=== PATIENT | female | born 1980 | race Caucasian/White ===

== ENCOUNTER → 2016-06-24 | Outpatient (CLI) | payer BC, OTHER ==
[~2016-06-24] MED LIST: LORA-741 PO; PRENTAB26 PO; TAMO20TA47 PO; TRIA37.5 PO
== END | disposition home or self-care (01) ==
LOC: C.PATHSPEC 17:36
PROVIDERS: ATTEND Obstetrics & Gynecology
DX: R87.612 Low grade squamous intraepithelial lesion on cytologic smear of cervix (LGSIL) (principal)

== ENCOUNTER → 2016-07-30 | Outpatient (CLI) | payer OTHER ==
[2015-08-06 14:50] VITALS: BP 123/82; PULSE 60
[~2016-07-30] MED LIST changes: -TAMO20TA47 PO; +TAMO20TA9 PO
[2016-07-30 14:14] VITALS: BP 127/89; PULSE 81; TEMP 36.9; O2SAT 99
--- NOTE | 2016-07-30 16:20 | Radiation Oncology Follow-Up ---
Radiation Oncology Follow-Up Date of Visit Jul 30, 2016. Reason For Visit Annual follow-up Radiation Completion Date 01/07/15 Diagnosis (1) Breast cancer, stage 2 Status: Resolved Onset Date: 03/22/2014 Histology Subtype: ductal Stage: ll Permanent Comment: SP biopsy of breast and axilla Estrogen receptor positive, progesterone receptor positive, HER-2/robert positive Clinical stage stage III Neoadjuvant chemotherapy with 6 cycles of TCH and Perjeta Status post bilateral mastectomies 09/19/2014 Tissue rotary planer set up operator placed on the left and permanent implant on the right. Pathologic stage [id number] Ongoing treatment with Herceptin Status post completion of radiation therapy 01/07/2015 received 6240 cGy Status post completion of final reconstructive surgery 07/22/2015 Ongoing treatment with tamoxifen Last Edited By: Guerita Belcher on Aug 06, 2015 16:53 History of Present Illness Ms. Pedroza is a 35-year-old female without a family history of breast cancer. She noted the onset of some left breast pain which was intermittent and mild to moderate. When she felt her breast she noted a palpable mass in the left breast in February 2014. The patient was seen by her forepart rasper who is in [place]. A bilateral mammogram was performed on 03/21/2014. This showed in the region of the identified palpable lump a mass with architectural distortion and fine calcifications within it. These changes cover an area of 5 cm in greatest dimension. She therefore underwent bilateral breast ultrasound. On 03/21/2014. No abnormal findings were noted in the right breast. The left breast a 1.3 x 1.7 x 1.2 cm spiculated hypoechoic vascular mass was appreciated with posterior shadowing. This was best seen at the 4 o'clock position of the left breast 7 cm from the nipple. Possible extensions of the mass up until 4 cm from the nipple were noted. It were several highly abnormal low-lying axillary lymph nodes seen in the axillary tail. This was given a category 5, highly suspicious for malignancy. Ultrasound-guided biopsy of the left breast and axillary lymph nodes was recommended. On 03/22/2014 core needle biopsy of the left axilla and left breast lesion was performed. Biopsy of the left axilla was positive for metastatic carcinoma. Biopsy of the left breast mass was positive for invasive ductal carcinoma histologic grade 2 of 3. The lesion was present on multiple core biopsies and measured at least 8 mm in greatest dimension. There was evidence of focal DCIS but no LCIS. There was no lymphovascular invasion appreciated. Estrogen receptors were positive (99% strong intensity). Progesterone receptors were positive (99% strong intensity). HER-2/robert was positive by FISH analysis. . The patient was seen in referral by Raquel OLEA on 03/21/2014. Additional studies were ordered. A bilateral breast MRI was performed on 04/04/2014. The right breast was unremarkable with a BI-RADS Category 2. The left breast revealed an abnormal enhancement measuring greater than 2 cm in maximal AP diameter along with prominent cluster of enhancing lymph nodes in the left axilla. These correlate with the recent biopsy findings. A PET/CT scan was performed on 04/05/2014. This showed 2 ill-defined hypermetabolic soft tissue densities in the left breast at the lower outer quadrant with SUV max of 9.5. The deeper soft tissue density is marked by a biopsy clip. They're countless hypermetabolic left axillary lymph nodes measuring up to 1.6 cm in the base of the left axillary lymph nodes extending into the subpectoral region with an SUV max of 6.2. A 3 mm pleural nodule was noted in the right middle lobe of the lung to small to characterize. No FDG avid lung parenchymal lesions, mediastinal or hilar adenopathy is appreciated. No abnormal abdominal or pelvic lesions appreciated. No abnormal musculoskeletal lesions noted. Patient was seen by Dr. Christian medical oncologist.. She states the patient has a stage III, locally advanced, invasive ductal carcinoma the left breast. Following the NCCN Guidelines she discussed neoadjuvant chemotherapy in the form of Docetaxel, Carboplatin, Herceptin and Perjeta every 3 weeks for 6 cycles. Following the completion of this regimen she would then continue with Herceptin every 3 weeks for 1 year. A Port-A-Cath was ultimately placed and systemic chemotherapy was initiated. The patient had also been seen by Dr. Bhupendra Shepard the breast surgeon and had brief discussions with Dr. Newberry the reconstructive plastic surgery and. The patient underwent genetic testing and was BRCA negative. She had decided after the completion of the chemotherapy to proceed with bilateral mastectomies and immediate breast reconstruction. The patient has been tolerating her systemic chemotherapy well. She is scheduled to start her final preoperative cycle on 08/07/2013. She underwent an MRI of the brain on 04/17/2014 which was normal with no evidence of metastatic disease. She underwent her bilateral mastectomies 09/19/2014. Right breast benign. Left breast showed small focus of residual invasive carcinoma consistent with ductal type, grade 2, measured 1.5 mm there was one of 9 lymph nodes positive for invasive carcinoma. There was a focus of invasive carcinoma within the perinodal tissue. She had placement of a tissue rotary planer set up operator on the left. A permanent implant was placed on the right. She received radiation therapy from 11/12/2014 to 01/07/2015. Treatment given to the left chest wall, supraclavicular area, and axilla. She tolerated this well. Interim History She has had no difficulty with her left chest wall over this past year. She has some mild tightness which she will periodically do stretching exercises for. She has noted no masses or tenderness no change of the axilla. She's had no swelling of her arm. In October she had a PET scan. This revealed an abnormality in the area of her appendix. She was referred and underwent an appendectomy. The path report revealed no significant acute inflammation present. Partial fibrous obliteration. Specimen [id number]. She had not had any problems with pain but there was worry of possible metastatic disease. She is on tamoxifen. She denies side effects. Allergies Coded Allergies: Apple (Verified Allergy, Unknown, ITCHY MOUTH, INDIGESTION, 12/03/15) Cat Dander (Verified Allergy, Unknown, SOB, SWELLING, CONGESTION, RUNNY EYES, 12/03/15) Erythromycin (Verified Allergy, Unknown, UNKNOWN, POSS GI UPSET A CHILD , 12/03/15) Home Medications Scheduled Multivit/Min/Iron/Fol Ac/Pren ( Vitamin), 1 TAB PO QAM Tamoxifen (Nolvadex), 20 MG PO QAM Triamterene/Hctz (Dyazide 37.5MG/25MG), 1 TAB PO QAM Scheduled PRN Lorazepam (Ativan), 0.5 MG PO Q6H PRN for Anxiety Review of Systems Gastrointestinal: Symptoms: WNL Oral: Symptoms: No Problems Respiratory: Symptoms: WNL Urinary: Symptoms: WNL Skin: Symptoms: No Problems Other Skin Symptoms: Residual willett appearance to left breast; Breast: Right Upper Arm Measurement: 29.2 Right Mid Arm Measurement: 23.7 Right Wrist Measurement: 14.7 Left Upper Arm Measurement: 28.7 Left Mid Arm Measurement: 23.0 Left Wrist Measurement: 14.6 Arm Dominence: Right Physical Exam Vital Signs Date Time Temp Pulse Resp B/P Pulse Ox O2 Delivery O2 Flow Rate FiO2 16 14:14 36.9 81 16 127/89 99 Pain: Side: Bilateral Pain Location: None Patient Pain Scale: 0 - 10 Initial Pain Intensity: 1.0 Additional Comments: From breast surgery Fatigue: None General Appearance: no apparent distress Eyes: normal inspection, EOMI ENT: normal ENT inspection, hearing grossly normal Neck: no adenopathy, thyroid normal Respiratory/Chest: lungs clear, no respiratory distress, no accessory muscle use Breast: Breast examination reveals bilateral implants. There are no masses or tenderness and no axillary adenopathy. She has mild telangiectasia along the incision of the inframammary fold on the left. The implant easily compressed. Using the [place] score cosmesis she has a good outcome. Cardiovascular: regular rate, rhythm, no gallop, no murmur Abdomen: non tender, soft Extremities: no pedal edema Neurologic/Psychiatric: no motor/sensory deficits, alert, normal mood/affect Skin: warm/dry Lymphatic: no adenopathy Assessment & Plan Plan: Continue regular follow-up with her medical oncologist and breast surgeon. She will do stretching exercises to help occasional tightness in the shoulder. We discussed exercise and to avoid repetitive long periods of weight lifting. She states that she does only a few repetitions and we'll then take a break. We discussed follow-up. We have asked her to return on a yearly basis for 5 years. She was in agreement to continue with follow-up. She'll therefore return in 1 year. Total Time In Follow-Up I spent 20 minutes speaking to the patient performing examination. I spent 15 minutes reviewing information and completing this note. Copy To Socrates Christian D.O.; Jordan Morris DO; Ora Shepard M.D. Problem Qualifiers (1) Breast cancer, stage 2: Laterality: left Qualified Codes: C50.912 - Malignant neoplasm of unspecified site of left female breast
== END | disposition home or self-care (01) ==
LOC: C.ONC 13:58
PROVIDERS: ATTEND Physician Assistant Medical
DX: Z08 Encounter for follow-up examination after completed treatment for malignant neoplasm (principal); Z92.3 Personal history of irradiation; Z85.3 Personal history of malignant neoplasm of breast

== ENCOUNTER → 2016-08-10 | Outpatient (CLI) | payer OTHER ==
[~2016-08-10] MED LIST changes: +TAMO20TA47 PO; -TAMO20TA9 PO
[2016-08-10 15:50] LABS: BASO % 0.6 %; BASO ABS # 0.03 K/uL (0-0.2); COMPLETE YES; EOS % 2.3 %; HEMATOCRIT 34.4 % (37-47); IG% 0.4 %; LYMPH % 32.4 %; LYMPH ABS # 1.58 K/uL (1.2-3.4); MEAN CELL VOLUME 92.5 fL (80-100); MEAN CORPUSCULAR HEMOGLOBIN 32.3 pg (25-34); MEAN CORPUSCULAR HGB CONC 34.9 g/dl (32-36); MEAN PLATELET VOLUME 11.2 fL (7.4-10.4); MONO % 10.5 %; NEUT % 53.8 %; PLATELET COUNT 332 K/uL (130-400); RED BLOOD COUNT 3.72 M/uL (4.2-5.4); WHITE BLOOD COUNT 4.87 K/uL (4.8-10.8)
[2016-08-10 16:12] LABS: ALT/SGPT 34 U/L (12-78); AST/SGOT 27 U/L (15-37); BLOOD UREA NITROGEN 11 mg/dl (7-18); BUN/CREATININE RATIO 13.4 (10-20); CALCIUM 9.7 mg/dl (8.5-10.1); CARBON DIOXIDE 30 mmol/L (21-32); CHLORIDE 98 mmol/L (98-107); CREATININE 0.83 mg/dl (0.60-1.20); GLUCOSE 79 mg/dl (70-99); POTASSIUM 3.1 mmol/L (3.5-5.1); SODIUM 134 mmol/L (136-145)
[2016-08-10 16:15] LABS: ALKALINE PHOSPHATASE 25 U/L (45-117)
== END | disposition home or self-care (01) ==
LOC: C.LAB 14:34
PROVIDERS: ATTEND Internal Medicine Hematology & Oncology
DX: C50.512 Malignant neoplasm of lower-outer quadrant of left female breast (principal)

== ENCOUNTER → 2016-09-30 | Outpatient (CLI) | payer OTHER ==
[~2016-09-30] MED LIST changes: -TAMO20TA47 PO; +TAMO20TA9 PO
--- NOTE | 2016-09-30 11:55 | DIAGNOSTIC IMAGING REPORT ---
PET/CT HISTORY: BREAST CANCER TECHNIQUE: PET/CT was performed from the base of the skull through the pelvis following the intravenous administration of 13.6 mCi of F18-FDG. Non-contrast CT imaging was performed over the same range without breath-hold for attenuation correction of PET images and anatomic correlation, but not for primary interpretation as it is not of standard diagnostic quality. COMPARISON: PET CT 11/04/2015. FINDINGS: HEAD AND NECK: Symmetric FDG uptake within the bilateral palatine tonsils. Therefore, this is likely physiologic. There is mild FDG uptake seen within a few of the bilateral jugulodigastric cervical lymph nodes. These are not significantly changed in size. These demonstrate an SUV max of 3. Dominant lymph node measures 10 x 6 mm in size on the right. CHEST: There is no pleural or pericardial effusion. There are total of 3 subcentimeter nodules within the right lung which are stable in size. The largest measures 3 within the right middle lobe . No new pulmonary nodules identified. Bilateral mastectomies with implant reconstruction. The FDG uptake surrounding the implants has resolved. There is a 1.2 cm cystic nodule within the left axilla seen on the prior study has a most completely resolved and now measures 5 mm.. There are few subcentimeter left axillary lymph nodes which have decreased in size. The FDG uptake has resolved. ABDOMEN/PELVIS: Below the diaphragm, tracer is distributed physiologically in the gastrointestinal and genitourinary tracts. Trace pelvic free fluid, unchanged. The right ovarian FDG uptake has resolved. Patchy FDG uptake within the left ovary has progressed within SUV max of 8. There is also a focal area of patchy FDG uptake within the lower uterine segment/cervix with an SUV max of 6. This measures 2.4 cm in size. No corresponding abnormality by CT. No FDG avid hepatic, splenic, or adrenal gland lesions. MUSCULOSKELETAL: There is no FDG-avid or destructive bone lesion. IMPRESSION: 1. No definite evidence for FDG avid metastatic disease. 2. The left axillary lymph node/nodules have decreased in size and no longer demonstrate FDG uptake.. 3. Stable subcentimeter right lung nodules. These do not demonstrate abnormal FDG uptake but are likely below the threshold for PET imaging. These favor benign nodules. Continued follow-up recommended. 4. Symmetric bilateral palatine tonsil FDG uptake and a few upper cervical lymph nodes demonstrating mild FDG uptake. This is unlikely to represent metastatic disease. However, follow-up is recommended to ensure stability/resolution. 5. The right ovarian uptake has resolved. Moderate to intense left ovarian uptake has progressed. This may be physiologic. There is also a 2.4 cm patchy area of moderate FDG uptake within the lower uterine segment/cervix. This may also be physiologic. Follow-up nonemergent pelvic ultrasound can be performed for confirmation. 6. Trace pelvic free fluid which is also likely physiologic. Electronically signed by: Demian Mejia M.D. 09/30/2016 11:54 AM Dictated Date/Time: 09/30/2016 11:30 AM
== END | disposition home or self-care (01) ==
LOC: C.PET 09:31
PROVIDERS: ATTEND Surgery
DX: C50.512 Malignant neoplasm of lower-outer quadrant of left female breast (principal)

== ENCOUNTER → 2017-01-06 | Outpatient (CLI) | payer OTHER ==
[~2017-01-06] MED LIST changes: +TAMO20TA47 PO; -TAMO20TA9 PO
== END | disposition home or self-care (01) ==
LOC: C.PAPS 09:00
PROVIDERS: ATTEND Obstetrics & Gynecology
DX: R87.612 Low grade squamous intraepithelial lesion on cytologic smear of cervix (LGSIL) (principal)

== ENCOUNTER → 2017-02-08 | Outpatient (CLI) | payer OTHER ==
[2017-02-08 16:24] LABS: BASO % 0.3 %; BASO ABS # 0.02 K/uL (0-0.2); COMPLETE YES; EOS % 4.5 %; HEMATOCRIT 34.6 % (37-47); IG% 0.8 %; LYMPH % 30.5 %; LYMPH ABS # 2.35 K/uL (1.2-3.4); MEAN CELL VOLUME 93.3 fL (80-100); MEAN CORPUSCULAR HEMOGLOBIN 31.8 pg (25-34); MEAN CORPUSCULAR HGB CONC 34.1 g/dl (32-36); MEAN PLATELET VOLUME 10.7 fL (7.4-10.4); MONO % 4.4 %; NEUT % 59.5 %; PLATELET COUNT 307 K/uL (130-400); RED BLOOD COUNT 3.71 M/uL (4.2-5.4); WHITE BLOOD COUNT 7.71 K/uL (4.8-10.8)
[2017-02-08 16:47] LABS: ALT/SGPT 22 U/L (12-78); BLOOD UREA NITROGEN 14 mg/dl (7-18); BUN/CREATININE RATIO 18.3 (10-20); CALCIUM 9.3 mg/dl (8.5-10.1); CARBON DIOXIDE 26 mmol/L (21-32); CHLORIDE 101 mmol/L (98-107); CREATININE 0.78 mg/dl (0.60-1.20); GLUCOSE 85 mg/dl (70-99); POTASSIUM 3.4 mmol/L (3.5-5.1); SODIUM 136 mmol/L (136-145)
[2017-02-08 16:50] LABS: ALKALINE PHOSPHATASE 29 U/L (45-117); AST/SGOT 17 U/L (15-37)
== END | disposition home or self-care (01) ==
LOC: C.LAB 15:33
PROVIDERS: ATTEND Internal Medicine Hematology & Oncology
DX: C50.512 Malignant neoplasm of lower-outer quadrant of left female breast (principal)

== ENCOUNTER → 2017-03-29 | Outpatient (CLI) | payer OTHER ==
[~2017-03-29] MED LIST changes: -TAMO20TA47 PO; +TAMO20TA9 PO
--- NOTE | 2017-03-29 11:27 | DIAGNOSTIC IMAGING REPORT ---
PET/CT SKULL-THIGH CLINICAL HISTORY: 37 years-old Female presenting with BREAST CANCER, malignant neoplasm of the upper outer quadrant of the left breast diagnosed 2014 ([facility]), bilateral total mastectomy is 2014 with reconstruction, on tamoxifen, last treatment December 2014. TECHNIQUE: PET/CT was performed from the base of the skull through the proximal thighs following the intravenous administration of 12.979 mCi of F18-FDG. Blood glucose level 83 mg/dL. The injection was performed at 9:12 AM and imaging began at 10:[address] was performed for attenuation correction purposes and anatomic localization. COMPARISON: 09/30/2016. CT DOSE (mGy.cm): The estimated cumulative dose is 419.40 mGycm. FINDINGS: Head and neck: Interval development of a FDG avid left jugulodigastric lymph node, measuring 12 mm in long axis (max SUV 3.7, previously max SUV 3.3). A similar sized right jugulodigastric lymph node with mild FDG avidity is no longer present (max SUV 2.0, previously max SUV 3.9). Persistent bilateral tonsillar FDG avidity (max SUV 5.4 on the right, previously max SUV 9.1; max SUV 5.0 on the left, previously max SUV 9.8). Chest: Postsurgical changes of bilateral total mastectomy is with bilateral breast implants. No surrounding nodular FDG avidity to suggest residual or recurrent disease. Subcentimeter left axillary lymph nodes are not FDG avid. No enlarged or FDG avid internal mammary or mediastinal lymphadenopathy. Normal heart size. Stable solid right middle lobe nodule (series 3 image 97) stable additional punctate nodules in the right lower lobe, one poorly visualized on the current exam. No new nodule or FDG avidity in the lungs. Minimal dependent changes at the right lung base likely atelectasis. Airways patent. Abdomen and pelvis: Below the diaphragm, physiologic tracer distribution in the gastrointestinal and genitourinary tracts. Decreased FDG avidity along the globular posterior fundal aspect of the uterus (max SUV 3.2, previously max SUV 6.0). Resolution of FDG avidity within the left ovary (max SUV 1.5, previously max SUV 8.1), though the ovary remains enlarged. Right ovary poorly visualized without abnormal FDG avidity. Post surgical changes of appendectomy. Mild stool burden. No bowel obstruction. Subcentimeter lymph node in the left external iliac region with mild FDG avidity has resolved (previously max SUV 3.9). No enlarged or other FDG avid lymph nodes in abdomen or pelvis. Musculoskeletal: No FDG avid or destructive osseous lesion. IMPRESSION: 1. Follow-up PET/CT demonstrates no evidence of FDG avid metastatic disease in the visualized portion of the body. 2. Stable diminutive right pulmonary nodules, which are below the level of PET resolution and favored to be benign. No FDG avidity in the lungs. 3. Interval resolution of FDG avidity of the left ovary, although the left ovary appears enlarged. This is incompletely characterized. Follow-up pelvic ultrasound could be considered. 4. Decreased FDG avidity at the posterior fundus of the uterus, which is somewhat globular in configuration. This could suggest the presence of adenomyosis or leiomyoma. Electronically signed by: Gustavo Zurita M.D. 03/29/2017 11:25 AM Dictated Date/Time: 03/29/2017 10:59 AM
== END | disposition home or self-care (01) ==
LOC: C.PET 08:33
PROVIDERS: ATTEND Internal Medicine Hematology & Oncology
DX: C50.512 Malignant neoplasm of lower-outer quadrant of left female breast (principal)

== ENCOUNTER → 2017-07-29 | Outpatient (CLI) | payer OTHER | END | disposition home or self-care (01) | LOC: C.PAPS 09:46 | PROVIDERS: ATTEND Obstetrics & Gynecology | DX: Z12.4 Encounter for screening for malignant neoplasm of cervix (principal); N87.0 Mild cervical dysplasia ==

== ENCOUNTER → 2017-08-02 | Outpatient (CLI) | payer OTHER ==
[2017-08-02 09:33] LABS: BASO % 0.6 %; BASO ABS # 0.04 K/uL (0-0.2); EOS % 3.4 %; EOS ABS # 0.23 K/uL (0-0.5); HEMATOCRIT 37.6 % (37-47); HEMOGLOBIN 12.5 g/dL (12.0-16.0); IG# 0.06 K/uL (0.00-0.02); LYMPH ABS # 2.16 K/uL (1.2-3.4); MEAN CELL VOLUME 94.5 fL (80-100); MEAN CORPUSCULAR HEMOGLOBIN 31.4 pg (25-34); MEAN CORPUSCULAR HGB CONC 33.2 g/dl (32-36); MONO ABS # 0.47 K/uL (0.11-0.59); NEUT % 56.1 %; NEUT ABS # 3.79 K/uL (1.4-6.5); PLATELET COUNT 298 K/uL (130-400); RED CELL DISTRIBUTION WIDTH CV 12.6 % (11.5-14.5); RED CELL DISTRIBUTION WIDTH SD 43.6 fL (36.4-46.3); WHITE BLOOD COUNT 6.75 K/uL (4.8-10.8)
[2017-08-02 09:47] LABS: ALBUMIN 3.4 gm/dl (3.4-5.0); ALT/SGPT 21 U/L (12-78); BLOOD UREA NITROGEN 16 mg/dl (7-18); CALCIUM 9.4 mg/dl (8.5-10.1); CARBON DIOXIDE 26 mmol/L (21-32); CREATININE 0.97 mg/dl (0.60-1.20); GLUCOSE 93 mg/dl (70-99); SODIUM 138 mmol/L (136-145)
[2017-08-02 09:58] LABS: ALKALINE PHOSPHATASE 31 U/L (45-117); AST/SGOT 12 U/L (15-37); TOTAL PROTEIN 7.5 gm/dl (6.4-8.2)
== END | disposition home or self-care (01) ==
LOC: C.LAB 08:28
PROVIDERS: ATTEND Internal Medicine Hematology & Oncology
DX: C50.512 Malignant neoplasm of lower-outer quadrant of left female breast (principal)

== ENCOUNTER 2021-10-04 17:01 | Inpatient (IN) ==
--- NOTE | 2021-10-04 17:14 | Emergency Department Note ---
Impression & Plan Acute hyponatremia, Nausea & vomiting, Hypokalemia ED Provider Note NAME: ZAYNAB MOREL AGE: 41 SEX: F : 1980 ARRIVES VIA: Walk-In INFORMANT: Patient, ED PROVIDER(S): Raul Shen MD Chief Complaint: Cough, nausea vomiting HPI: Patient presents due to concern for cough and associated nausea and vomitin g. The patient states that she has had some posttussive emesis but is also had some associated nausea resulting in vomiting. The patient states she will occasionally drink alcohol but does not admit to daily drinking. The patient denies any tobacco or drug use. Patient thinks that she had a fever last Wednesday but this is since resolved. Patient believes that her symptoms of gotten progressively worse since they began. The patient states she does have productive sputum. Patient denies any chest pains or shortness of breath. No recent travel or known sick contacts. The patient seen in the outpatient setting and was started on amoxicillin and was not sure whether or not this may be contributory as this was the same date that she did develop nausea with vomiting. Patient denies any stream or well water use. Patient has had the recent antibiotic of amoxicillin. The patient denies any diarrhea. While the patient has nausea the patient does not complain of any abdominal pain. Patient did have a recent negative COVID test. ROS: See HPI for pertinent positives and negatives. A total of 10 systems were reviewed and otherwise negative. Past medical history: See below Surgical history: See below Social history: See below Physical Exam: GENERAL: NAD, wearing a mask, non-toxic. EYE EXAM: Normal conjunctiva. PERRL, no anisocoria and EOM's grossly intact w/o pain. NECK: Supple, no nuchal rigidity, no adenopathy, non-tender. No signs of meningismus. LUNGS: Clear to auscultation. Normal chest wall mechanics. HEART: NSR, no MRG. ABDOMEN: Abdomen soft, non-tender, normo-active bowel sounds, no masses, no rebound or guarding. BACK: No CVA TTP. SKIN: No rashes and no bruising. UPPER EXTREMITIES: Upper extremities are grossly normal. LOWER EXTREMITIES: Grossly normal, no edema. NEURO EXAM: A&O x3, cranial nerves II-XII grossly intact, normal speech, moves all 4 extremities on command w/o issue. Differential diagnoses: Infection, dehydration, metabolic abnormality, h ypo/hyperglycemia, electrolyte disturbance, anemia, hypoxia, cardiac sources, intracerebral event, toxicologic, neurologic, as well as other pathologies. Course: Patient was seen and evaluated the bedside. Full history physical exam was performed. EKG interpreted by Sinus with first-degree AV block, rate of 70, prolonged FL, normal QRS, normal axis. Imaging Studies: See Below Cardiac monitoring: An order was placed for continuous cardiac monitoring. The monitor shows a rate of 72 with sinus rhythm. MDM: Patient was seen due to concern for nausea vomiting and cough. Blood work is o btained along with a chest x-ray. The patient wanted a repeat COVID swab completed which was ordered. Patient's blood work did show a white count of 17 with a normal hemoglobin. Mild thrombocytosis at 46. The patient did have significant hyponatremia at 115 with associated hypokalemia. Urine and serum awesome's were ordered along with urine electrolytes. The patient did have a mag ordered. Patient did receive IV fluids. The patient's COVID was negative. Chest x-ray showed possible nodule. CT of the chest was ordered. I did speak with the on-call hospitalist Dr. Javier and the patient was admitted to the medicine service. CT of the chest was pending at the time of admission. Past Med/Surg History Medical History (Updated 10/04/21 @ 21:17 by Raul Shen MD) Breast cancer, stage 2 (03/22/14) "SP biopsy of breast and axilla Estrogen receptor positive, progesterone receptor positive, HER-2/robert positive Clinical stage stage III Neoadjuvant chemotherapy with 6 cycles of TCH and Perjeta Status post bilateral mastectomies 09/19/2014 Tissue last trimmer placed on the left and permanent implant on the right. Pathologic stage ypTIaypNImi M0 Ongoing treatment with Herceptin Status post completion of radiation therapy 01/07/2015 received 6240 cGy Status post completion of final reconstructive surgery 07/22/2015 Ongoing treatment with tamoxifen" On 02/06/15 16:01 Guerita Belcher wrote "SP biopsy of breast and axilla Estrogen receptor positive, progesterone receptor positive, HER-2/robert positive Clinical stage stage III Neoadjuvant chemotherapy with 6 cycles of TCH and Perjeta Status post bilateral mastectomies 09/19/2014 Tissue last trimmer placed on the left and permanent implant on the right. Pathologic stage ypTIaypNImi M0 Ongoing treatment with Herceptin Status post completion of radiation therapy 01/07/2015 received 6240 cGy" On 01/14/15 13:36 Guerita Belcher wrote "SP biopsy of breast and axilla Kristine receptor positive, progesterone receptor positive, HER-2/robert positive Clinical stage stage III Neoadjuvant chemotherapy with 6 cycles of TCH and Perjeta Status post bilateral mastectomies 09/19/2014 Tissue last trimmer placed on the left and permanent implant on the right. Pathologic stage ypTIaypNImi M0 Ongoing treatment with Herceptin Status post completion of radiation therapy 01/07/2015 received 6240 cGy" On 11/01/14 09:04 Guerita Belcher wrote "SP biopsy of breast and axilla Kristine receptor positive, progesterone receptor positive, HER-2/robert positive Clinical stage stage III Neoadjuvant chemotherapy with 6 cycles of TCH and Perjeta Status post bilateral mastectomies 09/19/2014 Tissue last trimmer placed on the left and permanent implant on the right. Pathologic stage ypTIaypNImi M0 Ongoing treatment with Herceptin " Cervical intraepithelial neoplasia (FRANCHESCA) Herpes simplex of female genitalia History of high blood pressure Infiltrating ductal carcinoma of left breast Thyroid nodule Surgical History (Updated 07/14/19 @ 10:03 by Abril Ross) History of appendectomy History of bilateral mastectomy bilat mast, left ALND History of breast reconstruction Family History (Updated 07/14/19 @ 10:04 by Abril Ross) Mother Hypertension Grandmother Cancer maternal great grandmother Social History (Updated 07/14/19 @ 10:04 by Abril Ross) Smoking Status: Never smoker Feels Safe at Home: Yes Allergies Allergies Allergy/AdvReac Type Severity Reaction Status Date / Time apple Allergy Unknown ITCHY Verified 10/04/21 18:40 MOUTH, INDIGESTION cat dander Allergy Unknown SOB, Verified 10/04/21 18:40 SWELLING, CONGESTION, RUNNY EYES erythromycin base Allergy Unknown UNKNOWN, Verified 10/04/21 18:40 POSS GI UPSET A CHILD Home Meds Home Medications Medication Instructions Recorded Confirmed triamterene 37.5 1 cap PO DAILY 12/21/18 10/04/21 mg-hydrochlorothiazide 25 mg capsule albuterol sulfate 90 mcg/actuation 1 puff INHALATION Q4 PRN 10/04/21 10/04/21 aerosol inhaler amoxicillin 875 mg-potassium 1 tab PO BID 10/04/21 10/04/21 clavulanate 125 mg tablet benzonatate 100 mg capsule 100 mg PO TID PRN 10/04/21 10/04/21 hydrocodone 10 mg-chlorpheniramine 5 ml PO BID 10/04/21 10/04/21 8 mg/5 mL oral susp extend.rel 12hr tamoxifen 20 mg tablet 20 mg PO DAILY 10/04/21 10/04/21 Results & Data (ED) Vital Signs Vital Signs - 24 hr 10/04/21 17:03 10/04/21 17:45 10/04/21 18:12 Temperature 36.5 C Temperature Source Temporal Artery Scan Pulse Rate 77 67 Pulse Rate [Finger] 66 Respiratory Rate 16 18 Respiratory Effort / Characteristics Non-Labored Spontaneous Respiratory Depth Normal Respiratory Pattern Regular Blood Pressure 139/101 H Blood Pressure [Right Arm] 129/88 Blood Pressure Mean 113 Blood Pressure Mean [Right Arm] 101 Blood Pressure Position Sitting Blood Pressure Position [Right Arm] Sitting Pulse Oximetry 96 96 96 Oxygen Delivery Method Room Air Room Air Room Air Sepsis Recent Fever Within 48 Hours No Sepsis New/Unexplained Change in Mental Status No Sepsis Action Taken by Nursing No Action Required Laboratory Data Result diagrams: 10/04/21 17:41 10/04/21 19:11 Lab Results 10/04/21 10/04/21 10/04/21 Range/Units 17:41 17:41 17:47 WBC 17.83 H (4.8-10.8) K/uL RBC 3.96 L (4.2-5.4) M/uL Hgb 12.3 (12.0-16.0) g/dL Hct 32.9 L (37-47) % MCV 83.1 (80-100) fL MCH 31.1 (25-34) pg MCHC 37.4 H (32-36) g/dL RDW Std Deviation 34.4 L (36.4-46.3) fL RDW Coeff of Maite 11.3 L (11.5-14.5) % Plt Count 486 H (130-400) K/uL MPV 10.1 (7.4-10.4) fL Neutrophils % (Manual) 86.5 % Lymphocytes % (Manual) 11.9 % Monocytes % (Manual) 0.8 % Eosinophils % (Manual) 0.8 % Neutrophils # (Manual) 15.42 H (1.4-6.5) K/uL Total Absolute Neuts 15.42 H (1.4-6.5) K/uL Lymphocytes # (Manual) 2.12 (1.2-3.4) K/uL Total Abs Lymphocytes 2.12 (1.2-3.4) K/uL Monocytes # (Manual) 0.14 (0.11-0.59) K/uL Eosinophils # (Manual) 0.14 (0-0.5) K/uL RBC Morphology Unremarkable Sodium 115 L* (136-145) mmol/L Potassium 3.1 L (3.5-5.1) mmol/L Chloride 77 L (98-107) mmol/L Carbon Dioxide 24 (21-32) mmol/L Anion Gap 14 H (3-11) BUN 8 (6-23) mg/dl Creatinine 0.50 L (0.6-1.2) mg/dl Est Cr Clr Drug Dosing 148.1 ml/min Est GFR ( Amer) 137.4 ml/min Est GFR (Non-Af Amer) 118.5 ml/min BUN/Creatinine Ratio 16.0 (10-20) Glucose 106 H (70-99(Fasting)) mg/dl Osmolality (280-300) mOsm/kg Calcium 8.9 (8.5-10.1) mg/dl Magnesium (1.7-2.4) mg/dl Total Bilirubin 0.4 (0.2-1.0) mg/dl AST 40 H (13-39) U/L ALT 28 (7-52) U/L Alkaline Phosphatase 38 (34-104) U/L Total Protein 7.6 (6.0-8.3) gm/dl Albumin 3.8 (3.4-5.0) gm/dl Globulin 3.8 (2.5-4.0) gm/dl Albumin/Globulin Ratio 1.0 (0.9-2) Urine Osmolality (500-800) mOsm/kg Ur Random Sodium Urine Sodium mmol/L Urine Potassium mmol/L Urine Chloride mmol/L Adenovirus (PCR) (NotDetected) B. pertussis DNA (PCR) (NotDetected) B.parapertussis DNA PCR (NotDetected) C. pneumoniae DNA (PCR) (NotDetected) Coronavirus OC43 (PCR) (NotDetected) Coronavirus HKU1 (PCR) (NotDetected) Coronavirus 229E (PCR) (NotDetected) SARS-CoV-2 (PCR) (NotDetected) Coronavirus NL63 (PCR) (NotDetected) Human Metapneumovir PCR (NotDetected) Influenza Type A (PCR) (NotDetected) Influenza Type B (PCR) (NotDetected) M. pneumoniae (PCR) (NotDetected) Parainfluenza 1 (PCR) (NotDetected) Parainfluenza 2 (PCR) (NotDetected) Parainfluenza 3 (PCR) (NotDetected) Parainfluenza 4 (PCR) (NotDetected) RSV (PCR) (NotDetected) Entero/Rhino (PCR) (NotDetected) SARS-CoV-2, RNA, NAAT NEGATIVE (NEGATIVE) 10/04/21 10/04/21 10/04/21 Range/Units 18:55 19:11 19:11 WBC (4.8-10.8) K/uL RBC (4.2-5.4) M/uL Hgb (12.0-16.0) g/dL Hct (37-47) % MCV (80-100) fL MCH (25-34) pg MCHC (32-36) g/dL RDW Std Deviation (36.4-46.3) fL RDW Coeff of Maite (11.5-14.5) % Plt Count (130-400) K/uL MPV (7.4-10.4) fL Neutrophils % (Manual) % Lymphocytes % (Manual) % Monocytes % (Manual) % Eosinophils % (Manual) % Neutrophils # (Manual) (1.4-6.5) K/uL Total Absolute Neuts (1.4-6.5) K/uL Lymphocytes # (Manual) (1.2-3.4) K/uL Total Abs Lymphocytes (1.2-3.4) K/uL Monocytes # (Manual) (0.11-0.59) K/uL Eosinophils # (Manual) (0-0.5) K/uL RBC Morphology Sodium 116 L* (136-145) mmol/L Potassium 3.2 L (3.5-5.1) mmol/L Chloride 80 L (98-107) mmol/L Carbon Dioxide 25 (21-32) mmol/L Anion Gap 11 (3-11) BUN 7 (6-23) mg/dl Creatinine 0.47 L (0.6-1.2) mg/dl Est Cr Clr Drug Dosing 157.5 ml/min Est GFR ( Amer) 140.2 ml/min Est GFR (Non-Af Amer) 121.0 ml/min BUN/Creatinine Ratio 14.9 (10-20) Glucose 97 (70-99(Fasting)) mg/dl Osmolality 239 L* (280-300) mOsm/kg Calcium 8.3 L (8.5-10.1) mg/dl Magnesium 1.7 (1.7-2.4) mg/dl Total Bilirubin (0.2-1.0) mg/dl AST (13-39) U/L ALT (7-52) U/L Alkaline Phosphatase (34-104) U/L Total Protein (6.0-8.3) gm/dl Albumin (3.4-5.0) gm/dl Globulin (2.5-4.0) gm/dl Albumin/Globulin Ratio (0.9-2) Urine Osmolality (500-800) mOsm/kg Ur Random Sodium Urine Sodium mmol/L Urine Potassium mmol/L Urine Chloride mmol/L Adenovirus (PCR) Not Detected (NotDetected) B. pertussis DNA (PCR) Not Detected (NotDetected) B.parapertussis DNA PCR Not Detected (NotDetected) C. pneumoniae DNA (PCR) Not Detected (NotDetected) Coronavirus OC43 (PCR) Not Detected (NotDetected) Coronavirus HKU1 (PCR) Not Detected (NotDetected) Coronavirus 229E (PCR) Not Detected (NotDetected) SARS-CoV-2 (PCR) Not Detected (NotDetected) Coronavirus NL63 (PCR) Not Detected (NotDetected) Human Metapneumovir PCR Not Detected (NotDetected) Influenza Type A (PCR) Not Detected (NotDetected) Influenza Type B (PCR) Not Detected (NotDetected) M. pneumoniae (PCR) Not Detected (NotDetected) Parainfluenza 1 (PCR) Not Detected (NotDetected) Parainfluenza 2 (PCR) Not Detected (NotDetected) Parainfluenza 3 (PCR) Not Detected (NotDetected) Parainfluenza 4 (PCR) Not Detected (NotDetected) RSV (PCR) Not Detected (NotDetected) Entero/Rhino (PCR) Not Detected (NotDetected) SARS-CoV-2, RNA, NAAT (NEGATIVE) 10/04/21 10/04/21 10/04/21 Range/Units Unknown Unknown Unknown WBC (4.8-10.8) K/uL RBC (4.2-5.4) M/uL Hgb (12.0-16.0) g/dL Hct (37-47) % MCV (80-100) fL MCH (25-34) pg MCHC (32-36) g/dL RDW Std Deviation (36.4-46.3) fL RDW Coeff of Maite (11.5-14.5) % Plt Count (130-400) K/uL MPV (7.4-10.4) fL Neutrophils % (Manual) % Lymphocytes % (Manual) % Monocytes % (Manual) % Eosinophils % (Manual) % Neutrophils # (Manual) (1.4-6.5) K/uL Total Absolute Neuts (1.4-6.5) K/uL Lymphocytes # (Manual) (1.2-3.4) K/uL Total Abs Lymphocytes (1.2-3.4) K/uL Monocytes # (Manual) (0.11-0.59) K/uL Eosinophils # (Manual) (0-0.5) K/uL RBC Morphology Sodium (136-145) mmol/L Potassium (3.5-5.1) mmol/L Chloride (98-107) mmol/L Carbon Dioxide (21-32) mmol/L Anion Gap (3-11) BUN (6-23) mg/dl Creatinine (0.6-1.2) mg/dl Est Cr Clr Drug Dosing ml/min Est GFR ( Amer) ml/min Est GFR (Non-Af Amer) ml/min BUN/Creatinine Ratio (10-20) Glucose (70-99(Fasting)) mg/dl Osmolality (280-300) mOsm/kg Calcium (8.5-10.1) mg/dl Magnesium (1.7-2.4) mg/dl Total Bilirubin (0.2-1.0) mg/dl AST (13-39) U/L ALT (7-52) U/L Alkaline Phosphatase (34-104) U/L Total Protein (6.0-8.3) gm/dl Albumin (3.4-5.0) gm/dl Globulin (2.5-4.0) gm/dl Albumin/Globulin Ratio (0.9-2) Urine Osmolality 412 L (500-800) mOsm/kg Ur Random Sodium Cancelled Urine Sodium 85 mmol/L Urine Potassium 52.9 mmol/L Urine Chloride 79 mmol/L Adenovirus (PCR) (NotDetected) B. pertussis DNA (PCR) (NotDetected) B.parapertussis DNA PCR (NotDetected) C. pneumoniae DNA (PCR) (NotDetected) Coronavirus OC43 (PCR) (NotDetected) Coronavirus HKU1 (PCR) (NotDetected) Coronavirus 229E (PCR) (NotDetected) SARS-CoV-2 (PCR) (NotDetected) Coronavirus NL63 (PCR) (NotDetected) Human Metapneumovir PCR (NotDetected) Influenza Type A (PCR) (NotDetected) Influenza Type B (PCR) (NotDetected) M. pneumoniae (PCR) (NotDetected) Parainfluenza 1 (PCR) (NotDetected) Parainfluenza 2 (PCR) (NotDetected) Parainfluenza 3 (PCR) (NotDetected) Parainfluenza 4 (PCR) (NotDetected) RSV (PCR) (NotDetected) Entero/Rhino (PCR) (NotDetected) SARS-CoV-2, RNA, NAAT (NEGATIVE) Administered Medications Discontinued Medications Benzonatate (Benzonatate 100 Mg Capsule) 100 mg PO NOW ONE Stop: 10/04/21 17:32 Last Admin: 10/04/21 18:09 Dose: 100 mg Documented by: [id number] Sodium Chloride (Nss 1000ml) 1,000 mls @ 999 mls/hr IV .Q1H1M ALLISON Stop: 10/04/21 18:30 Last Infusion: 10/04/21 18:52 Dose: 0 mls/hr Documented by: [id number] Admin: 10/04/21 18:07 Dose: 999 mls/hr Documented by: [id number] Ceftriaxone Sodium (Rocephin) 2,000 mg in 70 mls @ 140 mls/hr IV DAILY STA Stop: 10/04/21 19:59 Last Admin: 10/04/21 20:52 Dose: 140 mls/hr Documented by: [id number] Ioversol (Optiray 320 100ml) 94 ml IV ONCE ONE Stop: 10/04/21 20:36 Last Admin: 10/04/21 20:35 Dose: 94 ml Documented by: [id number] Methylprednisolone (Methylprednisolone 40 Mg/Ml Vial) 40 mg IV NOW STA Stop: 10/04/21 17:29 Last Admin: 10/04/21 18:10 Dose: 40 mg Documented by: [id number] Ondansetron HCl (Ondansetron Inj 2 Mg/Ml 2 Ml Vial) 4 mg IV NOW STA Stop: 10/04/21 17:29 Last Admin: 10/04/21 18:10 Dose: 4 mg Documented by: [id number] Potassium Chloride (Potassium Chloride Crtab 20 Meq Tabcr) 40 meq PO NOW STA Stop: 10/04/21 18:41 Last Admin: 10/04/21 18:51 Dose: 40 meq Documented by: [id number] Potassium Chloride (Potassium Chloride Crtab 20 Meq Tabcr) 40 meq PO NOW STA Stop: 10/04/21 19:31 Last Admin: 10/04/21 20:53 Dose: 40 meq Documented by: [id number] Imaging Data Radiologist's Impression: Chest X-Ray 10/04/21 17:28 XR chest 1V portable CLINICAL HISTORY: Weakness. COMPARISON STUDY: Chest radiograph November 27, 2015. FINDINGS: Lung volumes are normal. No consolidation to suggest pneumonia. There is an equivocal 8 mm right upper lobe nodule. There is no pneumothorax or pleural effusion. Cardiac size is normal. Mediastinal contours are normal. There is no evidence for pulmonary edema. Bilateral breast implants are incidentally noted. IMPRESSION: 1. No acute cardiopulmonary findings. 2. Equivocal 8 mm right upper lobe nodule. This is probably artifactual however a nonemergent chest CT is recommended. ACT 112: Negative or not required by law. Electronically signed by: Sam Browne M.D. 10/04/2021 5:54 PM Discharge Plan Visit Data Chief Complaint: Cough Stated Complaint: COUGH, FEVER ON AND OFF, DIZZY, NAUSEA ED Provider: Raul Shen Discharge Problem: Acute hyponatremia, Nausea & vomiting, Hypokalemia Forms Stand Alone Forms: [place] Prescriptions Prescriptions: No Action triamterene-hydrochlorothiazid 37.5-25 mg capsule 1 cap PO DAILY RF: 0 tamoxifen 20 mg tablet 20 mg PO DAILY RF: 0 benzonatate 100 mg capsule 100 mg PO TID PRN (Reason: Cough) RF: 0 hydrocodone-chlorpheniramine 10-8 mg/5 mL suspension,extended rel 12 hr 5 ml PO BID RF: 0 amoxicillin-pot clavulanate 875-125 mg tablet 1 tab PO BID RF: 0 albuterol sulfate 90 mcg/actuation HFA aerosol inhaler 1 puff INHALATION Q4 PRN (Reason: Dyspnea) RF: 0 Referrals Referrals: Jordan Morris [Primary Care Provider] -
[2021-10-04] MEDS ORDERED: ONDANSETRON INJ 2 MG/ML 2 ML VIAL IV STA (17:28)
[2021-10-04] MEDS ORDERED: SODIUM CHLORIDE 0.9% 1000ML 1,000 ML IV SCH (17:30)
[2021-10-04] MEDS ORDERED: BENZONATATE 100 MG CAPSULE PO ONE (17:31)
--- NOTE | 2021-10-04 17:56 | XRay Report ---
XR chest 1V portable CLINICAL HISTORY: Weakness. COMPARISON STUDY: Chest radiograph November 27, 2015. FINDINGS: Lung volumes are normal. No consolidation to suggest pneumonia. There is an equivocal 8 mm right upper lobe nodule. There is no pneumothorax or pleural effusion. Cardiac size is normal. Medias tinal contours are normal. There is no evidence for pulmonary edema. Bilateral breast implants are in cidentally noted. IMPRESSION: 1. No acute cardiopulmonary findings. 2. Equivocal 8 mm right upper lobe nodule. This is probably artifactual however a nonemergent chest C T is recommended. ACT 112: Negative or not required by law. Electronically signed by: Sam Browne M.D. 10/04/2021 5:54 PM
[2021-10-04 18:04] LABS: Hematocrit (blood only) 32.9 % (37-47); Hemoglobin 12.3 g/dL (12.0-16.0); Mean Corpuscular Hemoglobin 31.1 pg (25-34); Mean Corpuscular Hgb Conc 37.4 g/dL (32-36); Mean Corpuscular Volume 83.1 fL (80-100); Mean Platelet Volume 10.1 fL (7.4-10.4); Platelet Count 486 K/uL (130-400); RDW Coefficient of Variation 11.3 % (11.5-14.5); RDW Standard Deviation 34.4 fL (36.4-46.3); Red Blood Count 3.96 M/uL (4.2-5.4); White Blood Count 17.83 K/uL (4.8-10.8)
[2021-10-04 18:24] LABS: Albumin Level 3.8 gm/dl (3.4-5.0); Bilirubin,Total 0.4 mg/dl (0.2-1.0); Calcium 8.9 mg/dl (8.5-10.1); Creatinine Clr Calc Pharmacy 148.1 ml/min; Est GFR (African American) 137.4 ml/min; Est GFR (Non-African American) 118.5 ml/min; Globulin 3.8 gm/dl (2.5-4.0); Potassium 3.1 mmol/L (3.5-5.1); Total Protein 7.6 gm/dl (6.0-8.3)
[2021-10-04 18:30] LABS: ALC (manual) 2.12 K/uL (1.2-3.4); ANC (manual) 15.42 K/uL (1.4-6.5); Eosinophils # (manual) 0.14 K/uL (0-0.5); Eosinophils % (manual) 0.8 %; Lymphocytes # (manual) 2.12 K/uL (1.2-3.4); Lymphocytes % (manual) 11.9 %; Monocytes # (manual) 0.14 K/uL (0.11-0.59); Monocytes % (manual) 0.8 %; Neutrophils # (manual) 15.42 K/uL (1.4-6.5); Neutrophils % (manual) 86.5 %; RBC Morphology Unremarkable
[2021-10-04] MEDS ORDERED: POTASSIUM CHLORIDE CRTAB 20 MEQ TABCR PO STA ×2 (18:40→19:30)
--- NOTE | 2021-10-04 18:46 | History & Physical Report ---
Date of Service October 04, 2021 Assessment & Plan (1) Pneumonia: Plan: pt with pulmonay symptoms, pending chest CT, if anything likely atypical, but will cover for CAP with ceftriaxine and azithro, cough suppressant and steroids po (2) Hyponatremia: Plan: Significant asymptomatic hyponatremia and hypokalemia, recheck along with osm and urine sodium, given 1 L of Crystaloid as nss, will fluid restrict at this time and hold diuretic, if not imporving and labs support to consider hypertonic saline (3) History of high blood pressure: Plan: pt typically takes triamterene hctz, this is held with significant hyponatremia, will have fluid restriction, and hydralazine for back up bp control (4) Infiltrating ductal carcinoma of left breast: Plan: continue tamoxifen Plan: lovenox for dvt prevention History of Present Illness Primary Care Provider: Jordan Morris 38-year-old 1-year-old female presents with upper respiratory some usual progressively worsened over the last 1 week. She is a do negative COVID test along the way occluding 1 this evening. But a week ago she had fevers associa karen with otherwise she just had a raspy violent cough. She has had no diarrhea. She has had some decreased appetite. Has had no skin rashes. She is a breast cancer survivor typically takes tamoxifen and transferring hydrochlorothiazide. Does states she drinks lots of water and the other abnormal labs on admission include hyponatremia hypokalemia low chloride and low creatinine. Patient states 1 day prior to admission she is some vomiting which is associated with amoxicillin and hydrocodone cough elixir. Her chest x-ray is negative for infiltrates there is a nodule noted and she is a pending CT scan of her chest. This will also help evaluate for pneumonia although if it is pneumonia likely will be an atypical 1. Bio fire is pending as well as laboratories to evaluate her hyponatremia presentation Allergies Allergy/AdvReac Type Severity Reaction Status Date / Time apple Allergy Unknown ITCHY Verified 10/04/21 18:40 MOUTH, INDIGESTION cat dander Allergy Unknown SOB, Verified 10/04/21 18:40 SWELLING, CONGESTION, RUNNY EYES erythromycin base Allergy Unknown UNKNOWN, Verified 10/04/21 18:40 POSS GI UPSET A CHILD Home Medications Medication Instructions Recorded Confirmed Type triamterene 37.5 1 cap PO DAILY 12/21/18 10/04/21 History mg-hydrochlorothiazide 25 mg capsule albuterol sulfate 90 mcg/actuation 1 puff INHALATION Q4 PRN 10/04/21 10/04/21 History aerosol inhaler amoxicillin 875 mg-potassium 1 tab PO BID 10/04/21 10/04/21 History clavulanate 125 mg tablet benzonatate 100 mg capsule 100 mg PO TID PRN 10/04/21 10/04/21 History hydrocodone 10 mg-chlorpheniramine 5 ml PO BID 10/04/21 10/04/21 History 8 mg/5 mL oral susp extend.rel 12hr tamoxifen 20 mg tablet 20 mg PO DAILY 10/04/21 10/04/21 History Past Med/Surg History Medical History (Updated 10/04/21 @ 21:17 by Raul Shen MD) Breast cancer, stage 2 (03/22/14) "SP biopsy of breast and axilla Estrogen receptor positive, progesterone receptor positive, HER-2/robert positive Clinical stage stage III Neoadjuvant chemotherapy with 6 cycles of TCH and Perjeta Status post bilateral mastectomies 09/19/2014 Tissue wallpaper printer helper placed on the left and permanent implant on the right. Pathologic stage ypTIaypNImi M0 Ongoing treatment with Herceptin Status post completion of radiation therapy 01/07/2015 received 6240 cGy Status post completion of final reconstructive surgery 07/22/2015 Ongoing treatment with tamoxifen" On 02/06/15 16:01 Guerita Belcher wrote "SP biopsy of breast and axilla Estrogen receptor positive, progesterone receptor positive, HER-2/robert positive Clinical stage stage III Neoadjuvant chemotherapy with 6 cycles of TCH and Perjeta Status post bilateral mastectomies 09/19/2014 Tissue wallpaper printer helper placed on the left and permanent implant on the right. Pathologic stage ypTIaypNImi M0 Ongoing treatment with Herceptin Status post completion of radiation therapy 01/07/2015 received 6240 cGy" On 01/14/15 13:36 Guerita Belcher wrote "SP biopsy of breast and axilla Kristine receptor positive, progesterone receptor positive, HER-2/robert positive Clinical stage stage III Neoadjuvant chemotherapy with 6 cycles of TCH and Perjeta Status post bilateral mastectomies 09/19/2014 Tissue wallpaper printer helper placed on the left and permanent implant on the right. Pathologic stage ypTIaypNImi M0 Ongoing treatment with Herceptin Status post completion of radiation therapy 01/07/2015 received 6240 cGy" On 11/01/14 09:04 Guerita Belcher wrote "SP biopsy of breast and axilla Kristine receptor positive, progesterone receptor positive, HER-2/robert positive Clinical stage stage III Neoadjuvant chemotherapy with 6 cycles of TCH and Perjeta Status post bilateral mastectomies 09/19/2014 Tissue wallpaper printer helper placed on the left and permanent implant on the right. Pathologic stage ypTIaypNImi M0 Ongoing treatment with Herceptin " Cervical intraepithelial neoplasia (FRANCHESCA) Herpes simplex of female genitalia History of high blood pressure Infiltrating ductal carcinoma of left breast Thyroid nodule Surgical History (Updated 07/14/19 @ 10:03 by Abril Ross) History of appendectomy History of bilateral mastectomy bilat mast, left ALND History of breast reconstruction Family History (Updated 07/14/19 @ 10:04 by Abril Ross) Mother Hypertension Grandmother Cancer maternal great grandmother Social History (Updated 07/14/19 @ 10:04 by Abril Ross) Smoking Status: Never smoker Hx Alcohol Use: Yes Alcohol type: wine Hx Substance Use: No Preferred Language: [place] Communication Ability: Effective Busher Helper Required: No Beliefs That Will Affect Care: None Current Living Situation: Alone Feels Safe at Home: Yes Safety Concerns: Feels Safe At This Time Assistive Devices: Contacts and Glasses Review of Systems Review of Systems: Mild distress and fatigue no headache, no visual changes no speech or swallowing issues no chest pain, pressure or palpitations no shortness of breath, continue nonproductive cough no abdominal pain, has had nausea & vomiting, no diarrhea or constipation no dysuria, hematuria or frequency, decreased urine output no focal joint pain or swelling no back pain, CVA tenderness or radicular pain no bruising, bleeding or rashes no focal signs of weakness or numbness or altered sensation no complaints of anxiety or depression.. Physical Exam Physical Exam: The patient appeared well nourished and normally developed. Vital signs as documented. Head exam is normocephalic atraumatic Neck is without JVD, thyromegaly, or carotid bruits. Lungs are coarse throughout, no focal loss on egophony Cardiac exam, Rhythm is regular.. No murmurs, rubs or gallops. Abdominal exam reveals normal bowel sounds, soft non tender, no masses Extremities are nonedematous and both pedal pulses are present Neurologic exam is alert and oriented, no focal loss of strength or sensation Skin is without bruises or rashes Psychologically is without concerns for anxiety or depression.. Results & Data Results & Data ([facility]) Vital Signs (Past 12 Hours) Vital Signs Temp Pulse Pulse Resp BP BP Pulse Ox 10/04/21 18:12 66 18 129/88 96 10/04/21 17:45 67 96 10/04/21 17:03 97.7 F 77 16 139/101 H 96 Diagnostic Findings Chest X-Ray 10/04/21 17:28 XR chest 1V portable CLINICAL HISTORY: Weakness. COMPARISON STUDY: Chest radiograph November 27, 2015. FINDINGS: Lung volumes are normal. No consolidation to suggest pneumonia. There is an equivocal 8 mm right upper lobe nodule. There is no pneumothorax or pleural effusion. Cardiac size is normal. Mediastinal contours are normal. There is no evidence for pulmonary edema. Bilateral breast implants are incidentally noted. IMPRESSION: 1. No acute cardiopulmonary findings. 2. Equivocal 8 mm right upper lobe nodule. This is probably artifactual however a nonemergent chest CT is recommended. ACT 112: Negative or not required by law. Electronically signed by: Sam Browne M.D. 10/04/2021 5:54 PM ECG Additional Comments: nsr PG Care Time/CCT Total # of Minutes Spent Total Time Spent with Patient: Total time spent is greater than 50% in coordination of care (as documented) at patient's floor/unit and/or counseling patient: Coding Level of Care Code 28180 Initial Inpt Care Lvl 3 Diagnoses History of high blood pressure Z86.79 Infiltrating ductal carcinoma of left breast C50.912 Pneumonia J18.9 Hyponatremia E87.1
[2021-10-04] MEDS ORDERED: cefTRIAXone SODIUM 2,000 MG/70 ML BAG IV STA (19:30)
[2021-10-04 19:46] LABS: BUN Creatinine Ratio 14.9 (10-20); Calcium 8.3 mg/dl (8.5-10.1); Creatinine Clr Calc Pharmacy 157.5 ml/min; Est GFR (African American) 140.2 ml/min; Magnesium 1.7 mg/dl (1.7-2.4); Potassium 3.2 mmol/L (3.5-5.1)
[2021-10-04 20:02] LABS: Adenovirus PCR Not Detected (NotDetected); Bordetella parapertussis PCR Not Detected (NotDetected); Bordetella pertussis PCR Not Detected (NotDetected); Chlamydia pneumoniae PCR Not Detected (NotDetected); Coronavirus 229E PCR Not Detected (NotDetected); Coronavirus CoV-2 (COVID19)PCR Not Detected (NotDetected); Coronavirus HKU1 PCR Not Detected (NotDetected); Coronavirus NL63 PCR Not Detected (NotDetected); Coronavirus OC43PCR Not Detected (NotDetected); Human Metapneumovirus PCR Not Detected (NotDetected); Influenza A PCR Not Detected (NotDetected); Influenza B PCR Not Detected (NotDetected); Mycoplasma pneumoniae PCR Not Detected (NotDetected); Parainfluenza Virus 1 PCR Not Detected (NotDetected); Parainfluenza Virus 2 PCR Not Detected (NotDetected); Parainfluenza Virus 3 PCR Not Detected (NotDetected); Parainfluenza Virus 4 PCR Not Detected (NotDetected); Respiratory Syncytial VirusPCR Not Detected (NotDetected); Rhinovirus/Enterovirus PCR Not Detected (NotDetected)
[2021-10-04] MEDS ORDERED: OPTIRAY 320 100ml IV ONE (20:35)
[2021-10-04 20:44] LABS: Urine Potassium 52.9 mmol/L
[2021-10-05] MEDS ORDERED: hydrALAZINE HCL 20 MG/ML VIAL IV PRN (00:19)
[2021-10-05] MEDS ORDERED: PROMETHAZINE HCL 12.5 MG/10 ML UDP PO PRN (00:19)
[2021-10-05] MEDS ORDERED: MAGNESIUM SULFATE / D5W 1 GM/100 ML BAG IV ONE (01:00)
[2021-10-05] MEDS ORDERED: POTASSIUM CHLORIDE CRTAB 20 MEQ TABCR PO ONE (01:00)
[2021-10-05] MEDS: guaiFENesin/DEXTROM SYRUP 200MG/20MG 10ML UDC PO PRN ×2 (01:27→12:44)
[2021-10-05] MEDS: ENOXAPARIN INJ 40 MG/0.4 ML SYR SQ SCH ×2 (01:27→22:02)
[2021-10-05] MEDS: AZITHROMYCIN 500 MG in DEXTROSE 5% 250 ML IV SCH ×2 (01:27→22:03)
[2021-10-05 06:06] LABS: Hematocrit (blood only) 33.1 % (37-47); Hemoglobin 12.1 g/dL (12.0-16.0); Mean Corpuscular Hemoglobin 31.3 pg (25-34); Mean Corpuscular Hgb Conc 36.6 g/dL (32-36); Mean Corpuscular Volume 85.5 fL (80-100); Mean Platelet Volume 9.9 fL (7.4-10.4); Platelet Count 478 K/uL (130-400); RDW Coefficient of Variation 11.5 % (11.5-14.5); RDW Standard Deviation 35.8 fL (36.4-46.3); Red Blood Count 3.87 M/uL (4.2-5.4); White Blood Count 14.63 K/uL (4.8-10.8)
[2021-10-05 06:45] LABS: Potassium 4.5 mmol/L (3.5-5.1)
[2021-10-05 06:46] LABS: BUN Creatinine Ratio 12.3 (10-20); Creatinine Clr Calc Pharmacy 129.9 ml/min; Est GFR (African American) 131.6 ml/min; Est GFR (Non-African American) 113.5 ml/min; Magnesium 2.5 mg/dl (1.7-2.4)
--- NOTE | 2021-10-05 07:24 | Hospitalist Progress Note ---
Date of Service October 05, 2021 Assessment & Plan (1) Pneumonia: Plan: pt with pulmonay symptoms, Chest CT 10/03/21 CT demonstrates the presence of bilateral pulmonary nodules most characteristic of a neoplastic process. Metastatic disease cannot be excluded. Follow-up PET/CT is recommended for further evaluation. last PET did have right sided nodule, recommened to patient to have follow up PET after she is recovered from pulmonary infection as that may create some changes on CT, Dr Del Castillo will also need to be included in discussion question if anything likely atypical, biofire respiratory negative, but will cover for CAP with ceftriaxine and azithro, cough suppressant and steroids po, urine legionella is pending (2) Hyponatremia: Plan: Significant asymptomatic hyponatremia and hypokalemia, Pt with low serum and urine osm, likely beginning to autocorrect, urine sodium very elevated, will fluid restrict at this time and hold diuretic, since improving will not have hypertonic saline Plan: lovenox for dvt prevention Admission and Anticipated Discharge Date Admission Date: October 04, 2021 Subjective this pt is somewhat improved, she is still hoarse and has less cough but still coughing but non productive, did discuss CT of chest to the extent that it was abnormal and will need PET scan, she said that last pet years ago did have a nodule but thought is was deemed stable, [facility] Review of Systems Review of Systems: Mild distress and fatigue no headache, no visual changes hoarse voice but no swallowing issues no chest pain, pressure or palpitations no shortness of breath, continue nonproductive cough no abdominal pain, has had nausea & vomiting, no diarrhea or constipation no dysuria, hematuria or frequency, decreased urine output no focal joint pain or swelling no back pain, CVA tenderness or radicular pain no bruising, bleeding or rashes no focal signs of weakness or numbness or altered sensation no complaints of anxiety or depression. Physical Exam Physical Exam: The patient appeared well nourished and normally developed. Vital signs as documented. Head exam is normocephalic atraumatic oral pharnyx is without significant changes seen Neck is without JVD, thyromegaly, stridor or carotid bruits. Lungs are coarse throughout, no focal loss on egophony Cardiac exam, Rhythm is regular.. No murmurs, rubs or gallops. Abdominal exam reveals normal bowel sounds, soft non tender, no masses Extremities are nonedematous and both pedal pulses are present Neurologic exam is alert and oriented, no focal loss of strength or sensation Skin is without bruises or rashes Psychologically is without concerns for anxiety or depression.. Results & Data Results & Data ([facility]) Vital Signs (Past 12 Hours) Vital Signs Temp Pulse Resp BP Pulse Ox 10/05/21 00:00 98.4 F 82 16 134/84 95 10/04/21 23:19 89 16 130/96 94 10/04/21 21:00 71 23 149/101 H 95 PG Care Time/CCT Total # of Minutes Spent Total Time Spent with Patient: Total time spent is greater than 50% in coordination of care (as documented) at patient's floor/unit and/or counseling patient: Coding Level of Care Code 34918 Subseq Hosp Care Lvl 2 Diagnoses Pneumonia J18.9 Hyponatremia E87.1
--- NOTE | 2021-10-05 08:53 | CT Scan Report ---
CT chest diagnostic w con CLINICAL HISTORY: Cough. Right upper lobe pulmonary nodule on chest radiograph. COMPARISON STUDY: Portable chest from 10/04/2021 CT DOSE: 285.24 mGy.cm TECHNIQUE: Standard CT of the Chest was performed with IV contrast. A dose lowering technique was u tilized adhering to the principles of ALARA. Contrast Volume: Optiray 320, 94 ml FINDINGS: Airway: The airway is clear. No endobronchial lesion is identified. Lungs: Compared to the portable chest radiograph, there is a 6 mm right upper lobe pulmonary nodule p resent corresponding to the finding seen on chest radiograph. Additionally, there is a 2 cm left uppe r lobe pulmonary nodule also present. There are also patchy alveolar opacities at the lung bases bila terally which have the appearance of atelectasis. However, underlying nodule cannot be excluded. No other confluent alveolar opacities or air bronchograms are seen. Pleura: There is no evidence for pleural effusion. There is no evidence for pneumothorax. Mediastinum: There is no evidence for pathologic adenopathy. The heart size is within normal limits. The thoracic aorta is within normal limits. There is no evidence for pericardial effusion. Upper abdomen: The adrenal glands are normal bilaterally. Osseous structures: There is no acute osseous pathology. IMPRESSION: 1. CT demonstrates the presence of bilateral pulmonary nodules most characteristic of a neoplastic pr ocess. Metastatic disease cannot be excluded. Follow-up PET/CT is recommended for further evaluation. ACT 112: Negative or not required by law. Electronically signed by: Jin Faust M.D. 10/05/2021 8:50 AM
[2021-10-05] MEDS: predniSONE 20 MG TAB PO SCH (08:54)
[2021-10-05] MEDS: TAMOXIFEN CITRATE 10 MG TABLET PO SCH (08:55)
[2021-10-05] MEDS: POTASSIUM CHLORIDE CRTAB 20 MEQ TABCR PO SCH ×2 (10:17→22:02)
--- NOTE | 2021-10-05 15:00 | Electrocardiogram Report ---
Test Reason : Blood Pressure : / mmHG Vent. Rate : 070 BPM Atrial Rate : 070 BPM P-R Int : 202 ms QRS Dur : 098 ms QT Int : 440 ms P-R-T Axes : 025 033 054 degrees QTc Int : 475 ms Normal sinus rhythm Normal ECG When compared with ECG of 27-NOV-2015 16:01, No significant change was found Confirmed by Jose Agudelo ([id number]) on 10/05/2021 2:59:54 PM Referred By: REFERRED SELF Confirmed By:Jose Agudelo
[2021-10-06 06:00] LABS: Hematocrit (blood only) 34.3 % (37-47); Hemoglobin 11.9 g/dL (12.0-16.0); Mean Corpuscular Hemoglobin 31.1 pg (25-34); Mean Corpuscular Hgb Conc 34.7 g/dL (32-36); Mean Corpuscular Volume 89.6 fL (80-100); Platelet Count 489 K/uL (130-400); RDW Standard Deviation 39.1 fL (36.4-46.3); Red Blood Count 3.83 M/uL (4.2-5.4); White Blood Count 19.05 K/uL (4.8-10.8)
[2021-10-06 06:22] LABS: BUN Creatinine Ratio 16.9 (10-20); Calcium 9.1 mg/dl (8.5-10.1); Creatinine Clr Calc Pharmacy 125.5 ml/min; Est GFR (African American) 130.1 ml/min; Est GFR (Non-African American) 112.3 ml/min; Magnesium 2.3 mg/dl (1.7-2.4); Potassium 4.7 mmol/L (3.5-5.1)
[2021-10-06] MEDS: TAMOXIFEN CITRATE 10 MG TABLET PO SCH (08:29)
[2021-10-06] MEDS: POTASSIUM CHLORIDE CRTAB 20 MEQ TABCR PO SCH (08:30)
[2021-10-06] MEDS: predniSONE 20 MG TAB PO SCH (08:30)
[2021-10-06] MEDS: guaiFENesin/DEXTROM SYRUP 200MG/20MG 10ML UDC PO PRN (08:32)
[2021-10-06 13:09] LABS: BUN Creatinine Ratio 14.8 (10-20); Calcium 8.6 mg/dl (8.5-10.1); Creatinine Clr Calc Pharmacy 91.4 ml/min; Est GFR (African American) 103.1 ml/min; Potassium 4.3 mmol/L (3.5-5.1)
--- NOTE | 2021-10-06 15:03 | Pulmonary Consultation ---
Date of Consultation October 06, 2021 Assessment & Plan (1) Pulmonary nodule 1 cm or greater in diameter: (2) Chronic bronchitis: (3) Use of tamoxifen (Nolvadex): (4) Seasonal allergies: Attending: Dr. Mckinney Impression: 41-year-old female with incidental finding of pulmonary nodules on CT scan. There is a 2 cm left upper lobe nodule which is concerning for either metastatic disease or primary cancer. Patient is a lifelong non- smoker. No previous history of lung cancer. Patient does have history of breast cancer with bilateral mastectomy and current tamoxifen use. She did undergo radiation for breast cancer. Previous PET/CT in 2017 revealed no left- sided lesions. Recommendations: 1. Pulmonary nodules: * Patient with incidental finding of pulmonary nodules on CT scan. Patient presented with weakness and profound hyponatremia. Currently being treated for pneumonia * Previous PET CT scan done in 2017 showed a stable right middle lobe pulmonary nodule. There was no evidence of any nodularity on the left * CT scan without contrast as listed above shows 2 cm left upper lobe nodule. There is no mediastinal lymphadenopathy. This will be difficult to approach via bronchoscopy or EBUS as there are only small airways in the vicinity of the lesion * Possible interventional radiology biopsy but the lesion appears to be behind rib and also behind the scapula. * Recommend PET/CT to look for FDG uptake * Will get pulmonary function testing * Patient currently following with Dr. Rand for breast cancer. She spoke with Dr. Mckinney regarding this patient. 2. Chronic bronchitis: * Patient reports bronchitis since . Mother reports that she had 3 episodes within the first year of life. Patient then states that she has bronchitis periodically throughout the year her entire life * No previous history of pneumonia * No evidence of cavitary lesion on CT scan * Patient does have history of being abroad in middle school as her father traveled internationally. She lived in [facility], [facility], [facility], mainly in [place], and [place] * No history of tobacco abuse * Frequent laryngitis * Will check pulmonary function testing * No bronchospasm on examination. We will hold off on pulmonary inhalers at this time. 3. Seasonal allergies: * Patient reports seasonal allergies. This could be a trigger for her chronic bronchitis * No eosinophils on differential. * Do not see an IgE. * Patient currently takes Zyrtec (cetirizine) as an antihistamine which seems to help Thank you for including us in the care of this patient. Pulmonary will sign off at this time. Please feel free to call or reconsult as needed. History of Present Illness Reason for Consultation: Left upper lobe lesion Requesting Physician: Jolene Gallardo PA-C Attending Physician: Héctor Jacob History of Present Illness Attending: Dr. Mckinney This is a very pleasant 41-year-old female that came in with hyponatremia and weakness. I had a lengthy discussion with the patient at bedside. She developed a cough approximately 2 weeks ago and reports that she has a history of chronic bronchitis. A CT scan of the chest was performed and revealed a 2 cm left upper lobe pulmonary nodule. There are also patchy alveolar opacities at lung bases bilaterally. There is also a 6 mm right upper lobe nodule. The patient has a past medical history of breast cancer with bilateral mastectomy. She had sentinel node biopsy on the left axillary. She has been on tamoxifen. No other history of primary cancer other than the breast cancer. There is no family history of lung or breast cancer. Family does have history of pancreatic cancer. Patient is a lifelong non-smoker. She has no vocational exposure. Patient does report that her father worked for [employer] and traveled around the world when she was a child. She was abroad for most of her [employer] high school period in [place] including [facility], [facility], [facility], [place]. She has no history of tuberculosis. She never had a positive PPD. She never had any concern for chest x-ray. She denies hemoptysis. No night sweats. No significant cough or sputum. Patient did have PET CT scans consequent to her breast cancer in 2014 and 2017. PET/CT of 2017 was reviewed and shows a stable right-sided nodule. There is no evidence of FDG avid nodularity on the left. Patient does report that she may have had childhood asthma. She has bronchitis frequently. Her mom reports that she had bronchitis 3 times in her first year of life. She then frequently had bronchitis through her school years. Patient denies any previous pulmonary history. She is not on any pulmonary inhalers. Allergies Allergy/AdvReac Type Severity Reaction Status Date / Time apple Allergy Unknown ITCHY Verified 10/04/21 18:40 MOUTH, INDIGESTION cat dander Allergy Unknown SOB, Verified 10/04/21 18:40 SWELLING, CONGESTION, RUNNY EYES erythromycin base Allergy Unknown UNKNOWN, Verified 10/04/21 18:40 POSS GI UPSET A CHILD Home Medications Medication Instructions Recorded Confirmed Type benzonatate 100 mg capsule 100 mg PO TID PRN 10/04/21 10/04/21 History hydrocodone 10 mg-chlorpheniramine 5 ml PO BID 10/04/21 10/04/21 History 8 mg/5 mL oral susp extend.rel 12hr tamoxifen 20 mg tablet 20 mg PO DAILY 10/04/21 10/04/21 History azithromycin 500 mg tablet 500 mg PO DAILY 3 Days #3 tab 10/06/21 Rx prednisone 20 mg tablet 40 mg PO DAILY #6 tab 10/06/21 Rx Patient History Medical History (Updated 10/06/21 @ 15:40 by Jesus May PA-C) Breast cancer, stage 2 (03/22/14) "SP biopsy of breast and axilla Estrogen receptor positive, progesterone receptor positive, HER-2/robert positive Clinical stage stage III Neoadjuvant chemotherapy with 6 cycles of TCH and Perjeta Status post bilateral mastectomies 09/19/2014 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 Pathologic stage ypTIaypNImi M0 Ongoing treatment with Herceptin " Cervical intraepithelial neoplasia (FRANCHESCA) Chronic bronchitis Herpes simplex of female genitalia History of high blood pressure Infiltrating ductal carcinoma of left breast Pulmonary nodule 1 cm or greater in diameter Seasonal allergies Thyroid nodule Surgical History History of appendectomy History of bilateral mastectomy bilat mast, left ALND History of breast reconstruction Family History Mother Hypertension Grandmother Cancer maternal great grandmother Social History Smoking Status: Never smoker Hx Alcohol Use: Yes Alcohol type: wine Hx Substance Use: No Preferred Language: Swiss Communication Ability: Effective Horse Trader Required: No Beliefs That Will Affect Care: None Current Living Situation: Alone Feels Safe at Home: Yes Safety Concerns: Feels Safe At This Time Assistive Devices: None Review of Systems Review of Systems: A total of 10 systems was reviewed and is negative other than as listed in the HPI Physical Exam Physical Exam: GENERAL : No acute distress. Occasional cough with no production of sputum. EYES: No icterus, gaze conjugate NOSE: No evidence of epistaxis MOUTH: No lesions or candidiasis NECK: Supple LUNGS: CTA B/L, no wheezes, rales or rhonchi HEART: Regular, rate controlled ABDOMEN: Soft, NT, ND, BS Present EXTREMITIES: No LE edema, pedal pulses intact NEURO: A&OX3 Results & Data Results & Data ([facility]) Vital Signs (Past 12 Hours) Vital Signs Temp Pulse Resp BP Pulse Ox 10/06/21 07:58 37 C 70 16 128/83 97 6-Min Walk Results 6 Minute Walk: No Data to Display Critical Care Results & Data Vital Signs (Past 12 Hours) Vital Signs Temp Pulse Resp BP Pulse Ox 10/06/21 15:11 37 C 70 16 128/83 97 10/06/21 07:58 37 C 70 16 128/83 97 Lab & Micro Results (Past 24 Hours) RBC 3.83 M/uL (4.2-5.4) L 10/06/21 WBC 19.05 K/uL (4.8-10.8) H 10/06/21 Hgb 11.9 g/dL (12.0-16.0) L 10/06/21 Hct 34.3 % (37-47) L 10/06/21 MCV 89.6 fL (80-100) 10/06/21 MCH 31.1 pg (25-34) 10/06/21 MCHC 34.7 g/dL (32-36) 10/06/21 RDW Standard Deviation 39.1 fL (36.4-46.3) 10/06/21 RDW Coefficient of Variation 12.0 % (11.5-14.5) 10/06/21 Plt Count 489 K/uL (130-400) H 10/06/21 MPV 10.0 fL (7.4-10.4) 10/06/21 Na 129 mmol/L (136-145) L 10/06/21 K 4.3 mmol/L (3.5-5.1) 10/06/21 Cl 99 mmol/L (98-107) 10/06/21 CO2 23 mmol/L (21-32) 10/06/21 Anion Gap 7 (3-11) 10/06/21 BUN 12 mg/dl (6-23) 10/06/21 Creatinine 0.81 mg/dl (0.6-1.2) 10/06/21 Estimated GFR ( Amer) 103.1 ml/min 10/06/21 Estimated GFR (Non-Af Amer) 89.0 ml/min 10/06/21 BUN/Creatinine Ratio 14.8 (10-20) 10/06/21 Glu 141 mg/dl (70-99(Fasting)) H 10/06/21 Ca 8.6 mg/dl (8.5-10.1) 10/06/21 Mg 2.3 mg/dl (1.7-2.4) 10/06/21 05:34 10/06/21 Calcium Level 8.6 mg/dl (8.5-10.1) 10/06/21 12:01 10/06/21 Diagnostic Findings (Past 24 Hours) CT chest diagnostic w con CLINICAL HISTORY: Cough. Right upper lobe pulmonary nodule on chest radiograph. COMPARISON STUDY: Portable chest from 10/04/2021 CT DOSE: 285.24 mGy.cm TECHNIQUE: Standard CT of the Chest was performed with IV contrast. A dose lowering technique was utilized adhering to the principles of ALARA. Contrast Volume: Optiray 320, 94 ml FINDINGS: Airway: The airway is clear. No endobronchial lesion is identified. Lungs: Compared to the portable chest radiograph, there is a 6 mm right upper lobe pulmonary nodule present corresponding to the finding seen on chest radiograph. Additionally, there is a 2 cm left upper lobe pulmonary nodule also present. There are also patchy alveolar opacities at the lung bases bilaterally which have the appearance of atelectasis. However, underlying nodule cannot be excluded. No other confluent alveolar opacities or air bronchograms are seen. Pleura: There is no evidence for pleural effusion. There is no evidence for pneumothorax. Mediastinum: There is no evidence for pathologic adenopathy. The heart size is within normal limits. The thoracic aorta is within normal limits. There is no evidence for pericardial effusion. Upper abdomen: The adrenal glands are normal bilaterally. Osseous structures: There is no acute osseous pathology. IMPRESSION: 1. CT demonstrates the presence of bilateral pulmonary nodules most characteristic of a neoplastic process. Metastatic disease cannot be excluded. Follow-up PET/CT is recommended for further evaluation. ACT 112: Negative or not required by law. Electronically signed by: Jin Faust M.D. 10/05/2021 8:50 AM I & O Totals 24 Hours 10/05/21 10/06/21 10/07/21 06:59 06:59 06:59 Intake Total 1525 / 1525 255 / 255 Output Total 1150 / 1150 Balance 375 / 375 255 / 255 Cumulative 10/04/21 17:01 thru 10/06/21 15:11 Intake Total 1780 Output Total 1150 Balance 630 RT Ventilator Mngmt (Last Documented) Ventilator Ordered Settings Respiratory Rate 16 10/06/21 15:11 Ventilator - PT Measurements Respiratory Rate 16 PG Care Time/CCT Total # of Minutes Spent Total Time Spent with Patient: Total time spent is greater than 50% in coordination of care (as documented) at patient's floor/unit and/or counseling patient:60 minutes Coding Level of Care Code 72825 Inpt Consult Level 4 Diagnoses Pulmonary nodule 1 cm or greater in diameter R91.1 Chronic bronchitis J42 Use of tamoxifen (Nolvadex) Z79.810 Seasonal allergies J30.2 Time Spent (min) 60
--- NOTE | 2021-10-06 18:13 | Discharge Summary ---
Date of Service October 06, 2021 Admission HPI Per Admitting Provider 38-year-old 1-year-old female presents with upper respiratory some usual progressively worsened over the last 1 week. She is a do negative COVID test along the way occluding 1 this evening. But a week ago she had fevers associated with otherwise she just had a raspy violent cough. She has had no diarrhea. She has had some decreased appetite. Has had no skin rashes. She is a breast cancer survivor typically takes tamoxifen and transferring hydrochlorothiazide. Does states she drinks lots of water and the other abnormal labs on admission include hyponatremia hypokalemia low chloride and low creatinine. Patient states 1 day prior to admission she is some vomiting which is associated with amoxicillin and hydrocodone cough elixir. Her chest x-ray is negative for infiltrates there is a nodule noted and she is a pending CT scan of her chest. This will also help evaluate for pneumonia although if it is pneumonia likely will be an atypical 1. Bio fire is pending as well as laboratories to evaluate her hyponatremia presentation Principal Diagnosis 1. Pneumonia/Pneumonitis 2. Pulmonary Nodules- ? infection vs metastatic disease 3. Hyponatremia (low sodium) 4. Leukocytosis ("elevated white blood cell count")-- initially likely from pneumonia but now steroid induced Discharge Exam General: Resting comfortably in her hospital bed. Voice is hoarse. NAD. HEENT: Head is AT/NC. Buccal mucosa is moist and pink Neck: No JVD. Negative hepatojugular reflex Cardiac: RRR without M/G/R Lungs: CTA without W/R/R Abdomen: Normoactive X4. Soft and nontender in all quadrants. Extremities: No peripheral clubbing cyanosis or edema Neuro: A&O X4. Cranial nerves II through XII are grossly intact. No focal neuro deficits Skin: No obvious skin lesions or rashes Psych: Appropriate affect. Pleasant and cooperative Discharge Data Allergies Allergy/AdvReac Type Severity Reaction Status Date / Time apple Allergy Unknown ITCHY Verified 10/04/21 18:40 MOUTH, INDIGESTION cat dander Allergy Unknown SOB, Verified 10/04/21 18:40 SWELLING, CONGESTION, RUNNY EYES erythromycin base Allergy Unknown UNKNOWN, Verified 10/04/21 18:40 POSS GI UPSET A CHILD Consultations 10/04/21 18:40 ED Decision to Admit Stat 10/06/21 18:04 Consult Pulmonology Routine [id number] Pulmonary Consultation Signed Patient:ZAYNAB MOREL Admit Date:10/04/21 MR#:[id number] Att Phy:Héctor Jacob M.D. Acct ID:[id number] Petra Phy:ArturoJordan daveDO Date:1980 Fam Phy: Age:41 Location:3N Sex:F Room/Bed:[facility] cc: ~ *NOTICE TO RECEIVING DEMOCRAT/AGENCY This information is strictly Confidential and protected under [place] law. [place] law prohibits you from making any further disclosure of this information unless further disclosure is expressly permitted by the written consent of the person to whom it pertains or is authorized by law. A general authorization for the release of medical or other information is not sufficient for this purpose. Hospital accepts no responsibility if the information is made available to any other person, INCLUDING THE PATIENT. Date of Consultation October 06, 2021 Assessment & Plan (1) Pulmonary nodule 1 cm or greater in diameter: (2) Chronic bronchitis: (3) Use of tamoxifen (Nolvadex): (4) Seasonal allergies: Attending: Dr. Mckinney Impression: 41-year-old female with incidental finding of pulmonary nodules on CT scan. There is a 2 cm left upper lobe nodule which is concerning for either metastatic disease or primary cancer. Patient is a lifelong non- smoker. No previous history of lung cancer. Patient does have history of breast cancer with bilateral mastectomy and current tamoxifen use. She did undergo radiation for breast cancer. Previous PET/CT in 2017 revealed no left- sided lesions. Recommendations: 1. Pulmonary nodules: * Patient with incidental finding of pulmonary nodules on CT scan. Patient presented with weakness and profound hyponatremia. Currently being treated f or pneumonia * Previous PET CT scan done in 2017 showed a stable right middle lobe pulmonary nodule. There was no evidence of any nodularity on the left * CT scan without contrast as listed above shows 2 cm left upper lobe nodule. There is no mediastinal lymphadenopathy. This will be difficult to approach via bronchoscopy or EBUS as there are only small airways in the vicinity of the lesion * Possible interventional radiology biopsy but the lesion appears to be behind rib and also behind the scapula. * Recommend PET/CT to look for FDG uptake * Will get pulmonary function testing * Patient currently following with Dr. Rand for breast cancer. She spoke with Dr. Mckinney regarding this patient. 2. Chronic bronchitis: * Patient reports bronchitis since . Mother reports that she had 3 episodes within the first year of life. Patient then states that she has bronchitis periodically throughout the year her entire life * No previous history of pneumonia * No evidence of cavitary lesion on CT scan * Patient does have history of being abroad in middle school as her father traveled internationally. She lived in [facility], [facility], [facility], mainly in [place], and [place] * No history of tobacco abuse * Frequent laryngitis * Will check pulmonary function testing * No bronchospasm on examination. We will hold off on pulmonary inhalers at this time. 3. Seasonal allergies: * Patient reports seasonal allergies. This could be a trigger for her chronic bronchitis * No eosinophils on differential. * Do not see an IgE. * Patient currently takes Zyrtec (cetirizine) as an antihistamine which seems to help Thank you for including us in the care of this patient. Pulmonary will sign off at this time. Please feel free to call or reconsult as needed. Ordered Studies 10/04/21 18:33 CT chest diagnostic w con Urgent IMPRESSION: 1. CT demonstrates the presence of bilateral pulmonary nodules most characte ristic of a neoplastic process. Metastatic disease cannot be excluded. Follow-up PET/CT is recommended for further evaluation. Hospital Course (1) Pneumonia: Patient presented with flulike symptoms including fevers, chills, fatigue, poor appetite, and a productive cough with green/brown sputum On oral Augmentin and albuterol prior to this hospitalization with a negative COVID screen. Symptoms progressive prompting her to seek medical attention White count was elevated at 17.83. Her chest x-ray showed an 8 mm right upper lobe nodule CT of the chest showed bilateral pulmonary nodules likely representing metastatic/neoplastic disease Patient was hospitalized and placed on empiric antibiotic coverage including Rocephin/azithromycin. In addition, she was treated with mucolytic agents, antitussives, nebulized treatments, and prednisone. I do have concern that she has underlying malignancy. Uncertain if these nodules are infectious related, metastatic from her history of breast CA, or an additional primary malignancy. I have reached out to pulmonary who evaluated the patient. Appreciate assistance. In addition, I have reached out to patient's established oncologist. Plan is for completion of antibiotics. Patient will follow-up with her oncologist for PET scan this week. Additionally, she will have pulmonary function studies performed. Uncertain if these nodules can be reached via a bronchoscopy. Per pulmonology, may warrant wedge resection which is why they are requesting pulmonary function studies. At any rate, she needs close follow-up care. Appointments made with oncology and pulmonology. (2) Hyponatremia: Presenting sodium 115 Corrected with gentle IV hydration. 130 on day of discharge Serum osmolality 412>serum osmolality 232. 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 In addition, patient was on triamterene/HCTZ and her appetite was poor. Uncertain if she had poor solute/dehydration from illness contributing Patient should maintain a fluid restricted diet and stay off of her triamterene/HCTZ. Follow-up BMP to be obtained in 1 week. Further recommendations based on follow-up labs (3) Pulmonary nodule 1 cm or greater in diameter: Seen by pulmonology. There is concern for malignancy. We will follow- up with oncology/pulmonology as outlined above Tumor markers ordered and pending (4) Leukocytosis: Patient with presenting leukocytosis of 17.83 and S/S infection (pneumonitis/mild pneumonia). White count improved to 14.63 with antibiotics Now up to 19.05 but in the setting of steroids thus likely steroid-induced at this time Total Time Total Time Spent Total Time Spent (In Minutes): 60 minutes including time spent with patient, discussion with oncology, discussion with pulmonology, discussion with attending provider, discussion with case management, preparation of documentation and coordination of care Discharge Plan Discharge Items Patient Disposition: Home - Self-Care Reason For Visit: PNEUMONIA,HYPONATERMIA,HYPOKALEMIA Discharge Diagnosis: 1. Pneumonia/Pneumonitis 2. Pulmonary Nodules- ? infection vs metastatic disease 3. Hyponatremia (low sodium) 4. Leukocytosis ("elevated white blood cell count")-- initially likely from pneumonia but now steroid induced Activity: Resume your previous activity Non-emergency contact: Primary Care Provider, Specialist, Oncologist and Production Control Scheduler Call non-emergency contact if: you have any medication questions and your symptoms worsen Follow-up/Referrals: Caden Mckinney MD [Physician] - ([facility], lung specialists. A referral has been placed to this office on your behalf, in the case that a diagnostic bronchoscopy is needed. This office should reach out to you directly with appointment information. If you do not hear from them within one week of discharge, please call to follow up.) Jordan Morris [Primary Care Provider] - 10/14/21 10:15 am Bouchra Rand MD [Physician] - ([facility]. A referral has been sent to Dr. Rand's office - they should reach out to you directly with appointment information.) Diet: Regular Fluids: 1000ml (4 cups) Ambulatory Orders: Basic Metabolic Panel (Routine) Timeframe: 1 Week Location: Determined by Patient Ordered By: Jolene Moralez Attending Provider Instructions: you came to the hospital with flu-like symptoms and were found to have presumed pneumonitis/infection and are being treated with antibiotics and prednisone --complete full course of azithromycin (next dose due tomorrow) --complete additional 3 days of prednisone (next dose due tomorrow) The CT of your chest shows concern for pulmonary nodules. With your history of breast cancer, I am concerned that this has metastasized to your lungs (or perhaps an additional isolated cancern in the lungs). I recommend completing the full course of antibiotics and as discussed and follow up with Dr. Rand next week as scheduled. You will need a PET scan CAIO and a biopsy of the nodule to help confirm/rule- out cancer I have reached out to pulmonary (to look at your imaging) and they have similar concerns (concerned about these nodules) and are wanting additional testing expedited (pulmonary function testing). Follow up with Dr. Rand for PET scan and determine plan of treatment You sodium was low upon presentation into the ED. This could have been related to the blood pressure medication that you are on; however, your urine studies are pointing more in favor of SIADH (as discussed, this is when your body holds onto free water and dilutes your sodium). --your Triamterene/HCTZ has been stopped --you have been started on (and should continue) a FREE WATER FLUID RESTRICTED DIET (1000-1200ml/day) --your sodium level has improved (from 115 to 130) --you should have repeat labs next week (to trend your sodium)--see order your blood pressure medication has been stopped and your blood pressure has been acceptable WITHOUT medication (128/83). Would hold off on additional medication as this time. Follow up with your PCP to determine if additional medication is needed return to the ED for new or worsening symptoms Pending Studies at Discharge: No Stand-Alone Forms: My [facility] Medications and DC Order Prescriptions: New prednisone 20 mg Tablet 40 mg PO DAILY Qty: 6 RF: 0 azithromycin 500 mg tablet 500 mg PO DAILY 3 Days Qty: 3 RF: 0 Continued tamoxifen 20 mg tablet 20 mg PO DAILY RF: 0 benzonatate 100 mg capsule 100 mg PO TID PRN (Reason: Cough) RF: 0 hydrocodone-chlorpheniramine 10-8 mg/5 mL suspension,extended rel 12 hr 5 ml PO BID RF: 0 Discontinued triamterene-hydrochlorothiazid 37.5-25 mg capsule 1 cap PO DAILY RF: 0 amoxicillin-pot clavulanate 875-125 mg tablet 1 tab PO BID RF: 0 albuterol sulfate 90 mcg/actuation HFA aerosol inhaler 1 puff INHALATION Q4 PRN (Reason: Dyspnea) RF: 0 Discharge Orders: Discharge Order (Routine); Ordered 10/06/21 Ordered By: Jolene Gallardo Admission Data Admit Date/Time: 10/04/21 19:30 Attending Provider: Héctor Jacob Admit Provider: Alexander Javier Primary Care Provider: Jordan Morris Other Providers: Alexander Javier Other Interventions: Discharge Summary Assessment (RN) Last Done: 10/06/21 15:11 Coding Level of Care Code D/C DAY MANAGEMENT >30 MINS Diagnoses Pneumonia J18.9 Hyponatremia E87.1 Pulmonary nodule 1 cm or greater in diameter R91.1 Leukocytosis D72.829
== END 2021-10-06 16:04 | disposition home or self-care (01) | DRG 194 ==
LOC: ED 17:01 → SUATTDRO 19:30 → 3N 19:30
DX: J42 Unspecified chronic bronchitis; T50.2X5A Adverse effect of carbonic-anhydrase inhibitors, benzothiadiazides and other diuretics, initial encounter; Z91.018 Allergy to other foods; Z85.3 Personal history of malignant neoplasm of breast; Z79.899 Other long term (current) drug therapy; Z92.3 Personal history of irradiation; Z91.048 Other nonmedicinal substance allergy status; Z88.1 Allergy status to other antibiotic agents; Z20.822 Contact with and (suspected) exposure to COVID-19; R91.8 Other nonspecific abnormal finding of lung field; R03.0 Elevated blood-pressure reading, without diagnosis of hypertension; E22.2 Syndrome of inappropriate secretion of antidiuretic hormone; J30.2 Other seasonal allergic rhinitis; E87.6 Hypokalemia; D72.829 Elevated white blood cell count, unspecified; T38.0X5A Adverse effect of glucocorticoids and synthetic analogues, initial encounter; Z90.13 Acquired absence of bilateral breasts and nipples; J18.9 Pneumonia, unspecified organism; Z79.810 Long term (current) use of selective estrogen receptor modulators (SERMs)

== ENCOUNTER 2024-02-11 14:13 | Inpatient (IN) ==
--- NOTE | 2024-02-11 14:25 | Emergency Department Note ---
Impression & Plan Breast cancer metastasized to brain, Headache, Acute hypokalemia, Hypocalcemia, Vomiting ED Provider Note NAME: ZAYNAB MOREL AGE: 43 SEX: F : 1980 ARRIVES VIA: Ambulance INFORMANT: Patient, friend, prior records, family ED PROVIDER(S): Raul Shen MD CHIEF COMPLAINT: Headache, nausea vomiting MEDICAL DECISION MAKING: Patient presented due to concern for headache nausea vomiting. IV was established and blood work was obtained along with CT of the head. Patient was ordered IV Compazine Benadryl fluids mag and Ofirmev. The patient was still having vomiting was ordered additional medications for both vomiting as well as headache. Depakote ordered. As the patient had missed her morning seizure medication the patient was ordered 1 g of IV Keppra. MRI of the brain with and without contrast ordered. I did try to speak with [facility] hematology oncology. There was significant delay in receiving a return phone call so to speak with Dr. Rand who stated that the patient likely would benefit from steroids and would be appropriate given that she is getting a brain MRI today. Subsequently did speak with Dr. Cervantes at [facility] hematology oncology who agreed with the same and stated that the only reason for transfer would be for acute neurosurgical evaluation/intervention. Patient was reassessed several times and did receive additional medications including IV Phenergan and IV fluids. Patient was noted to have mild hypokalemia and hypocalcemia and it was ordered IV replacement. Patient is only had mild relief in her symptoms. The patient's brain MRI does show lesions from prior which may be 10 to 20% larger than prior. No evidence of acute stroke. The patient does have associated vasogenic edema. Dexamethasone likely would help with this. As this patient's MRI of the brain does not show evidence of likely acute neurosurgical intervention patient has a nonfocal neurologic exam likely would not change treatment in regards to transfer at this time. I did speak with the on-call hospital service Dr. Phelan and Dr. Wheatley and the patient was admitted to the medicine service. I did inform the patient as well as the patient's parents at bedside of the plan of care and results. They are comfortable plan of care. After review of the information above and other included data, I feel the patient may be discharged home. Patient was given strict follow-up, discharge, and return precautions. All questions were answered. Patient was deemed suitable for outpatient follow-up at this time. Patient agreed with the plan of care and was discharged home. Discussion w/ other healthcare providers: Dr. Rand hematology oncology Dr. Cervantes [facility] hematology oncology Dr. Tapan Wiley inpatient medicine service Prior /Outside records reviewed: I reviewed part of an ED visit from Dr. Ríos from January 19 patient some right hand numbness transient speech issues and ocular migraine. 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 Patient was discussed with neurology oncology Dr. Carey at [facility] patient was started on Keppra and dexamethasone. Differential diagnosis: Migraine headache, tension headache, dehydration, meningitis, sinusitis, CO exposure, ICH, infection, tumor, sinus thrombosis as well as others were considered. Diagnostics, as interpreted by me: ECG: None Cardiac monitoring: An order was placed for continuous cardiac monitoring. The monitor shows a rate of 72 with sinus rhythm. Patient was placed on pulse oximetry Medical decision rules: None Imaging studies: I informally interpreted the patient's CT head does not show obvious ICH with formal report to follow. HPI: Patient presents due to concern for headache and dizziness. The patient states that she has had a headache ever since she began having seizures earlier in the month. The patient states that she has been compliant with her medications including her Keppra medication is currently on a treatment for her brain metastases. The patient does follow-up with [facility] in [place] neuro- oncology. Patient denies any chest pains or shortness of breath. The patient does complain of did dizziness that is positional but denies any vertigo or spinning. Patient denies any falls or trauma. Patient states that her headache is primarily global but sometimes has it at the base of the back of her head. Patient does take a blood thinner for known prior history of PE. Patient states that she has had issues with aphasia and has been seen prior but these were thought secondary to possible seizure or her brain metastasis. Patient denies any numbness tingling or focal weakness at this time. Patient denies any visual field deficits. Patient states that she presented today as her headaches seem to worsen and did have some associated vomiting x 3. The patient did trial Zofran at home but without improvement. Patient states that she did take a dose of steroid yesterday but was told not to take this consistently as the patient does have a pending brain MRI on Wednesday. PAST MEDICAL HISTORY: See Below PAST SURGICAL HISTORY: See Below SOCIAL HISTORY: See Below HOME MEDICATIONS: See Below ALLERGIES: See Below VITALS: See Below PHYSICAL EXAMINATION: GENERAL: NAD, non-toxic. EYE EXAM: Normal conjunctiva. PERRL, no anisocoria and EOM's grossly intact w/o pain. No obvious nystagmus. OROPHARYNX: Moist mucus membranes, grossly normal dentition. NECK: Trachea midline, no stridor. LUNGS: Clear to auscultation. Normal chest wall mechanics. HEART: NSR, no MRG. ABDOMEN: Abdomen soft, non-tender, no masses, no rebound or guarding. BACK: No CVA TTP. SKIN: No rashes and no bruising. UPPER EXTREMITIES: Upper extremities are grossly normal. LOWER EXTREMITIES: Grossly normal, no edema. NEURO EXAM: A&O x3, cranial nerves II-XII grossly intact, normal speech, moves all 4 extremities. Good ulutki-je-cufs and good [id number] bilaterally. Denies sensory deficits. Past Med/Surg History Problem List (Updated 02/12/24 @ 12:10 by Raul Shen MD) Vomiting (Acute) Hypocalcemia (Acute) Acute hypokalemia (Acute) Headache (Acute) Situational mixed anxiety and depressive disorder Pulmonary embolism Hypertension Hyponatremia Breast cancer metastasized to brain (Chronic 10/25/21) Seasonal allergies Medical History History of COVID-19 05/06, pcr, side effects "minimal">resolved Chronic bronchitis Herpes simplex of female genitalia Genital warts Cervical intraepithelial neoplasia (FRANCHESCA) Infiltrating ductal carcinoma of left breast hx Thyroid nodule hx, monitoring Surgical History Port-A-Cath in place (11/10/21) Access Port Insertion with Fluoroscopy - Tomas Poon DO, FACS History of biopsy (10/27/21) CT Guided Biopsy Lung History of breast reconstruction History of appendectomy (~11/2016) History of bilateral mastectomy bilat mast, left ALND Family History Mother Hypertension Grandmother Cancer maternal great grandmother Grandfather Cancer Father Hypertension Grandfather (Paternal) Myocardial infarction Grandfather (Maternal) Myocardial infarction Pancreatic cancer Grandmother (Paternal) Stroke Denies family history of Ovarian cancer Prostate cancer Breast cancer Colorectal cancer Social History Smoking Status: Never smoker Second Hand Exposure: No; Do You Dip or Chew Tobacco: No; Hx Alcohol Use: No Hx Substance Use: No Preferred Language: Stateless Communication Ability: Effective Visual Impairment: Limited Hearing Ability: Normal Pediatric Neuropsychologist Required: No Beliefs That Will Affect Care: None marital status: Single Current Living Situation: Alone Current Living Situation Comment: lives alone current occupational status: disabled How many Children do You have: 0 Other Information That Helps Us Care for You: No Feels Safe at Home: Yes Safety Concerns: Feels Safe At This Time Childhood Exposure to Second-Hand Smoke: No Diet: regular caffeine: Yes during the past year weight has: increased > 10 lbs Dental Care, Regularly: Yes Physical Activity Frequency: 1-2 Times per Week Seatbelt Use: always Sunscreen Use: No Assistive Devices: Contacts Allergies Allergies Allergy/AdvReac Type Severity Reaction Status Date / Time cat dander Allergy Severe SOB, Verified 01/14/24 20:17 SWELLING, CONGESTION, RUNNY EYES apple Allergy Intermediate ITCHY Verified 01/14/24 20:17 MOUTH, INDIGESTION erythromycin base Allergy Intermediate UNKNOWN, Verified 01/14/24 20:17 POSS GI UPSET A CHILD Home Meds Home Medications Medication Instructions Recorded Confirmed lorazepam 0.5 mg tablet 0.5 mg PO HS PRN Anxiety 11/07/21 01/14/24 ondansetron HCl 8 mg tablet 8 mg PO Q8 PRN Nausea And Vomiting 12/31/21 01/14/24 prochlorperazine maleate 10 mg 10 mg PO Q6 PRN Nausea 12/31/21 01/14/24 tablet cetirizine 10 mg capsule (Zyrtec) 10 mg PO DAILY PRN Congestion 05/21/22 01/14/24 sertraline 50 mg tablet 50 mg PO DAILY 05/21/22 01/14/24 denosumab 120 mg/1.7 mL (70 mg/mL) 120 mg subcut MONTHLY 11/04/22 01/14/24 subcutaneous solution (Xgeva) goserelin 3.6 mg subcutaneous 0 mg subcut Q28D 11/04/22 01/14/24 implant (Zoladex) loperamide 2 mg capsule (Imodium 2 mg PO Q6H PRN Diarrhea 11/04/22 01/14/24 A-D) fulvestrant 125 mg/2.5 mL 500 mg IM Q14D 11/26/23 01/14/24 intramuscular syringe abemaciclib 150 mg tablet 150 mg PO .BID UD 01/14/24 01/14/24 (Verzenio) ciprofloxacin HCl 500 mg tablet 500 mg PO Q12 01/14/24 01/14/24 cyanocobalamin (vitamin B-12) 1,000 mcg subcut .[id number] 01/14/24 01/14/24 1,000 mcg/mL injection solution diphenoxylate-atropine 2.5 1 tab PO DIRECTED 01/14/24 01/14/24 mg-0.025 mg tablet potassium chloride 20 mEq 20 meq PO WK 01/14/24 01/14/24 tablet,extended release rivaroxaban 20 mg tablet (Xarelto) 20 mg PO DAILY 01/14/24 01/14/24 sodium bicarbonate 325 mg tablet 0 mg PO TID 01/14/24 01/14/24 trastuzumab 150 mg intravenous 0 mg IV DIRECTED 01/14/24 01/14/24 solution (Herceptin) Previous Rx's Medication Instructions Recorded olmesartan 20 mg tablet 20 mg PO DAILY #90 tabs 11/26/23 levetiracetam 500 mg tablet 500 mg PO BID #60 tabs 01/20/24 (Keppra) Results & Data (ED) Vital Signs Vital Signs - 24 hr 02/11/24 14:24 02/11/24 15:06 02/11/24 15:06 Temperature 36.5 C Temperature Source Oral Pulse Rate 57 L Pulse Rate [Apical] 63 Pulse Rate from SpO2 Sensor Respiratory Rate 16 20 Respiratory Effort / Characteristics Non-Labored Respiratory Depth Normal Blood Pressure 151/99 H Blood Pressure [Left Arm] 171/108 H Blood Pressure Mean 116 Blood Pressure Mean [Left Arm] 129 Pulse Oximetry 97 97 97 Oxygen Delivery Method Room Air Room Air Room Air Sepsis Recent Fever Within 48 Hours No Sepsis New/Unexplained Change in Mental Status No Sepsis Action Taken by Nursing No Action Required 02/11/24 17:29 02/11/24 20:03 02/11/24 20:06 Temperature Temperature Source Pulse Rate 66 60 Pulse Rate [Apical] 75 Pulse Rate from SpO2 Sensor 61 Respiratory Rate 20 12 Respiratory Effort / Characteristics Respiratory Depth Blood Pressure 176/113 H Blood Pressure [Left Arm] 171/108 H Blood Pressure Mean 134 Blood Pressure Mean [Left Arm] 129 Pulse Oximetry 99 99 Oxygen Delivery Method Room Air Room Air Sepsis Recent Fever Within 48 Hours Sepsis New/Unexplained Change in Mental Status Sepsis Action Taken by Nursing 02/11/24 20:33 02/11/24 21:00 02/11/24 21:30 Temperature Temperature Source Pulse Rate 70 63 68 Pulse Rate [Apical] Pulse Rate from SpO2 Sensor 69 63 Respiratory Rate 15 14 17 Respiratory Effort / Characteristics Respiratory Depth Blood Pressure 170/104 H 125/86 143/96 H Blood Pressure [Left Arm] Blood Pressure Mean 126 99 112 Blood Pressure Mean [Left Arm] Pulse Oximetry 97 97 98 Oxygen Delivery Method Room Air Room Air Room Air Sepsis Recent Fever Within 48 Hours Sepsis New/Unexplained Change in Mental Status Sepsis Action Taken by Nursing 02/11/24 22:12 02/11/24 23:00 Temperature Temperature Source Pulse Rate 58 L 60 Pulse Rate [Apical] Pulse Rate from SpO2 Sensor 58 L Respiratory Rate 14 14 Respiratory Effort / Characteristics Respiratory Depth Blood Pressure 136/90 136/91 Blood Pressure [Left Arm] Blood Pressure Mean 105 106 Blood Pressure Mean [Left Arm] Pulse Oximetry 97 96 Oxygen Delivery Method Room Air Room Air Sepsis Recent Fever Within 48 Hours Sepsis New/Unexplained Change in Mental Status Sepsis Action Taken by [facility] Medications Current Medication List: was personally reviewed by me Laboratory Data Attestation: I reviewed the patient's lab results. 02/12/24 02:11 02/12/24 02:11 Lab Results 02/11/24 02/11/24 Range/Units 15:15 16:57 WBC 6.02 (4.8-10.8) K/ul RBC 3.39 L (4.20-5.40) M/uL Hgb 10.9 L (12.0-16.0) g/dl Hct 32.1 L (37.0-47.0) % MCV 94.7 (80.0-100.0) fL MCH 32.2 (25.0-34.0) pg MCHC 34.0 (32.0-36.0) g/dL RDW Std Deviation 47.1 H (36.4-46.3) fL RDW Coeff of Maite 13.7 (11.5-14.5) % Plt Count 239 (130-400) K/uL MPV 10.1 (9.4-12.4) fL Immature Gran % (Auto) 0.7 % Neut % (Auto) 62.9 % Lymph % (Auto) 28.4 % [place] % (Auto) 5.0 % Eos % (Auto) 1.7 % Baso % (Auto) 1.3 % Neut # (Auto) 3.79 (1.40-6.50) K/uL Lymph # (Auto) 1.71 (1.20-3.40) K/uL [place] # (Auto) 0.30 (0.11-0.59) K/uL Eos # (Auto) 0.10 (0.00-0.50) K/uL Baso # (Auto) 0.08 (0.00-0.20) K/uL Immature Gran # (Auto) 0.04 (0.01-0.20) K/uL Sodium 136 (136-145) mmol/L Potassium TNP 3.4 L Chloride 105 (98-107) mmol/L Carbon Dioxide 24 (21-32) mmol/L Anion Gap 7 (3-11) BUN 12 (6-23) mg/dl Creatinine 0.76 (0.6-1.2) mg/dl Est Cr Clr Drug Dosing 97.2 ml/min Est GFR ( Amer) 109.8 ml/min Est GFR (Non-Af Amer) 94.7 ml/min BUN/Creatinine Ratio 15.8 (10-20) Glucose 102 H (70-99(Fasting)) mg/dl Calcium 8.2 L (8.6-10.3) mg/dl Total Bilirubin 0.3 (0.2-1.0) mg/dl AST TNP 13 ALT 9 (7-52) U/L Alkaline Phosphatase 25 L (34-104) U/L Total Protein 6.6 (6.0-8.3) gm/dl Albumin 3.8 (3.4-5.0) gm/dl Globulin 2.8 (2.5-4.0) gm/dl Albumin/Globulin Ratio 1.4 (0.9-2) Administered Medications Ciprofloxacin (Ciprofloxacin 500 Mg Tab) 500 mg PO Q12 [facility]; Protocol Stop: 03/13/24 08:59 Last Admin: 02/12/24 10:36 Dose: 500 mg Documented By: FREDDIE Sodium Chloride (Nss) 1,000 mls @ 125 mls/hr IV .Q8H [facility] Stop: 02/12/24 15:26 Last Admin: 02/12/24 09:42 Dose: 125 mls/hr Documented By: Infusion: 02/12/24 09:42 Dose: Infused Documented By: Admin: 02/12/24 01:52 Dose: 125 mls/hr Documented By: BOBBY Dexamethasone 6 mg/ Syringe 1.5 mls @ 1 mls/min IV Q12H [facility] Stop: 03/13/24 08:59 Last Admin: 02/12/24 10:36 Dose: 1 mls/min Documented By: FREDDIE Ceftriaxone Sodium (Rocephin) 2,000 mg in 50 mls @ 100 mls/hr IV Q24H [facility] Stop: 02/19/24 07:14 Last Infusion: 02/12/24 08:31 Dose: Infused Documented By: Admin: 02/12/24 07:57 Dose: 100 mls/hr Documented By: FREDDIE Levetiracetam (Levetiracetam 500 Mg Tab) 500 mg PO BID [facility] Stop: 03/13/24 08:59 Last Admin: 02/12/24 10:37 Dose: 500 mg Documented By: FREDDIE Losartan Potassium (Losartan Potassium 50 Mg Tab) 50 mg PO DAILY [facility] Stop: 03/13/24 08:59 Last Admin: 02/12/24 10:37 Dose: 50 mg Documented By: FREDDIE Miscellaneous (Abemaciclib [Verzenio]: Order Awaiting Action) 1 each N/A QS [facility] Stop: 03/13/24 07:59 Last Admin: 02/12/24 08:31 Dose: Not Given Documented By: FREDDIE Sertraline HCl (Sertraline Hcl 50 Mg Tablet) 50 mg PO DAILY [facility] Stop: 03/13/24 08:59 Last Admin: 02/12/24 10:37 Dose: 50 mg Documented By: FREDDIE Discontinued Medications Acetaminophen (Acetaminophen 1000 Mg/100 Ml Iv) 1,000 mg IV NOW STA Stop: 02/11/24 14:37 Last Admin: 02/11/24 15:04 Dose: 1,000 mg Documented By: BOBBY(2) Dexamethasone (Dexamethasone Sod Inj 4 Mg/Ml Vial) 10 mg IV NOW STA Stop: 02/11/24 18:20 Last Admin: 02/11/24 20:06 Dose: 10 mg Documented By: MARIA ALEJANDRA Diphenhydramine HCl (Diphenhydramine 50 Mg/Ml Vial) 12.5 mg IV NOW STA Stop: 02/11/24 14:37 Last Admin: 02/11/24 15:01 Dose: 12.5 mg Documented By: MLAlan(2) Sodium Chloride (Nss) 1,000 mls @ 999 mls/hr IV .Q1H1M [facility] Stop: 02/11/24 15:45 Last Infusion: 02/11/24 17:27 Dose: Infused Documented By: Admin: 02/11/24 15:01 Dose: 999 mls/hr Documented By: BOBBY(2) Magnesium Sulfate/Dextrose (Magnesium Sulfate / D5w) 1 gm in 100 mls @ 300 mls/hr IV NOW ONE Stop: 02/11/24 14:55 Last Infusion: 02/11/24 17:27 Dose: Infused Documented By: Admin: 02/11/24 15:06 Dose: 300 mls/hr Documented By: BOBBY(2) Sodium Chloride (Nss) 500 mls @ 999 mls/hr IV .Q31M [facility] Stop: 02/11/24 17:00 Last Infusion: 02/11/24 20:54 Dose: Infused Documented By: [facility] Admin: 02/11/24 17:22 Dose: 999 mls/hr Documented By: Valproic Acid 1,000 mg/ (Dextrose) 60 mls @ 55 mls/hr IV NOW STA Stop: 02/11/24 17:23 Last Infusion: 02/11/24 20:54 Dose: Infused Documented By: [facility] Admin: 02/11/24 17:22 Dose: 55 mls/hr Documented By: Calcium Gluconate () 1,000 mg in 60 mls @ 240 mls/hr IV NOW STA Stop: 02/11/24 17:53 Last Infusion: 02/11/24 20:54 Dose: Infused Documented By: [facility] Admin: 02/11/24 20:08 Dose: 240 mls/hr Documented By: MARIA ALEJANDRA Potassium Chloride (K Herber / Wtr) 10 meq in 100 mls @ 100 mls/hr IV ONE ONE Stop: 02/11/24 18:38 Last Infusion: 02/11/24 21:13 Dose: Infused Documented By: Admin: 02/11/24 20:07 Dose: 100 mls/hr Documented By: MARIA ALEJANDRA Sodium Chloride (Nss) 500 mls @ 999 mls/hr IV .Q31M ONE Stop: 02/11/24 20:51 Last Infusion: 02/11/24 20:54 Dose: Infused Documented By: Infusion: 02/11/24 20:54 Dose: 0 mls/hr Documented By: Admin: 02/11/24 20:31 Dose: 999 mls/hr Documented By: MARIA ALEJANDRA Promethazine HCl (Phenergan) 25 mg in 51 mls @ 204 mls/hr IV NOW STA Stop: 02/11/24 20:35 Last Infusion: 02/11/24 20:54 Dose: Infused Documented By: Admin: 02/11/24 20:31 Dose: 204 mls/hr Documented By: MARIA ALEJANDRA Levetiracetam (Levetiracetam 500 Mg/5 Ml Vial) 1,000 mg IV NOW STA Stop: 02/11/24 17:48 Last Admin: 02/11/24 20:05 Dose: 1,000 mg Documented By: MARIA ALEJANDRA Metoclopramide HCl (Metoclopramide Hcl Inj 5 Mg/Ml 2 Ml Vial) 10 mg IV NOW STA Stop: 02/11/24 16:19 Last Admin: 02/11/24 17:21 Dose: 10 mg Documented By: Prochlorperazine (Prochlorperazine 5 Mg/Ml 2 Ml Vial) 10 mg IV NOW STA Stop: 02/11/24 14:37 Last Admin: 02/11/24 15:02 Dose: 10 mg Documented By: MICHAEL(2) Imaging Data Radiologist's Impression: Head CT 02/11/24 14:37 CT head/brain wo con CLINICAL HISTORY: Headache; h/o brain mets Technique: Contiguous axial CT images of the head were acquired from the base of the skull to the vertex without intravenous contrast administration. Images were viewed in brain, subdural and bone windows. Automated dose lowering techniques and/or adjustment according to patient size were utilized for this exam. Comparison: Comparison is made to CT head 01/14/2024 Findings: The ventricles, basal cisterns, and cerebral sulci are normal. There is no acute intracranial hemorrhage or evidence of acute territorial infarction. Neither mass effect, shift of the midline structures, nor abnormal extra-axial fluid collections are shown. Diffuse white matter abnormalities are unchanged from prior exam. Imaged portions of the paranasal sinuses and mastoid air cells are clear. The orbits appear normal. There are no acute fractures of the calvaria or scalp swelling. Impression: No acute intracranial hemorrhage, no evidence of acute territorial infarction or other acute intracranial disease process. Diffuse white matter abnormalities are compatible with prior brain metastatic disease and posttreatment change. ACT 112: Negative or not required by law. Electronically signed by: Mickey Ryan M.D. 02/11/2024 3:47 PM Brain MRI 02/11/24 16:21 Exam(s): MRI HEAD W/WO Contrast IV Amt: 8ml gadavist EXAM: MR Head Without and With Intravenous Contrast CLINICAL HISTORY: Reason for exam: headache, brain mets. TECHNIQUE: Magnetic resonance images of the head/brain without and with intravenous contrast in multiple planes. CONTRAST: Patient received 8ml Gadavist of IV contrast COMPARISON: MRI brain January 20, [address] head from February 11, 2024 FINDINGS: Brain: Extensive enhancing mass lesions throughout the cerebrum, cerebellum, ayanna. The distribution is unchanged since previous. Individual lesions are approximately 10-20% larger in size than previous. Scattered areas of vasogenic edema associated with the larger metastatic lesions. No significant mass-effect or midline shift. No hemorrhage. No areas of diffusion restriction are seen to indicate acute stroke. Ventricles: Unremarkable. No ventriculomegaly. Bones/joints: Unremarkable. No acute fracture. Sinuses: Unremarkable as visualized. No acute sinusitis. Mastoid air cells: There is fluid signal within the right mastoid air cells suggesting mastoiditis, unchanged. Orbits: Unremarkable as visualized. Other findings: No hemorrhage is identified. IMPRESSION: 1. No areas of diffusion restriction are seen to indicate acute stroke. 2. Extensive enhancing mass lesions throughout the cerebrum, cerebellum, ayanna. The distribution is unchanged since previous. Individual lesions are approximately 10-20% larger in size than previous. 3. There is fluid signal within the right mastoid air cells suggesting mastoiditis, unchanged. Electronically signed by: William Morris MD 02/11/24 21:00 PM Discharge Plan Visit Data Chief Complaint: Head Pain ED Provider: Raul Shen Discharge Problem: Breast cancer metastasized to brain, Headache, Acute hypokalemia, Hypocalcemia, Vomiting Patient Disposition: Admitted As Inpatient Discharge Instructions Interventions: ED Discharge Assessment Last Done: 02/11/24 23:27 Discharge Problem: Breast cancer metastasized to brain Qualifiers: Laterality: unspecified laterality Qualified Code(s): C50.919 - Malignant neoplasm of unspecified site of unspecified female breast; C79.31 - Secondary malignant neoplasm of brain Headache Qualifiers: Headache type: unspecified Headache chronicity pattern: chronic headache I ntractability: intractable Qualified Code(s): R51.9 - Headache, unspecified; G89.29 - Other chronic pain Vomiting Qualifiers: Vomiting type: unspecified Nausea presence: with nausea Qualified Code(s): R 11.2 - Nausea with vomiting, unspecified
[2024-02-11] MEDS: SODIUM CHLORIDE 0.9% 1,000 ML IV SCH (15:01)
[2024-02-11] MEDS: diphenhydrAMINE 50 MG/ML VIAL IV STA (15:01)
[2024-02-11] MEDS: PROCHLORPERAZINE 5 MG/ML 2 ML VIAL IV STA (15:02)
[2024-02-11] MEDS: ACETAMINOPHEN 1000 MG/100 ML IV IV STA (15:04)
[2024-02-11] MEDS: MAGNESIUM SULFATE / D5W 1 GM/100 ML BAG IV ONE (15:06)
[2024-02-11 15:37] LABS: Basophils # (auto) 0.08 K/uL (0.00-0.20); Basophils % (auto) 1.3 %; Eosinophils % (auto) 1.7 %; Hematocrit (blood only) 32.1 % (37.0-47.0); Hemoglobin 10.9 g/dl (12.0-16.0); Immature Granulocytes # (auto) 0.04 K/uL (0.01-0.20); Immature Granulocytes % (auto) 0.7 %; Lymphocytes # (auto) 1.71 K/uL (1.20-3.40); Lymphocytes % (auto) 28.4 %; Mean Corpuscular Hemoglobin 32.2 pg (25.0-34.0); Mean Corpuscular Volume 94.7 fL (80.0-100.0); Mean Platelet Volume 10.1 fL (9.4-12.4); Neutrophils # (auto) 3.79 K/uL (1.40-6.50); Neutrophils % (auto) 62.9 %; Platelet Count 239 K/uL (130-400); RDW Coefficient of Variation 13.7 % (11.5-14.5); RDW Standard Deviation 47.1 fL (36.4-46.3); Red Blood Count 3.39 M/uL (4.20-5.40); White Blood Count 6.02 K/ul (4.8-10.8)
--- NOTE | 2024-02-11 15:49 | CT Scan Report ---
CT head/brain wo con CLINICAL HISTORY: Headache; h/o brain mets Technique: Contiguous axial CT images of the head were acquired from the base of the skull to the magdalena gregg without intravenous contrast administration. Images were viewed in brain, subdural and bone [facility] ws. Automated dose lowering techniques and/or adjustment according to patient size were utilized for this exam. Comparison: Comparison is made to CT head 01/14/2024 Findings: The ventricles, basal cisterns, and cerebral sulci are normal. There is no acute intracranial hemorrh age or evidence of acute territorial infarction. Neither mass effect, shift of the midline structures , nor abnormal extra-axial fluid collections are shown. Diffuse white matter abnormalities are uncha nged from prior exam. Imaged portions of the paranasal sinuses and mastoid air cells are clear. The orbits appear normal. There are no acute fractures of the calvaria or scalp swelling. Impression: No acute intracranial hemorrhage, no evidence of acute territorial infarction or other acute intracra nial disease process. Diffuse white matter abnormalities are compatible with prior brain metastatic d isease and posttreatment change. ACT 112: Negative or not required by law. Electronically signed by: Mickey Ryan M.D. 02/11/2024 3:47 PM
[2024-02-11 15:55] LABS: Alanine Aminotransferase 9 U/L (7-52); Albumin Globulin Ratio 1.4 (0.9-2); Albumin Level 3.8 gm/dl (3.4-5.0); Alkaline Phosphatase 25 U/L (34-104); Anion Gap 7 (3-11); BUN Creatinine Ratio 15.8 (10-20); Bilirubin,Total 0.3 mg/dl (0.2-1.0); Blood Urea Nitrogen 12 mg/dl (6-23); Calcium 8.2 mg/dl (8.6-10.3); Carbon Dioxide 24 mmol/L (21-32); Chloride 105 mmol/L (98-107); Creatinine Clr Calc Pharmacy 97.2 ml/min; Est GFR (African American) 109.8 ml/min; Est GFR (Non-African American) 94.7 ml/min; Globulin 2.8 gm/dl (2.5-4.0); Glucose 102 mg/dl (70-99(Fasting)); Sodium 136 mmol/L (136-145); Total Protein 6.6 gm/dl (6.0-8.3)
[2024-02-11] MEDS: METOCLOPRAMIDE HCL INJ 5 MG/ML 2 ML VIAL IV STA (17:21)
[2024-02-11] MEDS: SODIUM CHLORIDE 0.9% 500 ML IV SCH (17:22)
[2024-02-11] MEDS: VALPROATE SOD 1,000 MG in DEXTROSE 5% 50 ML IV STA (17:22)
[2024-02-11 17:25] LABS: Potassium 3.4 mmol/L (3.5-5.1)
[2024-02-11] MEDS: levETIRAcetam 500 MG/5 ML VIAL IV STA (20:05)
[2024-02-11] MEDS: DEXAMETHASONE SOD INJ 4 MG/ML VIAL IV STA (20:06)
[2024-02-11] MEDS: POTASSIUM CHLORIDE / WTR 10 MEQ/100 ML PLCT IV ONE (20:07)
[2024-02-11] MEDS: CALCIUM GLUCONATE 1,000 MG/60 ML BAG IV STA (20:08)
[2024-02-11] MEDS: PROMETHAZINE 25 MG/51 ML BAG IV STA (20:31)
[2024-02-11] MEDS: SODIUM CHLORIDE 0.9% 500 ML IV ONE (20:31)
--- NOTE | 2024-02-11 21:00 | Magnetic Resonance Report ---
Exam(s): MRI HEAD W/WO Contrast IV Amt: 8ml gadavist EXAM: MR Head Without and With Intravenous Contrast CLINICAL HISTORY: Reason for exam: headache, brain mets. TECHNIQUE: Magnetic resonance images of the head/brain without and with intravenous contrast in multiple planes. CONTRAST: Patient received 8ml Gadavist of IV contrast COMPARISON: MRI brain January 20, [address] head from February 11, 2024 FINDINGS: Brain: Extensive enhancing mass lesions throughout the cerebrum, cerebellum, ayanna. The distribution is unchanged since previous. Individual lesions are approximately 10-20% larger in size than previous. Scattered areas of vasogenic edema associated with the larger metastatic lesions. No significant mass-effect or midline shift. No hemorrhage. No areas of diffusion restriction are seen to indicate acute stroke. Ventricles: Unremarkable. No ventriculomegaly. Bones/joints: Unremarkable. No acute fracture. Sinuses: Unremarkable as visualized. No acute sinusitis. Mastoid air cells: There is fluid signal within the right mastoid air cells suggesting mastoiditis, unchanged. Orbits: Unremarkable as visualized. Other findings: No hemorrhage is identified. IMPRESSION: 1. No areas of diffusion restriction are seen to indicate acute stroke. 2. Extensive enhancing mass lesions throughout the cerebrum, cerebellum, ayanna. The distribution is unchanged since previous. Individual lesions are approximately 10-20% larger in size than previous. 3. There is fluid signal within the right mastoid air cells suggesting mastoiditis, unchanged. Electronically signed by: William Morris MD 02/11/24 21:00 PM
--- NOTE | 2024-02-11 22:52 | History & Physical Report ---
Date of Service February 11, 2024 Assessment & Plan (1) Breast cancer metastasized to brain: Plan: 10-20% size increase in brain mets. Dr. Rand is local oncology contact - has been consulted. Would recommend continued discussion with Dr. Carey or surgical nurse practitioner neuro-onc physician regarding plan of care. Was started on Keppra for ?seizures earlier this month. Did hold off on in house neuro consult for now. Loaded with 10 mg IV dex. Continue 6 mg IV Q12H. Continue outpatient regimen. Would recommend starting a goals of care discussion at this point. IV dex 6 mg Q12H breakthrough pain control and antiemetics as needed continue outpatient regimen monitor on tele replete electrolytes as indicated (2) Headache: Plan: See above Plan Prior PE: continue Xarelto Anxiety/Depression: continue home meds Code status: full DVT ppx: Xarelto FENGI: regular, s/p 2L fluid resuscitation, ordered mIVF @ 125 x 2L Dispo: tele unit History of Present Illness Chief Complaint: Headache Primary Care Provider: Luh Paris MD 43 y/o with a PMHx of metastatic breast cancer with mets to the brain here for evaluation of headache. Patient with intractable headache, nausea, and vomiting. She was given multiple medications in the ED without much success. Patient wanted to avoid glucocorticoid administration due to concern that it would interfere with her upcoming MRI. Dr. Shen did discuss the case with surgical nurse practitioner physician Dr. Cruz [facility] with neuro-oncology. Recommended repeat MRI. If no intervention feasible would recommend steroids and admission to [facility]. Hospitalist service consulted for admission. Patient received 10 mg dexamethasone with moderate improvement in symptoms. Upon my interview patient is tired, but conversational. Reports improved headache and nausea. Overall doing alright. No fevers or chills. No abdominal pain, SOB, or CP. No change in urinary or bowel habits. Allergies Allergy/AdvReac Type Severity Reaction Status Date / Time cat dander Allergy Severe SOB, Verified 01/14/24 20:17 SWELLING, CONGESTION, RUNNY EYES apple Allergy Intermediate ITCHY Verified 01/14/24 20:17 MOUTH, INDIGESTION erythromycin base Allergy Intermediate UNKNOWN, Verified 01/14/24 20:17 POSS GI UPSET A CHILD Home Medications Medication Instructions Recorded Confirmed Type lorazepam 0.5 mg tablet 0.5 mg PO HS PRN Anxiety 11/07/21 01/14/24 History ondansetron HCl 8 mg tablet 8 mg PO Q8 PRN Nausea And Vomiting 12/31/21 01/14/24 History prochlorperazine maleate 10 mg 10 mg PO Q6 PRN Nausea 12/31/21 01/14/24 History tablet cetirizine 10 mg capsule (Zyrtec) 10 mg PO DAILY PRN Congestion 05/21/22 01/14/24 History sertraline 50 mg tablet 50 mg PO DAILY 05/21/22 01/14/24 History denosumab 120 mg/1.7 mL (70 mg/mL) 120 mg subcut MONTHLY 11/04/22 01/14/24 His tory subcutaneous solution (Xgeva) goserelin 3.6 mg subcutaneous 0 mg subcut Q28D 11/04/22 01/14/24 History implant (Zoladex) loperamide 2 mg capsule (Imodium 2 mg PO Q6H PRN Diarrhea 11/04/22 01/14/24 History A-D) fulvestrant 125 mg/2.5 mL 500 mg IM Q14D 11/26/23 01/14/24 History intramuscular syringe olmesartan 20 mg tablet 20 mg PO DAILY #90 tabs 11/26/23 01/14/24 Rx abemaciclib 150 mg tablet 150 mg PO .BID UD 01/14/24 01/14/24 History (Verzenio) ciprofloxacin HCl 500 mg tablet 500 mg PO Q12 01/14/24 01/14/24 History cyanocobalamin (vitamin B-12) 1,000 mcg subcut .[id number] 01/14/24 01/14/24 History 1,000 mcg/mL injection solution diphenoxylate-atropine 2.5 1 tab PO DIRECTED 01/14/24 01/14/24 History mg-0.025 mg tablet potassium chloride 20 mEq 20 meq PO WK 01/14/24 01/14/24 History tablet,extended release rivaroxaban 20 mg tablet (Xarelto) 20 mg PO DAILY 01/14/24 01/14/24 History sodium bicarbonate 325 mg tablet 0 mg PO TID 01/14/24 01/14/24 History trastuzumab 150 mg intravenous 0 mg IV DIRECTED 01/14/24 01/14/24 History solution (Herceptin) levetiracetam 500 mg tablet 500 mg PO BID #60 tabs 01/20/24 Rx (Keppra) Past Med/Surg History Problem List (Updated 02/04/24 @ 00:08 by Background Daemon) Situational mixed anxiety and depressive disorder Pulmonary embolism Hypertension Hyponatremia Breast cancer metastasized to brain (Chronic 10/25/21) Seasonal allergies Medical History (Updated 02/04/24 @ 00:08 by Background Daemon) History of COVID-19 05/06, pcr, side effects "minimal">resolved Chronic bronchitis Herpes simplex of female genitalia Genital warts Cervical intraepithelial neoplasia (FRANCHESCA) Infiltrating ductal carcinoma of left breast hx Thyroid nodule hx, monitoring Surgical History (Updated 11/26/23 @ 12:31 by Luh Paris MD) Port-A-Cath in place (11/10/21) Access Port Insertion with Fluoroscopy - Tomas Poon DO, FACS History of biopsy (10/27/21) CT Guided Biopsy Lung History of breast reconstruction History of appendectomy (~11/2016) History of bilateral mastectomy bilat mast, left ALND Family History Mother Hypertension Grandmother Cancer Grandfather Cancer Father Hypertension Grandfather (Paternal) Myocardial infarction Grandfather (Maternal) Myocardial infarction Pancreatic cancer Grandmother (Paternal) Stroke Denies family history of Ovarian cancer Prostate cancer Breast cancer Colorectal cancer Social History (Updated 11/26/23 @ 11:00 by Missy Cano LPN) Smoking Status: Never smoker Second Hand Exposure: No; Do You Dip or Chew Tobacco: No; Hx Alcohol Use: No Hx Substance Use: No Preferred Language: Spanish Communication Ability: Effective Visual Impairment: Limited Hearing Ability: Normal Guillotine Operator Required: No Beliefs That Will Affect Care: None marital status: Single Current Living Situation: Alone Current Living Situation Comment: lives alone current occupational status: disabled How many Children do You have: 0 Other Information That Helps Us Care for You: No Feels Safe at Home: Yes Safety Concerns: Feels Safe At This Time Childhood Exposure to Second-Hand Smoke: No Diet: regular caffeine: Yes during the past year weight has: increased > 10 lbs Dental Care, Regularly: Yes Physical Activity Frequency: 1-2 Times per Week Seatbelt Use: always Sunscreen Use: No Assistive Devices: Contacts Review of Systems Review of Systems: See HPI Physical Exam Physical Exam: Gen: non-toxic appearing patient in NAD HEENT: AT NC MMM Resp: CTAB no wheezing no increased work of breathing CV: bradycardic, regular rhythm, no m/r/g clinically well perfused Abd: non-distended MSK: no obvious deformities Skin: no rashes or bruising Neuro: alert and oriented Psych: appropriate mood and affect Results & Data Results & Data Diagnostic Findings Head CT 02/11/24 14:37 Findings: The ventricles, basal cisterns, and cerebral sulci are normal. There is no acute intracranial hemorrhage or evidence of acute territorial infarction. Neither mass effect, shift of the midline structures, nor abnormal extra-axial fluid collections are shown. Diffuse white matter abnormalities are unchanged from prior exam. Imaged portions of the paranasal sinuses and mastoid air cells are clear. The orbits appear normal. There are no acute fractures of the calvaria or scalp swelling. Impression: No acute intracranial hemorrhage, no evidence of acute territorial infarction or other acute intracranial disease process. Diffuse white matter abnormalities are compatible with prior brain metastatic disease and posttreatment change. Brain MRI 02/11/24 16:21 FINDINGS: Brain: Extensive enhancing mass lesions throughout the cerebrum, cerebellum, ayanna. The distribution is unchanged since previous. Individual lesions are approximately 10-20% larger in size than previous. Scattered areas of vasogenic edema associated with the larger metastatic lesions. No significant mass-effect or midline shift. No hemorrhage. No areas of diffusion restriction are seen to indicate acute stroke. Ventricles: Unremarkable. No ventriculomegaly. Bones/joints: Unremarkable. No acute fracture. Sinuses: Unremarkable as visualized. No acute sinusitis. Mastoid air cells: There is fluid signal within the right mastoid air cells suggesting mastoiditis, unchanged. Orbits: Unremarkable as visualized. Other findings: No hemorrhage is identified. IMPRESSION: 1. No areas of diffusion restriction are seen to indicate acute stroke. 2. Extensive enhancing mass lesions throughout the cerebrum, cerebellum, ayanna. The distribution is unchanged since previous. Individual lesions are approximately 10-20% larger in size than previous. 3. There is fluid signal within the right mastoid air cells suggesting mastoiditis, unchanged. Supervising Physician Co-Signing Physician Notes Attending addendum: I have physically seen this patient, have supervised the medical residents activities, and agree with the H&P unless as otherwise noted. Assessment and Plan: Breast cancer metastasized to brain/vasogenic edema/headache- CT scan of head without contrast showed diffuse white matter abnormalities that are compatible with prior brain metastatic disease and posttreatment change MRI of brain with and without IV contrast showed no signs of acute stroke. Extensive enhancing mass lesions throughout the cerebrum, cerebellum and ayanna, with no change in number of individual lesions, but are increased in size comp ared to the previous. Right mastoiditis unchanged. Case was discussed by emergency department physician with [facility] neuro-oncology Dr. Carey. Given Keppra 1000 mg IV loading dose, and continue Keppra 600 mg p.o. twice daily Given dexamethasone 10 mg IV in the ED, and will continue 6 mg IV every 12 hours Given valproic acid 1000 mg IV in the ED Status post 2 L normal saline in the ED Consult hematology oncology Dr. Rand Hypokalemia/hypertension- Potassium 3.4 on admission Status post K rider in the ED Continue losartan 50 mg daily Recheck laboratories in the a.m. Pulmonary embolism history- Continue Xarelto Anxiety and depression- Continue sertraline 50 mg daily, and lorazepam as needed Mastoiditis- Would improve with the dexamethasone Ceftriaxone 2g IV daily Resident Activity Tracking Resident Involvement: Resident Care Provided Care Provided: Adult Hospital Medicine (2) Headache Headache chronicity pattern: acute headache Headache type: unspecified Intractability: intractable Qualified Code(s): R51.9 - Headache, unspecified
[2024-02-11] MEDS ORDERED: DIPHENOXYLATE/ATROPINE 2.5/0.025MG TAB PO SCH (23:27)
[2024-02-11] MEDS ORDERED: POLYETHYLENE (MIRALAX) 17 GM PACK PO PRN (23:27)
[2024-02-11] MEDS ORDERED: PROCHLORPERAZINE 5 MG in SYRINGE 4 ML IV PRN (23:27)
[2024-02-11] MEDS ORDERED: ALUMINUM/MAGNESIUM SUSP 30 ML UDC PO PRN (23:27)
[2024-02-11] MEDS ORDERED: LORazepam 2 MG/1 ML VIAL IV PRN (23:27)
[2024-02-11] MEDS ORDERED: ONDANSETRON INJ 2 MG/ML 2 ML VIAL IV PRN (23:27)
[2024-02-11] MEDS ORDERED: DEXAMETHASONE SOD INJ 4 MG/ML VIAL IV SCH (23:27)
[2024-02-11] MEDS ORDERED: LOPERAMIDE HCL 2 MG CAP PO PRN (23:27)
[2024-02-11] MEDS ORDERED: CETIRIZINE HCL 10 MG TABLET PO PRN (23:27)
[2024-02-12] MEDS: SODIUM CHLORIDE 0.9% 1,000 ML IV SCH (01:52)
[2024-02-12 02:35] LABS: Hematocrit (blood only) 31.1 % (37.0-47.0); Hemoglobin 10.7 g/dl (12.0-16.0); Mean Corpuscular Hemoglobin 32.3 pg (25.0-34.0); Mean Corpuscular Hgb Conc 34.4 g/dL (32.0-36.0); Mean Platelet Volume 9.9 fL (9.4-12.4); Platelet Count 289 K/uL (130-400); RDW Coefficient of Variation 13.4 % (11.5-14.5); RDW Standard Deviation 45.8 fL (36.4-46.3); Red Blood Count 3.31 M/uL (4.20-5.40); White Blood Count 6.51 K/ul (4.8-10.8)
[2024-02-12 03:08] LABS: BUN Creatinine Ratio 13.8 (10-20); Calcium 8.1 mg/dl (8.6-10.3); Creatinine Clr Calc Pharmacy 113.2 ml/min; Est GFR (African American) 124.3 ml/min; Est GFR (Non-African American) 107.2 ml/min; Potassium 4.3 mmol/L (3.5-5.1)
--- NOTE | 2024-02-12 04:02 | Billing Data ---
Date of Service February 12, 2024 Coding Level of Care Code 02037 INT INP/OBS CARE
--- NOTE | 2024-02-12 05:51 | Oncology Consultation ---
Date of Consultation February 12, 2024 Assessment & Plan (1) Breast cancer metastasized to brain: (2) Pulmonary embolism: Plan -Headaches and nausea seems to have improved with steroids. Would recommend continuing with IV steroids for now. Consider transitioning to p.o. steroids on discharge. -Although her systemic disease appears largely well-controlled, she has pretty significant brain metastasis for which she has received multiple lines of treatment. Had an extensive discussion with patient today regarding current clinical condition, recent multiple hospitalizations and overall prognosis. Unfortunately, outside clinical trials the options available have less efficacy than what she has received in the past. Will discuss with neuro-oncology at [facility] to see if there are any clinical trial options. Based on imaging, there is a concern that she may have leptomeningeal disease although recent lumbar puncture by neuro-oncology at [facility] was negative. At this time, would recommend evaluation by palliative care to discuss goals of care. If patient is discharged prior to Wednesday, will schedule her for outpatient palliative care evaluation. Thank you for this consult. Oncology will continue to follow peripherally while patient is in the hospital. Please feel free to call if you have any further questions. History of Present Illness Reason for Consultation: Metastatic breast cancer Attending Physician: Zachary eVrma MD History of Present Illness Khushi is a very pleasant 43-year-old patient followed by me at [facility] for metastatic breast cancer. She is also followed by neuro-oncology at [facility] for extensive brain metastasis. She is s/p whole brain radiation treatment completed on 11/14/2021, SRS to brain lesions in October,. For systemic therapy, she is s/p 6 cycles of TCHP followed by maintenance HP with disease progression in the brain for which she was switched to Herceptin/tucatinib/capecitabine in May,. Subsequently switched to Enhertu in November, for disease progression and more recently started abemaciclib/trastuzumab/fulvestrant in November, for disease progression. She was recently seen in the ER at [facility] after presenting with ocular migraine, right hand numbness and aphasia felt to be due to seizures for which she was started on Keppra. Presented to the ER at [facility] yesterday with complaints of headaches and vomiting. CT head on 02/11/2024 showed no acute intracranial process. Brain MRI also on 02/11/2024 revealed extensive enhancing mass lesions throughout the cerebrum, cerebellum, ayanna unchanged since previous with individual lesions approximately 10 to 20% larger in size than previous Allergies Allergy/AdvReac Type Severity Reaction Status Date / Time cat dander Allergy Severe SOB, Verified 01/14/24 20:17 SWELLING, CONGESTION, RUNNY EYES apple Allergy Intermediate ITCHY Verified 01/14/24 20:17 MOUTH, INDIGESTION erythromycin base Allergy Intermediate UNKNOWN, Verified 01/14/24 20:17 POSS GI UPSET A CHILD Home Medications Medication Instructions Recorded Confirmed Type lorazepam 0.5 mg tablet 0.5 mg PO HS PRN Anxiety 11/07/21 01/14/24 History ondansetron HCl 8 mg tablet 8 mg PO Q8 PRN Nausea And Vomiting 12/31/21 01/14/24 History prochlorperazine maleate 10 mg 10 mg PO Q6 PRN Nausea 12/31/21 01/14/24 History tablet cetirizine 10 mg capsule (Zyrtec) 10 mg PO DAILY PRN Congestion 05/21/22 01/14/24 History sertraline 50 mg tablet 50 mg PO DAILY 05/21/22 01/14/24 History denosumab 120 mg/1.7 mL (70 mg/mL) 120 mg subcut MONTHLY 11/04/22 01/14/24 History subcutaneous solution (Xgeva) goserelin 3.6 mg subcutaneous 0 mg subcut Q28D 11/04/22 01/14/24 History implant (Zoladex) loperamide 2 mg capsule (Imodium 2 mg PO Q6H PRN Diarrhea 11/04/22 01/14/24 History A-D) fulvestrant 125 mg/2.5 mL 500 mg IM Q14D 11/26/23 01/14/24 History intramuscular syringe olmesartan 20 mg tablet 20 mg PO DAILY #90 tabs 11/26/23 01/14/24 Rx abemaciclib 150 mg tablet 150 mg PO .BID UD 01/14/24 01/14/24 History (Verzenio) ciprofloxacin HCl 500 mg tablet 500 mg PO Q12 01/14/24 01/14/24 History cyanocobalamin (vitamin B-12) 1,000 mcg subcut .[id number] 01/14/24 01/14/24 History 1,000 mcg/mL injection solution diphenoxylate-atropine 2.5 1 tab PO DIRECTED 01/14/24 01/14/24 History mg-0.025 mg tablet potassium chloride 20 mEq 20 meq PO WK 01/14/24 01/14/24 History tablet,extended release rivaroxaban 20 mg tablet (Xarelto) 20 mg PO DAILY 01/14/24 01/14/24 History sodium bicarbonate 325 mg tablet 0 mg PO TID 01/14/24 01/14/24 History trastuzumab 150 mg intravenous 0 mg IV DIRECTED 01/14/24 01/14/24 History solution (Herceptin) levetiracetam 500 mg tablet 500 mg PO BID #60 tabs 01/20/24 Rx (Keppra) Patient History Medical History (Updated 02/04/24 @ 00:08 by Dana Kaplan) History of COVID-19 05/06, pcr, side effects "minimal">resolved Chronic bronchitis Herpes simplex of female genitalia Genital warts Cervical intraepithelial neoplasia (FRANCHESCA) Infiltrating ductal carcinoma of left breast hx Thyroid nodule hx, monitoring Surgical History (Updated 11/26/23 @ 12:31 by Luh Paris MD) Port-A-Cath in place (11/10/21) Access Port Insertion with Fluoroscopy - Tomas Poon DO, FACS History of biopsy (10/27/21) CT Guided Biopsy Lung History of breast reconstruction History of appendectomy (~11/2016) History of bilateral mastectomy bilat mast, left ALND Family History Mother Hypertension Grandmother Cancer Grandfather Cancer Father Hypertension Grandfather (Paternal) Myocardial infarction Grandfather (Maternal) Myocardial infarction Pancreatic cancer Grandmother (Paternal) Stroke Denies family history of Ovarian cancer Prostate cancer Breast cancer Colorectal cancer Social History (Updated 11/26/23 @ 11:00 by Missy Cano LPN) Smoking Status: Never smoker Second Hand Exposure: No; Do You Dip or Chew Tobacco: No; Hx Alcohol Use: No Hx Substance Use: No Preferred Language: Arabic Communication Ability: Effective Visual Impairment: Limited Hearing Ability: Normal Auto Air Conditioning Installer Required: No Beliefs That Will Affect Care: None marital status: Single Current Living Situation: Alone Current Living Situation Comment: lives alone current occupational status: disabled How many Children do You have: 0 Other Information That Helps Us Care for You: No Feels Safe at Home: Yes Safety Concerns: Feels Safe At This Time Childhood Exposure to Second-Hand Smoke: No Diet: regular caffeine: Yes during the past year weight has: increased > 10 lbs Dental Care, Regularly: Yes Physical Activity Frequency: 1-2 Times per Week Seatbelt Use: always Sunscreen Use: No Assistive Devices: Contacts Results & Data Vital Signs (Past 12 Hours) Vital Signs Pulse Resp BP Pulse Ox Pulse Ox O2 Del Method O2 Del Method 02/12/24 05:06 84 12 146/89 H 99 Room Air 02/12/24 04:30 76 12 100 Room Air 02/12/24 03:30 61 14 100 Room Air 02/12/24 02:51 63 15 98 Room Air 02/12/24 01:30 96 Room Air 02/12/24 01:00 69 14 136/86 98 Room Air 02/11/24 23:00 60 14 136/91 96 Room Air 02/11/24 22:12 58 L 14 136/90 97 Room Air 02/11/24 21:30 68 17 143/96 H 98 Room Air 02/11/24 21:00 63 14 125/86 97 Room Air 02/11/24 20:33 70 15 170/104 H 97 Room Air 02/11/24 20:06 60 12 176/113 H 99 Room Air 02/11/24 20:03 66
[2024-02-12] MEDS: cefTRIAXone SODIUM 2,000 MG/50 ML BAG IV SCH (07:57)
--- NOTE | 2024-02-12 07:57 | Hospitalist Progress Note ---
Date of Service February 12, 2024 Assessment & Plan (1) Breast cancer metastasized to brain: Plan: 10-20% size increase in brain mets. - Received 10mg IV Dexamethasone, will continue 6mg IV Dexamethasone Q12h - Dr. Rand is local oncology consulted and recommended pt consult with her neuro-onc at [facility] for possible treatment trials as well as consult with palliative medicine either during this hospital stay or on outpatient basis. - Was started on Keppra for seizures earlier this month, will continue 500mg levetiracetam PO BID - Hold neuro consult for now. - breakthrough pain control and antiemetics as needed - continue outpatient regimen - monitor on tele - replete electrolytes as indicated -Discontinue IV ceftriaxone (2) Headache: Plan: See above (3) Nausea: Plan: Nausea is intermittent. Appetite is low at this time. Has not vomited since arriving to ED. -Continue diet as tolerated -Zofran 4mg IV PRN q6h - Cont IV NS 125mls/hr q8h Plan Prior PE: continue Xarelto Anxiety/Depression: continue home meds Code status: full DVT ppx: Xarelto FENGI: regular, s/p 2L fluid resuscitation, ordered mIVF @ 125 x 2L Dispo: tele unit Admission and Anticipated Discharge Date Admission Date: February 11, 2024 Supervising Physician Co-Signing Physician Notes I personally examined the patient and verified all alvarado points of history and exam, discussed case, and agree with decision making with Dr Whelan feeling better. Headache much improved from before. Still frontal still little bit of the back of her neck. Has not eaten much. Still feels unsteady on her feet. Vitals noted, in general she is awake and alert pleasant no distress. HEENT normocephalic atraumatic mucous membranes moist. Breathing unlabored no accessory muscle use good effort. Skin without rashes pallor or icterus. Osteopathic/musculoskeletal shows bilateral suboccipitals high tone tender decreased range of motioninhibitory pressurepatient tolerated well. Headachemultifactorial between cerebral edema and subsequent tensionsteroids, gentle OMT, supportive care, time. Otherwise as above. No clear need for ceftriaxonehave stopped this. Subjective Pt is a 43 yo female with hx of metastatic breast cancer with known mets in her brain. She presented with severe intractable headache with nausea and vomiting. Since administration of steroid in ED, pt is reporting reduction of headache pain to 1-2/10 and resolution of nausea and vomiting. Pt reports eating some to ast and juice, and tolerating well. She continues feeling "shaky", especially when getting out of bed. She denies CP, SOB, urinary symptoms, numbness/tingling, changes in vision or hearing, confusion, altered sensation our joint pains Review of Systems Review of Systems: See HPI Physical Exam Constitutional: WD/WN, vitals as above Respiratory: normal respiratory effort, lungs clear to auscultation Cardiovascular: RRR, no murmur, no edema Gastrointestinal (Abdomen): normal bowel sounds, soft, nontender, no hepatosplenomegaly Musculoskeletal: no cyanosis or clubbing, extremities motor strength 5/5 Neurologic: PERRL, EOMI, accommodation nl, no face palsy, no dysarthria Speech / Cognition: normal speech Cranial Nerves: EOM intact bilaterally, tongue midline, normal hearing, able to rotate head bilaterally and able to elevate shoulders bilaterally Psychiatric: Orientation: alert, oriented x 3 and cooperative Results & Data Results & Data Vital Signs (Past 12 Hours) Vital Signs Pulse Resp BP Pulse Ox Pulse Ox O2 Del Method O2 Del Method 02/12/24 07:03 58 L 02/12/24 05:06 84 12 146/89 H 99 Room Air 02/12/24 04:30 76 12 100 Room Air 02/12/24 03:30 61 14 100 Room Air 02/12/24 02:51 63 15 98 Room Air 02/12/24 01:30 96 Room Air 02/12/24 01:00 69 14 136/86 98 Room Air 02/11/24 23:00 60 14 136/91 96 Room Air 02/11/24 22:12 58 L 14 136/90 97 Room Air 02/11/24 21:30 68 17 143/96 H 98 Room Air 02/11/24 21:00 63 14 125/86 97 Room Air 02/11/24 20:33 70 15 170/104 H 97 Room Air 02/11/24 20:06 60 12 176/113 H 99 Room Air 02/11/24 20:03 66 Resident Activity Tracking Resident Involvement: Resident Care Provided Care Provided: Adult Hospital Medicine (2) Headache Headache chronicity pattern: acute headache Headache type: unspecified Intractability: intractable Qualified Code(s): R51.9 - Headache, unspecified
[2024-02-12] MEDS ORDERED: SODIUM BICARBONATE 650 MG TAB PO SCH (09:00)
[2024-02-12] MEDS: CIPROFLOXACIN 500 MG TAB PO SCH (10:36)
[2024-02-12] MEDS: dexAMETHasone 6 MG in SYRINGE 0 ML IV SCH (10:36)
[2024-02-12] MEDS: LOSARTAN POTASSIUM 50 MG TAB PO SCH (10:37)
[2024-02-12] MEDS: levETIRAcetam 500 MG TAB PO SCH (10:37)
[2024-02-12] MEDS: SERTRALINE HCL 50 MG TABLET PO SCH (10:37)
--- NOTE | 2024-02-12 16:10 | Billing Data ---
Date of Service February 12, 2024 Coding Level of Care Code 02801 SUB INP/OBS CARE
[2024-02-12 19:56] VITALS: TEMP 97.9
[2024-02-12] MEDS: RIVAROXABAN 20 MG TAB PO SCH (20:17)
[2024-02-12] MEDS: ABEMACICLIB PO SCH (20:17)
[2024-02-13] MEDS: LORazepam 0.5 MG TAB PO PRN (05:05)
--- NOTE | 2024-02-13 07:04 | Discharge Summary ---
Date of Service February 13, 2024 Admission HPI Per Admitting Provider 43 y/o with a PMHx of metastatic breast cancer with mets to the brain here for evaluation of headache. Patient with intractable headache, nausea, and vomiting. She was given multiple medications in the ED without much success. Patient wanted to avoid glucocorticoid administration due to concern that it would interfere with her upcoming MRI. Dr. Shen did discuss the case with category consultant physician Dr. Cruz [facility] with neuro-oncology. Recommended repeat MRI. If no intervention feasible would recommend steroids and admission to [facility]. Hospitalist service consulted for admission. Patient received 10 mg dexamethaso ne with moderate improvement in symptoms. Upon my interview patient is tired, but conversational. Reports improved headache and nausea. Overall doing alright. No fevers or chills. No abdominal pain, SOB, or CP. No change in urinary or bowel habits. Principal Diagnosis Headache, vomiting Discharge Exam Constitutional WD/WN, vitals as above Respiratory normal respiratory effort, lungs clear to auscultation Cardiovascular RRR, no murmur, no edema Gastrointestinal (Abdomen) normal bowel sounds, soft, nontender, no hepatosplenomegaly Musculoskeletal no cyanosis or clubbing, extremities motor strength 5/5 Neurologic PERRL, EOMI, accommodation nl, no face palsy, no dysarthria Speech / Cognition: normal speech Cranial Nerves: EOM intact bilaterally, tongue midline, normal hearing, able to rotate head bilaterally and able to elevate shoulders bilaterally Psychiatric Orientation: alert, oriented x 3 and cooperative Discharge Data Allergies Allergy/AdvReac Type Severity Reaction Status Date / Time cat dander Allergy Severe SOB, Verified 01/14/24 20:17 SWELLING, CONGESTION, RUNNY EYES apple Allergy Intermediate ITCHY Verified 01/14/24 20:17 MOUTH, INDIGESTION erythromycin base Allergy Intermediate UNKNOWN, Verified 01/14/24 20:17 POSS GI UPSET A CHILD Consultations 02/11/24 21:51 Consult Hematology Routine ED Decision to Admit Stat Ordered Studies 02/11/24 14:37 CT head/brain wo con Stat 02/11/24 16:21 MR brain wo/w con Stat Hospital Course (1) Breast cancer metastasized to brain: 10-20% size increase in brain mets. - Received 10mg IV Dexamethasone, will continue 6mg IV Dexamethasone Q12h - Dr. Rand is local oncology consulted and recommended pt consult with her neuro-onc at [facility] for possible treatment trials as well as consult with palliative medicine either during this hospital stay or on outpatient basis. - Was started on Keppra for seizures earlier this month, will continue 500mg levetiracetam PO BID - Hold neuro consult for now. - breakthrough pain control and antiemetics as needed - continue outpatient regimen - monitor on tele - replete electrolytes as indicated -Discontinue IV ceftriaxone (2) Headache: See above (3) Nausea: Nausea is intermittent. Appetite is low at this time. Has not vomited since arriving to ED. -Continue diet as tolerated -Zofran 4mg IV PRN q6h - Cont IV NS 125mls/hr q8h Plan Prior PE: continue Xarelto Anxiety/Depression: continue home meds Code status: full DVT ppx: Xarelto FENGI: regular, s/p 2L fluid resuscitation, ordered mIVF @ 125 x 2L Dispo: tele unit Total Time Total Time Spent Total Time Spent (In Minutes): <30 Discharge Plan Discharge Items Patient Disposition: Home - Self-Care Reason For Visit: HEADACHE Discharge Diagnosis: Headache due to cerebral edema Activity: Resume your previous activity Non-emergency contact: Oncologist Call non-emergency contact if: your symptoms worsen Follow-up/Referrals: Luh Paris MD [Primary Care Provider] - Diet: Regular Addtl Attending Provider Instructions: talk with your oncology team about the ongoing dosing of the steroids (dexamethasone) - it's always a delicate risk/benefit since the steroids will help reduce brain swelling, but at the same time, intermediate manager steroids can start to create their own problems (like muscle weakness, bone weakness etc) - for now, it's the right thing to do since you had such significant symptoms from the swelling, but intermediate manager the risk/benefit balance is usually a "moving target" please note that the only medication change we made was adding dexamethasone 6mg twice a day (for now, ongoing dosing will change depending on how you're doing). we did not deliberately change any of your routine /regular medications. when someone is seen across several health systems, i've learned to not trust the computer med list - if our list doesn't match up with what you've been taking, please continue on your regular medications as you have been taking them! Pending Studies at Discharge: No Stand-Alone Forms: [facility], Smoking Cessation Medications and DC Order Prescriptions: New dexamethasone 6 mg tablet 6 mg PO BID Qty: 30 0RF Continued loperamide [Imodium A-D] 2 mg capsule 2 mg PO Q6H PRN (Reason: Diarrhea) Xgeva 120 mg/1.7 mL (70 mg/mL) solution 120 mg subcut MONTHLY Rx Instructions: Wednesday Zoladex 3.6 mg implant 0 mg subcut Q28D Rx Instructions: Wednesday sertraline 50 mg tablet 50 mg PO QAM fulvestrant 125 mg/2.5 syringe 500 mg IM MONTHLY Rx Instructions: may divide dose into 2 equally divided injections; one into each buttock lorazepam 0.5 mg Tablet 0.5 mg PO HS PRN (Reason: Sleep) ondansetron HCl 8 mg tablet 8 mg PO Q8 PRN (Reason: Nausea And Vomiting) prochlorperazine maleate 10 mg tablet 10 mg PO Q6 PRN (Reason: Nausea) olmesartan 20 mg tablet 20 mg PO QAM cyanocobalamin (vitamin B-12) 1,000 mcg/mL Solution 1,000 mcg SUBCUT .[id number] Rx Instructions: Wednesday Verzenio 150 mg Tablet 100 mg PO BID sodium bicarbonate 325 mg Tablet 325 mg PO TID PRN (Reason: LOW SODIUM) diphenoxylate-atropine 2.5-0.025 mg tablet 1 tab PO DIRECTED PRN (Reason: Diarrhea) Xarelto 20 mg tablet 20 mg PO QAM Herceptin 150 mg Recon Soln 0 mg IV .Q 4 WEEKS Rx Instructions: Wednesday potassium chloride 20 mEq tablet extended release 20 meq PO QAM levetiracetam [Keppra] 500 mg tablet 500 mg PO BID Qty: 60 0RF Discharge Orders: Discharge Order (Routine); Ordered 02/13/24 Ordered By: Jose Clifford Admission Data Admit Date/Time: 02/11/24 23:17 Attending Provider: Jose Clifford Admit Provider: Ayse Al Primary Care Provider: Luh Paris Other Providers: Zachary Verma; Bouchra Rand Other Interventions: Discharge Summary Assessment (RN) Last Done: 02/13/24 12:34 Supervising Physician Co-Signing Physician Notes I personally examined the patient and verified all alvarado points of history and exam, discussed case, and agree with decision making with Dr Whelan feeling better much more steady on feet feels up to going home. Vitals noted, in general she is awake and alert pleasant no distress. HEENT normocephalic atraumatic mucous membranes moist. Breathing unlabored no accessory muscle use good effort. Skin without rashes pallor or icterus. Headachemultifactorial between cerebral edema and subsequent tensionsteroids, gentle OMT done 02/11, supportive care, time. outpatient follow up and management of steroids Otherwise as above. Resident Activity Tracking Resident Involvement: Resident Care Provided Care Provided: Adult Hospital Medicine
[2024-02-13] MEDS: ACETAMINOPHEN 500 MG TAB PO PRN (07:33)
[2024-02-13 08:08] VITALS: RESP 14; O2SAT 97
--- NOTE | 2024-02-13 09:27 | Hematology/Oncology Prog Note ---
Date of Service February 13, 2024 Assessment & Plan (1) Breast cancer metastasized to brain: Plan Appears to be doing better clinically. Would recommend she continue on dexamethasone 6 mg twice daily upon discharge. Will gradually taper outpatient. -Follow-up with Dr. Self of neuro-oncology tomorrow via telehealth as scheduled. I have also discussed with Dr. Garcia of breast oncology at [facility] who plans to discuss further options of treatment including the possibility of trials with her later this week. -She will also need to be evaluated by palliative care. Referral for outpatient evaluation has been placed. Admission and Anticipated Discharge Date Admission Date: February 11, 2024 Subjective Appears to be doing better on dexamethasone 6 mg twice daily. Nausea and vomiting has resolved. Headaches have also improved Results & Data Vital Signs (Past 12 Hours) Vital Signs Temp Pulse Resp BP Pulse Ox O2 Del Method 02/13/24 08:05 36.6 C 66 14 146/84 H 97 Room Air (1) Breast cancer metastasized to brain Laterality: unspecified laterality Qualified Code(s): C50.919 - Malignant neoplasm of unspecified site of unspecified female breast; C79.31 - Secondary malignant neoplasm of brain
[2024-02-13] MEDS ORDERED: HEPARIN 100 UNIT/ML 5ML FLUSH FLUSH PRN (10:44)
[2024-02-13 13:36] VITALS: BP 138/94; PULSE 67
--- NOTE | 2024-02-13 16:34 | Billing Data ---
Date of Service February 13, 2024 Coding Level of Care Code 60954 IN/OBS DISCH 30 MIN/LESS
== END 2024-02-13 13:55 | disposition home or self-care (01) | DRG 102 ==
LOC: ED 14:13 → EDINP 23:17 → SUATTDRO 23:17 → 3E 23:27

== ENCOUNTER 2024-06-14 20:57 | Observation (INO) ==
[2024-06-14 21:54] LABS: Basophils # (auto) 0.05 K/uL (0.00-0.20); Basophils % (auto) 0.6 %; Eosinophils # (auto) 0.23 K/uL (0.00-0.50); Eosinophils % (auto) 2.7 %; Hemoglobin 10.8 g/dl (12.0-16.0); Immature Granulocytes # (auto) 0.36 K/uL (0.01-0.20); Immature Granulocytes % (auto) 4.2 %; Lymphocytes # (auto) 1.64 K/uL (1.20-3.40); Lymphocytes % (auto) 19.1 %; Mean Corpuscular Hemoglobin 30.4 pg (25.0-34.0); Mean Corpuscular Hgb Conc 33.8 g/dL (32.0-36.0); Mean Corpuscular Volume 90.1 fL (80.0-100.0); Mean Platelet Volume 11.1 fL (9.4-12.4); Monocytes % (auto) 5.8 %; Neutrophils % (auto) 67.6 %; Nucleated RBC # (auto) 0.03 K/uL (0.00-0.12); Nucleated RBC % (auto) 0.3 %; Platelet Count 106 K/uL (130-400); RDW Coefficient of Variation 14.2 % (11.5-14.5); RDW Standard Deviation 46.4 fL (36.4-46.3); Red Blood Count 3.55 M/uL (4.20-5.40); White Blood Count 8.58 K/ul (4.8-10.8)
[2024-06-14 22:09] LABS: Albumin Globulin Ratio 1.1 (0.9-2); BUN Creatinine Ratio 8.8 (10-20); Bilirubin,Total 0.7 mg/dl (0.2-1.0); Calcium 9.1 mg/dl (8.6-10.3); Creatinine Clr Calc Pharmacy 93.1 ml/min; Globulin 3.8 gm/dl (2.5-4.0); Total Protein 7.8 gm/dl (6.0-8.3)
[2024-06-14 22:15] LABS: Troponin I High Sensitivity 7.8 pg/ml (0-14)
[2024-06-14 22:25] LABS: Thyroid Stimulating Hormone 3.554 uIu/ml (0.300-4.500)
--- NOTE | 2024-06-14 22:45 | XRay Report ---
Exam(s): XR RIGHT ANKLE, 3+ views EXAM: XR Right Ankle Complete, 3 or More Views CLINICAL HISTORY: Reason for exam: fall, DOAC, met CA. TECHNIQUE: Frontal, lateral and oblique views of the right ankle. COMPARISON: No relevant prior studies available. FINDINGS: Bones/joints: Unremarkable. No fracture or malalignment. Soft tissues: Unremarkable. IMPRESSION: Normal right ankle x-rays. Electronically signed by: Bill Mirza MD 06/14/24 22:44 PM
--- NOTE | 2024-06-14 22:45 | CT Scan Report ---
Exam(s): CT T SPINE EXAM: CT Thoracic Spine Without Intravenous Contrast CLINICAL HISTORY: Reason for exam: fall, DOAC, met CA. TECHNIQUE: Axial computed tomography images of the thoracic spine without intravenous contrast. CTDI is 65.86 mGy and DLP is 2825.17 mGy-cm. Automated exposure control was utilized for the study. A dose lowering technique was utilized adhering to the principles of ALARA. COMPARISON: MRI T spine 03/07/2024 FINDINGS: Vertebrae: No fracture or malalignment. Bone islands within T10 and T11. No lytic lesion. Soft tissues: Unremarkable. Other findings: No spinal canal stenosis. IMPRESSION: No fracture or malalignment. Electronically signed by: Bill Mirza MD 06/14/24 22:44 PM
--- NOTE | 2024-06-14 23:04 | CT Scan Report ---
Exam(s): CT C SPINE EXAM: CT Cervical Spine Without Intravenous Contrast CLINICAL HISTORY: Reason for exam: fall, DOAC, met CA. TECHNIQUE: Axial computed tomography images of the cervical spine without intravenous contrast. CTDI is 65.86 mGy and DLP is 2825.17 mGy-cm. Automated exposure control was utilized for the study. A dose lowering technique was utilized adhering to the principles of ALARA. COMPARISON: No relevant prior studies available. FINDINGS: Vertebrae: No acute fracture or malalignment. Soft tissues: Unremarkable. Mastoid air cells: Right mastoid effusion. Other findings: No suspicious osseous lesion. IMPRESSION: 1. No acute fracture or malalignment. 2. Right mastoid effusion. Electronically signed by: Bill Mirza MD 06/14/24 23:03 PM
--- NOTE | 2024-06-14 23:13 | Emergency Department Note ---
History of Present Illness General Chief complaint: Fall Stated complaint: Fall Time Seen by Provider: 06/14/24 21:27 History of Present Illness Maximum Pain Intensity: 3 Khushi is a very pleasant 43-year-old patient followed by me at [facility] for metastatic breast cancer. She is also followed by neuro-oncology at [facility], [place], operated by [facility] for extensive brain metastasis. She is s/p whole brain radiation treatment completed on 11/14/2021, SRS to brain lesions in October,. She presents today for fall and increasing weakness. Patient complains of head neck and upper back pain. She also complains of right ankle pain. Patient denies chest pain, dyspnea, fever, chills, cough, congestion, abdominal pain, numbness, tingling. Home Medications Medication Instructions Recorded Confirmed Type lorazepam 0.5 mg tablet 0.5 mg PO HS PRN Sleep 11/07/21 02/12/24 History ondansetron HCl 8 mg tablet 8 mg PO Q8 PRN Nausea And Vomiting 12/31/21 02/12/24 History prochlorperazine maleate 10 mg 10 mg PO Q6 PRN Nausea 12/31/21 02/12/24 History tablet sertraline 50 mg tablet 50 mg PO QAM 05/21/22 02/12/24 History denosumab 120 mg/1.7 mL (70 mg/mL) 120 mg subcut MONTHLY 11/04/22 02/12/24 History subcutaneous solution (Xgeva) goserelin 3.6 mg subcutaneous 0 mg subcut Q28D 11/04/22 02/12/24 History implant (Zoladex) loperamide 2 mg capsule (Imodium 2 mg PO Q6H PRN Diarrhea 11/04/22 02/12/24 History A-D) fulvestrant 125 mg/2.5 mL 500 mg IM MONTHLY 11/26/23 02/12/24 History intramuscular syringe abemaciclib 150 mg tablet 100 mg PO BID 01/14/24 02/12/24 History (Verzenio) cyanocobalamin (vitamin B-12) 1,000 mcg subcut .[id number] 01/14/24 02/12/24 History 1,000 mcg/mL injection solution diphenoxylate-atropine 2.5 1 tab PO DIRECTED PRN Diarrhea 01/14/24 02/12/24 History mg-0.025 mg tablet potassium chloride 20 mEq 20 meq PO QAM 01/14/24 02/12/24 History tablet,extended release rivaroxaban 20 mg tablet (Xarelto) 20 mg PO QAM 01/14/24 02/12/24 History sodium bicarbonate 325 mg tablet 325 mg PO TID PRN LOW SODIUM 01/14/24 02/12/24 History trastuzumab 150 mg intravenous 0 mg IV .Q 4 WEEKS 01/14/24 02/12/24 History solution (Herceptin) levetiracetam 500 mg tablet 500 mg PO BID #60 tabs 01/20/24 02/12/24 Rx (Keppra) olmesartan 20 mg tablet 20 mg PO QAM 02/12/24 02/12/24 History dexamethasone 6 mg tablet 6 mg PO BID #30 tabs 02/13/24 Rx Allergies Allergy/AdvReac Type Severity Reaction Status Date / Time cat dander Allergy Severe SOB, Verified 01/14/24 20:17 SWELLING, CONGESTION, RUNNY EYES apple Allergy Intermediate ITCHY Verified 01/14/24 20:17 MOUTH, INDIGESTION erythromycin base Allergy Intermediate UNKNOWN, Verified 01/14/24 20:17 POSS GI UPSET A CHILD Past Med/Surg History Problem List (Updated 06/15/24 @ 00:37 by Mayra Culp PA-C) Asymptomatic bacteriuria Ambulatory dysfunction Acute UTI (Acute) Hypokalemia (Acute) Head injury (Acute) Weakness (Acute) Nausea Vomiting (Acute) Hypocalcemia (Acute) Acute hypokalemia (Acute) Headache (Acute) Situational mixed anxiety and depressive disorder Pulmonary embolism Hypertension Hyponatremia Breast cancer metastasized to brain (Chronic 10/25/21) Seasonal allergies Medical History History of COVID-19 05/06, pcr, side effects "minimal">resolved Chronic bronchitis Herpes simplex of female genitalia Genital warts Cervical intraepithelial neoplasia (FRANCHESCA) Infiltrating ductal carcinoma of left breast hx Thyroid nodule hx, monitoring Surgical History Port-A-Cath in place (11/10/21) Access Port Insertion with Fluoroscopy - Tomas Poon DO, FACS History of biopsy (10/27/21) CT Guided Biopsy Lung History of breast reconstruction History of appendectomy (~11/2016) History of bilateral mastectomy bilat mast, left ALND Family History Mother Hypertension Grandmother Cancer maternal great grandmother Grandfather Cancer Father Hypertension Grandfather (Paternal) Myocardial infarction Grandfather (Maternal) Myocardial infarction Pancreatic cancer Grandmother (Paternal) Stroke Denies family history of Ovarian cancer Prostate cancer Breast cancer Colorectal cancer Social History Smoking Status: Never smoker Second Hand Exposure: No; Do You Dip or Chew Tobacco: No; Hx Alcohol Use: No Hx Substance Use: No Preferred Language: Lao Communication Ability: Effective Visual Impairment: Limited Hearing Ability: Normal It Applications Analyst Required: No Beliefs That Will Affect Care: None marital status: Single Current Living Situation: Alone Current Living Situation Comment: lives alone current occupational status: disabled How many Children do You have: 0 Feels Safe at Home: Yes Childhood Exposure to Second-Hand Smoke: No Diet: regular caffeine: Yes during the past year weight has: increased > 10 lbs Dental Care, Regularly: Yes Physical Activity Frequency: 1-2 Times per Week Seatbelt Use: always Sunscreen Use: No Assistive Devices: Contacts Review of Systems A total of 10 systems reviewed and were otherwise negative Physical Exam Vital Signs Vital Signs - 24 hr 06/14/24 21:05 06/14/24 21:17 06/14/24 21:17 Temperature 36.8 C 36.8 C Temperature Source Oral Oral Pulse Rate 75 73 Pulse Rate [Right Finger] 77 Pulse Rhythm Regular Pulse Rhythm [Right Finger] Regular Pulse Strength Normal Pulse Strength [Right Finger] Normal Respiratory Rate 17 17 Respiratory Effort / Characteristics Non-Labored Spontaneous Non-Labored Spontaneous Respiratory Depth Normal Normal Respiratory Pattern Regular Regular Blood Pressure 148/96 H Blood Pressure [Right Arm] 148/96 H Blood Pressure Mean 113 Blood Pressure Mean [Right Arm] 113 Blood Pressure Position Lying Blood Pressure Position [Right Arm] Lying Pulse Oximetry 96 97 Oxygen Delivery Method Room Air Room Air Sepsis Recent Fever Within 48 Hours No Sepsis New/Unexplained Change in Mental Status No Sepsis Action Taken by Nursing No Action Required 06/14/24 21:41 06/14/24 23:00 Temperature Temperature Source Pulse Rate 72 Pulse Rate [Right Finger] 83 Pulse Rhythm Pulse Rhythm [Right Finger] Regular Pulse Strength Pulse Strength [Right Finger] Normal Respiratory Rate 18 17 Respiratory Effort / Characteristics Non-Labored Spontaneous Respiratory Depth Normal Respiratory Pattern Regular Blood Pressure Blood Pressure [Right Arm] Blood Pressure Mean Blood Pressure Mean [Right Arm] Blood Pressure Position Blood Pressure Position [Right Arm] Pulse Oximetry 98 98 Oxygen Delivery Method Room Air Room Air Sepsis Recent Fever Within 48 Hours Sepsis New/Unexplained Change in Mental Status Sepsis Action Taken by Nursing PHYSICAL EXAM: VITALS: Vitals are noted on the nurse's note and reviewed by myself. Vital signs stable. GENERAL: Pleasant female, in no acute distress, nondiaphoretic, well-developed well-nourished. SKIN: Few bruises in different ages just healing, the rest of the skin was without obvious lacerations or abrasions. Capillary reflex less than 2 seconds. HEAD: Normocephalic atraumatic. EARS: External auditory canals clear, EYES: Pupils equal round and reactive to light and accommodation. Conjunctivae without injection, sclerae without icterus. Extraocular movements intact. NOSE: Patent, turbinates without inflammation or discharge. MOUTH: Mucous membranes moist. Pharynx without erythema or exudate. Uvula midline. Airway patent. Tongue does not deviate. NECK: Supple without nuchal rigidity. Cervical spine is minimally tender C5-6. Full range of motion of the neck without tenderness. No JVD. HEART: Regular rate and rhythm LUNGS: Clear to auscultation bilaterally without wheezes, rales or rhonchi. No dullness to percussion. No retractions or accessory muscle use. No chest wall tenderness. ABDOMEN: Positive bowel sounds x 4. Normal tympanic percussion. Soft, nontender, without masses or organomegaly. No guarding or rebound tenderness. MUSCULOSKELETAL: Minimally tender T3 and 4. No step-offs. No bruising. No tenderness of the lumbar spine. No tenderness with pelvic rocking. Right ankle minimally tender to palpation with full range of motion, full range of motion without tenderness to palpation in all other extremities. Strength 5/5 throughout. NEURO: Patient was alert and oriented to person place and time. Normal sensation to light and sharp touch. No focal neurological deficits. Medical Decision Making Medical Records Attestation: I reviewed the patient's medical records. Home Medications Current Medication List: was personally reviewed by me Laboratory Data Attestation: I reviewed the patient's lab results. 06/14/24 21:13 06/14/24 21:13 Lab Results 06/14/24 06/14/24 Range/Units 21:13 22:10 WBC 8.58 (4.8-10.8) K/ul RBC 3.55 L (4.20-5.40) M/uL Hgb 10.8 L (12.0-16.0) g/dl Hct 32.0 L (37.0-47.0) % MCV 90.1 (80.0-100.0) fL MCH 30.4 (25.0-34.0) pg MCHC 33.8 (32.0-36.0) g/dL RDW Std Deviation 46.4 H (36.4-46.3) fL RDW Coeff of Maite 14.2 (11.5-14.5) % Plt Count 106 L (130-400) K/uL MPV 11.1 (9.4-12.4) fL Immature Gran % (Auto) 4.2 % Neut % (Auto) 67.6 % Lymph % (Auto) 19.1 % Isabella % (Auto) 5.8 % Eos % (Auto) 2.7 % Baso % (Auto) 0.6 % Neut # (Auto) 5.80 (1.40-6.50) K/uL Lymph # (Auto) 1.64 (1.20-3.40) K/uL Isabella # (Auto) 0.50 (0.11-0.59) K/uL Eos # (Auto) 0.23 (0.00-0.50) K/uL Baso # (Auto) 0.05 (0.00-0.20) K/uL Immature Gran # (Auto) 0.36 H (0.01-0.20) K/uL Absolute Nucleated RBC 0.03 (0.00-0.12) K/uL Nucleated RBC % (auto) 0.3 % Sodium 137 (136-145) mmol/L Potassium 3.0 L (3.5-5.1) mmol/L Chloride 100 (98-107) mmol/L Carbon Dioxide 28 (21-32) mmol/L Anion Gap 9 (3-11) BUN 7 (6-23) mg/dl Creatinine 0.80 (0.6-1.2) mg/dl Est Cr Clr Drug Dosing 93.1 ml/min eGFR 91.97 BUN/Creatinine Ratio 8.8 L (10-20) Glucose 98 (70-99(Fasting)) mg/dl Calcium 9.1 (8.6-10.3) mg/dl Magnesium 2.0 (1.7-2.4) mg/dl Total Bilirubin 0.7 (0.2-1.0) mg/dl AST 51 H (13-39) U/L ALT 36 (7-52) U/L Alkaline Phosphatase 63 (34-104) U/L Total Creatine Kinase 85 (26-192) U/L Troponin I High Sens 7.8 (0-14) pg/ml Total Protein 7.8 (6.0-8.3) gm/dl Albumin 4.0 (3.4-5.0) gm/dl Globulin 3.8 (2.5-4.0) gm/dl Albumin/Globulin Ratio 1.1 (0.9-2) TSH 3.554 (0.300-4.500) uIu/ml Urine Color Dark Yellow Urine Appearance Turbid A (Clear) Urine pH 5.0 (4.5-7.5) Ur Specific [place] 1.026 (1.000-1.030) Urine Protein Trace H (Negative) Urine Glucose (UA) Negative (Negative) Urine Ketones Trace H (Negative) Urine Blood Negative (Negative) Urine Nitrite Negative (Negative) Urine Bilirubin 1+ H (Negative) Urine Urobilinogen Negative (Negative) Ur Leukocyte Esterase 2+ H (Negative) Urine WBC (Auto) 11-20 H (0-5) /hpf Urine RBC (Auto) 0-2 (0-2) /hpf U Hyaline Cast (Auto) 3-5 H (0-2) /lpf U Epithel Cells (Auto) 6-10 H (0-2) /hpf Urine Bacteria (Auto) None Seen (None Seen) Imaging Data Attestation: I personally reviewed and interpreted this imaging study as follows: Radiologist's Impression: Cervical Spine CT 06/14/24 21:40 Exam(s): CT C SPINE EXAM: CT Cervical Spine Without Intravenous Contrast CLINICAL HISTORY: Reason for exam: fall, DOAC, met CA. TECHNIQUE: Axial computed tomography images of the cervical spine without intravenous contrast. CTDI is 65.86 mGy and DLP is 2825.17 mGy-cm. Automated exposure control was utilized for the study. A dose lowering technique was utilized adhering to the principles of ALARA. COMPARISON: No relevant prior studies available. FINDINGS: Vertebrae: No acute fracture or malalignment. Soft tissues: Unremarkable. Mastoid air cells: Right mastoid effusion. Other findings: No suspicious osseous lesion. IMPRESSION: 1. No acute fracture or malalignment. 2. Right mastoid effusion. Electronically signed by: Bill Mirza MD 06/14/24 23:[address] 06/14/24 21:40 Exam(s): CT T SPINE EXAM: CT Thoracic Spine Without Intravenous Contrast CLINICAL HISTORY: Reason for exam: fall, DOAC, met CA. TECHNIQUE: Axial computed tomography images of the thoracic spine without intravenous contrast. CTDI is 65.86 mGy and DLP is 2825.17 mGy-cm. Automated exposure control was utilized for the study. A dose lowering technique was utilized adhering to the principles of ALARA. COMPARISON: MRI T spine 03/07/2024 FINDINGS: Vertebrae: No fracture or malalignment. Bone islands within T10 and T11. No lytic lesion. Soft tissues: Unremarkable. Other findings: No spinal canal stenosis. IMPRESSION: No fracture or malalignment. Electronically signed by: Bill Mirza MD 06/14/24 22:44 PM Ankle X-Ray 06/14/24 21:41 Exam(s): XR RIGHT ANKLE, 3+ views EXAM: XR Right Ankle Complete, 3 or More Views CLINICAL HISTORY: Reason for exam: fall, DOAC, met CA. TECHNIQUE: Frontal, lateral and oblique views of the right ankle. COMPARISON: No relevant prior studies available. FINDINGS: Bones/joints: Unremarkable. No fracture or malalignment. Soft tissues: Unremarkable. IMPRESSION: Normal right ankle x-rays. Electronically signed by: Bill Mirza MD 06/14/24 22:44 PM Chest X-Ray 06/14/24 21:41 Exam(s): XR CXR 1 VIEW EXAM: XR Chest, 1 View CLINICAL HISTORY: Reason for exam: weakness. TECHNIQUE: Frontal view of the chest. COMPARISON: 01/20/2024 FINDINGS: Lungs: No consolidation. No overt edema. Pleural space: No pleural effusion. No pneumothorax. Heart: Unremarkable. No cardiomegaly. Tubes, lines and devices: Port-A-Cath in place. IMPRESSION: No acute findings in the chest. Electronically signed by: Bill Mirza MD 06/14/24 23:[address] 06/14/24 21:41 Exam(s): CT HEAD Without Contrast EXAM: CT Head Without Intravenous Contrast CLINICAL HISTORY: Reason for exam: fall, DOAC, met CA. TECHNIQUE: Axial computed tomography images of the head/brain without intravenous contrast. CTDI is 65.86 mGy and DLP is 2825.17 mGy-cm. Automated exposure control was utilized for the study. A dose lowering technique was utilized adhering to the principles of ALARA. COMPARISON: 02/11/2024 FINDINGS: Brain: No acute intracranial hemorrhage. No grossly evident acute transcortical infarct. Supratentorial and infratentorial chronic white matter changes appear similar to the prior. Ventricles: Unremarkable. Bones/joints: Unremarkable. No fracture. Soft tissues: Unremarkable. Sinuses: No acute sinusitis. Mastoid air cells: Unremarkable as visualized. IMPRESSION: 1. No acute abnormality. 2. Chronic white matter changes appear similar to the prior. Electronically signed by: Bill Mirza MD 06/14/24 23:13 PM MDM Narrative Prior records/ancillary studies reviewed and summarized above. Nursing notes reviewed. Additional history obtained from nursing. The patient's history was concerning for increasing weakness and frequent falls and a metastatic breast cancer patient. Differential diagnosis: Etiologies such as progression of cancer, metabolic, infection, hypo/hyperglycemia, electrolyte abnormalities, cardiac sources, intracerebral event, toxicologic, neurologic, as well as others were entertained. Physical examination: As above. ER treatment provided: IV Lock An order was placed for continuous cardiac monitoring. The monitor shows a rate of 60-100 with a sinus rhythm per my interpretation. Potassium was ordered Rocephin for UTI was ordered On reassessment the patient felt better. Diagnostics interpretation by me: ECG: Ordered for weakness EKG: Normal sinus, Q waves in inferior leads, no acute ST-T wave changes, rate of 70. Impression normal sinus rhythm Q waves in inferior leads independently interpreted by myself The labs Independently Interpreted by myself revealed hypokalemia and this was replaced. Normal magnesium Normal CPK Imaging: Imaging was reviewed and read by radiology Consultation: A consultation was placed with the hospitalist. The case was discussed and diagnostics were reviewed. The patient was evaluated in the ER for further treatment. Exam and history seem consistent with increasing weakness with frequent falls, uti, hypokalemia and a metastatic breast cancer patient. Patient felt too weak to go home. She lives alone. Medicine was consulted and the case was discussed. She will be evaluated for possible admission. By the evaluation outlined above emergent etiologies such as cardiac sources, intracerebral event, toxologic, neurologic, abnormalities blood glucose, metabolic, as well as others were deemed relatively unlikely. The pt informed about the findings as listed above. All questions were answered and pleased with the treatment. The chart was completed utilizing [employer] Speech voice recognition software. Grammatical errors, random word insertions, pronoun errors, and incomplete sentences are an occassional consequence of this system due to software limitations, ambient noise, and hardware issues. Any formal questions or concerns about the content, text, or information contained within the body of this dictation should be directly addressed to the physician life enrichment assistant for clarification. Impression & Plan Weakness, Head injury, Hypokalemia, Breast cancer metastasized to brain, Acute UTI Discharge Plan Visit Data Chief Complaint: Fall Stated Complaint: Fall ED Provider: Jose Waite ED Midlevel Provider: Rosario Schaffer Discharge Problem: Weakness, Head injury, Hypokalemia, Breast cancer metastasized to brain, Acute UTI Patient Disposition: Admitted As Inpatient Condition: Fair Forms Stand Alone Forms: [facility] Prescriptions Prescriptions: No Action loperamide [Imodium A-D] 2 mg capsule 2 mg PO Q6H PRN (Reason: Diarrhea) Xgeva 120 mg/1.7 mL (70 mg/mL) solution 120 mg subcut MONTHLY Rx Instructions: DUE WEDNESDAY Zoladex 3.6 mg implant 0 mg subcut Q28D Rx Instructions: DUE WEDNESDAY sertraline 50 mg tablet 50 mg PO QAM fulvestrant 125 mg/2.5 syringe 500 mg IM MONTHLY Rx Instructions: may divide dose into 2 equally divided injections; one into each buttock lorazepam 0.5 mg Tablet 0.5 mg PO HS PRN (Reason: Sleep) ondansetron HCl 8 mg tablet 8 mg PO Q8 PRN (Reason: Nausea And Vomiting) prochlorperazine maleate 10 mg tablet 10 mg PO Q6 PRN (Reason: Nausea) olmesartan 20 mg tablet 20 mg PO QAM dexamethasone 6 mg tablet 6 mg PO BID Qty: 30 0RF cyanocobalamin (vitamin B-12) 1,000 mcg/mL Solution 1,000 mcg SUBCUT .[id number] Rx Instructions: DUE WEDNESDAY Verzenio 150 mg Tablet 100 mg PO BID sodium bicarbonate 325 mg Tablet 325 mg PO TID PRN (Reason: LOW SODIUM) diphenoxylate-atropine 2.5-0.025 mg tablet 1 tab PO DIRECTED PRN (Reason: Diarrhea) Xarelto 20 mg tablet 20 mg PO QAM Herceptin 150 mg Recon Soln 0 mg IV .Q 4 WEEKS Rx Instructions: DUE WEDNESDAY potassium chloride 20 mEq tablet extended release 20 meq PO QAM levetiracetam [Keppra] 500 mg tablet 500 mg PO BID Qty: 60 0RF Referrals Referrals: Luh Ching MD [Primary Care Provider] -
[2024-06-14 23:51] LABS: Appearance Urine Turbid (Clear); Bacteria Urine Automated None Seen (None Seen); Bilirubin Urine 1+ (Negative); Blood Urine Negative (Negative); Color Urine Dark Yellow; Glucose Urine UA Negative (Negative); Ketones Urine Trace (Negative); Leukocyte Esterase Urine 2+ (Negative); Nitrite Urine Negative (Negative); Protein Urine Trace (Negative); RBC Urine Automated 0-2 /hpf (0-2); Specific Gravity Urine 1.026 (1.000-1.030); Urobilinogen Urine Negative (Negative)
--- NOTE | 2024-06-14 23:54 | History & Physical Report ---
Date of Service June 14, 2024 Assessment & Plan (1) Ambulatory dysfunction: (2) Hypokalemia: (3) Asymptomatic bacteriuria: (4) Breast cancer metastasized to brain: (5) Mastoiditis: Plan Patient is a 44-year-old female with a past medical history stage IV breast cancer with metastasis to the brain s/p whole brain radiation, history of PE on Xarelto, depression, hypertension, seizure disorder. she presents today due to recurrent falls due to weakness/unsteady gait. She is being admitted for ambulatory dysfunction to have PT/OT evals. #ambulatory dysfunction recurrent falls, lives at home alone Has home health PT with [facility] [place] weekly possibly secondary to adrenal insufficiency with chronic steroid use and hypokalemia TSH WNL UA essentially negative, appears contaminated b12 with AM labs PT/OT consulted 4 Mg IV dexamethasone daily gentle IVF resuscitation 500 mL NSS overnight fall precautions #hypokalemia K+ 3.0 on admission Likely secondary to diarrhea x 1 day 40 mEq p.o. + 30 mEq IV ordered NSS ordered to assist with burning associated with IV potassium Mg stable, 2.0 Trend BMP and Mg #asymptomatic bacteriuria Patient denies urinary symptoms UA appears contaminated, 2+ leukocyte esterase, 11-20 WBC, 3-5 hyaline casts, 6- 10 epithelial cells Given Rocephin in ED; defer further antibiotic use as UA contaminated Follow urine culture #stage IV breast cancer with metastasis to brain S/p whole brain radiation in February 2024 Takes Kadcyla every 3 weeks - took 1 week ago, associate fatigue but not falls continue Verzenio on chronic dexamethasone taper; 0.5 Mg every few days - stress dose steroids as above Works with oncologist at [facility] and Dr. Mcnamara seizure disorder - continue Keppra #mastoid effusion medical spine CT showed right mastoid effusion No tympanic membrane abnormalities on exam No tenderness to mastoid on exam Patient states she does have bilateral ear itchiness for several days however chronically dry since radiation therapy - denies hearing loss, tinnitus, drainage, pain Will defer ABX use at this time, can start ABX if patient become symptomatic Will start oral antihistamine Chronic stable diagnoses: depression - continue sertraline Hx PE - continue Xarelto HTN - continue olmesartan VTE ppx: Continue Xarelto Diet: regular Dispo: med surg Admission and Anticipated Discharge Date Admission Date: 06/15/24 History of Present Illness Chief Complaint: fall Primary Care Provider: Luh Ching MD Patient is a 44-year-old female with a past medical history stage IV breast cancer with metastasis to the brain s/p whole brain radiation, history of PE on Xarelto, depression, hypertension, seizure disorder. she presents today due to recurrent falls due to weakness/unsteady gait. She is being admitted for ambulatory dysfunction to have PT/OT evals. Patient seen at bedside. She stated that since February she will have 1 day a week of unsteady gait. Recently this has contributed to her falling. She stated that she feels like her legs are giving out on her weak. She denies dizziness or chest pain prior to the falls. Today she fell and just could not get up. She denies loss of consciousness or head strike. She uses a cane occasionally at baseline and a walker at night to get to the bathroom. Her first fall was in early March after whole brain radiation. She is on Kadcyla every 3 weeks. She does get fatigued for a couple days after this but denies falls shortly after. She had her last dose roughly 1 week ago. She has home health PT and OT but at her last OT visit this week. She has PT once weekly and they were at her house today. This is through [facility]. She does endorse head pain after the fall but now denies head pain. She denies shortness of breath, nausea, vomiting. She does endorse diarrhea however had a barium swallow yesterday and relates it to that. She is agreeable to PT/OT evals while inpatient stay, would be okay with inpatient rehab if recommended. She is on chronic steroids and is currently tapering dexamethasone; she takes 0.5 Mg every few days. regarding the right mastoid effusion, patient stated she has bilateral ear itchiness for several days however is chronically dry after receiving radiation therapy. She denies hearing loss, tinnitus, drainage, pain. She denies nicotine or alcohol use. She does live at home alone, which is a concern for her with the recent falls. She did take her home medications this morning but needs her evening medications; ordered on admission. She wishes to be full code. Patient has potassium supplement ordered, only takes this as needed when potassium low with blood work. Allergies Allergy/AdvReac Type Severity Reaction Status Date / Time cat dander Allergy Severe SOB, Verified 01/14/24 20:17 SWELLING, CONGESTION, RUNNY EYES apple Allergy Intermediate ITCHY Verified 01/14/24 20:17 MOUTH, INDIGESTION erythromycin base Allergy Intermediate UNKNOWN, Verified 01/14/24 20:17 POSS GI UPSET A CHILD Home Medications Medication Instructions Recorded Confirmed Type lorazepam 0.5 mg tablet 0.5 mg PO HS PRN Sleep 11/07/21 06/15/24 History ondansetron HCl 8 mg tablet 8 mg PO Q8 PRN Nausea And Vomiting 12/31/21 06/15/24 History prochlorperazine maleate 10 mg 10 mg PO Q6 PRN Nausea 12/31/21 06/15/24 History tablet sertraline 50 mg tablet 50 mg PO QAM 05/21/22 06/15/24 History denosumab 120 mg/1.7 mL (70 mg/mL) 120 mg subcut MONTHLY 11/04/22 06/15/24 History subcutaneous solution (Xgeva) goserelin 3.6 mg subcutaneous 0 mg subcut Q28D 11/04/22 06/15/24 History implant (Zoladex) loperamide 2 mg capsule (Imodium 2 mg PO Q6H PRN Diarrhea 11/04/22 06/15/24 History A-D) fulvestrant 125 mg/2.5 mL 500 mg IM MONTHLY 11/26/23 06/15/24 History intramuscular syringe abemaciclib 150 mg tablet 100 mg PO BID 01/14/24 06/15/24 History (Verzenio) cyanocobalamin (vitamin B-12) 1,000 mcg subcut .[id number] 01/14/24 06/15/24 History 1,000 mcg/mL injection solution diphenoxylate-atropine 2.5 1 tab PO DIRECTED PRN Diarrhea 01/14/24 06/15/24 History mg-0.025 mg tablet rivaroxaban 20 mg tablet (Xarelto) 20 mg PO QAM 01/14/24 06/15/24 History sodium bicarbonate 325 mg tablet 325 mg PO TID PRN LOW SODIUM 01/14/24 02/12/24 History trastuzumab 150 mg intravenous 0 mg IV .Q 4 WEEKS 01/14/24 06/15/24 History solution (Herceptin) levetiracetam 500 mg tablet 500 mg PO BID #60 tabs 01/20/24 06/15/24 Rx (Keppra) olmesartan 20 mg tablet 20 mg PO QAM 02/12/24 06/15/24 History dexamethasone 6 mg tablet 6 mg PO BID #30 tabs 02/13/24 06/15/24 Rx Past Med/Surg History Problem List (Updated 06/15/24 @ 01:24 by Dana Kaplan) Mastoiditis Asymptomatic bacteriuria Ambulatory dysfunction Acute UTI (Acute) Hypokalemia (Acute) Head injury (Acute) Weakness (Acute) Nausea Vomiting (Acute) Hypocalcemia (Acute) Acute hypokalemia (Acute) Headache (Acute) Situational mixed anxiety and depressive disorder Pulmonary embolism Hypertension Hyponatremia Breast cancer metastasized to brain (Chronic 10/25/21) Seasonal allergies Medical History History of COVID-19 05/06, pcr, side effects "minimal">resolved Chronic bronchitis Herpes simplex of female genitalia Genital warts Cervical intraepithelial neoplasia (FRANCHESCA) Infiltrating ductal carcinoma of left breast hx Thyroid nodule hx, monitoring Surgical History Port-A-Cath in place (11/10/21) Access Port Insertion with Fluoroscopy - Tomas Poon DO, FACS History of biopsy (10/27/21) CT Guided Biopsy Lung History of breast reconstruction History of appendectomy (~11/2016) History of bilateral mastectomy bilat mast, left ALND Family History Mother Hypertension Grandmother Cancer maternal great grandmother Grandfather Cancer Father Hypertension Grandfather (Paternal) Myocardial infarction Grandfather (Maternal) Myocardial infarction Pancreatic cancer Grandmother (Paternal) Stroke Denies family history of Ovarian cancer Prostate cancer Breast cancer Colorectal cancer Social History Smoking Status: Never smoker Second Hand Exposure: No; Do You Dip or Chew Tobacco: No; Hx Alcohol Use: No Hx Substance Use: No Preferred Language: Italian Communication Ability: Effective Visual Impairment: Limited Hearing Ability: Normal 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 Beliefs That Will Affect Care: None marital status: Single Current Living Situation: Alone Current Living Situation Comment: lives alone current occupational status: disabled How many Children do You have: 0 Other Information That Helps Us Care for You: No Feels Safe at Home: Yes Safety Concerns: Feels Safe At This Time Childhood Exposure to Second-Hand Smoke: No Diet: regular caffeine: Yes during the past year weight has: increased > 10 lbs Dental Care, Regularly: Yes Physical Activity Frequency: 1-2 Times per Week Seatbelt Use: always Sunscreen Use: No Assistive Devices: Cane, Walker and Other Review of Systems Review of Systems: see HPI Physical Exam Physical Exam: The patient is awake, alert and oriented 3, well developed and well nourished, normocephalic and atraumatic, in no acute distress. Non-toxic appearing. HEENT- EOMI, mucous membranes moist. Hearing grossly intact. Heart-normal S1 and S2. No murmurs, rubs or gallops. Lungs-clear bilaterally, no respiratory distress, no accessory muscle use. Abdomen-normal bowel sounds and soft. No ascites noted. Non-tender. Extremities- no clubbing, cyanosis, or edema. Rheumatologic-normal range of motion. Psychiatric-normal affect. ENMT: Ears: no external ear abnormality, no TM abnormality and no mastoid abnormality Results & Data Results & Data Vital Signs (Past 12 Hours) Vital Signs Temp Pulse Pulse Resp BP BP Pulse Ox 06/14/24 23:00 83 17 98 06/14/24 21:41 72 18 98 06/14/24 21:17 36.8 C 77 17 148/96 H 97 06/14/24 21:17 36.8 C 73 17 148/96 H 96 06/14/24 21:05 75 O2 Del Method 06/14/24 23:00 Room Air 06/14/24 21:41 Room Air 06/14/24 21:17 Room Air 06/14/24 21:17 Room Air 06/14/24 21:05 Laboratory Results Reviewed CBC, CMP, tsh, trop, mg UA Diagnostic Findings Reviewed head CT, CXR, ankle XR, thoracic spine CT, cervical spine CT Medications Administered ED: 40 meq PO K+, Rocephin 2g IV ECG Additional Comments: ordered Code Status & VTE Plan Code Status full code VTE Prophylaxis Plan VTE Prophylaxis will be ordered: Yes Supervising Physician Co-Signing Physician Notes Attending addendum: I have physically seen this patient, have supervised the KARLI's activities, and agree with the H&P unless as otherwise noted. Assessment and Plan: The patient is a 44-year-old female with past medical history including stage IV breast cancer with metastasis to brain status post whole brain radiation, history of PE on Xarelto, depression, hypertension, seizure disorder. She presents to the emergency department with increased frequency of falls, due to generalized weakness and unsteady gait. #Ambulatory dysfunction/recurrent falls- Patient with progressive worsening of generalized weakness and fatigue associated with metastatic cancer, likely adrenal insufficiency associated with chronic steroid use, and hypokalemia. CT scan head without contrast negative, chest x-ray negative, CT thoracic spine negative, CT cervical spine with right mastoid effusion, right ankle x-ray negative, UA is likely contaminated Consult PT/OT Stress dose steroids with dexamethasone 4 mg IV daily IV fluids as noted Fall precautions Patient is becoming more of a concern related to frequent falls and living alone. #Hypokalemia-potassium 3.0 on admission, likely secondary to would decreased oral intake, and diarrhea Given potassium chloride 40 mill equivalents p.o. x 1, and potassium IV 30 mEq Repeat laboratories, BMP and magnesium in a.m. #Asymptomatic bacteriuria- Follow urine culture sensitivity Received 1 dose of ceftriaxone 2 g IV from the ED, follow urine to see if additional antibiotics need to be given #Stage IV breast cancer with metastases to brain status post radiation in 2023- Takes Kadcyla every 3 weeks with last dose 1 week ago Continuing Verzenio Has been on chronic dexamethasone taper, but will need stress dosing as noted Consult oncology #Right mastoid effusion- As noted on CT of cervical spine Does not look to be a clinical issue at this point, Can treat with loratadine symptomatically #Chronic medical conditions: #Seizure disorder-continue Keppra Depression-continue sertraline History of pulmonary embolism-continue Xarelto Hypertension-continue olmesartan with hold parameters PG Care Time/CCT Total # of Minutes Spent Total Time Spent with Patient: Total time spent is greater than 50% in coordination of care (as documented) at patient's floor/unit and/or counseling patient: Coding Level of Care Code 48714 INT INP/OBS CARE 3/75MIN Diagnoses Ambulatory dysfunction R26.2 Hypokalemia E87.6 Asymptomatic bacteriuria R82.71 Malignant neoplasm of left breast metastatic to brain C50.919; C79.31 Mastoiditis H70.90
[2024-06-15] MEDS ORDERED: DEXAMETHASONE SOD INJ 4 MG/ML VIAL IV STA (00:40)
[2024-06-15] MEDS: levETIRAcetam 500 MG TAB PO STA (01:10)
[2024-06-15] MEDS: POTASSIUM CHLORIDE CRTAB 20 MEQ TABCR PO STA (01:10)
[2024-06-15] MEDS: cefTRIAXone SODIUM 2,000 MG/50 ML BAG IV STA (01:10)
[2024-06-15] MEDS ORDERED: LORazepam 0.5 MG TAB PO PRN (01:29)
[2024-06-15] MEDS: DEXAMETHASONE SOD INJ 4 MG/ML VIAL IV STA (01:56)
[2024-06-15] MEDS: POTASSIUM CHLORIDE / WTR 10 MEQ/100 ML PLCT IV SCH ×2 (02:42→06:00)
[2024-06-15] MEDS: SODIUM CHLORIDE 0.9% 500 ML IV SCH (02:43)
[2024-06-15] MEDS: ACETAMINOPHEN 325 MG TAB PO PRN (02:44)
[2024-06-15] MEDS: dexAMETHasone 4 MG in SYRINGE 0 ML IV STA (03:24)
[2024-06-15 06:14] LABS: Basophils # (auto) 0.06 K/uL (0.00-0.20); Basophils % (auto) 0.8 %; Eosinophils # (auto) 0.14 K/uL (0.00-0.50); Eosinophils % (auto) 1.9 %; Hematocrit (blood only) 27.7 % (37.0-47.0); Hemoglobin 9.4 g/dl (12.0-16.0); Immature Granulocytes # (auto) 0.31 K/uL (0.01-0.20); Immature Granulocytes % (auto) 4.2 %; Lymphocytes # (auto) 0.59 K/uL (1.20-3.40); Mean Corpuscular Hemoglobin 30.3 pg (25.0-34.0); Mean Corpuscular Hgb Conc 33.9 g/dL (32.0-36.0); Mean Corpuscular Volume 89.4 fL (80.0-100.0); Mean Platelet Volume 10.8 fL (9.4-12.4); Monocytes # (auto) 0.28 K/uL (0.11-0.59); Monocytes % (auto) 3.8 %; Neutrophils # (auto) 6.01 K/uL (1.40-6.50); Neutrophils % (auto) 81.3 %; Nucleated RBC # (auto) 0.05 K/uL (0.00-0.12); Nucleated RBC % (auto) 0.7 %; Platelet Count 86 K/uL (130-400); RDW Coefficient of Variation 14.4 % (11.5-14.5); RDW Standard Deviation 46.5 fL (36.4-46.3); White Blood Count 7.39 K/ul (4.8-10.8)
[2024-06-15 06:24] LABS: BUN Creatinine Ratio 11.1 (10-20); Creatinine Clr Calc Pharmacy 116.9 ml/min; Magnesium 1.9 mg/dl (1.7-2.4); Potassium 3.7 mmol/L (3.5-5.1)
[2024-06-15] MEDS: LOSARTAN POTASSIUM 50 MG TAB PO SCH (10:39)
[2024-06-15] MEDS: SERTRALINE HCL 50 MG TABLET PO SCH (10:39)
[2024-06-15] MEDS: levETIRAcetam 500 MG TAB PO SCH (10:40)
[2024-06-15] MEDS: CETIRIZINE HCL 10 MG TABLET PO SCH (10:40)
[2024-06-15] MEDS: dexAMETHasone 4 MG in SYRINGE 0 ML IV SCH (12:26)
--- NOTE | 2024-06-15 16:02 | Electrocardiogram Report ---
Test Reason : Blood Pressure : */* mmHG Vent. Rate : 70 BPM Atrial Rate : 70 BPM P-R Int : 190 ms QRS Dur : 92 ms QT Int : 400 ms P-R-T Axes : 41 8 42 degrees QTcB Int : 432 ms Normal sinus rhythm Inferior infarct , age undetermined Poor R wave progression, consider anterior OK vs. lead placement vs. LVH Abnormal ECG When compared with ECG of 20-Jan-2024 15:53, Inferior infarct is now Present Confirmed by Jose Agudelo ([id number]) on 06/15/2024 4:01:35 PM Referred By: REFERRED SELF Confirmed By: Jose Agudelo
--- NOTE | 2024-06-15 16:20 | Hospitalist Progress Note ---
Date of Service June 15, 2024 Assessment & Plan (1) Ambulatory dysfunction: (2) Hypokalemia: (3) Asymptomatic bacteriuria: (4) Breast cancer metastasized to brain: (5) Mastoiditis: Plan Patient is a 44-year-old female with a past medical history stage IV breast cancer with metastasis to the brain s/p whole brain radiation, history of PE on Xarelto, depression, hypertension, seizure disorder. she presents today due to recurrent falls due to weakness/unsteady gait. She is being admitted for ambulatory dysfunction to have PT/OT evals. #ambulatory dysfunction recurrent falls, lives at home alone Has home health PT with [facility] [place] weekly possibly secondary to adrenal insufficiency with chronic steroid use and hypokalemia TSH WNL UA essentially negative, appears contaminated b12 with AM labs PT/OT consulted d/c IV steroids gentle IVF resuscitation 500 mL NSS overnight fall precautions #hypokalemia Improved, replete as indicated Mg stable, 2.0 Trend BMP and Mg #asymptomatic bacteriuria Patient denies urinary symptoms UA appears contaminated, 2+ leukocyte esterase, 11-20 WBC, 3-5 hyaline casts, 6- 10 epithelial cells Given Rocephin in ED; defer further antibiotic use as UA contaminated Follow urine culture #stage IV breast cancer with metastasis to brain S/p whole brain radiation in February 2024 Takes Kadcyla every 3 weeks - took 1 week ago, associate fatigue but not falls continue Verzenio on chronic dexamethasone taper; 0.5 Mg every few days - stress dose steroids as above Works with oncologist at [facility] and Dr. Mcnamara seizure disorder - continue Keppra #mastoid effusion medical spine CT showed right mastoid effusion No tympanic membrane abnormalities on exam No tenderness to mastoid on exam Patient states she does have bilateral ear itchiness for several days however chronically dry since radiation therapy - denies hearing loss, tinnitus, drainage, pain Will defer ABX use at this time, can start ABX if patient become symptomatic Will start oral antihistamine Chronic stable diagnoses: depression - continue sertraline Hx PE - continue Xarelto HTN - continue olmesartan VTE ppx: Continue Xarelto Diet: regular Dispo: med surg Admission and Anticipated Discharge Date Admission Date: June 15, 2024 Supervising Physician Co-Signing Physician Notes I personally examined the patient and verified all alvarado points of history and exam, discussed case, and agree with decision making with Dr Hook feeling weak but otherwise no acute complaints. Would like to go to rehab. Vitals noted, in general she is awake and alert pleasant no distress. HEENT normocephalic atraumatic mucous membranes moist. Breathing unlabored no accessory muscle use good effort. Skin without rashes pallor or icterus. Weaknessseems due to deconditioning. Fortunately her recall of p.o. intake sounds like there is not much of a malnutrition component as wellalthough I still encouraged her to ensure adequate nutrition and hydration given that that is a very common cause of decline on a cancer journey. PT/OT eval and treat. Doubt steroid deficiency relatedput her back on her low dosing of dexamethasone that she was weaning and follow clinically. anticoagulated otherwise as above Subjective Patient seen and evaluated at bedside this morning. No acute events overnight. Overall feels weak. Unable to complete ADLs as usual at home. VSS. No signs of metabolic or infectious process contributing to weakness. No acute complaints today. Review of Systems Review of Systems: reviewed, per HPI Physical Exam 2 Physical Exam: Constitutional: ill-appearing, no acute distress HEENT: NCAT, no conjunctival injection CV: clinically well perfused Resp: no increased work of breathing GI: non distended MSK: no gross deformities appreciated Skin: warm, dry, no rash appreciated Neuro: alert, oriented, no focal neurologic deficit appreciated Results & Data Results & Data Vital Signs (Past 12 Hours) Vital Signs Temp Pulse Resp BP Pulse Ox O2 Del Method 06/15/24 15:52 36.6 C 71 16 134/86 92 Room Air 06/15/24 11:26 36.2 C L 78 16 127/86 92 Room Air 06/15/24 07:32 36.9 C 75 16 151/98 H 92 Room Air Resident Activity Tracking Resident Involvement: Resident Care Provided Care Provided: Adult Hospital Medicine
[2024-06-15] MEDS: RIVAROXABAN 20 MG TAB PO SCH (17:34)
--- NOTE | 2024-06-15 17:35 | Billing Data ---
Date of Service June 15, 2024 Coding Level of Care Code 63334 SUB INP/OBS CARE
[2024-06-15] MEDS: RIVAROXABAN 10 MG TABLET PO SCH (19:19)
[2024-06-16 06:33] LABS: Basophils # (auto) 0.04 K/uL (0.00-0.20); Basophils % (auto) 0.3 %; Hematocrit (blood only) 27.2 % (37.0-47.0); Hemoglobin 9.1 g/dl (12.0-16.0); Immature Granulocytes # (auto) 0.38 K/uL (0.01-0.20); Lymphocytes # (auto) 1.24 K/uL (1.20-3.40); Lymphocytes % (auto) 9.7 %; Mean Corpuscular Hemoglobin 30.3 pg (25.0-34.0); Mean Corpuscular Hgb Conc 33.5 g/dL (32.0-36.0); Mean Corpuscular Volume 90.7 fL (80.0-100.0); Mean Platelet Volume 11.3 fL (9.4-12.4); Monocytes # (auto) 0.78 K/uL (0.11-0.59); Monocytes % (auto) 6.1 %; Neutrophils # (auto) 10.29 K/uL (1.40-6.50); Neutrophils % (auto) 80.9 %; Nucleated RBC # (auto) 0.03 K/uL (0.00-0.12); Nucleated RBC % (auto) 0.2 %; Platelet Count 108 K/uL (130-400); RDW Coefficient of Variation 13.9 % (11.5-14.5); RDW Standard Deviation 45.8 fL (36.4-46.3); White Blood Count 12.73 K/ul (4.8-10.8)
[2024-06-16 06:43] LABS: BUN Creatinine Ratio 14.8 (10-20); Calcium 9.2 mg/dl (8.6-10.3); Creatinine Clr Calc Pharmacy 136.2 ml/min; Potassium 3.6 mmol/L (3.5-5.1)
--- NOTE | 2024-06-16 07:21 | Discharge Summary ---
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 she presents today due to recurrent falls due to weakness/unsteady gait. She is being admitted for ambulatory dysfunction to have PT/OT evals. Patient seen at bedside. She stated that since February she will have 1 day a week of unsteady gait. Recently this has contributed to her falling. She stated that she feels like her legs are giving out on her weak. She denies dizziness or chest pain prior to the falls. Today she fell and just could not get up. She denies loss of consciousness or head strike. She uses a cane occasionally at baseline and a walker at night to get to the bathroom. Her f irst fall was in early March after whole brain radiation. She is on Kadcyla every 3 weeks. She does get fatigued for a couple days after this but denies falls shortly after. She had her last dose roughly 1 week ago. She has home health PT and OT but at her last OT visit this week. She has PT once weekly and they were at her house today. This is through [facility]. She does endorse head pain after the fall but now denies head pain. She denies shortness of breath, nausea, vomiting. She does endorse diarrhea however had a barium swallow yesterday and relates it to that. She is agreeable to PT/OT evals while inpatient stay, would be okay with inpatient rehab if recommended. She is on chronic steroids and is currently tapering dexamethasone; she takes 0.5 Mg every few days. regarding the right mastoid effusion, patient stated she has bilateral ear itchiness for several days however is chronically dry after receiving radiation therapy. She denies hearing loss, tinnitus, drainage, pain. She denies nicotine or alcohol use. She does live at home alone, which is a concern for her with the recent falls. She did take her home medications this morning but needs her evening medications; ordered on admission. She wishes to be full code. Patient has potassium supplement ordered, only takes this as needed when potassium low with blood work. Discharge Data Allergies Allergy/AdvReac Type Severity Reaction Status Date / Time cat dander Allergy Severe SOB, Verified 01/14/24 20:17 SWELLING, CONGESTION, RUNNY EYES apple Allergy Intermediate ITCHY Verified 01/14/24 20:17 MOUTH, INDIGESTION erythromycin base Allergy Intermediate UNKNOWN, Verified 01/14/24 20:17 POSS GI UPSET A CHILD Consultations 06/14/24 23:45 ED Decision to Admit Stat Ordered Studies 06/14/24 21:40 CT cervical spine wo con Stat CT thoracic spine wo con Stat 06/14/24 21:41 CT head/brain wo con Stat Hospital Course (1) Ambulatory dysfunction: (2) Hypokalemia: (3) Asymptomatic bacteriuria: (4) Breast cancer metastasized to brain: (5) Mastoiditis: Plan Patient is a 44-year-old female with a past medical history stage IV breast cancer with metastasis to the brain s/p whole brain radiation, history of PE on Xarelto, depression, hypertension, seizure disorder. she presents today due to recurrent falls due to weakness/unsteady gait. She is being admitted for ambulatory dysfunction to have PT/OT evals. #ambulatory dysfunction recurrent falls, lives at home alone Has home health PT with [facility] weekly possibly secondary to adrenal insufficiency with chronic steroid use and hypokalemia TSH WNL UA essentially negative, appears contaminated b12 with AM labs PT/OT consulted d/c IV steroids gentle IVF resuscitation 500 mL NSS overnight fall precautions #hypokalemia Improved, replete as indicated Mg stable, 2.0 Trend BMP and Mg #asymptomatic bacteriuria Patient denies urinary symptoms UA appears contaminated, 2+ leukocyte esterase, 11-20 WBC, 3-5 hyaline casts, 6- 10 epithelial cells Given Rocephin in ED; defer further antibiotic use as UA contaminated Follow urine culture #stage IV breast cancer with metastasis to brain S/p whole brain radiation in February 2024 Takes Kadcyla every 3 weeks - took 1 week ago, associate fatigue but not falls continue Verzenio on chronic dexamethasone taper; 0.5 Mg every few days - stress dose steroids as above Works with oncologist at [facility] and Dr. Mcnamara seizure disorder - continue Keppra #mastoid effusion medical spine CT showed right mastoid effusion No tympanic membrane abnormalities on exam No tenderness to mastoid on exam Patient states she does have bilateral ear itchiness for several days however chronically dry since radiation therapy - denies hearing loss, tinnitus, drainage, pain Will defer ABX use at this time, can start ABX if patient become symptomatic Will start oral antihistamine Chronic stable diagnoses: depression - continue sertraline Hx PE - continue Xarelto HTN - continue olmesartan VTE ppx: Continue Xarelto Diet: regular Dispo: med surg Discharge Plan Discharge Items Reason For Visit: WEAKNESS,FALL Condition on Discharge: Fair Follow-up/Referrals: Luh Ching MD [Primary Care Provider] - Medications and DC Order Prescriptions: No Action loperamide [Imodium A-D] 2 mg capsule 2 mg PO Q6H PRN (Reason: Diarrhea) Xgeva 120 mg/1.7 mL (70 mg/mL) solution 120 mg subcut MONTHLY Rx Instructions: Wednesday Zoladex 3.6 mg implant 0 mg subcut Q28D Rx Instructions: Wednesday sertraline 50 mg tablet 50 mg PO QAM fulvestrant 125 mg/2.5 syringe 500 mg IM MONTHLY Rx Instructions: may divide dose into 2 equally divided injections; one into each buttock lorazepam 0.5 mg Tablet 0.5 mg PO HS PRN (Reason: Sleep) ondansetron HCl 8 mg tablet 8 mg PO Q8 PRN (Reason: Nausea And Vomiting) prochlorperazine maleate 10 mg tablet 10 mg PO Q6 PRN (Reason: Nausea) olmesartan 20 mg tablet 20 mg PO QAM dexamethasone 6 mg tablet 6 mg PO BID Qty: 30 0RF cyanocobalamin (vitamin B-12) 1,000 mcg/mL Solution 1,000 mcg SUBCUT .[id number] Rx Instructions: Wednesday Verzenio 150 mg Tablet 100 mg PO BID sodium bicarbonate 325 mg Tablet 325 mg PO TID PRN (Reason: LOW SODIUM) diphenoxylate-atropine 2.5-0.025 mg tablet 1 tab PO DIRECTED PRN (Reason: Diarrhea) Xarelto 20 mg tablet 20 mg PO QAM Herceptin 150 mg Recon Soln 0 mg IV .Q 4 WEEKS Rx Instructions: Wednesday levetiracetam [Keppra] 500 mg tablet 500 mg PO BID Qty: 60 0RF Admission Data Admit Date/Time: 06/15/24 00:22 Attending Provider: Jose Clifford Admit Provider: Zachary Verma Primary Care Provider: Luh Ching Other Providers: Zachary Verma
[2024-06-16] MEDS: dexAMETHasone 1 MG TAB PO SCH (08:11)
--- NOTE | 2024-06-16 13:53 | Hospitalist Progress Note ---
Date of Service June 16, 2024 Assessment & Plan (1) Ambulatory dysfunction: (2) Hypokalemia: (3) Asymptomatic bacteriuria: (4) Breast cancer metastasized to brain: (5) Mastoiditis: Plan Patient is a 44-year-old female with a past medical history stage IV breast cancer with metastasis to the brain s/p whole brain radiation, history of PE on Xarelto, depression, hypertension, seizure disorder. she presents today due to recurrent falls due to weakness/unsteady gait. She is being admitted for ambulatory dysfunction to have PT/OT evals. #ambulatory dysfunction recurrent falls, lives at home alone Has home health PT with [facility] weekly at admission there was concern about iatrogenic adrenal insufficiencydoubt thisreturned patient to her prior steroid taper at fairly low doses where she had beenand seems to be doing okay. Suspect mostly she just needs aggressive PT/OTunfortunate that rehab would not be able to be approved, discussed awaiting SNF (preferred) versus home with home therapy (an option, but less preferred)noted that it is impossible to guarantee that she will be approved for SNF, but she is willing to wait. #hypokalemia K+ 3.0 on admission Repleted, follow, follow p.o. intake #asymptomatic bacteriuria Patient denies urinary symptoms #stage IV breast cancer with metastasis to brain S/p whole brain radiation in February 2024 Takes Kadcyla every 3 weeks - took 1 week ago, associate fatigue but not falls continue Verzenio on chronic dexamethasone taper; she has been weaningcurrently we have her at 0.5 mg daily Works with oncologist at [facility] and Dr. Mcnamara seizure disorder - continue Keppra #mastoid effusion appears to be asymptomatic and incidental findingshould she develop symptoms, reevaluate Chronic stable diagnoses: depression - continue sertraline Hx PE - continue Xarelto HTN - continue olmesartan VTE ppx: Continue Xarelto Diet: regular Dispo: stable on medical, right now plan would be SNF with rehab emphasis, if this follows through or if patient changes her mind at home with home therapy and 24-hour support is not unreasonable. Admission and Anticipated Discharge Date Admission Date: June 15, 2024 Subjective feeling okay just still weak. Case management noted rehab would not be able to be approvedpatient willing to await SNF Auth. Updated patient and father to the best my ability and to their satisfaction. Review of Systems Review of Systems: All systems reviewed & are unremarkable except as noted in HPI & below Physical Exam Physical Exam: In general she is awake alert oriented pleasant no distress. Fatigued appearing. HEENT normocephalic atraumatic mucous membranes moist. Breathing unlabored no accessory muscle use good effort. Skin without rashes pallor or icterus. Neuro without focal deficits Results & Data Results & Data Vital Signs (Past 12 Hours) Vital Signs Temp Pulse Resp BP Pulse Ox O2 Del Method 06/16/24 07:40 97.7 F 59 L 18 157/93 H 95 Room Air 06/16/24 03:28 97.9 F 66 18 128/82 95 Room Air PG Care Time/CCT Total # of Minutes Spent Total Time Spent with Patient: Total time spent is greater than 50% in coordination of care (as documented) at patient's floor/unit and/or counseling patient: Coding Level of Care Code 32508 SUB INP/OBS CARE 2/35MIN Diagnoses Ambulatory dysfunction R26.2 Hypokalemia E87.6 Asymptomatic bacteriuria R82.71 Malignant neoplasm of left breast metastatic to brain C50.919; C79.31 Mastoiditis H70.90
--- NOTE | 2024-06-17 07:09 | Hospitalist Progress Note ---
Date of Service June 17, 2024 Assessment & Plan (1) Ambulatory dysfunction: Plan: Pt is a 44yo female with a past medical history stage IV breast cancer with metastasis to the brain s/p whole brain radiation, history of PE (on Xarelto), depression, hypertension, and seizure disorder. She presented to the hospital due to recurrent falls secondary to weakness/unsteady gait. She was admitted for ambulatory dysfunction to have PT/OT evals. Ambulatory dysfunction - pt with hx of recurrent falls; lives at home alone - has home health PT with [facility] weekly - low suspicion for adrenal insufficiency secondary to chronic steroid use (and current taper); pt returned to steroid taper - pt would benefit from aggressive PT/OT- acute rehab not approved- awaiting SNF (preferred) versus home with home therapy (an option, but less preferred) Hypokalemia - K 3.0 on admission; K 3.3 this AM - suspect secondary to poor PO intake - supplement as needed; encourage PO intake Asymptomatic bacteriuria - pt denies urinary symptoms Stage IV breast cancer with metastasis to brain - s/p whole brain radiation in February 2024 - takes Kadcyla every 3 weeks- last taken week of 06/05; associated fatigue but not falls - continue Verzenio - on chronic dexamethasone taper; she has been weaningcurrently she is at 0.5 mg daily - follows with oncologist at [facility] and Dr. 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 - continue Keppra Mastoid effusion - appears to be asymptomatic and incidental finding - should she develop symptoms, will need to reevaluate Chronic stable diagnoses: depression - continue sertraline Hx PE - continue Xarelto HTN - continue olmesartan Diet: regular VTE ppx: continue Xarelto Code: full Dispo: medically stable, plan for discharge to SNF with rehab emphasis, if this falls through or if patient changes her mind at, home with home therapy/24hr support is reasonable (2) Hypokalemia: (3) Asymptomatic bacteriuria: (4) Breast cancer metastasized to brain: (5) Mastoiditis: Admission and Anticipated Discharge Date Admission Date: June 15, 2024 Supervising Physician Co-Signing Physician Notes I personally examined the patient and verified all alvarado points of history and exam, discussed case, and agree with decision making with Dr Connor feeling about the same, still waiting insurance decision. d/w pt and dad likely wednesday. vitals noted nad heent nc at mmm breathing unlabored no accessory muscles good effort skin no rashes no pallor or icterus weakness/deconditioning - fortunately no other findings/alternative diagnoses have manifest - so likely all deconditioning as relates to cancer/treatment. PT/OT eval and treat. would benefit from rehab - bureaucratic criteria appearing to get in the way of good patient care due to insurance rules being unbendable even when common sense would dictate otherwise. hopefully SNF will be approved. anticoagulated. otherwise as above Subjective Pt with no acute changes overnight. No new concerns. Pt notes she is still unsteady on her feet and is questioning when she will be able to leave for rehab (if possible). Review of Systems Review of Systems: As per HPI Physical Exam Physical Exam: Constitutional: ill appearing, no acute distress HEENT: normocephalic, no conjunctival injection CV: RRR, no murmur, no LE edema Respiratory: CTA bilaterally. No rhonchi, wheezes, or crackles. No increased work of breathing MSK: no gross deformities noted Skin: warm, dry, no rashes Neuro: alert, oriented, no FND noted Psych: mood and affect congruent Results & Data Results & Data Vital Signs (Past 12 Hours) Vital Signs Temp Pulse Resp BP Pulse Ox O2 Del Method 06/16/24 23:16 36.4 C L 51 L 16 137/87 96 Room Air 06/16/24 21:45 Room Air Resident Activity Tracking Resident Involvement: Resident Care Provided Care Provided: Adult Hospital Medicine
[2024-06-17 08:09] LABS: Hematocrit (blood only) 29.2 % (37.0-47.0); Hemoglobin 9.5 g/dl (12.0-16.0); Mean Corpuscular Hemoglobin 29.5 pg (25.0-34.0); Mean Corpuscular Hgb Conc 32.5 g/dL (32.0-36.0); Mean Corpuscular Volume 90.7 fL (80.0-100.0); Mean Platelet Volume 10.9 fL (9.4-12.4); Nucleated RBC # (auto) 0.05 K/uL (0.00-0.12); Nucleated RBC % (auto) 0.5 %; Platelet Count 100 K/uL (130-400); RDW Coefficient of Variation 14.1 % (11.5-14.5); RDW Standard Deviation 45.7 fL (36.4-46.3); Red Blood Count 3.22 M/uL (4.20-5.40); White Blood Count 10.36 K/ul (4.8-10.8)
[2024-06-17 08:20] LABS: Calcium 8.7 mg/dl (8.6-10.3); Creatinine Clr Calc Pharmacy 116.8 ml/min; Potassium 3.3 mmol/L (3.5-5.1)
[2024-06-17] MEDS: POTASSIUM CHLORIDE CRTAB 20 MEQ TABCR PO STA (09:40)
--- NOTE | 2024-06-17 10:41 | Billing Data ---
Date of Service June 17, 2024 Coding Level of Care Code 35209 SUB INP/OBS CARE
--- NOTE | 2024-06-18 07:13 | Hospitalist Progress Note ---
Date of Service June 18, 2024 Assessment & Plan (1) Ambulatory dysfunction: Plan: Pt is a 44yo female with a past medical history stage IV breast cancer with metastasis to the brain s/p whole brain radiation, history of PE (on Xarelto), depression, hypertension, and seizure disorder. She presented to the hospital due to recurrent falls secondary to weakness/unsteady gait. She was admitted for ambulatory dysfunction to have PT/OT evals. Ambulatory dysfunction - pt with hx of recurrent falls; lives at home alone - has home health PT with [facility] weekly - low suspicion for adrenal insufficiency secondary to chronic steroid use (and current taper); pt returned to steroid taper - pt would benefit from aggressive PT/OT- acute rehab not approved- awaiting SNF (preferred) versus home with home therapy (an option, but less preferred) Hypokalemia - K 3.0 on admission - suspect secondary to poor PO intake - supplement as needed; encourage PO intake Asymptomatic bacteriuria - pt denies urinary symptoms Stage IV breast cancer with metastasis to brain - s/p whole brain radiation in February 2024 - takes Kadcyla every 3 weeks- last taken week of 06/05; associated fatigue but not falls - continue Verzenio - on chronic dexamethasone taper; she has been weaningcurrently she is at 0.5 mg daily - follows with oncologist at [facility] and Dr. 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 - continue Keppra Mastoid effusion - appears to be asymptomatic and incidental finding - should she develop symptoms, will need to reevaluate Chronic stable diagnoses: depression - continue sertraline Hx PE - continue Xarelto HTN - continue olmesartan Diet: regular VTE ppx: continue Xarelto Code: full Dispo: medically stable, plan for discharge to SNF with rehab emphasis [facility], if this falls through or if patient changes her mind, home with home therapy/24hr support is reasonable Will discuss placement with CM tomorrow (2) Hypokalemia: (3) Asymptomatic bacteriuria: (4) Breast cancer metastasized to brain: (5) Mastoiditis: Admission and Anticipated Discharge Date Admission Date: June 15, 2024 Supervising Physician Co-Signing Physician Notes I personally examined the patient and verified all alvarado points of history and exam, discussed case, and agree with decision making with Dr Connor generally feels about the same. some upset stomach/mild nausea - wonders if it's because she's actually eating more than she has in a while. also daily BM but fairly small. vitals noted nad heent nc at mmm breathing unlabored no accessory muscles good effort skin no rashes no pallor or icterus weakness/deconditioning - fortunately no other findings/alternative diagnoses have manifest - so likely all deconditioning as relates to cancer/treatment. PT/OT eval and treat. would benefit from rehab - bureaucratic criteria appearing to get in the way of good patient care due to insurance rules being unbendable even when common sense would dictate otherwise. hopefully SNF will be approved tomorrow since she is frail and deconditioned from her progressed cancer at a young age, and getting stronger with more intensive PT than what can be done as an outpatient will likely allow her to continue to do as well with treatment has she surprisingly has and stave off faster decline (ie insurance denial of SNF would to me be unconscionable lack of ethics and decency given her extremely difficult and nuanced situation that would not fit neatly into prefabricated insurance rules). nausea - ?mild indigestion (famotidine x1 ordered), mild constipation (miralax daily ordered) - perhaps some of both. encouraged her to keep up with the extra PO intake though. anticoagulated. otherwise as above Subjective Pt doing well this AM. No changes. She moved rooms in the middle of the night but otherwise was able to sleep. Review of Systems Review of Systems: As per HPI Physical Exam Physical Exam: Constitutional: well appearing, no acute distress HEENT: normocephalic, no conjunctival injection CV: clinically well perfused Respiratory: no increased work of breathing MSK: no gross deformities noted Neuro: alert, oriented, no FND noted Psych: mood and affect congruent Results & Data Results & Data Vital Signs (Past 12 Hours) Vital Signs Temp Pulse Resp BP Pulse Ox O2 Del Method 06/17/24 22:19 36.7 C 54 L 16 139/85 96 Room Air Resident Activity Tracking Resident Involvement: Resident Care Provided Care Provided: Adult Hospital Medicine
--- NOTE | 2024-06-18 11:11 | Billing Data ---
Date of Service June 18, 2024 Coding Level of Care Code 93359 SUB INP/OBS CARE
[2024-06-18] MEDS: FAMOTIDINE 40 MG TABLET PO ONE (11:31)
[2024-06-18] MEDS: POLYETHYLENE (MIRALAX) 17 GM PACK PO SCH (11:31)
[2024-06-18] MEDS: ONDANSETRON INJ 2 MG/ML 2 ML VIAL IV PRN (19:56)
[2024-06-18] MEDS: MELATONIN 3 MG TAB PO PRN (21:07)
--- NOTE | 2024-06-19 11:18 | Hospitalist Progress Note ---
Date of Service June 19, 2024 Assessment & Plan (1) Ambulatory dysfunction: Plan: Pt is a 44yo female with a past medical history stage IV breast cancer with metastasis to the brain s/p whole brain radiation, history of PE (on Xarelto), depression, hypertension, and seizure disorder. She presented to the hospital due to recurrent falls secondary to weakness/unsteady gait. She was admitted for ambulatory dysfunction to have PT/OT evals. Ambulatory dysfunction - pt with hx of recurrent falls; lives at home alone - has home health PT with [facility] weekly - low suspicion for adrenal insufficiency secondary to chronic steroid use (and current taper); pt returned to steroid taper - pt would benefit from aggressive PT/OT- acute rehab not approved- awaiting SNF (preferred) versus home with home therapy (an option, but less preferred) Hypokalemia - K 3.0 on admission - suspect secondary to poor PO intake - supplement as needed; encourage PO intake Asymptomatic bacteriuria - pt denies urinary symptoms Stage IV breast cancer with metastasis to brain - s/p whole brain radiation in February 2024 - takes Kadcyla every 3 weeks- last taken week of 06/05; associated fatigue but not falls - continue Verzenio - on chronic dexamethasone taper; she has been weaningcurrently she is at 0.5 mg daily - follows with oncologist at [facility] and Dr. 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 - continue Keppra Mastoid effusion - appears to be asymptomatic and incidental finding - should she develop symptoms, will need to reevaluate Chronic stable diagnoses: depression - continue sertraline Hx PE - continue Xarelto HTN - continue olmesartan Diet: regular VTE ppx: continue Xarelto Code: full Dispo: medically stable, plan for discharge to SNF with rehab emphasis [facility], if this falls through or if patient changes her mind, home with home therapy/24hr support is reasonable Will discuss placement with CM tomorrow (2) Hypokalemia: (3) Asymptomatic bacteriuria: (4) Breast cancer metastasized to brain: (5) Mastoiditis: Admission and Anticipated Discharge Date Admission Date: June 15, 2024 Supervising Physician Co-Signing Physician Notes I also saw the patient for alvarado portions of the clinical history and the physical examination. Agree with the impression and plan as noted in resident documentation. Upon our midmorning exam, the patient was lying semireclined in bed. Patient's father at bedside. Patient is open to the idea of a short-term placement for some physical therapy. Information sent to [facility]. Subjective Patient seen and evaluated at bedside this morning. No acute events overnight. No acute complaints. Plan for SNF at discharge if approved. Review of Systems Review of Systems: As per HPI Physical Exam Physical Exam: Constitutional: ill-appearing, no acute distress HEENT: NCAT, no conjunctival injection CV: clinically well perfused Resp: no increased work of breathing GI: non distended MSK: no gross deformities appreciated Skin: warm, dry, no rash appreciated Neuro: alert, oriented, no focal neurologic deficit appreciated Results & Data Results & Data Vital Signs (Past 12 Hours) Vital Signs Temp Pulse Resp BP Pulse Ox O2 Del Method 06/19/24 07:45 36.5 C 63 17 135/88 96 Room Air Resident Activity Tracking Resident Involvement: Resident Care Provided Care Provided: Adult Hospital Medicine
--- NOTE | 2024-06-20 12:16 | Hospitalist Progress Note ---
Date of Service June 20, 2024 Assessment & Plan (1) Ambulatory dysfunction: Plan: Pt is a 44yo female with a past medical history stage IV breast cancer with metastasis to the brain s/p whole brain radiation, history of PE (on Xarelto), depression, hypertension, and seizure disorder. She presented to the hospital due to recurrent falls secondary to weakness/unsteady gait. She was admitted for ambulatory dysfunction to have PT/OT evals. Ambulatory dysfunction - pt with hx of recurrent falls; lives at home alone - has home health PT with [facility] Felix weekly - low suspicion for adrenal insufficiency secondary to chronic steroid use (and current taper); pt returned to steroid taper - pt would benefit from aggressive PT/OT- acute rehab not approved- awaiting SNF (preferred) versus home with home therapy (an option, but less preferred) Hypokalemia - K 3.0 on admission - suspect secondary to poor PO intake - supplement as needed; encourage PO intake Asymptomatic bacteriuria - pt denies urinary symptoms Stage IV breast cancer with metastasis to brain - s/p whole brain radiation in February 2024 - takes Kadcyla every 3 weeks- last taken week of 06/05; associated fatigue but not falls - continue Verzenio - on chronic dexamethasone taper; she has been weaningcurrently she is at 0.5 mg daily - follows with oncologist at [facility] and Dr. 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 - continue Keppra Mastoid effusion - appears to be asymptomatic and incidental finding - should she develop symptoms, will need to reevaluate Chronic stable diagnoses: depression - continue sertraline Hx PE - continue Xarelto HTN - continue olmesartan Diet: regular VTE ppx: continue Xarelto Code: full Dispo: medically stable, plan for discharge to SNF with rehab emphasis [facility], if this falls through or if patient changes her mind, home with home therapy/24hr support is reasonable Will discuss placement with CM tomorrow (2) Hypokalemia: (3) Asymptomatic bacteriuria: (4) Breast cancer metastasized to brain: (5) Mastoiditis: Admission and Anticipated Discharge Date Admission Date: June 15, 2024 Supervising Physician Co-Signing Physician Notes Attending attestation Pt seen and examined in concert with Dr. Hook. In agreement with the documente d findings as noted in the resident documentation with any exceptions or additions as noted here. No acute complaint at time of examination. On examination, S1/S2 nl RRR no MCG. CTAB. Abd NT/ND BS+ve. VS as noted. Ambulatory dysfunction - SNF pending, family and patient willing to do HH if SNF doesn't weinstein out. Reinforced that SNF would be preferred for safety and efficacy Else see resident documentation as noted. Subjective Patient seen and evaluated at bedside this morning. No acute events overnight. No acute complaints. Remains hopeful for SNF placement for rehab. Agreeable to home with outpatient PT if not approved. Review of Systems Review of Systems: As per HPI Physical Exam Physical Exam: Constitutional: ill-appearing, no acute distress HEENT: NCAT, no conjunctival injection CV: clinically well perfused Resp: no increased work of breathing GI: non distended MSK: no gross deformities appreciated Skin: warm, dry, no rash appreciated Neuro: alert, oriented, no focal neurologic deficit appreciated Results & Data Results & Data Vital Signs (Past 12 Hours) Vital Signs Temp Pulse Resp BP Pulse Ox O2 Del Method 06/20/24 07:35 36.6 C 60 18 117/73 94 Room Air Resident Activity Tracking Resident Involvement: Resident Care Provided Care Provided: Adult Hospital Medicine
--- NOTE | 2024-06-20 23:16 | Palliative Care Consultation ---
Date of Consultation June 20, 2024 Assessment & Plan (1) Recurrent falls: (2) Weakness generalized: (3) Steroid myopathy: (4) Palliative care by specialist: Case d/w Dr Rand, no indication at present to resume higher dose of steroid. Some of her weakness and hx falls preceded the steroid taper. (5) Advanced care planning/counseling discussion: Khushi and her family completed a POLST with me during OP clinic in [facility]. This was sent to HIM for scanning and is also scanned in [facility] EMR ([employer]) See below in Plan section Plan As above extensive psychosocial support provided Discussed contacting [employer] for assistance obtaining chair lift Reviewed situational awareness interventions for safety at home, consider a bedside commode Home PT in its current iteration has been insufficient and ineffective - 30 min session once a week is not helping her and there has been effort to increased frequency of her home PTY visits. In clinic we had discussed OP PT such as [id number] however she and her parents worried about the stress caused by needing to travel to OP PT when they are not home to help her - they live between their [place] home in [place] and her home is [place]. They are presently contemplating moving to [place] in a longer term fashion. 20 min face to face ACp with Khushi and her father at bedside: Khushi's father is her SDM and POA. There have been extensive discussions with Khushi and family re goals of care. She has been clear that when she is in a declining state nearing her EOL she would want a focus on comfort and did not want to be kept alive on machines at that junction. She is willing to keep a focus on fixing what's fixable and treating what's treatable, and when Khushi cannot communicate her preferences, it is her father who will speak for her and is aware of her preferences/wishes and goals. Thank you for allowing us to participate in the ongoing care of this patient. Please page with any additional concerns. [place] Liz DNP Director, Palliative Medicine History of Present Illness Reason for Consultation: continuity of care Attending Physician: Arnold Tolbert MD History of Present Illness Khushi is a 44yo female with Stage IV adv met BrCa with mets to brain followed by neuro-onc at [facility] and completing brain radiation She is followed in outpatient palliative oncology cl;inic at [facility] she has been admitted with c/o recurrent falls and ambulatory dysfunction Khushi is seen with her Dad at bedside he shares she has been falling more frequently as her steroid taper was being reduced and he asks if there is an alternative to steroids that can be used he also notes most of her falls are towards the evenings/overnights when she is likely most tired, Khushi adds several of her falls have been when she is up during the overnight to use bathroom. She has been working with home PT thru [facility] home health and notes this is a once a week 30 min visit "and I don't think it does anything really, it is kind of waste." She is open to more intensive rehab but tells me her insurance company denied [facility] and now she is awaiting approval for SNF rehab at [facility]. She also adds she is now a medicare insurance. she denies acute pain during recent [facility] visits with me, we completed a POLST. Her father is her SDM. She has also completed some legal POA paperwork with their private ip technology transactions attorney. [facility] beds/baths on second floor. Main floor is open concept living space with half bath.Her Dad is looking into obtaining a stair chair for her to be able to get up and down in the home easier/more safely. Allergies Allergy/AdvReac Type Severity Reaction Status Date / Time cat dander Allergy Severe SOB, Verified 01/14/24 20:17 SWELLING, CONGESTION, RUNNY EYES apple Allergy Intermediate ITCHY Verified 01/14/24 20:17 MOUTH, INDIGESTION erythromycin base Allergy Intermediate UNKNOWN, Verified 01/14/24 20:17 POSS GI UPSET A CHILD Home Medications Medication Instructions Recorded Confirmed Type lorazepam 0.5 mg tablet 0.5 mg PO HS PRN Sleep 11/07/21 06/15/24 History ondansetron HCl 8 mg tablet 8 mg PO Q8 PRN Nausea And Vomiting 12/31/21 06/15/24 History prochlorperazine maleate 10 mg 10 mg PO Q6 PRN Nausea 12/31/21 06/15/24 History tablet sertraline 50 mg tablet 50 mg PO QAM 05/21/22 06/15/24 History denosumab 120 mg/1.7 mL (70 mg/mL) 120 mg subcut MONTHLY 11/04/22 06/15/24 History subcutaneous solution (Xgeva) goserelin 3.6 mg subcutaneous 0 mg subcut Q28D 11/04/22 06/15/24 History implant (Zoladex) loperamide 2 mg capsule (Imodium 2 mg PO Q6H PRN Diarrhea 11/04/22 06/15/24 History A-D) fulvestrant 125 mg/2.5 mL 500 mg IM MONTHLY 11/26/23 06/15/24 History intramuscular syringe abemaciclib 150 mg tablet 100 mg PO BID 01/14/24 06/15/24 History (Verzenio) cyanocobalamin (vitamin B-12) 1,000 mcg subcut .[id number] 01/14/24 06/15/24 History 1,000 mcg/mL injection solution diphenoxylate-atropine 2.5 1 tab PO DIRECTED PRN Diarrhea 01/14/24 06/15/24 History mg-0.025 mg tablet rivaroxaban 20 mg tablet (Xarelto) 20 mg PO QAM 01/14/24 06/15/24 History sodium bicarbonate 325 mg tablet 325 mg PO TID PRN LOW SODIUM 01/14/24 02/12/24 History trastuzumab 150 mg intravenous 0 mg IV .Q 4 WEEKS 01/14/24 06/15/24 History solution (Herceptin) levetiracetam 500 mg tablet 500 mg PO BID #60 tabs 01/20/24 06/15/24 Rx (Keppra) olmesartan 20 mg tablet 20 mg PO QAM 02/12/24 06/15/24 History dexamethasone 6 mg tablet 6 mg PO BID #30 tabs 02/13/24 06/15/24 Rx Patient History Medical History History of COVID-19 05/06, pcr, side effects "minimal">resolved Chronic bronchitis Herpes simplex of female genitalia Genital warts Cervical intraepithelial neoplasia (FRANCHESCA) Infiltrating ductal carcinoma of left breast hx Thyroid nodule hx, monitoring Surgical History Port-A-Cath in place (11/10/21) Access Port Insertion with Fluoroscopy - Tomas Poon DO, FACS History of biopsy (10/27/21) CT Guided Biopsy Lung History of breast reconstruction History of appendectomy (~11/2016) History of bilateral mastectomy bilat mast, left ALND Family History Mother Hypertension Grandmother Cancer maternal great grandmother Grandfather Cancer Father Hypertension Grandfather (Paternal) Myocardial infarction Grandfather (Maternal) Myocardial infarction Pancreatic cancer Grandmother (Paternal) Stroke Denies family history of Ovarian cancer Prostate cancer Breast cancer Colorectal cancer Social History Smoking Status: Never smoker Second Hand Exposure: No; Do You Dip or Chew Tobacco: No; Hx Alcohol Use: No Hx Substance Use: No Preferred Language: Swedish Communication Ability: Effective Visual Impairment: Limited Hearing Ability: Normal Staff Radiation Therapist Required: No Beliefs That Will Affect Care: None marital status: Single Current Living Situation: Alone Current Living Situation Comment: lives alone current occupational status: disabled How many Children do You have: 0 Other Information That Helps Us Care for You: No Feels Safe at Home: Yes Safety Concerns: Feels Safe At This Time Childhood Exposure to Second-Hand Smoke: No Diet: regular caffeine: Yes during the past year weight has: increased > 10 lbs Dental Care, Regularly: Yes Physical Activity Frequency: 1-2 Times per Week Seatbelt Use: always Sunscreen Use: No Assistive Devices: Cane, Walker and Other Review of Systems Review of Systems: All systems reviewed & are unremarkable except as noted in Subjective Physical Exam Physical Exam: Frail, chronically ill appearing bitemp wasting cushingoid perrla neck supple and without stridor dentition fair MMM no obvious thrush resp effort WAL, no rhonchi or wheeze no gross JVD abd softly distended, NTP strength decreased overall, BLE weakness bilaterally, decreased strength to leg raises and resistance. Gait not assessed. Skin pale, warm, sl waxy complexion AAOx3, sl delay in replies at times; conversations need to be paced and speech cannot be racing or she has a hard time following discussion - slower measured speech improves her comprehension Results & Data Vital Signs (Past 12 Hours) Vital Signs Temp Pulse Resp BP Pulse Ox O2 Del Method 06/20/24 19:00 36.7 C 67 20 114/80 93 Room Air 06/20/24 14:06 36.7 C 63 18 115/78 94 Room Air Laboratory Results 06/17/24 06/16/24 06/15/24 Range/Units 07:46 05:47 05:48 WBC 10.36 12.73 H 7.39 (4.8-10.8) K/ul RBC 3.22 L 3.00 L 3.10 L (4.20-5.40) M/uL Hgb 9.5 L 9.1 L 9.4 L (12.0-16.0) g/dl Hct 29.2 L 27.2 L 27.7 L (37.0-47.0) % MCV 90.7 90.7 89.4 (80.0-100.0) fL MCH 29.5 30.3 30.3 (25.0-34.0) pg MCHC 32.5 33.5 33.9 (32.0-36.0) g/dL RDW Std Deviation 45.7 45.8 46.5 H (36.4-46.3) fL RDW Coeff of Maite 14.1 13.9 14.4 (11.5-14.5) % Plt Count 100 L 108 L 86 L (130-400) K/uL MPV 10.9 11.3 10.8 (9.4-12.4) fL Immature Gran % (Auto) 3.0 4.2 % Neut % (Auto) 80.9 81.3 % Lymph % (Auto) 9.7 8.0 % Bond % (Auto) 6.1 3.8 % Eos % (Auto) 0.0 1.9 % Baso % (Auto) 0.3 0.8 % Neut # (Auto) 10.29 H 6.01 (1.40-6.50) K/uL Lymph # (Auto) 1.24 0.59 L (1.20-3.40) K/uL Bond # (Auto) 0.78 H 0.28 (0.11-0.59) K/uL Eos # (Auto) 0.00 0.14 (0.00-0.50) K/uL Baso # (Auto) 0.04 0.06 (0.00-0.20) K/uL Immature Gran # (Auto) 0.38 H 0.31 H (0.01-0.20) K/uL Absolute Nucleated RBC 0.05 0.03 0.05 (0.00-0.12) K/uL Nucleated RBC % (auto) 0.5 0.2 0.7 % Sodium 140 138 137 (136-145) mmol/L Potassium 3.3 L 3.6 3.7 D (3.5-5.1) mmol/L Chloride 107 107 105 (98-107) mmol/L Carbon Dioxide 27 25 25 (21-32) mmol/L Anion Gap 6 6 7 (3-11) BUN 12 8 7 (6-23) mg/dl Creatinine 0.63 0.54 L 0.63 (0.6-1.2) mg/dl Est Cr Clr Drug Dosing 116.8 136.2 116.9 ml/min eGFR 110.73 114.92 110.73 BUN/Creatinine Ratio 19.0 14.8 11.1 (10-20) Glucose 90 108 H 116 H (70-99(Fasting)) mg/dl Calcium 8.7 9.2 9.0 (8.6-10.3) mg/dl Magnesium 1.9 (1.7-2.4) mg/dl Total Bilirubin (0.2-1.0) mg/dl AST (13-39) U/L ALT (7-52) U/L Alkaline Phosphatase (34-104) U/L Total Creatine Kinase (26-192) U/L Troponin I High Sens (0-14) pg/ml Total Protein (6.0-8.3) gm/dl Albumin (3.4-5.0) gm/dl Globulin (2.5-4.0) gm/dl Albumin/Globulin Ratio (0.9-2) Vitamin B12 > 1500 H (180-914) pg/ml TSH (0.300-4.500) uIu/ml Urine Color Urine Appearance (Clear) Urine pH (4.5-7.5) Ur Specific [place] (1.000-1.030) Urine Protein (Negative) Urine Glucose (UA) (Negative) Urine Ketones (Negative) Urine Blood (Negative) Urine Nitrite (Negative) Urine Bilirubin (Negative) Urine Urobilinogen (Negative) Ur Leukocyte Esterase (Negative) Urine WBC (Auto) (0-5) /hpf Urine RBC (Auto) (0-2) /hpf U Hyaline Cast (Auto) (0-2) /lpf U Epithel Cells (Auto) (0-2) /hpf Urine Bacteria (Auto) (None Seen) 06/14/24 06/14/24 Range/Units 22:10 21:13 WBC 8.58 (4.8-10.8) K/ul RBC 3.55 L (4.20-5.40) M/uL Hgb 10.8 L (12.0-16.0) g/dl Hct 32.0 L (37.0-47.0) % MCV 90.1 (80.0-100.0) fL MCH 30.4 (25.0-34.0) pg MCHC 33.8 (32.0-36.0) g/dL RDW Std Deviation 46.4 H (36.4-46.3) fL RDW Coeff of Maite 14.2 (11.5-14.5) % Plt Count 106 L (130-400) K/uL MPV 11.1 (9.4-12.4) fL Immature Gran % (Auto) 4.2 % Neut % (Auto) 67.6 % Lymph % (Auto) 19.1 % Bond % (Auto) 5.8 % Eos % (Auto) 2.7 % Baso % (Auto) 0.6 % Neut # (Auto) 5.80 (1.40-6.50) K/uL Lymph # (Auto) 1.64 (1.20-3.40) K/uL Bond # (Auto) 0.50 (0.11-0.59) K/uL Eos # (Auto) 0.23 (0.00-0.50) K/uL Baso # (Auto) 0.05 (0.00-0.20) K/uL Immature Gran # (Auto) 0.36 H (0.01-0.20) K/uL Absolute Nucleated RBC 0.03 (0.00-0.12) K/uL Nucleated RBC % (auto) 0.3 % Sodium 137 (136-145) mmol/L Potassium 3.0 L (3.5-5.1) mmol/L Chloride 100 (98-107) mmol/L Carbon Dioxide 28 (21-32) mmol/L Anion Gap 9 (3-11) BUN 7 (6-23) mg/dl Creatinine 0.80 (0.6-1.2) mg/dl Est Cr Clr Drug Dosing 93.1 ml/min eGFR 91.97 BUN/Creatinine Ratio 8.8 L (10-20) Glucose 98 (70-99(Fasting)) mg/dl Calcium 9.1 (8.6-10.3) mg/dl Magnesium 2.0 (1.7-2.4) mg/dl Total Bilirubin 0.7 (0.2-1.0) mg/dl AST 51 H (13-39) U/L ALT 36 (7-52) U/L Alkaline Phosphatase 63 (34-104) U/L Total Creatine Kinase 85 (26-192) U/L Troponin I High Sens 7.8 (0-14) pg/ml Total Protein 7.8 (6.0-8.3) gm/dl Albumin 4.0 (3.4-5.0) gm/dl Globulin 3.8 (2.5-4.0) gm/dl Albumin/Globulin Ratio 1.1 (0.9-2) Vitamin B12 (180-914) pg/ml TSH 3.554 (0.300-4.500) uIu/ml Urine Color Dark Yellow Urine Appearance Turbid A (Clear) Urine pH 5.0 (4.5-7.5) Ur Specific [place] 1.026 (1.000-1.030) Urine Protein Trace H (Negative) Urine Glucose (UA) Negative (Negative) Urine Ketones Trace H (Negative) Urine Blood Negative (Negative) Urine Nitrite Negative (Negative) Urine Bilirubin 1+ H (Negative) Urine Urobilinogen Negative (Negative) Ur Leukocyte Esterase 2+ H (Negative) Urine WBC (Auto) 11-20 H (0-5) /hpf Urine RBC (Auto) 0-2 (0-2) /hpf U Hyaline Cast (Auto) 3-5 H (0-2) /lpf U Epithel Cells (Auto) 6-10 H (0-2) /hpf Urine Bacteria (Auto) None Seen (None Seen) Diagnostic Findings Cervical Spine CT 06/14/24 21:40 Exam(s): CT C SPINE EXAM: CT Cervical Spine Without Intravenous Contrast CLINICAL HISTORY: Reason for exam: fall, DOAC, met CA. TECHNIQUE: Axial computed tomography images of the cervical spine without intravenous contrast. CTDI is 65.86 mGy and DLP is 2825.17 mGy-cm. Automated exposure control was utilized for the study. A dose lowering technique was utilized adhering to the principles of ALARA. COMPARISON: No relevant prior studies available. FINDINGS: Vertebrae: No acute fracture or malalignment. Soft tissues: Unremarkable. Mastoid air cells: Right mastoid effusion. Other findings: No suspicious osseous lesion. IMPRESSION: 1. No acute fracture or malalignment. 2. Right mastoid effusion. Electronically signed by: Bill Mirza MD 06/14/24 23:[address] 06/14/24 21:40 Exam(s): CT T SPINE EXAM: CT Thoracic Spine Without Intravenous Contrast CLINICAL HISTORY: Reason for exam: fall, DOAC, met CA. TECHNIQUE: Axial computed tomography images of the thoracic spine without intravenous contrast. CTDI is 65.86 mGy and DLP is 2825.17 mGy-cm. Automated exposure control was utilized for the study. A dose lowering technique was utilized adhering to the principles of ALARA. COMPARISON: MRI T spine 03/07/2024 FINDINGS: Vertebrae: No fracture or malalignment. Bone islands within T10 and T11. No lytic lesion. Soft tissues: Unremarkable. Other findings: No spinal canal stenosis. IMPRESSION: No fracture or malalignment. Electronically signed by: Bill Mirza MD 06/14/24 22:44 PM Ankle X-Ray 06/14/24 21:41 Exam(s): XR RIGHT ANKLE, 3+ views EXAM: XR Right Ankle Complete, 3 or More Views CLINICAL HISTORY: Reason for exam: fall, DOAC, met CA. TECHNIQUE: Frontal, lateral and oblique views of the right ankle. COMPARISON: No relevant prior studies available. FINDINGS: Bones/joints: Unremarkable. No fracture or malalignment. Soft tissues: Unremarkable. IMPRESSION: Normal right ankle x-rays. Electronically signed by: Bill Mirza MD 06/14/24 22:44 PM Chest X-Ray 06/14/24 21:41 Exam(s): XR CXR 1 VIEW EXAM: XR Chest, 1 View CLINICAL HISTORY: Reason for exam: weakness. TECHNIQUE: Frontal view of the chest. COMPARISON: 01/20/2024 FINDINGS: Lungs: No consolidation. No overt edema. Pleural space: No pleural effusion. No pneumothorax. Heart: Unremarkable. No cardiomegaly. Tubes, lines and devices: Port-A-Cath in place. IMPRESSION: No acute findings in the chest. Electronically signed by: Bill Mirza MD 06/14/24 23:[address] 06/14/24 21:41 Exam(s): CT HEAD Without Contrast EXAM: CT Head Without Intravenous Contrast CLINICAL HISTORY: Reason for exam: fall, DOAC, met CA. TECHNIQUE: Axial computed tomography images of the head/brain without intravenous contrast. CTDI is 65.86 mGy and DLP is 2825.17 mGy-cm. Automated exposure control was utilized for the study. A dose lowering technique was utilized adhering to the principles of ALARA. COMPARISON: 02/11/2024 FINDINGS: Brain: No acute intracranial hemorrhage. No grossly evident acute transcortical infarct. Supratentorial and infratentorial chronic white matter changes appear similar to the prior. Ventricles: Unremarkable. Bones/joints: Unremarkable. No fracture. Soft tissues: Unremarkable. Sinuses: No acute sinusitis. Mastoid air cells: Unremarkable as visualized. IMPRESSION: 1. No acute abnormality. 2. Chronic white matter changes appear similar to the prior. Electronically signed by: Bill Mirza MD 06/14/24 23:13 PM PG Care Time/CCT Total # of Minutes Spent Total Time Spent with Patient: Total time spent is greater than 50% in coordination of care (as documented) at patient's floor/unit and/or counseling patient: I spent minutes overall addressing this case: 15 min in medical data review/discussion with referring provider(s) and/or preparation for the visit incl [facility] EMR review 15 min in direct interaction with the patient/exam 20 min in Advance Care Planning/Goals of Care discussions as detailed above in note (must be >16min) 15 min in subsequent review and synthesis of assessment and plan 15 min communicating with other providers regarding the patient's case: Advanced Care Planning 24023 Advanced Care Planning 30 [place] [address] IN/OBS CONSULT LVL 4,60M (25 - SIGNIFICANT, SEPARATELY IDENTIFIABLE ) Patient Type New Medical Decision Making High Complexity Diagnoses Recurrent falls R29.6 Weakness generalized R53.1 Steroid myopathy G72.0; T38.0X5A Palliative care by specialist Z51.5 Advanced care planning/counseling discussion Z71.89 Additional Codes Advanced Care Planning - 66353 Advanced Care Planning 30 Min: 72985 Advanced Care Planning 30 Min ([id number])
[2024-06-21 07:18] VITALS: BP 120/79; PULSE 70; RESP 16; TEMP 97.9; O2SAT 94
--- NOTE | 2024-06-21 11:04 | Discharge Summary ---
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 she presents today due to recurrent falls due to weakness/unsteady gait. She is being admitted for ambulatory dysfunction to have PT/OT evals. Patient seen at bedside. She stated that since February she will have 1 day a week of unsteady gait. Recently this has contributed to her falling. She stated that she feels like her legs are giving out on her weak. She denies dizziness or chest pain prior to the falls. Today she fell and just could not get up. She denies loss of consciousness or head strike. She uses a cane occasionally at baseline and a walker at night to get to the bathroom. Her f irst fall was in early March after whole brain radiation. She is on Kadcyla every 3 weeks. She does get fatigued for a couple days after this but denies falls shortly after. She had her last dose roughly 1 week ago. She has home health PT and OT but at her last OT visit this week. She has PT once weekly and they were at her house today. This is through [facility]. She does endorse head pain after the fall but now denies head pain. She denies shortness of breath, nausea, vomiting. She does endorse diarrhea however had a barium swallow yesterday and relates it to that. She is agreeable to PT/OT evals while inpatient stay, would be okay with inpatient rehab if recommended. She is on chronic steroids and is currently tapering dexamethasone; she takes 0.5 Mg every few days. regarding the right mastoid effusion, patient stated she has bilateral ear itchiness for several days however is chronically dry after receiving radiation therapy. She denies hearing loss, tinnitus, drainage, pain. She denies nicotine or alcohol use. She does live at home alone, which is a concern for her with the recent falls. She did take her home medications this morning but needs her evening medications; ordered on admission. She wishes to be full code. Patient has potassium supplement ordered, only takes this as needed when potassium low with blood work. Admission Exam Per Admitting Provider Physical Exam: The patient is awake, alert and oriented 3, well developed and well nourished, normocephalic and atraumatic, in no acute distress. Non-toxic appearing. HEENT- EOMI, mucous membranes moist. Hearing grossly intact. Heart-normal S1 and S2. No murmurs, rubs or gallops. Lungs-clear bilaterally, no respiratory distress, no accessory muscle use. Abdomen-normal bowel sounds and soft. No ascites noted. Non-tender. Extremities- no clubbing, cyanosis, or edema. Rheumatologic-normal range of motion. Psychiatric-normal affect. ENMT: Ears: no external ear abnormality, no TM abnormality and no mastoid abnormality Principal Diagnosis Deconditioning, metastatic breast cancer Discharge Exam Constitutional: ill-appearing, no acute distress HEENT: NCAT, no conjunctival injection CV: clinically well perfused Resp: no increased work of breathing GI: non distended MSK: no gross deformities appreciated Skin: warm, dry, no rash appreciated Neuro: alert, oriented, no focal neurologic deficit appreciated Discharge Data Allergies Allergy/AdvReac Type Severity Reaction Status Date / Time cat dander Allergy Severe SOB, Verified 01/14/24 20:17 SWELLING, CONGESTION, RUNNY EYES apple Allergy Intermediate ITCHY Verified 01/14/24 20:17 MOUTH, INDIGESTION erythromycin base Allergy Intermediate UNKNOWN, Verified 01/14/24 20:17 POSS GI UPSET A CHILD Consultations 06/14/24 23:45 ED Decision to Admit Stat 06/20/24 12:34 Consult Palliative Care Routine Ordered Studies 06/14/24 21:40 CT cervical spine wo con Stat CT thoracic spine wo con Stat 06/14/24 21:41 CT head/brain wo con Stat Hospital Course (1) Ambulatory dysfunction: Pt is a 44yo female with a past medical history stage IV breast cancer with metastasis to the brain s/p whole brain radiation, history of PE (on Xarelto), depression, hypertension, and seizure disorder. She presented to the hospital due to recurrent falls secondary to weakness/unsteady gait. She was admitted for ambulatory dysfunction to have PT/OT evals. Ambulatory dysfunction - Continue physical therapy on an outpatient basis - pt with hx of recurrent falls; lives at home alone - has home health PT with [facility] [place] weekly - low suspicion for adrenal insufficiency secondary to chronic steroid use (and current taper); pt returned to steroid taper - pt would benefit from aggressive PT/OT- acute rehab not approved- awaiting SNF (preferred) versus home with home therapy (an option, but less preferred) Hypokalemia - K 3.0 on admission - suspect secondary to poor PO intake - supplement as needed; encourage PO intake Asymptomatic bacteriuria - pt denies urinary symptoms Stage IV breast cancer with metastasis to brain - s/p whole brain radiation in February 2024 - takes Kadcyla every 3 weeks- last taken week of 06/05; associated fatigue but not falls - continue Verzenio - on chronic dexamethasone taper; she has been weaningcurrently she is at 0.5 mg daily - follows with oncologist at [facility] and Dr. 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 FJB Discharge Plan Discharge Items Patient Disposition: Home - Self-Care Reason For Visit: WEAKNESS,FALL Discharge Diagnosis: fall Condition on Discharge: Fair Activity: Per Instructions section Non-emergency contact: Primary Care Provider and Oncologist Call non-emergency contact if: your pain is not controlled and your temperature is above 101 Follow-up/Referrals: Luh Ching MD [Primary Care Provider] - 06/26/24 9:00 am (Appointment will be with Barbara Renner PA-C) Diet: Regular Addtl Attending Provider Instructions: You were admitted to the hospital for weakness/deconditioning. You were treated with physical therapy. You were evaluated to placement at an inpatient rehab facility but placement proved to be difficult. You will continue physical therap y to build strength as an outpatient. A prescription for physical therapy was faxed to the facility of your choice prior to discharge. A discharge summary will be sent to your primary care physician to ensure continuity of care. Please bring this discharge summary with you to your next office appointment so that your provider can review it at that time. Follow-up appointments: Make a follow-up appointment with your PCP within the next week. It is very important that you follow up with them shortly after discharge from the hospital. Keep all your follow-up appointments as already scheduled. If you cannot make an appointment, notify your provider. Medications: Your medication list has been reviewed and reconciled upon discharge to ensure accuracy and continuity of care. An updated list of all your medications is included with your hospital discharge paperwork. Please review this list closely, and make note of any changes. Take your medications as instructed; do not skip a dose of your medicines. Make sure all of your doctors know every medicine you are taking (including nfkw-aah-nhiolks medicines, vitamins, and supplements). Call your primary care provider before taking any new medicines (including avck-[id number] medicines, vitamins, and supplements), because some of these may interact with your current medications, or may make your symptoms worse. Tell your primary care provider if you cannot afford your medications. CONTACT YOUR PRIMARY CARE PROVIDER if you experience any of the following: Difficulty following your treatment plan, or difficulty taking medications CALL 911 OR GO TO THE EMERGENCY DEPARTMENT if you experience any of the following: Sudden, severe abdominal pain or nausea/vomiting Severe chest pain, or chest pain that radiates (moves) to your jaw or arm Sudden, severe shortness of breath or difficulty breathing Thank you for allowing us to participate in your care. Pending Studies at Discharge: No Stand-Alone Forms: My [facility] Medications and DC Order Prescriptions: Continued loperamide [Imodium A-D] 2 mg capsule 2 mg PO Q6H PRN (Reason: Diarrhea) Xgeva 120 mg/1.7 mL (70 mg/mL) solution 120 mg subcut MONTHLY Rx Instructions: DUE WEDNESDAY Zoladex 3.6 mg implant 0 mg subcut Q28D Rx Instructions: DUE WEDNESDAY sertraline 50 mg tablet 50 mg PO QAM fulvestrant 125 mg/2.5 syringe 500 mg IM MONTHLY Rx Instructions: may divide dose into 2 equally divided injections; one into each buttock lorazepam 0.5 mg Tablet 0.5 mg PO HS PRN (Reason: Sleep) ondansetron HCl 8 mg tablet 8 mg PO Q8 PRN (Reason: Nausea And Vomiting) prochlorperazine maleate 10 mg tablet 10 mg PO Q6 PRN (Reason: Nausea) olmesartan 20 mg tablet 20 mg PO QAM dexamethasone 6 mg tablet 6 mg PO BID Qty: 30 0RF cyanocobalamin (vitamin B-12) 1,000 mcg/mL Solution 1,000 mcg SUBCUT .[id number] Rx Instructions: DUE WEDNESDAY Verzenio 150 mg Tablet 100 mg PO BID sodium bicarbonate 325 mg Tablet 325 mg PO TID PRN (Reason: LOW SODIUM) diphenoxylate-atropine 2.5-0.025 mg tablet 1 tab PO DIRECTED PRN (Reason: Diarrhea) Xarelto 20 mg tablet 20 mg PO QAM Herceptin 150 mg Recon Soln 0 mg IV .Q 4 WEEKS Rx Instructions: DUE WEDNESDAY levetiracetam [Keppra] 500 mg tablet 500 mg PO BID Qty: 60 0RF Discharge Orders: Discharge Order (Routine); Ordered 06/21/24 Ordered By: Johnnie Hook Admission Data Admit Date/Time: 06/15/24 00:22 Attending Provider: Arnold Tolbert Admit Provider: Zachary Verma Primary Care Provider: Luh Ching Other Providers: Zachary Verma; [facility]; Hattie Santos; Madelaine Lozano Supervising Physician Co-Signing Physician Notes I also saw the patient in portions of the clinical history and physical examination. I agree with impression and plan as noted in the resident documentation. Patient's father is at bedside. This morning, the patient is ambulatory to room with use of a walker. Given logistics and delay in getting a bed at [facility], have elected to return home with outpatient physical therapy. I reviewed an outpatient options in the [place] area with both the patient and father. Discharge pending for today. Resident Activity Tracking Resident Involvement: Resident Care Provided Care Provided: Adult Hospital Medicine
== END 2024-06-21 13:09 | disposition home or self-care (01) | DRG 92 ==
LOC: ED 20:57 → SUATTDRO 06-15 00:22 → INTOOBSV 06-15 00:22 → 2W 06-15 00:22 → 3N 06-18 04:40

== ENCOUNTER 2024-12-18 11:14 | Inpatient (IN) ==
--- NOTE | 2024-12-18 11:47 | XRay Report ---
SINGLE VIEW CHEST CLINICAL HISTORY: Dyspnea FINDINGS: 2 AP, portable, upright chest radiographs are compared to study dated 10/07/2024 and correla karen with chest CT dated 06/13/2024. The examination is degraded by portable technique and patient rota tion. A left internal jugular central venous infusion port is unchanged in position. The heart is enl arged. The pulmonary vasculature is not congested. There is mild bibasilar atelectasis. The lungs and pleural spaces are otherwise clear. No pneumothorax is seen. The skeletal structures are osteopenic. The bony thorax is grossly intact. There are surgical clips in the left chest wall. Bilateral breast implants are in place. IMPRESSION: Cardiomegaly with no acute cardiopulmonary abnormality identified. ACT 112: Negative or not required by law. Electronically signed by: Jesus Gil M.D. 12/18/2024 11:45 AM
[2024-12-18 12:07] LABS: Hematocrit (blood only) 25.5 % (37.0-47.0); Hemoglobin 8.1 g/dl (12.0-16.0); Mean Corpuscular Hemoglobin 30.6 pg (25.0-34.0); Mean Corpuscular Volume 96.2 fL (80.0-100.0); Platelet Count 94 K/uL (130-400); RDW Standard Deviation 52.8 fL (36.4-46.3); Red Blood Count 2.65 M/uL (4.20-5.40); White Blood Count 14.48 K/ul (4.8-10.8)
[2024-12-18 12:19] LABS: Alanine Aminotransferase 130.0 U/L (7-52); Albumin Globulin Ratio 1.2 (0.9-2); Alkaline Phosphatase 91.0 U/L (34-104); Anion Gap 5.0 (3-11); Bilirubin,Total 1.2 mg/dl (0.2-1.0); Blood Urea Nitrogen 17.0 mg/dl (6-23); Calcium 8.2 mg/dl (8.6-10.3); Carbon Dioxide 27.0 mmol/L (21-32); Chloride 110.0 mmol/L (98-107); Creatinine Clr Calc Pharmacy 226.4 ml/min; Globulin 2.2 gm/dl (2.5-4.0); Glucose 158.0 mg/dl (70-99(Fasting)); Lipase 71.0 U/L (11-82); Potassium 3.3 mmol/L (3.5-5.1); Sodium 142.0 mmol/L (136-145); Total Protein 4.9 gm/dl (6.0-8.3)
[2024-12-18] MEDS: ALBUT/IPRATROP 3MG/0.5MG NEB 3 ML VIAL NEB STA (12:21)
[2024-12-18 12:31] LABS: INR 1.3 (0.9-1.1); Prothrombin Time 13.9 Seconds (9.0-12.0)
--- NOTE | 2024-12-18 12:39 | Emergency Department Note ---
Impression & Plan Rhinovirus infection, Weakness generalized, Shortness of breath, Metastatic disease ED Provider Note NAME: ZAYNAB MOREL AGE: 44 SEX: F : 1980 ARRIVES VIA: Ambulance INFORMANT: Patient ED PROVIDER(S): Arturo Pruitt MD CHIEF COMPLAINT: Cough, fever, cancer patient, referred. 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 They report pink sputum. They report that the patient had low- grade fever prior to arrival. The patient had completed a an antibiotic course of doxycycline a week ago and recently completed course of Levaquin. Family were concerned as the patient was not improving. They deny nausea and vomiting. On evaluation the patient is acute on chronic ill-appearing moderate distress, afebrile with heart in the 90s and vital signs otherwise stable. She appears euvolemic to slightly dry. Lungs are clear. Transmitted upper airway sounds are noted which the patient is able to clear with coaching though with weak cough. EKG without overt acute ischemia. CXR negative for acute cardiopulmonary process per my personal preliminary review/interpretation. WBC 14.4 K with neutrophilia but no left shift. H/H similar to prior. Platelets 94K, similar to prior. Chemistry without metabolic acidosis. Initial lactic acid 2.3. LFTs are mildly elevated and similar to prior range of values. High sensitivity troponin 37.9, nonspecific. BNP within normal limits. Albumin is low at 2.7. Procalcitonin is not elevated. UA without evidence of infection. MRSA swab was negative. Respiratory BioFire was positive for enterovirus/rhinovirus. CT soft tissue neck was negative for acute abnormalities. CTA of the chest was performed and was negative for PE. No focal consolidation is seen. Small to moderate pericardial effusion is described. Small osteoblastic metastases are unchanged from prior. Given the patient's immunocompromise status in the setting of her metastatic breast cancer and treatment for culture obtained and empiric antibiotic treatment initiated with IV Zosyn for possible bacterial coinfection. Case was discussed with KENNETH Adrian PA-C with Dr. Johnson, KENNETH hospitalist, who will evaluate the patient for admission. Further management per admitting team. Triage Nursing notes reviewed and agree them. Prior/external medical records reviewed Vital Signs: reviewed Differential diagnosis: Reactive airway disease, pneumonia, pneumothorax, COPD, CHF, infections, cardiac ischemia, pulmonary embolism, musculoskeletal, gastrointestinal, as well as other pathologies. ER treatment provided: See below. Diagnostics interpreted by me: ECG: Normal sinus rhythm, 96 bpm, no ectopy, no overt ST elevation or depression, QTc 432, QRS 92. Cardiac Monitoring: An order for continuous cardiac monitoring was placed and demonstrated normal sinus rhythm, 96 bpm, no ectopy. Laboratory studies: See below Imaging studies: See below Consultation(s): Case was discussed KENNETH Adrian PA-C with Dr. Johnson, [facility], who will evaluate the patient for admission. HPI: Per MDM. ROS: See above HPI for pertinent positives & negatives. A total of 10 systems reviewed and were otherwise negative. VITALS:See Below PHYSICAL EXAMINATION: GENERAL: Awake, alert, acute on chronically ill-appearing, in no distress, BMI 37.2. HENT: Normocephalic, atraumatic. Oropharynx unremarkable. EYES: Normal conjunctiva. Sclera non-icteric. NECK: Supple. No nuchal rigidity. FROM. No JVD. RESPIRATORY: Lungs are clear to auscultation and otherwise with transmitted upper airway congestion. CARDIAC: Regular rate, normal rhythm. Extremities warm and well perfused. Pulses equal. ABDOMEN: Soft, non-distended. No tenderness to palpation. No rebound or guarding. No masses. MUSCULOSKELETAL: Chest examination reveals no tenderness. The back is symmetrical on inspection without obvious abnormality. There is no CVA tenderness to palpation. No joint edema. LOWER EXTREMITIES: Calves are equal size bilaterally and non-tender. Scant bilateral lower extremity edema. No discoloration. NEURO: No focal sensory or motor deficits noted. SKIN: No rash or jaundice noted. Arturo Pruitt MD Past Med/Surg History Problem List (Updated 12/19/24 @ 03:03 by Arturo Pruitt MD) Metastatic disease (Acute) Rhinovirus infection (Acute) Rhinovirus Shortness of breath (Acute) Advanced care planning/counseling discussion Palliative care by specialist Steroid myopathy Weakness generalized (Acute) Recurrent falls Ambulatory dysfunction (Acute) Weakness (Acute) Nausea Vomiting (Acute) Hypocalcemia (Acute) Acute hypokalemia (Acute) Headache (Acute) Situational mixed anxiety and depressive disorder Pulmonary embolism Hypertension Hyponatremia Breast cancer metastasized to brain (Chronic 10/25/21) Seasonal allergies Medical History History of COVID-19 05/06, pcr, side effects "minimal">resolved Chronic bronchitis Herpes simplex of female genitalia Genital warts Cervical intraepithelial neoplasia (FRANCHESCA) Infiltrating ductal carcinoma of left breast hx Thyroid nodule hx, monitoring Surgical History Port-A-Cath in place (11/10/21) Access Port Insertion with Fluoroscopy - Tomas Poon DO, FACS History of biopsy (10/27/21) CT Guided Biopsy Lung History of breast reconstruction History of appendectomy (~11/2016) History of bilateral mastectomy bilat mast, left ALND Family History Mother Hypertension Grandmother Cancer maternal great grandmother Grandfather Cancer Father Hypertension Grandfather (Paternal) Myocardial infarction Grandfather (Maternal) Myocardial infarction Pancreatic cancer Grandmother (Paternal) Stroke Denies family history of Ovarian cancer Prostate cancer Breast cancer Colorectal cancer Social History Smoking Status: Never smoker Second Hand Exposure: No; Do You Dip or Chew Tobacco: No; Hx Alcohol Use: No Hx Substance Use: No Preferred Language: Urdu Communication Ability: Effective Visual Impairment: Limited Hearing Ability: Normal Power Chisel Operator Required: No Beliefs That Will Affect Care: None marital status: Single Current Living Situation: Rehab Current Living Situation Comment: parents current occupational status: disabled How many Children do You have: 0 Feels Safe at Home: Yes Safety Concerns: Feels Safe At This Time Childhood Exposure to Second-Hand Smoke: No Diet: regular caffeine: Yes during the past year weight has: increased > 10 lbs Dental Care, Regularly: Yes Physical Activity Frequency: 1-2 Times per Week Seatbelt Use: always Sunscreen Use: No Assistive Devices: Cane, Glasses, Walker and Wheelchair Allergies Allergies Allergy/AdvReac Type Severity Reaction Status Date / Time cat dander Allergy Severe SOB, Verified 10/07/24 00:53 SWELLING, CONGESTION, RUNNY EYES apple Allergy Intermediate ITCHY Verified 10/07/24 00:53 MOUTH, INDIGESTION erythromycin base Allergy Intermediate UNKNOWN, Verified 10/07/24 00:53 POSS GI UPSET A CHILD Home Meds Home Medications Medication Instructions Recorded Confirmed lorazepam 0.5 mg tablet 0.5 mg PO HS PRN Sleep 11/07/21 10/07/24 ondansetron HCl 8 mg tablet 8 mg PO Q8 PRN Nausea And Vomiting 12/31/21 10/07/24 prochlorperazine maleate 10 mg 10 mg PO Q6 PRN Nausea 12/31/21 10/07/24 tablet sertraline 50 mg tablet 50 mg PO QAM 05/21/22 10/07/24 denosumab 120 mg/1.7 mL (70 mg/mL) 120 mg subcut MONTHLY 11/04/22 10/07/24 subcutaneous solution (Xgeva) goserelin 3.6 mg subcutaneous 0 mg subcut MONTHLY 11/04/22 10/07/24 implant (Zoladex) loperamide 2 mg capsule (Imodium 2 mg PO Q6H PRN Diarrhea 11/04/22 10/07/24 A-D) fulvestrant 125 mg/2.5 mL 500 mg IM MONTHLY 11/26/23 10/07/24 intramuscular syringe cyanocobalamin (vitamin B-12) 1,000 mcg subcut MONTHLY 01/14/24 10/07/24 1,000 mcg/mL injection solution diphenoxylate-atropine 2.5 1 tab PO DIRECTED PRN Diarrhea 01/14/24 10/07/24 mg-0.025 mg tablet sodium bicarbonate 325 mg tablet 325 mg PO TID PRN LOW SODIUM 01/14/24 10/07/24 cetirizine 10 mg tablet (Zyrtec) 10 mg PO DAILY 10/07/24 10/07/24 dexamethasone 2 mg tablet 1 mg PO BID 10/07/24 10/07/24 letrozole 2.5 mg tablet 2.5 mg PO DAILY 10/07/24 10/07/24 rivaroxaban 10 mg tablet (Xarelto) 10 mg PO QAM 10/07/24 10/07/24 sertraline 25 mg tablet 25 mg PO QAM 10/07/24 10/07/24 Previous Rx's Medication Instructions Recorded levetiracetam 500 mg tablet 500 mg PO BID #60 tabs 01/20/24 (Keppra) olmesartan 20 mg tablet 20 mg PO QAM #90 tabs 09/06/24 Results & Data (ED) Vital Signs Vital Signs - 24 hr 12/18/24 11:05 12/18/24 11:22 12/18/24 11:25 Temperature 36.5 C Temperature Source Oral Pulse Rate 98 H 96 H Pulse Rate [Apical] 98 H Pulse Rate from SpO2 Sensor Pulse Rhythm Pulse Rhythm [Apical] Regular Pulse Strength [Apical] Normal Respiratory Rate 17 17 Respiratory Effort / Characteristics Non-Labored Spontaneous Respiratory Depth Normal Respiratory Pattern Regular Blood Pressure 123/87 Blood Pressure [Right Arm] 123/87 Blood Pressure Mean 99 Blood Pressure Mean [Right Arm] 99 Blood Pressure Position [Right Arm] Lying Pulse Oximetry 96 96 Oxygen Delivery Method Room Air Sepsis Recent Fever Within 48 Hours No Sepsis New/Unexplained Change in Mental Status No Sepsis Action Taken by Nursing No Action Required 12/18/24 11:29 12/18/24 13:21 12/18/24 14:00 Temperature Temperature Source Pulse Rate 98 H 93 H Pulse Rate [Apical] 95 H Pulse Rate from SpO2 Sensor 93 H Pulse Rhythm Regular Pulse Rhythm [Apical] Pulse Strength [Apical] Respiratory Rate 17 17 25 H Respiratory Effort / Characteristics Respiratory Depth Respiratory Pattern Blood Pressure 116/88 Blood Pressure [Right Arm] 126/71 Blood Pressure Mean 97 Blood Pressure Mean [Right Arm] 89 Blood Pressure Position [Right Arm] Pulse Oximetry 96 96 94 Oxygen Delivery Method Room Air Room Air Sepsis Recent Fever Within 48 Hours Sepsis New/Unexplained Change in Mental Status Sepsis Action Taken by Nursing 12/18/24 15:00 12/18/24 16:06 12/18/24 17:00 Temperature Temperature Source Pulse Rate 84 Pulse Rate [Apical] 85 95 H Pulse Rate from SpO2 Sensor Pulse Rhythm Pulse Rhythm [Apical] Pulse Strength [Apical] Respiratory Rate 16 16 Respiratory Effort / Characteristics Non-Labored Spontaneous Non-Labored Spontaneous Respiratory Depth Respiratory Pattern Blood Pressure Blood Pressure [Right Arm] 121/82 130/83 Blood Pressure Mean Blood Pressure Mean [Right Arm] 95 98 Blood Pressure Position [Right Arm] Pulse Oximetry Oxygen Delivery Method Room Air Room Air Sepsis Recent Fever Within 48 Hours Sepsis New/Unexplained Change in Mental Status Sepsis Action Taken by Nursing Laboratory Data 12/18/24 11:30 12/18/24 11:30 Lab Results 12/18/24 12/18/24 12/18/24 Range/Units 11:30 11:40 13:21 WBC 14.48 H (4.8-10.8) K/ul RBC 2.65 L (4.20-5.40) M/uL Hgb 8.1 L (12.0-16.0) g/dl Hct 25.5 L (37.0-47.0) % MCV 96.2 (80.0-100.0) fL MCH 30.6 (25.0-34.0) pg MCHC 31.8 L (32.0-36.0) g/dL RDW Std Deviation 52.8 H (36.4-46.3) fL RDW Coeff of Maite 15.2 H (11.5-14.5) % Plt Count 94 L (130-400) K/uL MPV 10.1 (9.4-12.4) fL Absolute Nucleated RBC 0.13 H (0.00-0.12) K/uL Nucleated RBC % (auto) 0.9 % Neutrophils % (Manual) 90 % Lymphocytes % (Manual) 3 % Monocytes % (Manual) 1 % Metamyelocytes % (Man) 1 % Myelocytes % (Man) 5 % Neutrophils # (Manual) 13.03 H (1.40-6.50) K/uL Total Absolute Neuts 13.03 H (1.4-6.5) K/uL Lymphocytes # (Manual) 0.43 L (1.2-3.4) K/uL Total Abs Lymphocytes 0.43 L (1.2-3.4) K/uL Monocytes # (Manual) 0.14 (0.11-0.59) K/uL Metamyelocytes # (Man) 0.14 H (0-0) K/uL Myelocytes # (Manual) 0.72 H (0-0) K/uL Polychromasia 1+ Tear Drop Cells 2+ PT 13.9 H (9.0-12.0) Seconds INR 1.3 H (0.9-1.1) Sodium 142 (136-145) mmol/L Potassium 3.3 L (3.5-5.1) mmol/L Chloride 110 H (98-107) mmol/L Carbon Dioxide 27 (21-32) mmol/L Anion Gap 5 (3-11) BUN 17 (6-23) mg/dl Creatinine 0.35 L (0.6-1.2) mg/dl Est Cr Clr Drug Dosing 226.4 ml/min eGFR 127.58 BUN/Creatinine Ratio 48.6 H (10-20) Glucose 158 H (70-99(Fasting)) mg/dl Lactate (0.4-2.0) mmol/L Calcium 8.2 L (8.6-10.3) mg/dl Phosphorus 2.9 (2.5-4.9) mg/dl Magnesium 2.2 (1.7-2.4) mg/dl Total Bilirubin 1.2 H (0.2-1.0) mg/dl AST 77 H (13-39) U/L ALT 130 H (7-52) U/L Alkaline Phosphatase 91 (34-104) U/L Troponin I High Sens 37.9 H 35.6 H (0-14) pg/ml B-Natriuretic Peptide 26 (0-100) pg/ml Total Protein 4.9 L (6.0-8.3) gm/dl Albumin 2.7 L (3.4-5.0) gm/dl Globulin 2.2 L (2.5-4.0) gm/dl Albumin/Globulin Ratio 1.2 (0.9-2) Lipase 71 (11-82) U/L Procalcitonin 0.10 (0-0.5) ng/ml Nasal Screen MRSA (PCR) (Negative) Adenovirus (PCR) Not Detected (NotDetected) B. pertussis DNA (PCR) Not Detected (NotDetected) B.parapertussis DNA PCR Not Detected (NotDetected) C. pneumoniae DNA (PCR) Not Detected (NotDetected) Coronavirus OC43 (PCR) Not Detected (NotDetected) Coronavirus HKU1 (PCR) Not Detected (NotDetected) Coronavirus 229E (PCR) Not Detected (NotDetected) SARS-CoV-2 (PCR) Not Detected (NotDetected) Coronavirus NL63 (PCR) Not Detected (NotDetected) Human Metapneumovir PCR Not Detected (NotDetected) Influenza Type A (PCR) Not Detected (NotDetected) Influenza Type B (PCR) Not Detected (NotDetected) M. pneumoniae (PCR) Not Detected (NotDetected) Parainfluenza 1 (PCR) Not Detected (NotDetected) Parainfluenza 2 (PCR) Not Detected (NotDetected) Parainfluenza 3 (PCR) Not Detected (NotDetected) Parainfluenza 4 (PCR) Not Detected (NotDetected) RSV (PCR) Not Detected (NotDetected) Entero/Rhino (PCR) DETECTED A (NotDetected) 12/18/24 12/18/24 Range/Units 17:23 17:30 WBC (4.8-10.8) K/ul RBC (4.20-5.40) M/uL Hgb (12.0-16.0) g/dl Hct (37.0-47.0) % MCV (80.0-100.0) fL MCH (25.0-34.0) pg MCHC (32.0-36.0) g/dL RDW Std Deviation (36.4-46.3) fL RDW Coeff of Maite (11.5-14.5) % Plt Count (130-400) K/uL MPV (9.4-12.4) fL Absolute Nucleated RBC (0.00-0.12) K/uL Nucleated RBC % (auto) % Neutrophils % (Manual) % Lymphocytes % (Manual) % Monocytes % (Manual) % Metamyelocytes % (Man) % Myelocytes % (Man) % Neutrophils # (Manual) (1.40-6.50) K/uL Total Absolute Neuts (1.4-6.5) K/uL Lymphocytes # (Manual) (1.2-3.4) K/uL Total Abs Lymphocytes (1.2-3.4) K/uL Monocytes # (Manual) (0.11-0.59) K/uL Metamyelocytes # (Man) (0-0) K/uL Myelocytes # (Manual) (0-0) K/uL Polychromasia Tear Drop Cells PT (9.0-12.0) Seconds INR (0.9-1.1) Sodium (136-145) mmol/L Potassium (3.5-5.1) mmol/L Chloride (98-107) mmol/L Carbon Dioxide (21-32) mmol/L Anion Gap (3-11) BUN (6-23) mg/dl Creatinine (0.6-1.2) mg/dl Est Cr Clr Drug Dosing ml/min eGFR BUN/Creatinine Ratio (10-20) Glucose (70-99(Fasting)) mg/dl Lactate 2.3 H* (0.4-2.0) mmol/L Calcium (8.6-10.3) mg/dl Phosphorus (2.5-4.9) mg/dl Magnesium (1.7-2.4) mg/dl Total Bilirubin (0.2-1.0) mg/dl AST (13-39) U/L ALT (7-52) U/L Alkaline Phosphatase (34-104) U/L Troponin I High Sens (0-14) pg/ml B-Natriuretic Peptide (0-100) pg/ml Total Protein (6.0-8.3) gm/dl Albumin (3.4-5.0) gm/dl Globulin (2.5-4.0) gm/dl Albumin/Globulin Ratio (0.9-2) Lipase (11-82) U/L Procalcitonin (0-0.5) ng/ml Nasal Screen MRSA (PCR) Negative (Negative) Adenovirus (PCR) (NotDetected) B. pertussis DNA (PCR) (NotDetected) B.parapertussis DNA PCR (NotDetected) C. pneumoniae DNA (PCR) (NotDetected) Coronavirus OC43 (PCR) (NotDetected) Coronavirus HKU1 (PCR) (NotDetected) Coronavirus 229E (PCR) (NotDetected) SARS-CoV-2 (PCR) (NotDetected) Coronavirus NL63 (PCR) (NotDetected) Human Metapneumovir PCR (NotDetected) Influenza Type A (PCR) (NotDetected) Influenza Type B (PCR) (NotDetected) M. pneumoniae (PCR) (NotDetected) Parainfluenza 1 (PCR) (NotDetected) Parainfluenza 2 (PCR) (NotDetected) Parainfluenza 3 (PCR) (NotDetected) Parainfluenza 4 (PCR) (NotDetected) RSV (PCR) (NotDetected) Entero/Rhino (PCR) (NotDetected) Administered Medications Albuterol (Albut/Ipratrop 3mg/0.5mg Neb 3 Ml Vial) 3 ml NEB QIDR ALLISON; Protocol Stop: 01/17/25 21:02 Last Admin: 12/18/24 23:30 Dose: 3 ml Documented By: JAYE Guaifenesin (Guaifenesin 600 Mg Tabcr) 600 mg PO Q12 ALLISON Stop: 01/17/25 21:02 Last Admin: 12/18/24 21:59 Dose: 600 mg Documented By: KVNG Piperacillin Sod/Tazobactam Sod (Zosyn) 4.5 gm in 100 mls @ 25 mls/hr IV Q8H [facility]; Protocol Stop: 12/23/24 21:59 Last Infusion: 12/19/24 02:37 Dose: Infused Documented By: Admin: 12/18/24 22:17 Dose: 25 mls/hr Documented By: KVNG Levetiracetam (Levetiracetam 500 Mg Tab) 500 mg PO BID [facility] Stop: 01/17/25 21:02 Last Admin: 12/18/24 21:59 Dose: 500 mg Documented By: KVNG Discontinued Medications Albuterol (Albut/Ipratrop 3mg/0.5mg Neb 3 Ml Vial) 3 ml NEB NOW STA; Protocol Stop: 12/18/24 12:14 Last Admin: 12/18/24 12:21 Dose: 3 ml Documented By: TAMIKA Piperacillin Sod/Tazobactam Sod (Zosyn) 4.5 gm in 100 mls @ 200 mls/hr IV NOW ONE; Protocol Stop: 12/18/24 17:29 Last Infusion: 12/18/24 18:13 Dose: Infused Documented By: Admin: 12/18/24 17:27 Dose: 200 mls/hr Documented By: VINNY Magnesium Sulfate/Dextrose (Magnesium Sulfate / D5w) 1 gm in 100 mls @ 50 mls/hr IV ONE ONE Stop: 12/18/24 19:18 Last Infusion: 12/18/24 20:22 Dose: Infused Documented By: Admin: 12/18/24 18:08 Dose: 50 mls/hr Documented By: VINNY Dexamethasone 4 mg/ Syringe 1 mls @ 1 mls/min IV ONE ONE Stop: 12/18/24 21:31 Last Admin: 12/18/24 22:05 Dose: 1 mls/min Documented By: KVNG Doxycycline Hyclate 100 mg/ (Dextrose) 100 mls @ 50 mls/hr IV ONE ONE Stop: 12/18/24 23:29 Last Infusion: 12/19/24 00:18 Dose: Infused Documented By: Admin: 12/18/24 22:09 Dose: 50 mls/hr Documented By: KVNG Ioversol (Optiray 320 125ml) 112 ml IV ONCE ONE Stop: 12/18/24 12:50 Last Admin: 12/18/24 12:49 Dose: 112 ml Documented By: CHELSEY Potassium Chloride (Potassium Chloride Crtab 20 Meq Tabcr) 20 meq PO NOW STA Stop: 12/18/24 17:20 Last Admin: 12/18/24 18:08 Dose: 20 meq Documented By: VINNY Imaging Data Attestation: I personally reviewed and interpreted this imaging study as follows: Radiologist's Impression: Chest X-Ray 12/18/24 11:29 SINGLE VIEW CHEST CLINICAL HISTORY: Dyspnea FINDINGS: 2 AP, portable, upright chest radiographs are compared to study dated 10/07/2024 and correlated with chest CT dated 06/13/2024. The examination is degraded by portable technique and patient rotation. A left internal jugular central venous infusion port is unchanged in position. The heart is enlarged. The pulmonary vasculature is not congested. There is mild bibasilar atelectasis. The lungs and pleural spaces are otherwise clear. No pneumothorax is seen. The skeletal structures are osteopenic. The bony thorax is grossly intact. There are surgical clips in the left chest wall. Bilateral breast implants are in place. IMPRESSION: Cardiomegaly with no acute cardiopulmonary abnormality identified. ACT 112: Negative or not required by law. Electronically signed by: Jesus Gil M.D. 12/18/2024 11:45 AM Chest X-Ray 12/18/24 11:29 SINGLE VIEW CHEST CLINICAL HISTORY: Dyspnea FINDINGS: 2 AP, portable, upright chest radiographs are compared to study dated 10/07/2024 and correlated with chest CT dated 06/13/2024. The examination is degraded by portable technique and patient rotation. A left internal jugular central venous infusion port is unchanged in position. The heart is enlarged. The pulmonary vasculature is not congested. There is mild bibasilar atelectasis. The lungs and pleural spaces are otherwise clear. No pneumothorax is seen. The skeletal structures are osteopenic. The bony thorax is grossly intact. There are surgical clips in the left chest wall. Bilateral breast implants are in place. IMPRESSION: Cardiomegaly with no acute cardiopulmonary abnormality identified. ACT 112: Negative or not required by law. Electronically signed by: Jesus Gil M.D. 12/18/2024 11:45 AM Chest CTA 12/18/24 12:13 CT ANGIOGRAM OF THE CHEST CLINICAL HISTORY: Chest congestion. Dyspnea. Metastatic breast cancer. COMPARISON STUDY: Chest x-ray dated 12/18/2024. Prior chest CT scans, most recently dated 06/13/2024. TECHNIQUE: Following the IV administration of 112 cc of Optiray 320, CT angiogram of the chest was performed from the upper abdomen to the thoracic inlet utilizing the pulmonary embolus protocol. Images are reviewed in the axial, sagittal, and coronal planes. 3-D MIPS images are created and assessed. IV contrast was administered without complication. A dose lowering technique was utilized adhering to the principles of ALARA. The examination is degraded by streak artifact from the body wall abutting the CT gantry. There is also motion artifact. CT DOSE: 1454.03 mGy.cm FINDINGS: Thyroid: Imaged portions of the thyroid gland are normal in size and attenuation. Thoracic aorta: The thoracic aorta is normal in caliber and demonstrates standard 3-vessel arch anatomy. No dissection is seen. Pulmonary vasculature: The pulmonary trunk is dilated, measuring 3.6 cm in diameter. This suggests pulmonary artery hypertension. There are no filling defects identified in main, lobar, or segmental pulmonary branches to suggest pulmonary embolus. Evaluation of the peripheral branches is degraded by streak and motion artifact. Heart: A left internal jugular central venous infusion port is in place. The heart is enlarged noting a [id number] pericardial effusion. Lungs and pleural spaces: Evaluation of the lung parenchyma is degraded by motion artifact. There is no airspace consolidation or pleural effusion. The trachea and central airways appear clear. Dependent atelectasis is seen bilaterally. Mediastinum: There is no mediastinal lymphadenopathy. Isabelle: Clear. Axillae: Surgical clips are noted in the left axilla. No lymphadenopathy is seen. Upper abdomen: Partially visualized upper abdominal viscera is within normal limits. Skeletal structures: Osteoblastic bony metastatic lesions in the significantly changed from previous. 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 Soft tissues: There is postsurgical change from bilateral mastectomy with bilateral breast implants in place. IMPRESSION: 1. There is no evidence of pulmonary embolus in the main, lobar, or segmental pulmonary arteries. 2. There is no airspace consolidation typical for pneumonia or pleural effusion. 3. Cardiomegaly noting a pericardial effusion. 4. 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 These were not demonstrably FDG avid on the 09/20/2024 PET examination and favor treated disease. 5. Additional findings as above. ACT 112: Negative or not required by law. Electronically signed by: Jesus Gil M.D. 12/18/2024 1:30 PM Soft Tissue Neck CT 12/18/24 12:13 CT OF THE NECK WITH IV CONTRAST CLINICAL HISTORY: Congestion, ?aspiration, metastatic disease. COMPARISON STUDY: PET/CT September 20, 2024. MRI of the cervical spine and brain December 05, 2024. TECHNIQUE: Following IV administration of Optiray, helical axial images of the neck were obtained. Sagittal and coronal reconstructions were viewed. Automated exposure control was utilized for the study. A dose lowering technique was utilized adhering to the principles of ALARA. 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 Associated edema is again noted. There is no cervical lymphadenopathy. There is no mass within the neck. Major vasculature of the neck is patent. A left internal jugular [id number] is in place. Please note that the chest CT will be reported separately. There is no prevertebral edema. There are no fractures or suspicious lesions within the cervical spine. IMPRESSION: 1. No acute process within the neck. 2. No evidence for metastatic disease within the neck. 3. 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 ACT 112: Negative or not required by law. Electronically signed by: Sam Browne M.D. 12/18/2024 1:25 PM Discharge Plan Visit Data Chief Complaint: Illness Stated Complaint: ILLNESS ED Provider: Arturo Pruitt Discharge Problem: Rhinovirus infection, Weakness generalized, Shortness of breath, Metastatic disease Patient Disposition: Admitted As Inpatient Condition: Fair Discharge Instructions Interventions: ED Discharge Assessment Last Done: 12/18/24 20:29 Discharge Problem: Metastatic disease Qualifiers: Area of secondary neoplastic involvement: unspecified site Qualified Code(s): C 79.9 - Secondary malignant neoplasm of unspecified site
[2024-12-18] MEDS: OPTIRAY 320 125ml IV ONE (12:49)
[2024-12-18 12:55] LABS: ALC (manual) 0.43 K/uL (1.2-3.4); ANC (manual) 13.03 K/uL (1.4-6.5); Polychromasia 1+; Tear Drop Cells 2+
[2024-12-18 13:10] LABS: Chlamydia pneumoniae PCR Not Detected (NotDetected); Coronavirus 229E PCR Not Detected (NotDetected); Coronavirus CoV-2 (COVID19)PCR Not Detected (NotDetected); Coronavirus HKU1 PCR Not Detected (NotDetected); Coronavirus NL63 PCR Not Detected (NotDetected); Coronavirus OC43PCR Not Detected (NotDetected); Human Metapneumovirus PCR Not Detected (NotDetected); Parainfluenza Virus 1 PCR Not Detected (NotDetected); Parainfluenza Virus 2 PCR Not Detected (NotDetected); Parainfluenza Virus 3 PCR Not Detected (NotDetected); Parainfluenza Virus 4 PCR Not Detected (NotDetected); Respiratory Syncytial VirusPCR Not Detected (NotDetected); Rhinovirus/Enterovirus PCR DETECTED (NotDetected)
--- NOTE | 2024-12-18 13:27 | CT Scan Report ---
CT OF THE NECK WITH IV CONTRAST CLINICAL HISTORY: Congestion, ?aspiration, metastatic disease. COMPARISON STUDY: PET/CT September 20, 2024. MRI of the cervical spine and brain December 05, 2024. TECHNIQUE: Following IV administration of Optiray, helical axial images of the neck were obtained. Sagittal and coronal reconstructions were viewed. Automated exposure control was utilized for the st udy. A dose lowering technique was utilized adhering to the principles of ALARA. 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 Associated edema is again noted. There is no cervical lymphadenopathy. There is no mass within the neck. Major vasculature of the neck is patent. A left i nternal jugular [id number]-[id number] is in place. Please note that the chest CT will be reported separately. There is no prevertebral edema. There are no fractures or suspicious lesions within the cervical spi ne. IMPRESSION: 1. No acute process within the neck. 2. No evidence for metastatic disease within the neck. 3. 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 ACT 112: Negative or not required by law. Electronically signed by: Sam Browne M.D. 12/18/2024 1:25 PM
--- NOTE | 2024-12-18 13:31 | CT Scan Report ---
CT ANGIOGRAM OF THE CHEST CLINICAL HISTORY: Chest congestion. Dyspnea. Metastatic breast cancer. COMPARISON STUDY: Chest x-ray dated 12/18/2024. Prior chest CT scans, most recently dated 06/13/2024. TECHNIQUE: Following the IV administration of 112 cc of Optiray 320, CT angiogram of the chest was pe rformed from the upper abdomen to the thoracic inlet utilizing the pulmonary embolus protocol. Images are reviewed in the axial, sagittal, and coronal planes. 3-D MIPS images are created and assessed. I V contrast was administered without complication. A dose lowering technique was utilized adhering to the principles of ALARA. The examination is degraded by streak artifact from the body wall abutting the CT gantry. There is also motion artifact. CT DOSE: 1454.03 mGy.cm FINDINGS: Thyroid: Imaged portions of the thyroid gland are normal in size and attenuation. Thoracic aorta: The thoracic aorta is normal in caliber and demonstrates standard 3-vessel arch anato my. No dissection is seen. Pulmonary vasculature: The pulmonary trunk is dilated, measuring 3.6 cm in diameter. This suggests pu lmonary artery hypertension. There are no filling defects identified in main, lobar, or segmental pul monary branches to suggest pulmonary embolus. Evaluation of the peripheral branches is degraded by st reak and motion artifact. Heart: A left internal jugular central venous infusion port is in place. The heart is enlarged noting a [id number]-[id number]-mrjufklm pericardial effusion. Lungs and pleural spaces: Evaluation of the lung parenchyma is degraded by motion artifact. There is no airspace consolidation or pleural effusion. The trachea and central airways appear clear. Dependen t atelectasis is seen bilaterally. Mediastinum: There is no mediastinal lymphadenopathy. Isabelle: Clear. Axillae: Surgical clips are noted in the left axilla. No lymphadenopathy is seen. Upper abdomen: Partially visualized upper abdominal viscera is within normal limits. Skeletal structures: Osteoblastic bony metastatic lesions in the significantly changed from previous. Publicist lesions are seen in the left humeral head, as well as the bodies of T10 and T11. Soft tissues: There is postsurgical change from bilateral mastectomy with bilateral breast implants i n place. IMPRESSION: 1. There is no evidence of pulmonary embolus in the main, lobar, or segmental pulmonary arteries. 2. There is no airspace consolidation typical for pneumonia or pleural effusion. 3. Cardiomegaly noting a pericardial effusion. 4. 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 These were not demonstrably FDG av id on the 09/20/2024 PET examination and favor treated disease. 5. Additional findings as above. ACT 112: Negative or not required by law. Electronically signed by: Jesus Gil M.D. 12/18/2024 1:30 PM
--- NOTE | 2024-12-18 15:46 | Electrocardiogram Report ---
Test Reason : Blood Pressure : */* mmHG Vent. Rate : 96 BPM Atrial Rate : 96 BPM P-R Int : 174 ms QRS Dur : 92 ms QT Int : 342 ms P-R-T Axes : 57 24 80 degrees QTcB Int : 432 ms Normal sinus rhythm Normal ECG When compared with ECG of 07-Oct-2024 00:28, Nonspecific T wave abnormality now evident in Lateral leads Confirmed by Arnold Gonzalez ([id number]) on 12/18/2024 3:45:35 PM Referred By: REFERRED SELF Confirmed By: Arnold Gonzalez
[2024-12-18] MEDS: PIPERACILLIN/TAZOBACTAM 4.5 GM/100 ML BAG IV ONE (17:27)
--- NOTE | 2024-12-18 17:27 | History & Physical Report ---
Date of Service December 18, 2024 Assessment & Plan (1) Shortness of breath: (2) Rhinovirus: (3) Breast cancer metastasized to brain: (4) Hypertension: (5) Situational mixed anxiety and depressive disorder: Plan 44yo presented with increased SOB/congestion and cough x 2 weeks with change in sputum (pink in color) and associated sore throat. Currently diagnosed with metastatic breast ca s/p mastectomy (mets to spine, brain s/p whole brain radiation). Hx PEs on Xarelto 10mg daily. Other residents also ill from viral illness and suspect contracted viral illness at SNF/rehab, biofire POSITIVE for rhinovirus/enterovirus. CTA Chest negative for PE or focal consolidation, and thankfully no hypoxia/O2 requirement Low grade temp 99F yesterday reported (12/17) #Rhinovirus/Enterovirus #Shortness of breath -in immunocompromised patient undergoing chemotherapy (last treatment ~1 week ago) with ongoing cough/congestion/sore throat x 2 weeks. +Biofire as above WBC 14k on admission, procal 0.10 (on decadron/prednisone at [facility] [employer]) Observation medical w/ telemetry Maintain isolation precautions Blood cultures ordered by ER - follow Zosyn IV ordered (provide AFTER blood cultures) -Check MRSA nares for completeness. Doxy IV BID added for atypical but consideration for Vanco if +/not improving w/ zosyn/doxy Check sputum cx Decadron IV BID but increased to 4mg BID from prior 2mg BID (also was added prednisone at [facility]. Pulmonary toilet: incentive spirometry, duonebs QIDR, mucinex Consider hypertonic saline if needed Continue Zosyn, check MRSA nares. Supplemental O2 as needed Monitor labs/exam on repeat #Electrolyte abnormality, hypokalemia-K 3.3, 20meq PO Kcl x 1 ordered. Checking mag, 1gm IV x 1 empirically for now Monitor mag, BMP, phos in AM #Hx PE- 2nd metastatic breast ca. Chest CTA as above neg for acute PE. Continue xarelto 10mg PO daily #Metastatic Breast Ca-s/p whole brain radiation as well as radiation to cervical spine this past summer. Follows locally with Dr Rand, last treatment last week ~1wk ago, port to L chest looks good Continue steroids, increased as above as well as abx Monitor cultures. Consider touching base w/ oncology/Dr Rand if needed PT/OT consults to be undertaken while inpatient DVT proph: xarelto continued Dispo: observation to med/telemetry. No CP but will check echo for completeness given chemo and slight bump in troponin (EKG stable but some lateral TW abn, also w/ hypokalemia on admission). Can obtain EKG w/ CP if occurs Hopeful dc in next 48hr pending response to treatment/cultures History of Present Illness Chief Complaint: increased congestion, cough, sputum change Primary Care Provider: Dhiraj Harmon III, 44yo presented from [facility] for increased congestion/cough x 2 weeks. Sputum pink in color. Associated sore throat. Currently undergoing chemotherapy for metastatic breast Ca (brain, spine s/p whole brain radiation), follows with Dr Rand. Last chemo ~ 1 week ago today. Father reports he notified CCP of admission. Patient seen in C7, family at bedside. Reports SOB for about the past two weeks with associated sore throat/congestion and tightness. Reports others at [facility] also with viral illness as well. Had reported feeling "hot" yesterday, temp 99F reported. 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 Reports feeling better since the duonebs. Denies sputum production typically but has had some pink colored sputum. Father in room reports difficult with getting up sputum. Discussed biofire testing positive, isolation precautions and blood cultures/antibiotics but suspect at least 48hr to ensure negative. Patient has port to her LEFT chest, appears without signs of infection. Currently on dexamethasone 2mg QAM/2mg PM but reports [facility] also had placed on prednisone as well. Took her medications this morning. Do note recent admission 10/07-10/08 for weakness and was tx [facility] side per rec Neuro/Oncology for neurosurgery eval for lesion cervical spine. Father reports no surgery done there but she did have radiation to area of her cervical spine. Discussed admission for continued antibiotics, monitoring cultures and therapy to see about return to [facility] at nm once improved from current illness. Full code as discussed. Allergies Allergy/AdvReac Type Severity Reaction Status Date / Time cat dander Allergy Severe SOB, Verified 10/07/24 00:53 SWELLING, CONGESTION, RUNNY EYES apple Allergy Intermediate ITCHY Verified 10/07/24 00:53 MOUTH, INDIGESTION erythromycin base Allergy Intermediate UNKNOWN, Verified 10/07/24 00:53 POSS GI UPSET A CHILD Home Medications Medication Instructions Recorded Confirmed Type lorazepam 0.5 mg tablet 0.5 mg PO HS PRN Sleep 11/07/21 10/07/24 History ondansetron HCl 8 mg tablet 8 mg PO Q8 PRN Nausea And Vomiting 12/31/21 10/07/24 History prochlorperazine maleate 10 mg 10 mg PO Q6 PRN Nausea 12/31/21 10/07/24 History tablet sertraline 50 mg tablet 50 mg PO QAM 05/21/22 10/07/24 History denosumab 120 mg/1.7 mL (70 mg/mL) 120 mg subcut MONTHLY 11/04/22 10/07/24 History subcutaneous solution (Xgeva) goserelin 3.6 mg subcutaneous 0 mg subcut MONTHLY 11/04/22 10/07/24 History implant (Zoladex) loperamide 2 mg capsule (Imodium 2 mg PO Q6H PRN Diarrhea 11/04/22 10/07/24 History A-D) fulvestrant 125 mg/2.5 mL 500 mg IM MONTHLY 11/26/23 10/07/24 History intramuscular syringe cyanocobalamin (vitamin B-12) 1,000 mcg subcut MONTHLY 01/14/24 10/07/24 History 1,000 mcg/mL injection solution diphenoxylate-atropine 2.5 1 tab PO DIRECTED PRN Diarrhea 01/14/24 10/07/24 History mg-0.025 mg tablet sodium bicarbonate 325 mg tablet 325 mg PO TID PRN LOW SODIUM 01/14/24 10/07/24 History levetiracetam 500 mg tablet 500 mg PO BID #60 tabs 01/20/24 10/07/24 Rx (Keppra) olmesartan 20 mg tablet 20 mg PO QAM #90 tabs 09/06/24 10/07/24 Rx cetirizine 10 mg tablet (Zyrtec) 10 mg PO DAILY 10/07/24 10/07/24 History dexamethasone 2 mg tablet 1 mg PO BID 10/07/24 10/07/24 History letrozole 2.5 mg tablet 2.5 mg PO DAILY 10/07/24 10/07/24 History rivaroxaban 10 mg tablet (Xarelto) 10 mg PO QAM 10/07/24 10/07/24 History sertraline 25 mg tablet 25 mg PO QAM 10/07/24 10/07/24 History Past Med/Surg History Problem List (Updated 12/18/24 @ 17:17 by Prachi Angel PA-C) Rhinovirus Shortness of breath Advanced care planning/counseling discussion Palliative care by specialist Steroid myopathy Weakness generalized (Acute) Recurrent falls Ambulatory dysfunction (Acute) Weakness (Acute) Nausea Vomiting (Acute) Hypocalcemia (Acute) Acute hypokalemia (Acute) Headache (Acute) Situational mixed anxiety and depressive disorder Pulmonary embolism Hypertension Hyponatremia Breast cancer metastasized to brain (Chronic 10/25/21) Seasonal allergies Medical History History of COVID-19 05/06, pcr, side effects "minimal">resolved Chronic bronchitis Herpes simplex of female genitalia Genital warts Cervical intraepithelial neoplasia (FRANCHESCA) Infiltrating ductal carcinoma of left breast hx Thyroid nodule hx, monitoring Surgical History Port-A-Cath in place (11/10/21) Access Port Insertion with Fluoroscopy - Tomas Poon DO, FACS History of biopsy (10/27/21) CT Guided Biopsy Lung History of breast reconstruction History of appendectomy (~11/2016) History of bilateral mastectomy bilat mast, left ALND Family History Mother Hypertension Grandmother Cancer maternal great grandmother Grandfather Cancer Father Hypertension Grandfather (Paternal) Myocardial infarction Grandfather (Maternal) Myocardial infarction Pancreatic cancer Grandmother (Paternal) Stroke Denies family history of Ovarian cancer Prostate cancer Breast cancer Colorectal cancer Social History Smoking Status: Never smoker Second Hand Exposure: No; Do You Dip or Chew Tobacco: No; Hx Alcohol Use: Yes Alcohol type: wine Alcohol Intake Frequency: 4 or More x per/Week Hx Substance Use: No Preferred Language: Romanian Communication Ability: Effective Visual Impairment: Limited Hearing Ability: Normal Asphalt Engineer Required: No Beliefs That Will Affect Care: None marital status: Single Current Living Situation: Parent Current Living Situation Comment: parents current occupational status: disabled How many Children do You have: 0 Feels Safe at Home: Yes Childhood Exposure to Second-Hand Smoke: No Diet: regular caffeine: Yes during the past year weight has: increased > 10 lbs Dental Care, Regularly: Yes Physical Activity Frequency: 1-2 Times per Week Seatbelt Use: always Sunscreen Use: No Assistive Devices: Walker and Wheelchair Physical Exam Physical Exam: General: 44yo female, looks older than stated age, ill appearing, +cough, family at bedside HEENT: hair loss from chemo, mm slightly dry, trachea midline Chest: port to L chest c/d/i, no evidence for infection, no erythema/drainage/warmth Resp: coarse throughout, end expiratory wheezing, on room air, + cough CV: regular, faint systolic murmur, trace pedal edema, pulses present, calves nontender GI: +BS, soft, NT : no prather MSK/Neuro; generalized weakness but nonfocal, no slurred speech but slow to respond at times (father in room to help with historical information) Psych: alert/oriented, fatigued appearing but pleasant/cooperative with exam Results & Data Results & Data Vital Signs (Past 12 Hours) Vital Signs Temp Pulse Pulse Resp BP BP Pulse Ox 12/18/24 17:00 95 H 16 130/83 12/18/24 16:06 84 12/18/24 15:00 85 16 121/82 12/18/24 14:00 93 H 25 H 116/88 94 12/18/24 13:21 95 H 17 126/71 96 12/18/24 11:29 98 H 17 96 12/18/24 11:25 96 H 12/18/24 11:22 36.5 C 98 H 17 123/87 96 12/18/24 11:05 98 H 17 123/87 96 O2 Del Method 12/18/24 17:00 Room Air 12/18/24 16:06 12/18/24 15:00 Room Air 12/18/24 14:00 12/18/24 13:21 Room Air 12/18/24 11:29 Room Air 12/18/24 11:25 12/18/24 11:22 Room Air 12/18/24 11:05 Laboratory Results 12/18/24 12/18/24 12/18/24 Range/Units 17:30 17:23 13:21 WBC (4.8-10.8) K/ul RBC (4.20-5.40) M/uL Hgb (12.0-16.0) g/dl Hct (37.0-47.0) % MCV (80.0-100.0) fL MCH (25.0-34.0) pg MCHC (32.0-36.0) g/dL RDW Std Deviation (36.4-46.3) fL RDW Coeff of Maite (11.5-14.5) % Plt Count (130-400) K/uL MPV (9.4-12.4) fL Absolute Nucleated RBC (0.00-0.12) K/uL Nucleated RBC % (auto) % Neutrophils % (Manual) % Lymphocytes % (Manual) % Monocytes % (Manual) % Metamyelocytes % (Man) % Myelocytes % (Man) % Neutrophils # (Manual) (1.40-6.50) K/uL Total Absolute Neuts (1.4-6.5) K/uL Lymphocytes # (Manual) (1.2-3.4) K/uL Total Abs Lymphocytes (1.2-3.4) K/uL Monocytes # (Manual) (0.11-0.59) K/uL Metamyelocytes # (Man) (0-0) K/uL Myelocytes # (Manual) (0-0) K/uL Polychromasia Tear Drop Cells PT (9.0-12.0) Seconds INR (0.9-1.1) Sodium (136-145) mmol/L Potassium (3.5-5.1) mmol/L Chloride (98-107) mmol/L Carbon Dioxide (21-32) mmol/L Anion Gap (3-11) BUN (6-23) mg/dl Creatinine (0.6-1.2) mg/dl Est Cr Clr Drug Dosing ml/min eGFR BUN/Creatinine Ratio (10-20) Glucose (70-99(Fasting)) mg/dl Lactate Pending Calcium (8.6-10.3) mg/dl Phosphorus (2.5-4.9) mg/dl Magnesium (1.7-2.4) mg/dl Total Bilirubin (0.2-1.0) mg/dl AST (13-39) U/L ALT (7-52) U/L Alkaline Phosphatase (34-104) U/L Troponin I High Sens 35.6 H (0-14) pg/ml B-Natriuretic Peptide (0-100) pg/ml Total Protein (6.0-8.3) gm/dl Albumin (3.4-5.0) gm/dl Globulin (2.5-4.0) gm/dl Albumin/Globulin Ratio (0.9-2) Lipase (11-82) U/L Procalcitonin (0-0.5) ng/ml Nasal Screen MRSA (PCR) Pending Adenovirus (PCR) (NotDetected) B. pertussis DNA (PCR) (NotDetected) B.parapertussis DNA PCR (NotDetected) C. pneumoniae DNA (PCR) (NotDetected) Coronavirus OC43 (PCR) (NotDetected) Coronavirus HKU1 (PCR) (NotDetected) Coronavirus 229E (PCR) (NotDetected) SARS-CoV-2 (PCR) (NotDetected) Coronavirus NL63 (PCR) (NotDetected) Human Metapneumovir PCR (NotDetected) Influenza Type A (PCR) (NotDetected) Influenza Type B (PCR) (NotDetected) M. pneumoniae (PCR) (NotDetected) Parainfluenza 1 (PCR) (NotDetected) Parainfluenza 2 (PCR) (NotDetected) Parainfluenza 3 (PCR) (NotDetected) Parainfluenza 4 (PCR) (NotDetected) RSV (PCR) (NotDetected) Entero/Rhino (PCR) (NotDetected) 12/18/24 12/18/24 Range/Units 11:40 11:30 WBC 14.48 H (4.8-10.8) K/ul RBC 2.65 L (4.20-5.40) M/uL Hgb 8.1 L (12.0-16.0) g/dl Hct 25.5 L (37.0-47.0) % MCV 96.2 (80.0-100.0) fL MCH 30.6 (25.0-34.0) pg MCHC 31.8 L (32.0-36.0) g/dL RDW Std Deviation 52.8 H (36.4-46.3) fL RDW Coeff of Maite 15.2 H (11.5-14.5) % Plt Count 94 L (130-400) K/uL MPV 10.1 (9.4-12.4) fL Absolute Nucleated RBC 0.13 H (0.00-0.12) K/uL Nucleated RBC % (auto) 0.9 % Neutrophils % (Manual) 90 % Lymphocytes % (Manual) 3 % Monocytes % (Manual) 1 % Metamyelocytes % (Man) 1 % Myelocytes % (Man) 5 % Neutrophils # (Manual) 13.03 H (1.40-6.50) K/uL Total Absolute Neuts 13.03 H (1.4-6.5) K/uL Lymphocytes # (Manual) 0.43 L (1.2-3.4) K/uL Total Abs Lymphocytes 0.43 L (1.2-3.4) K/uL Monocytes # (Manual) 0.14 (0.11-0.59) K/uL Metamyelocytes # (Man) 0.14 H (0-0) K/uL Myelocytes # (Manual) 0.72 H (0-0) K/uL Polychromasia 1+ Tear Drop Cells 2+ PT 13.9 H (9.0-12.0) Seconds INR 1.3 H (0.9-1.1) Sodium 142 (136-145) mmol/L Potassium 3.3 L (3.5-5.1) mmol/L Chloride 110 H (98-107) mmol/L Carbon Dioxide 27 (21-32) mmol/L Anion Gap 5 (3-11) BUN 17 (6-23) mg/dl Creatinine 0.35 L (0.6-1.2) mg/dl Est Cr Clr Drug Dosing 226.4 ml/min eGFR 127.58 BUN/Creatinine Ratio 48.6 H (10-20) Glucose 158 H (70-99(Fasting)) mg/dl Lactate Calcium 8.2 L (8.6-10.3) mg/dl Phosphorus 2.9 (2.5-4.9) mg/dl Magnesium 2.2 (1.7-2.4) mg/dl Total Bilirubin 1.2 H (0.2-1.0) mg/dl AST 77 H (13-39) U/L ALT 130 H (7-52) U/L Alkaline Phosphatase 91 (34-104) U/L Troponin I High Sens 37.9 H (0-14) pg/ml B-Natriuretic Peptide 26 (0-100) pg/ml Total Protein 4.9 L (6.0-8.3) gm/dl Albumin 2.7 L (3.4-5.0) gm/dl Globulin 2.2 L (2.5-4.0) gm/dl Albumin/Globulin Ratio 1.2 (0.9-2) Lipase 71 (11-82) U/L Procalcitonin 0.10 (0-0.5) ng/ml Nasal Screen MRSA (PCR) Adenovirus (PCR) Not Detected (NotDetected) B. pertussis DNA (PCR) Not Detected (NotDetected) B.parapertussis DNA PCR Not Detected (NotDetected) C. pneumoniae DNA (PCR) Not Detected (NotDetected) Coronavirus OC43 (PCR) Not Detected (NotDetected) Coronavirus HKU1 (PCR) Not Detected (NotDetected) Coronavirus 229E (PCR) Not Detected (NotDetected) SARS-CoV-2 (PCR) Not Detected (NotDetected) Coronavirus NL63 (PCR) Not Detected (NotDetected) Human Metapneumovir PCR Not Detected (NotDetected) Influenza Type A (PCR) Not Detected (NotDetected) Influenza Type B (PCR) Not Detected (NotDetected) M. pneumoniae (PCR) Not Detected (NotDetected) Parainfluenza 1 (PCR) Not Detected (NotDetected) Parainfluenza 2 (PCR) Not Detected (NotDetected) Parainfluenza 3 (PCR) Not Detected (NotDetected) Parainfluenza 4 (PCR) Not Detected (NotDetected) RSV (PCR) Not Detected (NotDetected) Entero/Rhino (PCR) DETECTED A (NotDetected) Diagnostic Findings Chest X-Ray 12/18/24 11:29 SINGLE VIEW CHEST CLINICAL HISTORY: Dyspnea FINDINGS: 2 AP, portable, upright chest radiographs are compared to study dated 10/07/2024 and correlated with chest CT dated 06/13/2024. The examination is degraded by portable technique and patient rotation. A left internal jugular central venous infusion port is unchanged in position. The heart is enlarged. The pulmonary vasculature is not congested. There is mild bibasilar atelectasis. The lungs and pleural spaces are otherwise clear. No pneumothorax is seen. The skeletal structures are osteopenic. The bony thorax is grossly intact. There are surgical clips in the left chest wall. Bilateral breast implants are in place. IMPRESSION: Cardiomegaly with no acute cardiopulmonary abnormality identified. ACT 112: Negative or not required by law. Electronically signed by: Jesus Gil M.D. 12/18/2024 11:45 AM Chest CTA 12/18/24 12:13 CT ANGIOGRAM OF THE CHEST CLINICAL HISTORY: Chest congestion. Dyspnea. Metastatic breast cancer. COMPARISON STUDY: Chest x-ray dated 12/18/2024. Prior chest CT scans, most recently dated 06/13/2024. TECHNIQUE: Following the IV administration of 112 cc of Optiray 320, CT angiogram of the chest was performed from the upper abdomen to the thoracic inlet utilizing the pulmonary embolus protocol. Images are reviewed in the axial, sagittal, and coronal planes. 3-D MIPS images are created and assessed. IV contrast was administered without complication. A dose lowering technique was utilized adhering to the principles of ALARA. The examination is degraded by streak artifact from the body wall abutting the CT gantry. There is also motion artifact. CT DOSE: 1454.03 mGy.cm FINDINGS: Thyroid: Imaged portions of the thyroid gland are normal in size and attenuation. Thoracic aorta: The thoracic aorta is normal in caliber and demonstrates standard 3-vessel arch anatomy. No dissection is seen. Pulmonary vasculature: The pulmonary trunk is dilated, measuring 3.6 cm in diameter. This suggests pulmonary artery hypertension. There are no filling defects identified in main, lobar, or segmental pulmonary branches to suggest pulmonary embolus. Evaluation of the peripheral branches is degraded by streak and motion artifact. Heart: A left internal jugular central venous infusion port is in place. The heart is enlarged noting a [id number] pericardial effusion. Lungs and pleural spaces: Evaluation of the lung parenchyma is degraded by motion artifact. There is no airspace consolidation or pleural effusion. The trachea and central airways appear clear. Dependent atelectasis is seen bilaterally. Mediastinum: There is no mediastinal lymphadenopathy. Isabelle: Clear. Axillae: Surgical clips are noted in the left axilla. No lymphadenopathy is seen. Upper abdomen: Partially visualized upper abdominal viscera is within normal limits. Skeletal structures: Osteoblastic bony metastatic lesions in the significantly changed from previous. Project Developer lesions are seen in the left humeral head, as well as the bodies of T10 and T11. Soft tissues: There is postsurgical change from bilateral mastectomy with bilateral breast implants in place. IMPRESSION: 1. There is no evidence of pulmonary embolus in the main, lobar, or segmental pulmonary arteries. 2. There is no airspace consolidation typical for pneumonia or pleural effusion. 3. Cardiomegaly noting a pericardial effusion. 4. 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 These were not demonstrably FDG avid on the 09/20/2024 PET examination and favor treated disease. 5. Additional findings as above. ACT 112: Negative or not required by law. Electronically signed by: Jesus Gil M.D. 12/18/2024 1:30 PM Soft Tissue Neck CT 12/18/24 12:13 CT OF THE NECK WITH IV CONTRAST CLINICAL HISTORY: Congestion, ?aspiration, metastatic disease. COMPARISON STUDY: PET/CT September 20, 2024. MRI of the cervical spine and brain December 05, 2024. TECHNIQUE: Following IV administration of Optiray, helical axial images of the neck were obtained. Sagittal and coronal reconstructions were viewed. Automated exposure control was utilized for the study. A dose lowering technique was utilized adhering to the principles of ALARA. 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 Associated edema is again noted. There is no cervical lymphadenopathy. There is no mass within the neck. Major vasculature of the neck is patent. A left internal jugular [id number] is in place. Please note that the chest CT will be reported separately. There is no prevertebral edema. There are no fractures or suspicious lesions within the cervical spine. IMPRESSION: 1. No acute process within the neck. 2. No evidence for metastatic disease within the neck. 3. 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 ACT 112: Negative or not required by law. Electronically signed by: Sam Browne M.D. 12/18/2024 1:25 PM ECG Additional Comments: EKG w/ NSR, nonspecific TW abn in lateral leads, 96bpm Supervising Physician Co-Signing Physician Notes The patient was seen by me. The chart was reviewed. Case discussed with MICHAEL Adrian. Agree with assessment and plan PG Care Time/CCT Total # of Minutes Spent Total Time Spent with Patient: Total time spent is greater than 50% in coordination of care (as documented) at patient's floor/unit and/or counseling patient: Coding Level of Care Code 55732 INT INP/OBS CARE 3/75MIN Diagnoses Shortness of breath R06.02 Rhinovirus B34.8 Malignant neoplasm of left breast metastatic to brain C50.919; C79.31 Laterality: unspecified laterality Hypertension I10 Situational mixed anxiety and depressive disorder F43.23 (3) Breast cancer metastasized to brain Laterality: unspecified laterality Qualified Code(s): C50.919 - Malignant neoplasm of unspecified site of unspecified female breast; C79.31 - Secondary malignant neoplasm of brain
[2024-12-18 17:41] LABS: Magnesium 2.2 mg/dl (1.7-2.4)
[2024-12-18] MEDS: POTASSIUM CHLORIDE CRTAB 20 MEQ TABCR PO STA (18:08)
[2024-12-18] MEDS: MAGNESIUM SULFATE / D5W 1 GM/100 ML BAG IV ONE (18:08)
[2024-12-18] MEDS ORDERED: PROCHLORPERAZINE MALEATE 10 MG TAB PO PRN (21:03)
[2024-12-18] MEDS ORDERED: LOPERAMIDE HCL 2 MG CAP PO PRN (21:03)
[2024-12-18] MEDS ORDERED: DIPHENOXYLATE/ATROPINE 2.5/0.025MG TAB PO PRN (21:03)
[2024-12-18] MEDS ORDERED: DEXAMETHASONE SOD INJ 4 MG/ML VIAL IV SCH (21:03)
[2024-12-18] MEDS ORDERED: ONDANSETRON 4 MG OD TAB PO PRN (21:10)
[2024-12-18] MEDS: guaiFENesin 600 MG TABCR PO SCH (21:59)
[2024-12-18] MEDS: levETIRAcetam 500 MG TAB PO SCH (21:59)
[2024-12-18] MEDS: dexAMETHasone 4 MG in SYRINGE 0 ML IV ONE (22:05)
[2024-12-18] MEDS: DOXYCYCLINE HYCLATE 100 MG in DEXTROSE 5% MINI-B 100 ML IV ONE (22:09)
[2024-12-18] MEDS: PIPERACILLIN/TAZOBACTAM 4.5 GM/100 ML BAG IV SCH (22:17)
[2024-12-18 22:47] LABS: Appearance Urine Clear (Clear); Glucose Urine UA 1+ (Negative)
[2024-12-18] MEDS: ALBUT/IPRATROP 3MG/0.5MG NEB 3 ML VIAL NEB SCH (23:30)
[2024-12-19 06:52] LABS: Hematocrit (blood only) 25.2 % (37.0-47.0); Hemoglobin 8.3 g/dl (12.0-16.0); Mean Corpuscular Hemoglobin 31.1 pg (25.0-34.0); Mean Corpuscular Volume 94.4 fL (80.0-100.0); Platelet Count 82 K/uL (130-400); RDW Standard Deviation 51.8 fL (36.4-46.3); Red Blood Count 2.67 M/uL (4.20-5.40); White Blood Count 14.28 K/ul (4.8-10.8)
[2024-12-19 07:20] LABS: ALC (manual) 1.29 K/uL (1.2-3.4); ANC (manual) 11.00 K/uL (1.4-6.5); Polychromasia 1+; Tear Drop Cells 2+
[2024-12-19 07:25] LABS: Alanine Aminotransferase 126.0 U/L (7-52); Albumin Globulin Ratio 1.4 (0.9-2); Alkaline Phosphatase 76.0 U/L (34-104); Anion Gap 5.0 (3-11); Bilirubin,Total 1.4 mg/dl (0.2-1.0); Blood Urea Nitrogen 13.0 mg/dl (6-23); Calcium 7.9 mg/dl (8.6-10.3); Carbon Dioxide 27.0 mmol/L (21-32); Chloride 108.0 mmol/L (98-107); Creatinine Clr Calc Pharmacy 242.5 ml/min; Globulin 2.0 gm/dl (2.5-4.0); Glucose 134.0 mg/dl (70-99(Fasting)); Iron 58.0 mcg/dl (35-150); Magnesium 2.4 mg/dl (1.7-2.4); Potassium 3.6 mmol/L (3.5-5.1); Sodium 140.0 mmol/L (136-145); Total Iron Binding Cap Calc 385.0 mcg/dl (250-450); Total Protein 4.8 gm/dl (6.0-8.3); Transferrin 275.0 mg/dl (200-360); Transferrin (FE) Percent Satur 15.0 % (15-50)
[2024-12-19 07:42] LABS: Ferritin 107.9 ng/ml (8-388)
--- NOTE | 2024-12-19 08:02 | Hospitalist Progress Note ---
Date of Service December 19, 2024 Assessment & Plan (1) Shortness of breath: (2) Rhinovirus: (3) Breast cancer metastasized to brain: (4) Hypertension: (5) Situational mixed anxiety and depressive disorder: Plan 44yo presented with increased SOB/congestion and cough x 2 weeks with change in sputum (pink in color) and associated sore throat. Currently diagnosed with metastatic breast ca s/p mastectomy (mets to spine, brain s/p whole brain radiation). Hx PEs on Xarelto 10mg daily. Other residents also ill from viral illness and suspect contracted viral illness at SNF/rehab, [employer] POSITIVE for rhinovirus/enterovirus. CTA Chest negative for PE or focal consolidation, and thankfully no hypoxia/O2 requirement Low grade temp 99F yesterday reported (12/17) #Rhinovirus/Enterovirus #Shortness of breath -in immunocompromised patient undergoing chemotherapy (last treatment ~1 week ago) with ongoing cough/congestion/sore throat x 2 weeks. Temp 99F on 12/17 reported +[employer] rhinovirus/enterovirus (from [facility], other residents ill w/ respiratory illness) WBC 14k on admission, procal 0.10 (on decadron/prednisone at [facility] [employer]). Lactic added by ER provider after admission orders in place and was elevated to 2.3--> 2.8 on repeat (no IVF ordered - will bolus 250cc/repeat lactic to ensure improved) IV Abx: Zosyn, Doxy.MRSA nares negative Isolation precautions WBC 14.4k--> 14.2k on steroids, has been afebrile Blood cultures pending Continue Dexamethasone 4mg IV BID Duonebs QID Adding hypertonic saline, budesonide BID Increased mucinex to 1200mg BID Continue pulmonary toilet with incentive spirometry, flutter valve Sputum cx if able to obtain ECHO w/o significant valvular disease, normal EF. Normal RSVP. Grade I diastolic dysfunction - can check overnight pulse ox to see about underlying WILDA? Supplemental O2 if needed - has remained on ROOM AIR Consideration to consult pulm pending response to treatment #Electrolyte abnormality, hypokalemia- on admission K 3.3, 20meq PO Kcl x 1 ordered. Suspected 2nd to poor PO intake w/ viral illness above BMP w/ resolution, stable electrolytes and will monitor #Hx PE- 2nd metastatic breast ca. Continues on xarelto 10mg PO daily. No pleuritic chest pain. Chest CTA as above neg for acute PE. #Metastatic Breast Ca-s/p whole brain radiation as well as radiation to cervical spine this past summer. Follows locally with Dr Rand, last treatment last week ~1wk ago, port to L chest looks good Continue steroids, increased to 4mg BID (prior titrated to 2mg BID), abx/cx as outlined Consider touching base w/ oncology/Dr Rand if needed but will continue course ECHO as above, was due next week PT/OT consults to be undertaken while inpatient #Vitamin D deficiency- low 20, PO replacement started- would continue at dc #Troponin elevation - minor elevation in setting of viral illness without CP reports. Repeat trended down Cardiomegaly new finding on imaging and ?2nd to chemo. No CP reported. NSR on telemetry ECHO w/o wma Remains on telemetry at this time DVT proph: Xarelto 10mg daily continued Dispo: continued inpatient stay on abx/nebulizers as needed Updated family at bedside Hopeful dc next 24-48hr pending response to treatment Consider pulm consult if needed Admission and Anticipated Discharge Date Admission Date: December 18, 2024 Supervising Physician Co-Signing Physician Notes The patient was not seen by me. The chart was reviewed. Case discussed with MICHAEL Adrian. Agree with assessment and plan Subjective Eval this morning, resting in bed. Breathing about the same, not able to expectorate. Continued wheezing but improved. Discussed hypertonic saline, induction of cough but hopefully able to get mucus up. Continued IS/flutter valve encouraged. ECHO done this morning, will await results. Concerns by parents regarding new "cardiomegaly" as had son abruptly in 40s and told due to enlarged heart. Leg edema actually looks IMPROVED since steroids/IVF. Remains on RA. Had been getting ECHOs serial w/ [facility]/Dr Rand, due for one next week. Discussed will review/notify but will not need repeat but cardiomegaly/etc could be related to effects from chemotherapy. Questions/concerns addressed at this time. Physical Exam 2 Physical Exam: General: 44yo female resting in bed, father/mother in room, looks older than stated age, no acute distress, + cough HEENT: hair loss from chemo, mm improved, trachea midline Chest: port to L chest c/d/i, no evidence for infection, no erythema/drainage/warmth Resp: coarse throughout, expiratory wheezing, on room air, + cough CV: regular, no significant m/r/g, trace pedal edema (improved from admission), pulses present, calves nontender GI: +BS, soft, NT : no prather MSK/Neuro; generalized weakness but nonfocal, no slurred speech but slow to respond at times (father/mother in room to help with historical information) Psych: alert/oriented, fatigued appearing but pleasant/cooperative with exam Results & Data Results & Data Vital Signs (Past 12 Hours) Vital Signs Temp Pulse Pulse Pulse Resp BP Pulse Ox 12/19/24 07:18 78 12/19/24 06:59 79 17 96 12/19/24 02:46 36.3 C L 80 18 112/73 95 12/18/24 23:30 75 17 96 12/18/24 22:35 12/18/24 22:00 74 12/18/24 21:03 36.4 C L 78 18 128/78 97 12/18/24 21:03 12/18/24 20:59 78 12/18/24 20:29 81 20 12/18/24 20:02 79 Pulse Ox O2 Del Method O2 Del Method 12/19/24 07:18 12/19/24 06:59 Room Air 12/19/24 02:46 Room Air 12/18/24 23:30 Room Air 12/18/24 22:35 Room Air 12/18/24 22:00 12/18/24 21:03 Room Air 12/18/24 21:03 97 Room Air 12/18/24 20:59 12/18/24 20:29 Room Air 12/18/24 20:02 Laboratory Results 12/19/24 06:01 12/19/24 06:01 Lactic 2.3--> 2.8--> 2.0 Mag 2.4 Iron 54, TIBC 385, Transferrin 275, trans % sat 15, ferritin 107.9 TB 1.4, AST 71, ALT 126, ALP 126 Vitamin D 20.6 Diagnostic Findings Chest X-Ray 12/18/24 11:29 SINGLE VIEW CHEST CLINICAL HISTORY: Dyspnea FINDINGS: 2 AP, portable, upright chest radiographs are compared to study dated 10/07/2024 and correlated with chest CT dated 06/13/2024. The examination is degraded by portable technique and patient rotation. A left internal jugular central venous infusion port is unchanged in position. The heart is enlarged. The pulmonary vasculature is not congested. There is mild bibasilar atelectasis. The lungs and pleural spaces are otherwise clear. No pneumothorax is seen. The skeletal structures are osteopenic. The bony thorax is grossly intact. There are surgical clips in the left chest wall. Bilateral breast implants are in place. IMPRESSION: Cardiomegaly with no acute cardiopulmonary abnormality identified. ACT 112: Negative or not required by law. Electronically signed by: Jesus Gil M.D. 12/18/2024 11:45 AM Chest CTA 12/18/24 12:13 CT ANGIOGRAM OF THE CHEST CLINICAL HISTORY: Chest congestion. Dyspnea. Metastatic breast cancer. COMPARISON STUDY: Chest x-ray dated 12/18/2024. Prior chest CT scans, most recently dated 06/13/2024. TECHNIQUE: Following the IV administration of 112 cc of Optiray 320, CT angiogram of the chest was performed from the upper abdomen to the thoracic inlet utilizing the pulmonary embolus protocol. Images are reviewed in the axial, sagittal, and coronal planes. 3-D MIPS images are created and assessed. IV contrast was administered without complication. A dose lowering technique was utilized adhering to the principles of ALARA. The examination is degraded by streak artifact from the body wall abutting the CT gantry. There is also motion artifact. CT DOSE: 1454.03 mGy.cm FINDINGS: Thyroid: Imaged portions of the thyroid gland are normal in size and attenuation. Thoracic aorta: The thoracic aorta is normal in caliber and demonstrates standard 3-vessel arch anatomy. No dissection is seen. Pulmonary vasculature: The pulmonary trunk is dilated, measuring 3.6 cm in diameter. This suggests pulmonary artery hypertension. There are no filling defects identified in main, lobar, or segmental pulmonary branches to suggest pulmonary embolus. Evaluation of the peripheral branches is degraded by streak and motion artifact. Heart: A left internal jugular central venous infusion port is in place. The heart is enlarged noting a [id number] pericardial effusion. Lungs and pleural spaces: Evaluation of the lung parenchyma is degraded by motion artifact. There is no airspace consolidation or pleural effusion. The trachea and central airways appear clear. Dependent atelectasis is seen bilaterally. Mediastinum: There is no mediastinal lymphadenopathy. Isabelle: Clear. Axillae: Surgical clips are noted in the left axilla. No lymphadenopathy is seen. Upper abdomen: Partially visualized upper abdominal viscera is within normal limits. Skeletal structures: Osteoblastic bony metastatic lesions in the significantly changed from previous. Vendor Management Specialist lesions are seen in the left humeral head, as well as the bodies of T10 and T11. Soft tissues: There is postsurgical change from bilateral mastectomy with bilateral breast implants in place. IMPRESSION: 1. There is no evidence of pulmonary embolus in the main, lobar, or segmental pulmonary arteries. 2. There is no airspace consolidation typical for pneumonia or pleural effusion. 3. Cardiomegaly noting a pericardial effusion. 4. 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 These were not demonstrably FDG avid on the 09/20/2024 PET examination and favor treated disease. 5. Additional findings as above. ACT 112: Negative or not required by law. Electronically signed by: Jesus Gil M.D. 12/18/2024 1:30 PM Soft Tissue Neck CT 12/18/24 12:13 CT OF THE NECK WITH IV CONTRAST CLINICAL HISTORY: Congestion, ?aspiration, metastatic disease. COMPARISON STUDY: PET/CT September 20, 2024. MRI of the cervical spine and brain December 05, 2024. TECHNIQUE: Following IV administration of Optiray, helical axial images of the neck were obtained. Sagittal and coronal reconstructions were viewed. Automated exposure control was utilized for the study. A dose lowering technique was utilized adhering to the principles of ALARA. 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 Associated edema is again noted. There is no cervical lymphadenopathy. There is no mass within the neck. Major vasculature of the neck is patent. A left internal jugular [id number]-[id number] is in place. Please note that the chest CT will be reported separately. There is no prevertebral edema. There are no fractures or suspicious lesions within the cervical spine. IMPRESSION: 1. No acute process within the neck. 2. No evidence for metastatic disease within the neck. 3. 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 ACT 112: Negative or not required by law. Electronically signed by: Sam Browne M.D. 12/18/2024 1:25 PM PG Care Time/CCT Total # of Minutes Spent Total Time Spent with Patient: Total time spent is greater than 50% in coordination of care (as documented) at patient's floor/unit and/or counseling patient: Coding Level of Care Code 88738 SUB INP/OBS CARE 3/50MIN Diagnoses Shortness of breath R06.02 Rhinovirus B34.8 Malignant neoplasm of left breast metastatic to brain C50.919; C79.31 Laterality: unspecified laterality Hypertension I10 Situational mixed anxiety and depressive disorder F43.23 (3) Breast cancer metastasized to brain Laterality: unspecified laterality Qualified Code(s): C50.919 - Malignant neoplasm of unspecified site of unspecified female breast; C79.31 - Secondary malignant neoplasm of brain
[2024-12-19] MEDS: SERTRALINE HCL 50 MG TABLET PO SCH (08:11)
[2024-12-19] MEDS: CETIRIZINE HCL 10 MG TABLET PO SCH (08:11)
[2024-12-19] MEDS: RIVAROXABAN 10 MG TABLET PO SCH (08:12)
[2024-12-19] MEDS: LOSARTAN POTASSIUM 50 MG TAB PO SCH (08:12)
[2024-12-19] MEDS: LETROZOLE 2.5 MG TAB PO SCH (08:17)
[2024-12-19] MEDS: dexAMETHasone 4 MG in SYRINGE 0 ML IV SCH (08:17)
[2024-12-19] MEDS: SODIUM CHLORIDE 0.9% 250 ML IV ONE (08:22)
--- NOTE | 2024-12-19 08:57 | XCELERA ---
[id number]
[2024-12-19] MEDS ORDERED: SERTRALINE HCL 50 MG TABLET PO SCH (09:00)
[2024-12-19] MEDS: CHOLECALCIFEROL 10 MCG (400 UNITS) TAB PO SCH (10:56)
[2024-12-19] MEDS: DOXYCYCLINE HYCLATE 100 MG in DEXTROSE 5% MINI-B 100 ML IV SCH (10:57)
[2024-12-19] MEDS: BUDESONIDE 0.5 MG/2 ML VIAL (PULMICORT) NEB SCH (19:26)
[2024-12-19] MEDS: SODIUM CHLOR 7% 4 ML NEB NEB SCH (19:27)
[2024-12-19] MEDS: guaiFENesin 600 MG TABCR PO SCH (22:04)
[2024-12-19] MEDS: LORazepam 0.5 MG TAB PO PRN (22:06)
[2024-12-20 05:20] LABS: Hematocrit (blood only) 24.9 % (37.0-47.0); Hemoglobin 8.1 g/dl (12.0-16.0); Mean Corpuscular Hemoglobin 30.9 pg (25.0-34.0); Mean Corpuscular Volume 95.0 fL (80.0-100.0); Platelet Count 86 K/uL (130-400); RDW Standard Deviation 54.0 fL (36.4-46.3); Red Blood Count 2.62 M/uL (4.20-5.40); White Blood Count 15.21 K/ul (4.8-10.8)
[2024-12-20 05:45] LABS: ALC (manual) 0.46 K/uL (1.2-3.4); ANC (manual) 12.02 K/uL (1.4-6.5)
[2024-12-20 05:54] LABS: Bilirubin,Total 1.4 mg/dl (0.2-1.0); Calcium 8.1 mg/dl (8.6-10.3); Carbon Dioxide 26.0 mmol/L (21-32); Magnesium 2.3 mg/dl (1.7-2.4)
[2024-12-20 06:00] LABS: Alanine Aminotransferase 124.0 U/L (7-52); Albumin Globulin Ratio 1.2 (0.9-2); Alkaline Phosphatase 84.0 U/L (34-104); Blood Urea Nitrogen 13.0 mg/dl (6-23); Creatinine Clr Calc Pharmacy 237.1 ml/min; Globulin 2.3 gm/dl (2.5-4.0); Glucose 151.0 mg/dl (70-99(Fasting)); Total Protein 5.1 gm/dl (6.0-8.3)
[2024-12-20 06:07] LABS: Anion Gap 7.0 (3-11); Chloride 106.0 mmol/L (98-107); Potassium 3.6 mmol/L (3.5-5.1); Sodium 139.0 mmol/L (136-145)
--- NOTE | 2024-12-20 08:07 | Hospitalist Progress Note ---
Date of Service December 20, 2024 Assessment & Plan (1) Shortness of breath: (2) Rhinovirus: (3) Breast cancer metastasized to brain: (4) Hypertension: (5) Situational mixed anxiety and depressive disorder: Plan 44yo presented with increased SOB/congestion and cough x 2 weeks with change in sputum (pink in color) and associated sore throat. Currently diagnosed with metastatic breast ca s/p mastectomy (mets to spine, brain s/p whole brain radiation). Hx PEs on Xarelto 10mg daily. Other residents also ill from viral illness and suspect contracted viral illness at SNF/rehab, [employer] POSITIVE for rhinovirus/enterovirus. CTA Chest negative for PE or focal consolidation, and thankfully no hypoxia/O2 requirement Low grade temp 99F yesterday reported (12/17) #Rhinovirus/Enterovirus #Shortness of breath -in immunocompromised patient undergoing chemotherapy (last treatment ~1 week ago) with ongoing cough/congestion/sore throat x 2 weeks. Temp 99F on 12/17 reported +[employer] rhinovirus/enterovirus (from [facility], other residents ill w/ respiratory illness) WBC 14k on admission, procal 0.10 (on decadron/prednisone at [facility] [employer]). Lactic added by ER provider after admission orders in place and was elevated to 2.3--> 2.8 on repeat (no IVF ordered, 250cc bolus x 1, normalized 2.0 on repeat, VSS) Isolation precautions Pulm/onc consulted to weigh in given prolonged steroid use and metastatic breast ca as below, follows w/ Dr Rand 12/20 Sputum cx rare epi, no polys, moderate yeast, rare gram positive bacilli. Cx pending. Pulm consult appreciated, consulted given prolonged steroid use for metastatic disease to consider needing coverage for PJP in immunocompromised patient on chemotherapy. -Per pulm, Chest CT not c/w PJP or pulmonary infection, should be ok to continue doxy at this time Remains on Zosyn, Doxy IV until BCx neg x48hrs. MRSA nares negative. Likely can dc Zosyn and continue Doxy for atypical if BCx remain negative WBC elevated on steroids, has remained afebrile Decadron 4mg IV BID -- Lasix 40mg PO x 1 + PO Kcl x1 for edema from steroids (recent rx 20mg prn) Nebs: Duonebs QID, added hypertonic saline/budesonide BID 12/19, increased mucinex to 1200mg BID Pulm consulted --> no need for PJP coverage. Added formoterol nebs BID, vibration vest Continues on Xarelto for DVT proph PT/OT consults pending, hopeful return [facility] 12/21 vs 12/22 pending course #Metastatic Breast Ca-s/p whole brain radiation as well as radiation to cervical spine this past summer. Follows locally with Dr Rand, last treatment last week ~1wk ago, port to L chest looks good Continue steroids dex 4mg BID (prior titrated to 2mg BID), abx/cx as outlined Dr Rand consulted to weigh in/recs, appreciate input/assistance ECHO was due next week and has been getting serially while on chemo due to concerns for potential toxic effects BNP not elevated but checked ECHO given trop for completeness --> no significant valvular disease, normal EF. Normal RSVP. Grade I diastolic dysfunction - can check overnight pulse ox to see about underlying WILDA? MOM DOES REPORT STOPPED BREATHING w/ SLEEPING - can check overnight pulse xo PT/OT consults to be undertaken while inpatient #Hx PE- 2nd metastatic breast ca. Continues on xarelto 10mg PO daily. No pleuritic chest pain. Chest CTA as above neg for acute PE. #Vitamin D deficiency- low 20, PO replacement started- would continue at dc #Troponin elevation - minor elevation in setting of viral illness without CP reports. Repeat trended down but given cardiomegaly new (?2nd to chemo/possible underlying WILDA) checked ECHO. No wma, remains NSR on telemetry and no CP reported. #Electrolyte abnormality, hypokalemia- resolved on repeat testing, ?2nd to poor PO intake w/ viral illness. PO Kcl/1gm IV ordered. BMP stable and monitoring but additional Kcl w/ PO lasix as above. If taking w/ steroids at centre care could be cause for hypok on admit (rx 11/20/24 noted 20mg daily) DVT proph: Xarelto 10mg daily continued Dispo: continued inpatient stay for nebulizers/steroids, therapy evals Potential [facility] tomorrow if improved breathing w/ nebulizers/steroids for ongoing rehab vs 12/22. Family updated at bedside. Admission and Anticipated Discharge Date Admission Date: December 18, 2024 Supervising Physician Co-Signing Physician Notes The patient was not seen by me. The chart was reviewed. Case discussed with MICHAEL Adrian. Agree with assessment and plan Subjective Eval this afternoon, mom/dad, friend in room. Patient sitting up in bed, ongoing cough but lungs sound better than day prior. Able to expectorate sputum since the budesonide/hypertonic saline, pulm consulted/saw this morning and discussed plan. Vibration vest in room, utilized once. Remains on room air, wheezing/tightness reported improved. Continues on steroids as discussed. Discussed possible underlying WILDA - had been sleeping in different bed at home prior to [facility]/recent events but mother reports did observe patient with what appears to be some apneic periods with sleeping and ?if underlying WILDA but told by pulm not urgent. Does have some LE edema, baseline lasix use as needed. Discussed prn, but held w/ poor PO intake/dehydration on admission but dose to be provided today and suspect some swelling from steroids. Pulses present, calves nontender. Did inquire about bone scan but scheduled to be done outpatient. Given current inpatient for rhinovirus/resp illness, likely will defer until arranged outpatient. Physical Exam 2 Physical Exam: General: 44yo female resting in bed, father/mother in room, no acute distress, + cough (decreased) HEENT: hair loss from chemo, mm improved, trachea midline Chest: port to L chest c/d/i, no evidence for infection, no erythema/drainage/warmth Resp: coarse throughout/rales (primarily upper airways), diminished in the bases w/ bilateral crackles, decreased expiratory wheezing, on room air, + cough CV: regular, no significant m/r/g, 1+ pedal edema (slightly worse today), pulses present, calves nontender GI: +BS, soft, NT : no prather MSK/Neuro; generalized weakness but nonfocal, no slurred speech but slow to respond at times (father/mother in room to help with historical information) Psych: alert/oriented, fatigued appearing (improving) but pleasant/cooperative with exam Results & Data Results & Data Vital Signs (Past 12 Hours) Vital Signs Temp Pulse Pulse Resp BP Pulse Ox O2 Del Method 12/20/24 07:35 Room Air 12/20/24 07:09 84 20 98 Room Air 12/20/24 03:23 36.4 C L 85 16 104/69 96 Room Air 12/20/24 02:33 Room Air 12/20/24 02:32 93 H 12/19/24 23:23 36.6 C 95 H 14 116/71 95 Room Air Laboratory Results 12/20/24 04:05 12/20/24 04:05 A1c 6.0 Mag 2.3 LFTs- TB 1.4, AST 70, ALT 124, ALP 84 Blood cultures pending - ngtd PG Care Time/CCT Total # of Minutes Spent Total Time Spent with Patient: Total time spent is greater than 50% in coordination of care (as documented) at patient's floor/unit and/or counseling patient: Coding Level of Care Code 76644 SUB INP/OBS CARE 3/50MIN Diagnoses Shortness of breath R06.02 Rhinovirus B34.8 Malignant neoplasm of left breast metastatic to brain C50.919; C79.31 Laterality: unspecified laterality Hypertension I10 Situational mixed anxiety and depressive disorder F43.23 (3) Breast cancer metastasized to brain Laterality: unspecified laterality Qualified Code(s): C50.919 - Malignant neoplasm of unspecified site of unspecified female breast; C79.31 - Secondary malignant neoplasm of brain
[2024-12-20 08:10] LABS: Hemoglobin A1C 6.0 % (4.5-5.6)
[2024-12-20] MEDS: FAMOTIDINE 20MG IV PUSH 20 MG/5 ML SYR IV SCH (09:14)
--- NOTE | 2024-12-20 09:54 | Oncology Consultation ---
Date of Consultation December 20, 2024 Assessment & Plan (1) Breast cancer metastasized to brain: (2) Rhinovirus infection: Plan -Continue treatment per hospitalist team. Outpatient follow-up with me upon discharge from hospital History of Present Illness Reason for Consultation: Metastatic breast cancer Attending Physician: Joe Johnson MD History of Present Illness 44-year-old female with triple positive metastatic breast cancer currently receiving Kadcyla/bevacizumab. She presented with shortness of breath and cough. Respiratory panel revealed rhinovirus/enterovirus. CTA chest was negative for pneumonia. She is currently on broad-spectrum antibiotics. Complains of right ear pain. Allergies Allergy/AdvReac Type Severity Reaction Status Date / Time cat dander Allergy Severe SOB, Verified 10/07/24 00:53 SWELLING, CONGESTION, RUNNY EYES apple Allergy Intermediate ITCHY Verified 10/07/24 00:53 MOUTH, INDIGESTION erythromycin base Allergy Intermediate UNKNOWN, Verified 10/07/24 00:53 POSS GI UPSET A CHILD Home Medications Medication Instructions Recorded Confirmed Type lorazepam 0.5 mg tablet 0.5 mg PO HS PRN Sleep 11/07/21 10/07/24 History ondansetron HCl 8 mg tablet 8 mg PO Q8 PRN Nausea And Vomiting 12/31/21 10/07/24 History prochlorperazine maleate 10 mg 10 mg PO Q6 PRN Nausea 12/31/21 10/07/24 History tablet sertraline 50 mg tablet 50 mg PO QAM 05/21/22 10/07/24 History denosumab 120 mg/1.7 mL (70 mg/mL) 120 mg subcut MONTHLY 11/04/22 10/07/24 History subcutaneous solution (Xgeva) goserelin 3.6 mg subcutaneous 0 mg subcut MONTHLY 11/04/22 10/07/24 History implant (Zoladex) loperamide 2 mg capsule (Imodium 2 mg PO Q6H PRN Diarrhea 11/04/22 10/07/24 History A-D) fulvestrant 125 mg/2.5 mL 500 mg IM MONTHLY 11/26/23 10/07/24 History intramuscular syringe cyanocobalamin (vitamin B-12) 1,000 mcg subcut MONTHLY 01/14/24 10/07/24 History 1,000 mcg/mL injection solution diphenoxylate-atropine 2.5 1 tab PO DIRECTED PRN Diarrhea 01/14/24 10/07/24 History mg-0.025 mg tablet sodium bicarbonate 325 mg tablet 325 mg PO TID PRN LOW SODIUM 01/14/24 10/07/24 History levetiracetam 500 mg tablet 500 mg PO BID #60 tabs 01/20/24 10/07/24 Rx (Keppra) olmesartan 20 mg tablet 20 mg PO QAM #90 tabs 09/06/24 10/07/24 Rx cetirizine 10 mg tablet (Zyrtec) 10 mg PO DAILY 10/07/24 10/07/24 History dexamethasone 2 mg tablet 1 mg PO BID 10/07/24 10/07/24 History letrozole 2.5 mg tablet 2.5 mg PO DAILY 10/07/24 10/07/24 History rivaroxaban 10 mg tablet (Xarelto) 10 mg PO QAM 10/07/24 10/07/24 History sertraline 25 mg tablet 25 mg PO QAM 10/07/24 10/07/24 History Patient History Medical History History of COVID-19 05/06, pcr, side effects "minimal">resolved Chronic bronchitis Herpes simplex of female genitalia Genital warts Cervical intraepithelial neoplasia (FRANCHESCA) Infiltrating ductal carcinoma of left breast hx Thyroid nodule hx, monitoring Surgical History Port-A-Cath in place (11/10/21) Access Port Insertion with Fluoroscopy - Tomas Poon DO, FACS History of biopsy (10/27/21) CT Guided Biopsy Lung History of breast reconstruction History of appendectomy (~11/2016) History of bilateral mastectomy bilat mast, left ALND Family History Mother Hypertension Grandmother Cancer maternal great grandmother Grandfather Cancer Father Hypertension Grandfather (Paternal) Myocardial infarction Grandfather (Maternal) Myocardial infarction Pancreatic cancer Grandmother (Paternal) Stroke Denies family history of Ovarian cancer Prostate cancer Breast cancer Colorectal cancer Social History Smoking Status: Never smoker Second Hand Exposure: No; Do You Dip or Chew Tobacco: No; Hx Alcohol Use: No Hx Substance Use: No Preferred Language: Welsh Communication Ability: Effective Visual Impairment: Limited Hearing Ability: Normal Final Block Press Operator Required: No Beliefs That Will Affect Care: None marital status: Single Current Living Situation: Rehab Current Living Situation Comment: parents current occupational status: disabled How many Children do You have: 0 Feels Safe at Home: Yes Childhood Exposure to Second-Hand Smoke: No Diet: regular caffeine: Yes during the past year weight has: increased > 10 lbs Dental Care, Regularly: Yes Physical Activity Frequency: 1-2 Times per Week Seatbelt Use: always Sunscreen Use: No Assistive Devices: Walker and Wheelchair Results & Data Vital Signs (Past 12 Hours) Vital Signs Temp Pulse Pulse Resp BP Pulse Ox O2 Del Method 12/20/24 08:07 36.3 C L 93 H 20 122/79 98 Room Air 12/20/24 07:35 Room Air 12/20/24 07:09 84 20 98 Room Air 12/20/24 03:23 36.4 C L 85 16 104/69 96 Room Air 12/20/24 02:33 Room Air 12/20/24 02:32 93 H 12/19/24 23:23 36.6 C 95 H 14 116/71 95 Room Air (1) Breast cancer metastasized to brain Laterality: unspecified laterality Qualified Code(s): C50.919 - Malignant neoplasm of unspecified site of unspecified female breast; C79.31 - Secondary malignant neoplasm of brain
--- NOTE | 2024-12-20 10:18 | Pulmonary Consultation ---
Date of Consultation December 20, 2024 Assessment & Plan (1) Acute asthma exacerbation: (2) Asthmatic bronchitis: (3) Rhinovirus infection: (4) Shortness of breath: (5) Pulmonary embolism: (6) Breast cancer metastasized to brain: Laterality: unspecified laterality Qualified Code(s): C50.919 - Malignant neoplasm of unspecified site of unspecified female breast; C79.31 - Secondary malignant neoplasm of brain Plan CTA chest 12/18/2024 personally reviewed: Motion degraded study minimal dependent access of the left femoral No clear lung infiltrate Cardiomegaly No significant mediastinal lymphadenopathy PFT 10/09/2021 personally reviewed: Moderate obstructive lung dysfunction with significant bronchodilator response, air trapping, normal DLCO FVC 2.75 L 75%, FEV1 1.90 L 64%, FEV1/FVC 59%, RV 0.54%, TLC 108%, RV/TLC 144%, DLCO 101% 2D echo 12/19/2024: EF 55-60%, grade 1 diastolic dysfunction, RV normal in size and function --Asthma exacerbation with asthmatic bronchitis Not on any inhalers at home Etiology is likely rhinovirus Respiratory [employer] positive for entero-/rhinovirus on 12/18/2024 Procalcitonin negative, nasal MRSA negative BNP 26 -- History of metastatic breast cancer Initially diagnosed in 2013 s/p bilateral mastectomy Relapsed 2021 with brain mets, currently on bevacizumab. And getting radiation Also taking dexamethasone 1 mg twice daily On letrozole -- Mildly enlarged main pulmonary artery There is probability patient might have sleep apnea Outpatient polysomnography could be considered --History of PE On Xarelto Plan: No clear source of infection or recurrence of cancer within the lungs No need to think about PJP or other pathogens related pulmonary source looking at the CAT scan of the chest Okay to de-escalate antibiotics from pulmonary perspective Will start the patient on Perforomist and budesonide twice a day along with hypertonic saline nebulized and Mucinex Patient will benefit from chest vest therapy. All questions and queries of the patient as well as patient's parents were answered in depth Case was discussed with RN and primary team I spent more than 75 minutes looking in the chart, images, discussing the plan of care with the patient, RN as well as primary team Please note the above document was generated using voice recognition software. It may contain grammatical, syntax or spelling errors.Any formal questions or concerns about the content, text or information contained within the body of this dictation should be directly addressed to the provider for clarification. History of Present Illness Attending Physician: Joe Johnson MD History of Present Illness 44-year-old female was admitted to the hospital for shortness of breath and chest congestion for 2 weeks Past medical history: Metastatic breast cancer, initially diagnosed in 2013 s/p bilateral mastectomy, relapse in 2021 s/p chemo currently on radiation, history of PE on Xarelto Patient's parents were in the room at the time of examination Patient was able to give broken history, most of the history was obtained from patient's parents. She was not in any respiratory distress She was saturating well on room air Did complain of cough and difficulty bringing up the phlegm Patient has been having issues with cough for approximately 3 weeks. There was subjective chills but no fever. Denies any nausea or vomiting No headache, no blurry vision. No dysuria or diarrhea before coming to the hospital She is usually bedbound now. Social history: Lifetime non-smoker. No birds or poultry nearby. Para no history of lung cancer in the family Allergies Allergy/AdvReac Type Severity Reaction Status Date / Time cat dander Allergy Severe SOB, Verified 10/07/24 00:53 SWELLING, CONGESTION, RUNNY EYES apple Allergy Intermediate ITCHY Verified 10/07/24 00:53 MOUTH, INDIGESTION erythromycin base Allergy Intermediate UNKNOWN, Verified 10/07/24 00:53 POSS GI UPSET A CHILD Home Medications Medication Instructions Recorded Confirmed Type lorazepam 0.5 mg tablet 0.5 mg PO HS PRN Sleep 11/07/21 10/07/24 History ondansetron HCl 8 mg tablet 8 mg PO Q8 PRN Nausea And Vomiting 12/31/21 10/07/24 History prochlorperazine maleate 10 mg 10 mg PO Q6 PRN Nausea 12/31/21 10/07/24 History tablet sertraline 50 mg tablet 50 mg PO QAM 05/21/22 10/07/24 History denosumab 120 mg/1.7 mL (70 mg/mL) 120 mg subcut MONTHLY 11/04/22 10/07/24 History subcutaneous solution (Xgeva) goserelin 3.6 mg subcutaneous 0 mg subcut MONTHLY 11/04/22 10/07/24 History implant (Zoladex) loperamide 2 mg capsule (Imodium 2 mg PO Q6H PRN Diarrhea 11/04/22 10/07/24 History A-D) fulvestrant 125 mg/2.5 mL 500 mg IM MONTHLY 11/26/23 10/07/24 History intramuscular syringe cyanocobalamin (vitamin B-12) 1,000 mcg subcut MONTHLY 01/14/24 10/07/24 History 1,000 mcg/mL injection solution diphenoxylate-atropine 2.5 1 tab PO DIRECTED PRN Diarrhea 01/14/24 10/07/24 History mg-0.025 mg tablet sodium bicarbonate 325 mg tablet 325 mg PO TID PRN LOW SODIUM 01/14/24 10/07/24 History levetiracetam 500 mg tablet 500 mg PO BID #60 tabs 01/20/24 10/07/24 Rx (Keppra) olmesartan 20 mg tablet 20 mg PO QAM #90 tabs 09/06/24 10/07/24 Rx cetirizine 10 mg tablet (Zyrtec) 10 mg PO DAILY 10/07/24 10/07/24 History dexamethasone 2 mg tablet 1 mg PO BID 10/07/24 10/07/24 History letrozole 2.5 mg tablet 2.5 mg PO DAILY 10/07/24 10/07/24 History rivaroxaban 10 mg tablet (Xarelto) 10 mg PO QAM 10/07/24 10/07/24 History sertraline 25 mg tablet 25 mg PO QAM 10/07/24 10/07/24 History Patient History Medical History History of COVID-19 05/06, pcr, side effects "minimal">resolved Chronic bronchitis Herpes simplex of female genitalia Genital warts Cervical intraepithelial neoplasia (FRANCHESCA) Infiltrating ductal carcinoma of left breast hx Thyroid nodule hx, monitoring Surgical History Port-A-Cath in place (11/10/21) Access Port Insertion with Fluoroscopy - Tomas Poon DO, FACS History of biopsy (10/27/21) CT Guided Biopsy Lung History of breast reconstruction History of appendectomy (~11/2016) History of bilateral mastectomy bilat mast, left ALND Family History Mother Hypertension Grandmother Cancer maternal great grandmother Grandfather Cancer Father Hypertension Grandfather (Paternal) Myocardial infarction Grandfather (Maternal) Myocardial infarction Pancreatic cancer Grandmother (Paternal) Stroke Denies family history of Ovarian cancer Prostate cancer Breast cancer Colorectal cancer Social History Smoking Status: Never smoker Second Hand Exposure: No; Do You Dip or Chew Tobacco: No; Hx Alcohol Use: No Hx Substance Use: No Preferred Language: Danish Communication Ability: Effective Visual Impairment: Limited Hearing Ability: Normal Family Therapist Required: No Beliefs That Will Affect Care: None marital status: Single Current Living Situation: Rehab Current Living Situation Comment: parents current occupational status: disabled How many Children do You have: 0 Feels Safe at Home: Yes Childhood Exposure to Second-Hand Smoke: No Diet: regular caffeine: Yes during the past year weight has: increased > 10 lbs Dental Care, Regularly: Yes Physical Activity Frequency: 1-2 Times per Week Seatbelt Use: always Sunscreen Use: No Assistive Devices: Walker and Wheelchair Review of Systems 2 Review of Systems: All systems reviewed & are unremarkable except as noted in HPI & below Physical Exam 2 Physical Exam: Constitutional: No acute distress HEENT: EOMI, PERRLA, cushingoid features Respiratory system: Decreased air entry bilaterally, positive minimal expiratory wheeze, positive rhonchi, positive crackles CVS: S1-S2 positive, no murmurs or gallops Abdomen: Soft, nontender, nondistended, positive bowel sounds x4, obese Extremities: +2 pulses bilaterally radialis/ dorsalis pedis, no cyanosis, +2 pitting edema bilateral lower extremity Neuro: Awake alert oriented to self and place Psych: Flat mood and affect G/U: Positive Mohr Skin: no rashes, warm and dry Lymphatic: no cervical or axillary lymphadenopathy Results & Data Results & Data Vital Signs (Past 12 Hours) Vital Signs Temp Pulse Pulse Resp BP Pulse Ox O2 Del Method 12/20/24 09:45 83 12/20/24 08:07 36.3 C L 93 H 20 122/79 98 Room Air 12/20/24 07:35 Room Air 08/06/25 07:09 84 20 98 Room Air 12/20/24 03:23 36.4 C L 85 16 104/69 96 Room Air 12/20/24 02:33 Room Air 12/20/24 02:32 93 H 12/19/24 23:23 36.6 C 95 H 14 116/71 95 Room Air Laboratory Results 12/20/24 04:05 12/20/24 04:05 PG Care Time/CCT Total # of Minutes Spent Total Time Spent with Patient: Total time spent is greater than 50% in coordination of care (as documented) at patient's floor/unit and/or counseling patient: [place] [address] INT INP/OBS CARE 3/75MIN Patient Type New Diagnoses Acute asthma exacerbation J45.901 Asthmatic bronchitis J45.909 Rhinovirus infection B34.8 Shortness of breath R06.02 Pulmonary embolism I26.99 Malignant neoplasm of left breast metastatic to brain C50.919; C79.31 Laterality: unspecified laterality
[2024-12-20] MEDS: FUROSEMIDE 40 MG TAB PO ONE (14:04)
[2024-12-20] MEDS: POTASSIUM CHLORIDE CRTAB 20 MEQ TABCR PO STA (14:07)
[2024-12-20] MEDS: FORMOTEROL 20 MCG/2 ML VIAL NEB SCH (19:53)
[2024-12-20] MEDS: DOCUSATE SODIUM 100 MG CAP PO SCH (20:38)
[2024-12-20] MEDS: SENNA 8.6 MG TAB PO SCH (20:38)
[2024-12-20] MEDS: dexAMETHasone 3 MG in SYRINGE 0 ML IV SCH (22:12)
--- NOTE | 2024-12-21 07:47 | Hospitalist Progress Note ---
Date of Service December 21, 2024 Assessment & Plan (1) Shortness of breath: (2) Rhinovirus: (3) Breast cancer metastasized to brain: (4) Hypertension: (5) Situational mixed anxiety and depressive disorder: Plan 44yo presented with increased SOB/congestion and cough x 2 weeks with change in sputum (pink in color) and associated sore throat. Currently diagnosed with metastatic breast ca s/p mastectomy (mets to spine, brain s/p whole brain radiation). Hx PEs on Xarelto 10mg daily. Other residents also ill from viral illness and suspect contracted viral illness at SNF/rehab, [employer] POSITIVE for rhinovirus/enterovirus. CTA Chest negative for PE or focal consolidation, and thankfully no hypoxia/O2 requirement Low grade temp 99F reported 12/17 #Rhinovirus/Enterovirus #Shortness of breath Admission for treatment of asthma exacerbation 2nd to rhinovirus/enterovirus concerning for possible bacterial PNA vs other in patient immunocompromised undergoing chemotherapy (last treatment ~ 1 week ago) and reported associated cough/congestion/sore throat x 2 weeks and other residents at [facility] ill with viral/respiratory illness. Temp 99F prior to arrival and had been on dexamethasone 2mg PO BID and started on prednisone prior to admission.. WBC 14k, procal 0.1. Lactic elevated, normalized following tx/IVF 250cc bolus x 1. NO HYPOXIA but coarse breath sounds throughout. CTA chest NEGATIVE for PE/consolidative pneumonia and reviewed by pulm and no concerns for PJP given steroid use at baseline [employer] testing + for rhinovirus/enterovirus Isolation precautions ordered/continued Blood cx remain NGTD WBC stable on steroids, has been afebrile Zosyn, Doxy IV continued (per pulm, no need for Zosyn but has been continued for sinus/ear coverage but appears more 2nd to congestion/mucus congestion). MRSA nares NEG Dexamethasone 4mg IV BID provided, decreased to 3mg IV BID and will decrease back to 2mg IV BID given improvement w/ nebulizers as below per pulm Nebs: Duonebs QID (using at [facility]), new hypertonic saline/budesonide/formoterol nebs BID Continue mucinex 1200mg PO BID, incentive spirometry, flutter valve Vibration vest Sputum cx preliminary pin-point growth, re-incubating and will follow s/p Lasix 40mg PO x 1 on 12/20, repeating for today. Suspect some aspect volume overload/edema/fluid retention from chronic steroid use (rx 20mg mid November) Xarelto continued for DVT proph Improving 12/21 w/ less wheezing and steroids decreased as above but continues nebs/pulmonary toilet and vibration vest PT/OT consults and hopefully return to [facility] 12/22 with nebulizers, doxy (+/- Augmentin pending sputum cx) for ongoing rehab. Will need to give rx to CM. Overnight pulse ox w/ drop in sat to 50s w/ sleeping. ~31 min <88%. Can arrange for 2L HS/outpatient sleep study #Metastatic Breast Ca-s/p whole brain radiation as well as radiation to cervical spine this past summer. Follows locally with Dr Rand, last treatment last week ~1wk ago, port to L chest looks good Continue steroids dex 4mg BID (prior titrated to 2mg BID), abx/cx as outlined Dr Rand consulted to weigh in/recs, appreciate input/assistance ECHO obtained, diastolic dysfunction grade I but no reduced EF or valvular disease. Overnight pulse ox noting drop/suspected underlying WILDA and can arrange NC HS, outpt sleep study Continued therapy at [facility] as above Outpatient f/u Dr Rand at ct #Hx PE- 2nd metastatic breast ca. Continues on xarelto 10mg PO daily. No pleuritic chest pain. Chest CTA as above neg for acute PE. #Vitamin D deficiency- low 20, PO replacement started- rec continue at ct #Troponin elevation - minor elevation in setting of viral illness without CP reports. Repeat trended down but given cardiomegaly new (?2nd to chemo/possible underlying WILDA) checked ECHO. No wma, remains NSR on telemetry and no CP reported. Can dc telemetry #Electrolyte abnormality, hypokalemia- resolved on repeat testing, ?2nd to poor PO intake w/ viral illness. PO Kcl/1gm IV ordered. BMP stable and monitoring but additional Kcl w/ PO lasix as above. If taking w/ steroids at [facility] could be cause for hypok on admit (rx 11/20/24 noted 20mg daily). Mag wnl on check. Monitor BMP in AM but if ongoing steroid use, likely need to send supplemental potassium Losartan resumed DVT proph: Xarelto 10mg daily continued Dispo: continued inpatient stay for nebulizers/steroids and hopeful dc [facility] 12/22 w/ nebs/inhalers and vibration vest Family updated at bedside 12/21 Admission and Anticipated Discharge Date Admission Date: December 20, 2024 Supervising Physician Co-Signing Physician Notes The patient was not seen by me. The chart was reviewed. Case discussed with MICHAEL Adrian. Agree with assessment and plan Subjective Evaluated later this morning, sitting up in bed, reports breathing feels better today. Less course/coughing up some sputum but not expectorating but appears possibly coughing/swallowing as improvement/suspected mucus plugging. Leg edema present but stable, will plan to give additional lasix. IV steroids to be reduced given wheezing, plan to continue inhaled nebulizers and will plan to arrange continued use of new nebulized medications at [facility]. Discussed possibly dc today but all in agreement prefer one more day to ensure continued improvement given finally lungs sounding better over the past 24- 48hrs. No pain to ear on palpation but reports fullness. Does have wax, will order debrox. Reports needing cleaned out in the past. Will monitor for cerumen impaction removal. Questions/concerns addressed at this time. Physical Exam Physical Exam: General: 44yo female resting in bed, father/mother in room, no acute distress, + cough (decreased) HEENT: hair loss from chemo, mm improved, trachea midline, nystagmus R ear w/ cerumen impaction, no tragus/pinna tenderness no sinus tenderness but appears congested Chest: port to L chest c/d/i, no evidence for infection, no erythema/drainage/warmth Resp: coarse throughout/rales (primarily upper airways) but MUCH improved, less diminished in the bases, less cough, on room air CV: regular, no significant m/r/g, 1+ pedal edema (stable/slightly improved), pulses present, calves nontender GI: +BS, soft/obese, NT : no prather MSK/Neuro; generalized weakness sitting up in bed but nonfocal, no slurred speech but slow to respond at times, some intermittent word finding difficulty since brain radiation at baseline (mother/father in room for assistance as well with historian information) Psych: alert/oriented, LESS fatigued, more awake, pleasant/cooperative with exam Results & Data Results & Data Vital Signs (Past 12 Hours) Vital Signs Temp Pulse Pulse Pulse Resp BP Pulse Ox 12/21/24 07:28 84 18 97 12/21/24 03:52 36.5 C 93 H 18 125/81 97 12/21/24 02:59 83 12/20/24 22:08 92 H 12/20/24 22:02 36.4 C L 95 H 16 117/75 94 12/20/24 21:48 94 H 12/20/24 20:23 86 95 12/20/24 20:05 Pulse Ox O2 Del Method O2 Del Method 12/21/24 07:28 Room Air 12/21/24 03:52 Room Air 12/21/24 02:59 94 Room Air 12/20/24 22:08 94 Room Air 12/20/24 22:02 Room Air 12/20/24 21:48 12/20/24 20:23 Room Air 12/20/24 20:05 Room Air Laboratory Results 12/21/24 Range/Units 07:17 WBC 14.14 H (4.8-10.8) K/ul RBC 2.72 L (4.20-5.40) M/uL Hgb 8.1 L (12.0-16.0) g/dl Hct 25.6 L (37.0-47.0) % MCV 94.1 (80.0-100.0) fL MCH 29.8 (25.0-34.0) pg MCHC 31.6 L (32.0-36.0) g/dL RDW Std Deviation 53.7 H (36.4-46.3) fL RDW Coeff of Maite 16.0 H (11.5-14.5) % Plt Count 81 L (130-400) K/uL MPV 11.1 (9.4-12.4) fL Absolute Nucleated RBC 0.22 H (0.00-0.12) K/uL Nucleated RBC % (auto) 1.6 % Neutrophils % (Manual) 81 % Lymphocytes % (Manual) 7 % Monocytes % (Manual) 3 % Metamyelocytes % (Man) 3 % Myelocytes % (Man) 6 % Neutrophils # (Manual) 11.45 H (1.40-6.50) K/uL Total Absolute Neuts 11.45 H (1.4-6.5) K/uL Lymphocytes # (Manual) 0.99 L (1.2-3.4) K/uL Total Abs Lymphocytes 0.99 L (1.2-3.4) K/uL Monocytes # (Manual) 0.42 (0.11-0.59) K/uL Metamyelocytes # (Man) 0.42 H (0-0) K/uL Myelocytes # (Manual) 0.85 H (0-0) K/uL Polychromasia 1+ Tear Drop Cells 1+ Sodium 138 (136-145) mmol/L Potassium 3.5 (3.5-5.1) mmol/L Chloride 106 (98-107) mmol/L Carbon Dioxide 28 (21-32) mmol/L Anion Gap 4 (3-11) BUN 12 (6-23) mg/dl Creatinine 0.30 L (0.6-1.2) mg/dl Est Cr Clr Drug Dosing 260.8 ml/min eGFR 132.41 BUN/Creatinine Ratio 40.0 H (10-20) Glucose 123 H (70-99(Fasting)) mg/dl Calcium 7.9 L (8.6-10.3) mg/dl Magnesium 2.2 (1.7-2.4) mg/dl Total Bilirubin 1.5 H (0.2-1.0) mg/dl AST 66 H (13-39) U/L ALT 122 H (7-52) U/L Alkaline Phosphatase 93 (34-104) U/L Total Protein 5.0 L (6.0-8.3) gm/dl Albumin 2.9 L (3.4-5.0) gm/dl Globulin 2.1 L (2.5-4.0) gm/dl Albumin/Globulin Ratio 1.4 (0.9-2) PG Care Time/CCT Total # of Minutes Spent Total Time Spent with Patient: Total time spent is greater than 50% in coordination of care (as documented) at patient's floor/unit and/or counseling patient: Coding Level of Care Code 76278 SUB INP/OBS CARE 3/50MIN Diagnoses Shortness of breath R06.02 Rhinovirus B34.8 Malignant neoplasm of left breast metastatic to brain C50.919; C79.31 Laterality: unspecified laterality Hypertension I10 Situational mixed anxiety and depressive disorder F43.23 (3) Breast cancer metastasized to brain Laterality: unspecified laterality Qualified Code(s): C50.919 - Malignant neoplasm of unspecified site of unspecified female breast; C79.31 - Secondary malignant neoplasm of brain
[2024-12-21 08:15] LABS: Hematocrit (blood only) 25.6 % (37.0-47.0); Hemoglobin 8.1 g/dl (12.0-16.0); Mean Corpuscular Hemoglobin 29.8 pg (25.0-34.0); Mean Corpuscular Volume 94.1 fL (80.0-100.0); Platelet Count 81 K/uL (130-400); RDW Standard Deviation 53.7 fL (36.4-46.3); Red Blood Count 2.72 M/uL (4.20-5.40); White Blood Count 14.14 K/ul (4.8-10.8)
[2024-12-21 08:31] LABS: Alanine Aminotransferase 122.0 U/L (7-52); Albumin Globulin Ratio 1.4 (0.9-2); Alkaline Phosphatase 93.0 U/L (34-104); Anion Gap 4.0 (3-11); Bilirubin,Total 1.5 mg/dl (0.2-1.0); Blood Urea Nitrogen 12.0 mg/dl (6-23); Calcium 7.9 mg/dl (8.6-10.3); Carbon Dioxide 28.0 mmol/L (21-32); Chloride 106.0 mmol/L (98-107); Creatinine Clr Calc Pharmacy 260.8 ml/min; Globulin 2.1 gm/dl (2.5-4.0); Glucose 123.0 mg/dl (70-99(Fasting)); Magnesium 2.2 mg/dl (1.7-2.4); Potassium 3.5 mmol/L (3.5-5.1); Sodium 138.0 mmol/L (136-145); Total Protein 5.0 gm/dl (6.0-8.3)
[2024-12-21 08:49] LABS: ALC (manual) 0.99 K/uL (1.2-3.4); ANC (manual) 11.45 K/uL (1.4-6.5); Polychromasia 1+; Tear Drop Cells 1+
--- NOTE | 2024-12-21 09:02 | Pulmonology Progress Note ---
Date of Service December 21, 2024 Assessment & Plan (1) Acute asthma exacerbation: (2) Asthmatic bronchitis: (3) Rhinovirus infection: (4) Shortness of breath: (5) Pulmonary embolism: (6) Breast cancer metastasized to brain: Laterality: unspecified laterality Qualified Code(s): C50.919 - Malignant neoplasm of unspecified site of unspecified female breast; C79.31 - Secondary malignant neoplasm of brain Plan CTA chest 12/18/2024 personally reviewed: Motion degraded study minimal dependent access of the left femoral No clear lung infiltrate Cardiomegaly No significant mediastinal lymphadenopathy PFT 10/09/2021 personally reviewed: Moderate obstructive lung dysfunction with significant bronchodilator response, air trapping, normal DLCO FVC 2.75 L 75%, FEV1 1.90 L 64%, FEV1/FVC 59%, RV 0.54%, TLC 108%, RV/TLC 144%, DLCO 101% 2D echo 12/19/2024: EF 55-60%, grade 1 diastolic dysfunction, RV normal in size and function --Asthma exacerbation with asthmatic bronchitis Not on any inhalers at home Etiology is likely rhinovirus Respiratory [employer] positive for entero-/rhinovirus on 12/18/2024 Procalcitonin negative, nasal MRSA negative BNP 26 -- History of metastatic breast cancer Initially diagnosed in 2013 s/p bilateral mastectomy Relapsed 2021 with brain mets, currently on bevacizumab. And getting radiation Also taking dexamethasone 1 mg twice daily On letrozole -- Mildly enlarged main pulmonary artery There is probability patient might have sleep apnea Outpatient polysomnography could be considered --History of PE On Xarelto Plan: Continue with Perforomist and budesonide twice a day along with hypertonic saline nebulized and Mucinex. Would recommend the same regimen even at home Patient will benefit from chest vest therapy, would recommend case management to get involved to see if they are able to get this at [facility] Case was discussed with RN and primary team Please note the above document was generated using voice recognition software. It may contain grammatical, syntax or spelling errors.Any formal questions or concerns about the content, text or information contained within the body of this dictation should be directly addressed to the provider for clarification. Admission and Anticipated Discharge Date Admission Date: December 20, 2024 Subjective Patient seen and examined at bedside. No acute distress, no adverse events overnight She has been using flutter valve, hypertonic saline as well as chest vest therapy She has started to bring up some phlegm. Note asking if she is feeling any different she denies but the parents were in the room said that there is improvement especially that she is able to bring up some phlegm It was saturating well on room air Denied any headache, no nausea or vomiting Review of Systems 2 Review of Systems: All systems reviewed & are unremarkable except as noted in Subjective Physical Exam 2 Physical Exam: Constitutional: No acute distress HEENT: EOMI, PERRLA, cushingoid features Respiratory system: Decreased air entry bilaterally, no wheeze, minimal rhonchi bilaterally, positive crackles CVS: S1-S2 positive, no murmurs or gallops Abdomen: Soft, nontender, nondistended, positive bowel sounds x4, obese Extremities: +2 pulses bilaterally radialis/ dorsalis pedis, no cyanosis, +2 pitting edema bilateral lower extremity Neuro: Awake alert oriented to self and place Psych: Flat mood and affect G/U: Positive Mohr Skin: no rashes, warm and dry Lymphatic: no cervical or axillary lymphadenopathy Results & Data Results & Data Vital Signs (Past 12 Hours) Vital Signs Temp Pulse Pulse Pulse Resp BP Pulse Ox 12/21/24 07:45 36.6 C 95 H 16 131/85 97 12/21/24 07:28 84 18 97 12/21/24 03:52 36.5 C 93 H 18 125/81 97 12/21/24 02:59 83 12/20/24 22:08 92 H 12/20/24 22:02 36.4 C L 95 H 16 117/75 94 12/20/24 21:48 94 H Pulse Ox O2 Del Method O2 Del Method 12/21/24 07:45 Room Air 12/21/24 07:28 Room Air 12/21/24 03:52 Room Air 12/21/24 02:59 94 Room Air 12/20/24 22:08 94 Room Air 12/20/24 22:02 Room Air 12/20/24 21:48 Laboratory Results 12/21/24 07:17 12/21/24 07:17 PG Care Time/CCT Total # of Minutes Spent Total Time Spent with Patient: Total time spent is greater than 50% in coordination of care (as documented) at patient's floor/unit and/or counseling patient: Coding Level of Care Code 89964 SUB INP/OBS CARE MIN Diagnoses Acute asthma exacerbation J45.901 Asthmatic bronchitis J45.909 Rhinovirus infection B34.8 Shortness of breath R06.02 Pulmonary embolism I26.99 Malignant neoplasm of left breast metastatic to brain C50.919; C79.31 Laterality: unspecified laterality
[2024-12-21] MEDS: POTASSIUM CHLORIDE CRTAB 20 MEQ TABCR PO STA (13:22)
[2024-12-21] MEDS: FUROSEMIDE 40 MG TAB PO ONE (13:22)
[2024-12-21] MEDS: CARBAMIDE PEROXIDE 6.5% 15 ML BTL OTR SCH (13:23)
[2024-12-21] MEDS: dexAMETHasone 2 MG in SYRINGE 0 ML IV SCH (20:18)
[2024-12-21] MEDS: ACETAMINOPHEN 325 MG TAB PO PRN (20:22)
[2024-12-22 04:42] LABS: Hematocrit (blood only) 23.7 % (37.0-47.0); Hemoglobin 7.5 g/dl (12.0-16.0); Mean Corpuscular Hemoglobin 30.0 pg (25.0-34.0); Mean Corpuscular Volume 94.8 fL (80.0-100.0); Platelet Count 74 K/uL (130-400); RDW Standard Deviation 54.8 fL (36.4-46.3); Red Blood Count 2.50 M/uL (4.20-5.40); White Blood Count 13.07 K/ul (4.8-10.8)
[2024-12-22 04:55] LABS: Alanine Aminotransferase 117.0 U/L (7-52); Albumin Globulin Ratio 1.4 (0.9-2); Alkaline Phosphatase 86.0 U/L (34-104); Anion Gap 5.0 (3-11); Bilirubin,Total 1.3 mg/dl (0.2-1.0); Blood Urea Nitrogen 12.0 mg/dl (6-23); Calcium 7.8 mg/dl (8.6-10.3); Carbon Dioxide 27.0 mmol/L (21-32); Chloride 104.0 mmol/L (98-107); Creatinine Clr Calc Pharmacy 279.4 ml/min; Globulin 2.0 gm/dl (2.5-4.0); Glucose 150.0 mg/dl (70-99(Fasting)); Magnesium 2.0 mg/dl (1.7-2.4); Potassium 3.5 mmol/L (3.5-5.1); Sodium 136.0 mmol/L (136-145); Total Protein 4.7 gm/dl (6.0-8.3)
[2024-12-22 05:19] LABS: ALC (manual) 0.78 K/uL (1.2-3.4); ANC (manual) 10.85 K/uL (1.4-6.5); Polychromasia 1+; Tear Drop Cells 1+
[2024-12-22 05:23] LABS: Hep B Surface Ag with confirm Negative (Negative)
[2024-12-22] MEDS ORDERED: SODIUM CHLORIDE 0.9% 100 ML IV PRN ×2 (07:18→07:42)
--- NOTE | 2024-12-22 07:47 | Hospitalist Progress Note ---
Date of Service December 22, 2024 Assessment & Plan (1) Shortness of breath: (2) Rhinovirus: (3) Breast cancer metastasized to brain: (4) Hypertension: (5) Situational mixed anxiety and depressive disorder: Plan 44yo presented with increased SOB/congestion and cough x 2 weeks with change in sputum (pink in color) and associated sore throat. Currently diagnosed with metastatic breast ca s/p mastectomy (mets to spine, brain s/p whole brain radiation). Hx PEs on Xarelto 10mg daily. Other residents also ill from viral illness and suspect contracted viral illness at SNF/rehab, biofire POSITIVE for rhinovirus/enterovirus. CTA Chest negative for PE or focal consolidation, and thankfully no hypoxia/O2 requirement Low grade temp 99F reported 12/17 #Rhinovirus/Enterovirus #Shortness of breath #Acute asthma exacerbation - 2nd to viral illness Admission for treatment of asthma exacerbation 2nd to rhinovirus/enterovirus concerning for possible bacterial PNA vs other in patient immunocompromised undergoing chemotherapy (last treatment ~ 1 week ago) and reported associated cough/congestion/sore throat x 2 weeks and other residents at [facility] ill with viral/respiratory illness. Temp 99F prior to arrival and had been on dexamethasone 2mg PO BID and started on prednisone prior to admission.. WBC 14k, procal 0.1. Lactic elevated, normalized following tx/IVF 250cc bolus x 1. NO HYPOXIA but coarse breath sounds throughout. CTA chest NEGATIVE for PE/c onsolidative pneumonia and reviewed by pulm and no concerns for PJP given steroid use at baseline Biofire testing + for rhinovirus/enterovirus. Isolation precautions Given Zosyn/Doxy x 4 days. Pulm not concerned for PJP/infectious etiology in chest, no need for Zosyn/ok to continue Doxy (converted to PO) Sputum cx moderate normal mathew. Blood cultures NGTD WBC trending down w/ decreased steroids, continue 2mg IV BID dexamethasone for now Nebs: continue hypertonic saline, budesonide, formoterol BID - rx at dc along w/ vibration vest planned at [facility] Continue mucinex, flutter valve, incentive spirometry Continue lasix 40mg PO daily for diuresis Hgb 7.5, likely 2nd to chemo/volume status but discussed w/ Dr Rand from oncology and obtained consent/discussion w/ father Ed/medical POA (per patient wishes as well) and 1u PRBC ordered w/ Lasix IV x1 and monitoring repeat blood counts Continues on Xarelto for DVT proph Likely underlying WILDA baseed on overnight pulse ox- can have outpt sleep study as desired [facility] tomorrow, pending palliative discussion today #Volume overload/edema- suspect aspect 2nd to steroid use as well as low albumin. No hypoxia. CXR w/o overt pulmonary edema and BNP not elevated, echo w/ grade I diastolic dysfunction Diuretics w/ lasix with ongoing Dexamethasone and have ordered supplemental K to prevent electrolyte issue. Nutrition for supplements LFTs improved w/ diuretics #Anemia- as above, 1u PRBC ordered. hgb 7.5 on labs but has been in 8s without bleeding reported. Iron studies/B12/folate acceptable. Could have component of hemolysis but no rashes on exam. #Metastatic Breast Ca-s/p whole brain radiation as well as radiation to cervical spine this past summer. Follows locally with Dr Rand, last treatment last week ~1wk ago, port to L chest looks good Continue steroids dex 4mg BID (prior titrated to 2mg BID), abx/cx as outlined Dr Rand consulted to weigh in/recs, appreciate input/assistance ECHO obtained, diastolic dysfunction grade I but no reduced EF or valvular disease. -Overnight pulse ox noting drop/suspected underlying WILDA and can arrange NC HS, outpt sleep study 1u PRBC as above Continued therapy at [facility] as above Outpatient f/u [place] Rand [place] [facility] #Hx PE- 2nd metastatic breast ca. Chest CTA as above neg for acute PE. Continues on xarelto 10mg PO daily. No pleuritic chest pain reported #Vitamin D deficiency- low 20, PO replacement started- rec continue at [facility] #Troponin elevation - minor elevation in setting of viral illness without CP reports. Repeat trended down but given cardiomegaly new (?2nd to chemo/possible underlying WILDA) checked ECHO. No wma, remains NSR on telemetry and no CP reported. Can dc telemetry #Electrolyte abnormality, hypokalemia- resolved on repeat testing, ?2nd to poor PO intake w/ viral illness vs recent lasix use for volume status Replacement ordered/continued w/ lasix for diuresis and labs remain stable Losartan resumed, BP stable Monitor BMP DVT proph: Xarelto 10mg daily continued Dispo: continued inpatient stay for PRBC for nebulizers/steroids and hopeful [facility] 12/22 w/ nebs/inhalers and vibration vest Family updated at bedside 12/21 Admission and Anticipated Discharge Date Admission Date: December 20, 2024 Supervising Physician Co-Signing Physician Notes The patient was not seen by me. The chart was reviewed. Case discussed with MICHAEL Adrian. Agree with assessment and plan Subjective EValuated this morning, sitting up eating pancakes, + cough but reports breathing feels improved. B/L 2+ pitting pedal edema, coarse BS. Discussed continued diuretics/breathing treatments and mucinex. Discussed hgb/discussion with Dr Rand. Consent discussed, never received blood before. Wanted me to discuss /get consent with father, POA, Ed. Called/discussed, obtained consent. They are headed in. Agree w keeping another day/monitoring, diuretics. Questions/concerns addressed at this time. Palliative messaged later this morning about call from parents last evening and chemo doing more harm/possibly discussion to stop treatment and will see patient today. Physical Exam Physical Exam: General: 44yo female resting in bed, eating breakfast, + cough, NAD/reports breathing improved/less SOB HEENT: hair loss from chemo, mm improved, trachea midline, nystagmus from brain meds, R ear cerumen/no tragus/pinna tenderness/erythema or drainage or mastoid tenderness Chest: port to L chest c/d/i, no evidence for infection, no erythema/drainage/warmth Resp: coarse throughout/rales upper airways, no significant wheezing, b/l crackles/diminished in the bases, on room air CV: regular, no significant m/r/g, 1+ pedal edema (slightly worse), pulses present, calves nontender GI: +BS, soft/obese, NT : no prather MSK/Neuro; generalized weakness sitting up in bed but nonfocal, no slurred speech but slow to respond at times, some intermittent word finding difficulty since brain radiation at baseline (mother/father in room for assistance as well with historian information) Psych: alert/oriented, LESS fatigued, more awake, pleasant/cooperative with exam Results & Data Results & Data Vital Signs (Past 12 Hours) Vital Signs Temp Pulse Pulse Resp BP Pulse Ox O2 Del Method 12/22/24 07:09 83 12/22/24 06:06 36.7 C 83 18 112/67 95 Room Air 12/22/24 03:42 36.6 C 82 16 107/69 96 Room Air 12/21/24 23:35 36.5 C 87 16 109/70 95 Room Air 12/21/24 21:44 89 12/21/24 20:16 Room Air 12/21/24 19:52 94 H 17 96 Room Air Laboratory Results 12/22/24 12/22/24 12/21/24 Range/Units 07:24 03:54 07:17 WBC 13.07 H 14.14 H (4.8-10.8) K/ul RBC 2.50 L 2.72 L (4.20-5.40) M/uL Hgb 7.5 L 8.1 L (12.0-16.0) g/dl Hct 23.7 L 25.6 L (37.0-47.0) % MCV 94.8 94.1 (80.0-100.0) fL MCH 30.0 29.8 (25.0-34.0) pg MCHC 31.6 L 31.6 L (32.0-36.0) g/dL RDW Std Deviation 54.8 H 53.7 H (36.4-46.3) fL RDW Coeff of Maite 16.4 H 16.0 H (11.5-14.5) % Plt Count 74 L 81 L (130-400) K/uL MPV 11.0 11.1 (9.4-12.4) fL Absolute Nucleated RBC 0.18 H 0.22 H (0.00-0.12) K/uL Nucleated RBC % (auto) 1.4 1.6 % Neutrophils % (Manual) 83 81 % Lymphocytes % (Manual) 6 7 % Monocytes % (Manual) 4 3 % Metamyelocytes % (Man) 3 3 % Myelocytes % (Man) 4 6 % Neutrophils # (Manual) 10.85 H 11.45 H (1.40-6.50) K/uL Total Absolute Neuts 10.85 H 11.45 H (1.4-6.5) K/uL Lymphocytes # (Manual) 0.78 L 0.99 L (1.2-3.4) K/uL Total Abs Lymphocytes 0.78 L 0.99 L (1.2-3.4) K/uL Monocytes # (Manual) 0.52 0.42 (0.11-0.59) K/uL Metamyelocytes # (Man) 0.39 H 0.42 H (0-0) K/uL Myelocytes # (Manual) 0.52 H 0.85 H (0-0) K/uL Polychromasia 1+ 1+ Tear Drop Cells 1+ 1+ Sodium 136 138 (136-145) mmol/L Potassium 3.5 3.5 (3.5-5.1) mmol/L Chloride 104 106 (98-107) mmol/L Carbon Dioxide 27 28 (21-32) mmol/L Anion Gap 5 4 (3-11) BUN 12 12 (6-23) mg/dl Creatinine 0.28 L 0.30 L (0.6-1.2) mg/dl Est Cr Clr Drug Dosing 279.4 260.8 ml/min eGFR 134.63 132.41 BUN/Creatinine Ratio 42.9 H 40.0 H (10-20) Glucose 150 H 123 H (70-99(Fasting)) mg/dl Calcium 7.8 L 7.9 L (8.6-10.3) mg/dl Magnesium 2.0 2.2 (1.7-2.4) mg/dl Total Bilirubin 1.3 H 1.5 H (0.2-1.0) mg/dl AST 60 H 66 H (13-39) U/L ALT 117 H 122 H (7-52) U/L Alkaline Phosphatase 86 93 (34-104) U/L Total Protein 4.7 L 5.0 L (6.0-8.3) gm/dl Albumin 2.7 L 2.9 L (3.4-5.0) gm/dl Globulin 2.0 L 2.1 L (2.5-4.0) gm/dl Albumin/Globulin Ratio 1.4 1.4 (0.9-2) Hep Bs Antigen Negative (Negative) Hepatitis C Antibody Pending Blood Type Pending Antibody Screen Pending Crossmatch See Detail PG Care Time/CCT Total # of Minutes Spent Total Time Spent with Patient: Total time spent is greater than 50% in coordination of care (as documented) at patient's floor/unit and/or counseling patient: Coding Level of Care Code 07840 SUB INP/OBS CARE 3/50MIN Diagnoses Shortness of breath R06.02 Rhinovirus B34.8 Malignant neoplasm of left breast metastatic to brain C50.919; C79.31 Laterality: unspecified laterality Hypertension I10 Situational mixed anxiety and depressive disorder F43.23 (3) Breast cancer metastasized to brain Laterality: unspecified laterality Qualified Code(s): C50.919 - Malignant neoplasm of unspecified site of unspecified female breast; C79.31 - Secondary malignant neoplasm of brain
--- NOTE | 2024-12-22 08:09 | Pulmonology Progress Note ---
Date of Service December 22, 2024 Assessment & Plan (1) Acute asthma exacerbation: (2) Asthmatic bronchitis: (3) Rhinovirus infection: (4) Shortness of breath: (5) Pulmonary embolism: (6) Breast cancer metastasized to brain: Laterality: unspecified laterality Qualified Code(s): C50.919 - Malignant neoplasm of unspecified site of unspecified female breast; C79.31 - Secondary malignant neoplasm of brain Plan CTA chest 12/18/2024 personally reviewed: Motion degraded study minimal dependent access of the left femoral No clear lung infiltrate Cardiomegaly No significant mediastinal lymphadenopathy PFT 10/09/2021 personally reviewed: Moderate obstructive lung dysfunction with significant bronchodilator response, air trapping, normal DLCO FVC 2.75 L 75%, FEV1 1.90 L 64%, FEV1/FVC 59%, RV 0.54%, TLC 108%, RV/TLC 144%, DLCO 101% 2D echo 12/19/2024: EF 55-60%, grade 1 diastolic dysfunction, RV normal in size and function --Asthma exacerbation with asthmatic bronchitis Not on any inhalers at home Etiology is likely rhinovirus Respiratory [employer] positive for entero-/rhinovirus on 12/18/2024 Procalcitonin negative, nasal MRSA negative BNP 26 -- History of metastatic breast cancer Initially diagnosed in 2013 s/p bilateral mastectomy Relapsed 2021 with brain mets, currently on bevacizumab. And getting radiation Also taking dexamethasone 1 mg twice daily On letrozole -- Mildly enlarged main pulmonary artery There is probability patient might have sleep apnea Outpatient polysomnography could be considered --History of PE On Xarelto Plan: Patient will benefit from chest vest therapy, would recommend case management to get involved to see if they are able to get this at [facility] Continue with Perforomist and budesonide nebulized twice a day along with hypertonic saline nebulized and Mucinex. Would recommend the same regimen even at halfway Case was discussed with RN and primary team No further recommendation from pulmonary perspective, will sign off Please call directly with any questions Please note the above document was generated using voice recognition software. It may contain grammatical, syntax or spelling errors.Any formal questions or concerns about the content, text or information contained within the body of this dictation should be directly addressed to the provider for clarification. Admission and Anticipated Discharge Date Admission Date: December 20, 2024 Subjective Patient seen and examined at bedside. No acute distress, no adverse events overnight Patient just finished her breakfast when I entered the room She says she is feeling better compared to before She has been coughing up phlegm now. Denied any headache, no nausea or vomiting Please make note patient is slow to respond Review of Systems 2 Review of Systems: All systems reviewed & are unremarkable except as noted in Subjective Physical Exam 2 Physical Exam: Constitutional: No acute distress HEENT: EOMI, PERRLA, cushingoid features Respiratory system: Decreased air entry bilaterally, no wheeze, minimal rhonchi bilaterally, positive crackles CVS: S1-S2 positive, no murmurs or gallops Abdomen: Soft, nontender, nondistended, positive bowel sounds x4, obese Extremities: +2 pulses bilaterally radialis/ dorsalis pedis, no cyanosis, +2 pitting edema bilateral lower extremity Neuro: Awake alert oriented to self and place, slow to respond Psych: Flat mood and affect G/U: Positive Mohr Skin: no rashes, warm and dry Lymphatic: no cervical or axillary lymphadenopathy Results & Data Results & Data Vital Signs (Past 12 Hours) Vital Signs Temp Pulse Pulse Resp BP Pulse Ox O2 Del Method 12/22/24 07:41 103 H 18 96 Room Air 12/22/24 07:09 83 12/22/24 06:06 36.7 C 83 18 112/67 95 Room Air 12/22/24 03:42 36.6 C 82 16 107/69 96 Room Air 12/21/24 23:35 36.5 C 87 16 109/70 95 Room Air 12/21/24 21:44 89 12/21/24 20:16 Room Air Laboratory Results 12/22/24 03:54 12/22/24 03:54 PG Care Time/CCT Total # of Minutes Spent Total Time Spent with Patient: Total time spent is greater than 50% in coordination of care (as documented) at patient's floor/unit and/or counseling patient: Coding Level of Care Code 68564 SUB INP/OBS CARE 2/35MIN Diagnoses Acute asthma exacerbation J45.901 Asthmatic bronchitis J45.909 Rhinovirus infection B34.8 Shortness of breath R06.02 Pulmonary embolism I26.99 Malignant neoplasm of left breast metastatic to brain C50.919; C79.31 Laterality: unspecified laterality
[2024-12-22] MEDS: FUROSEMIDE 40 MG TAB PO SCH (08:26)
[2024-12-22 09:53] LABS: Hep C Ab Rflx HepCQuant RNA Negative (Negative)
[2024-12-22] MEDS: FUROSEMIDE 40 MG/4 ML VIAL IV ONE (10:02)
[2024-12-22] MEDS: POTASSIUM CHLORIDE CRTAB 20 MEQ TABCR PO STA ×2 (11:17→17:50)
[2024-12-22] MEDS: DOXYCYCLINE HYCLATE 100 MG CAP PO SCH (11:17)
--- NOTE | 2024-12-22 13:54 | Palliative Family Discussion ---
Date of Service December 22, 2024 Patient Directed Conference Time of Meetinam-12pm Participants: Madelaine Liz DNP Patient participation: yes Patient Support System: parents (Mom and Dad) Other Healthcare Provider Participation: None Meeting Location: bedside with pt then family meeting room with parents Advanced Directive available: Yes If yes, descriptors: POLST signed in cancer clinic The patient's surrogate medical decision maker participated: father Legally authorized health care proxy: father Other surrogate: mother A face to face ACP family meeting was held for ZAYNAB MOREL. This meeting was necessary for determining the appropriate course of treatment. Topics of Discussion Topics of Discussion: 1. MoCA administered 2. MoCA is 11/13. Last was 04/15. prior to this was approx . Steadily declining. PS declining. non ambulatory. 3. They met with [facility] onc -advsied no further chemo. [facility] teams are in agreement. Cessation of chemo discussed and agreed upon. No further meaningful beenfit. Discussed transition to hospice. I provided education about the hospice benefit: an interdisciplinary program offered by nurses, nurses aides, social workers, chaplains and a anesthesiology medical doctor for patients with a terminal condition and a life expectancy of less than 6 months. This is covered by Medicare at 100%/no out of pocket expense to patient and all meds/supplies needed by patient for the reason they are on hospice are paid for/covered by hospice. The goal is assure quality of life of the patient in their home setting (home, chcf, inpatient hospice setting) by providing symptoms management, psychosocial and spiritual support. However, they cannot offer 24 hours care and if the family is unable to provide that care, they will have to consider personal care with out of pocket cost vs. chcf placement. We discussed the goals of hospice as a patient service and the goals of care; we discussed EOL trajectories and transitions ayan the emotional impact of realizing mortality as a concrete reality from prior abstract considerations. Pt was reassured that no matter where they are along this trajectory, they are not alone - their medical team will remain by their side through their journey. Discussed the pros/cons of accepting help when especially weakened and distressed by pain-which would also help provide relief/decrease caregiver burden/strain. Discussed home hospice vs SNF. Advised her physical needs are too high for just her parents to try and manage in home. We agreed for SNF Hospice dc tomorrow. Prmary team aware. Other Content of Meetin. Opportunity given for participants to speak and ask questions. 2. Participants were assured of attention to patient comfort. 3. Reassurance provided. 4. Support was provided for informed, good-rosa decisions. 5. Emotions expressed by family were acknowledged and addressed. 6. Family asked about changes/what to expect.Discussed changes pt may move through in the dying process including but not limited to sleeping more, disorientation when awake, restlessness, diminished senses/inability to respond to stimulus although ability to be aware of them remains intact longer, changes in body temperatures, skin changes/mottling/cyanosis, respiratory pattern changes, oral secretions. Family verbalized understanding. The goal is to assure a peaceful . 7. Plan of Care: DC with hospice to SNF tomorrow. No agency preference. Oxygen at EOL: For patients at the end of life, oxygen delivered by a nasal cannula provides no additional symptomatic benefit for relief of refractory dyspnea in patients with life-limiting illness compared with room air: there's a point at which that the oxygen level gets so low that it's no longer compatible with life. By providing supplemental oxygen, the dying process will be unnecessarily prolonged. Please use less burdensome but more effective strategies such as comfort care meds, oscillating fan, massage, repositioning, etc. (Isaias AP, Gibson CF, Sarah PA, et al. Effect of palliative oxygen versus room air in relief of breathlessness in patients with refractory dyspnoea: a double-blind, randomised controlled trial. Lancet. 2010;376(6674):784-793. doi:10.1016/[id number](56)14533-4) Secretions at EOL/management: I discussed with family that as the level of consciousness decreases in the dying process, patients lose their ability to swallow and clear oral secretions. As air moves over the secretions, which have pooled in the oropharynx and bronchi, the resulting turbulence produces noisy ventilation with each breath, described as gurgling or rattling noises. While there is no evidence that patients find this rattle disturbing, evidence from bereaved surveys suggests the noises can be disturbing to the patients visitors and caregivers who may fear that the patient is choking to . We recommend a combination of Non-Pharmacological and Pharmacological Treatments: * 1. Position the patient on their side or in a semi-prone position to facilitate postural drainage * 2. Communication with family and caregivers to reaffirm commitment to their loves ones care, reduce anxiety and fears. * 3. Gentle oropharyngeal suctioning is used although this can be ineffective when fluids are beyond the reach of the catheter. Avoid deep suctioning as it is very irritating. Note that frequent suctioning is disturbing to both the patient and the visitors. * 4. Reduction of fluid intake. * 5. Consider a 1-2 min Trendelenburg positioning, to move fluids up into the oropharynx for easier removal BUT note that ASPIRATION RISK WILL INCREASE. * 6. Muscarinic receptor blockers (anti-cholinergic drugs) are most often used: glycopyrrolate (Robinul), scopolamine (Transderm Scop), hyoscyamine and atropine. Of these, I prefer to using glycopyrrolate as first line treatment, because it is a quaternary amine (therefore does not cross the blood-brain barrier) which reduces the potential anti cholinergic agent associated SPIN IN[employer]CTOR toxicity (sedation, delirium). * 7. Glycopyrrolate has five times the anti-secretory potency compared to atropine, while scopolamine dries/thickens secretions and causes dry mouth, which may be more distressing to the patient and detract from comfort. TS 2 hr with multiple face to face family meetings, GOC discussions, ACP planning.
[2024-12-22] MEDS: POTASSIUM CHLORIDE CRTAB 20 MEQ TABCR PO ONE (14:00)
[2024-12-22 15:38] LABS: Anion Gap 6.0 (3-11); Blood Urea Nitrogen 12.0 mg/dl (6-23); Calcium 7.8 mg/dl (8.6-10.3); Carbon Dioxide 29.0 mmol/L (21-32); Chloride 100.0 mmol/L (98-107); Creatinine Clr Calc Pharmacy 356.8 ml/min; Glucose 107.0 mg/dl (70-99(Fasting)); Hematocrit (blood only) 28.4 % (37.0-47.0); Hemoglobin 9.4 g/dl (12.0-16.0); Mean Corpuscular Hemoglobin 29.7 pg (25.0-34.0); Mean Corpuscular Volume 89.5 fL (80.0-100.0); Platelet Count 71 K/uL (130-400); Potassium 3.2 mmol/L (3.5-5.1); RDW Standard Deviation 54.1 fL (36.4-46.3); Red Blood Count 3.16 M/uL (4.20-5.40); Sodium 135.0 mmol/L (136-145); White Blood Count 15.70 K/ul (4.8-10.8)
--- NOTE | 2024-12-23 07:40 | Pulmonology Progress Note ---
Date of Service December 23, 2024 Assessment & Plan (1) Acute asthma exacerbation: (2) Asthmatic bronchitis: (3) Rhinovirus infection: (4) Shortness of breath: (5) Pulmonary embolism: (6) Breast cancer metastasized to brain: Laterality: unspecified laterality Qualified Code(s): C50.919 - Malignant neoplasm of unspecified site of unspecified female breast; C79.31 - Secondary malignant neoplasm of brain Plan CTA chest 12/18/2024 personally reviewed: Motion degraded study minimal dependent access of the left femoral No clear lung infiltrate Cardiomegaly No significant mediastinal lymphadenopathy PFT 10/09/2021 personally reviewed: Moderate obstructive lung dysfunction with significant bronchodilator response, air trapping, normal DLCO FVC 2.75 L 75%, FEV1 1.90 L 64%, FEV1/FVC 59%, RV 0.54%, TLC 108%, RV/TLC 144%, DLCO 101% 2D echo 12/19/2024: EF 55-60%, grade 1 diastolic dysfunction, RV normal in size and function --Asthma exacerbation with asthmatic bronchitis Not on any inhalers at home Etiology is likely rhinovirus Respiratory [employer] positive for entero-/rhinovirus on 12/18/2024 Procalcitonin negative, nasal MRSA negative BNP 26 -- History of metastatic breast cancer Initially diagnosed in 2013 s/p bilateral mastectomy Relapsed 2021 with brain mets, currently on bevacizumab. And getting radiation Also taking dexamethasone 1 mg twice daily On letrozole -- Mildly enlarged main pulmonary artery There is probability patient might have sleep apnea Outpatient polysomnography could be considered --History of PE On Xarelto Plan: Continue with chest vest therapy even at [facility] Continue with Perforomist and budesonide nebulized twice a day along with hypertonic saline nebulized and Mucinex. Would recommend the same regimen even at [facility] Case was discussed with RN and primary team No further recommendation from pulmonary perspective, will sign off Please call directly with any questions Please note the above document was generated using voice recognition software. It may contain grammatical, syntax or spelling errors.Any formal questions or concerns about the content, text or information contained within the body of this dictation should be directly addressed to the provider for clarification. Admission and Anticipated Discharge Date Admission Date: December 20, 2024 Subjective Patient seen and examined at bedside. No acute distress, no dizziness overnight Patient's parents are also in the room Patient personally says that she is feeling better She has been using the flutter valve, incentive spirometry as well as the chest vest Denies any nausea or vomiting Appetite is fair Review of Systems 2 Review of Systems: All systems reviewed & are unremarkable except as noted in Subjective Physical Exam 2 Physical Exam: Constitutional: No acute distress HEENT: EOMI, PERRLA, cushingoid features Respiratory system: Decreased air entry bilaterally, no wheeze, no rhonchi, mild crackles bilateral lower lobe CVS: S1-S2 positive, no murmurs or gallops Abdomen: Soft, nontender, nondistended, positive bowel sounds x4, obese Extremities: +2 pulses bilaterally radialis/ dorsalis pedis, no cyanosis, +2 pitting edema bilateral lower extremity Neuro: Awake alert oriented to self and place, slow to respond Psych: Flat mood and affect G/U: Positive Mohr Skin: no rashes, warm and dry Lymphatic: no cervical or axillary lymphadenopathy Results & Data Results & Data Vital Signs (Past 12 Hours) Vital Signs Temp Pulse Pulse Resp BP Pulse Ox O2 Del Method 12/23/24 04:00 36.5 C 89 18 125/81 95 Room Air 12/23/24 00:24 94 H 12/22/24 23:11 Room Air 12/22/24 23:10 36.6 C 88 18 130/79 96 Room Air 12/22/24 20:56 89 17 93 Room Air Laboratory Results 12/23/24 08:14 12/23/24 08:14 PG Care Time/CCT Total # of Minutes Spent Total Time Spent with Patient: Total time spent is greater than 50% in coordination of care (as documented) at patient's floor/unit and/or counseling patient: Coding Level of Care Code 02358 SUB INP/OBS CARE 2/35MIN Diagnoses Acute asthma exacerbation J45.901 Asthmatic bronchitis J45.909 Rhinovirus infection B34.8 Shortness of breath R06.02 Pulmonary embolism I26.99 Malignant neoplasm of left breast metastatic to brain C50.919; C79.31 Laterality: unspecified laterality
--- NOTE | 2024-12-23 07:48 | Hospitalist Progress Note ---
Date of Service December 23, 2024 Assessment & Plan (1) Shortness of breath: (2) Rhinovirus: (3) Breast cancer metastasized to brain: (4) Hypertension: (5) Situational mixed anxiety and depressive disorder: (6) Urinary retention: Plan 44yo presented with increased SOB/congestion and cough x 2 weeks with change in sputum (pink in color) and associated sore throat. Currently diagnosed with metastatic breast ca s/p mastectomy (mets to spine, brain s/p whole brain radiation). Hx PEs on Xarelto 10mg daily. Other residents also ill from viral illness and suspect contracted viral illness at SNF/rehab, [employer]fire POSITIVE for rhinovirus/enterovirus. CTA Chest negative for PE or focal consolidation, and thankfully no hypoxia/O2 requirement Low grade temp 99F reported 8/ #Rhinovirus/Enterovirus #Shortness of breath #Acute asthma exacerbation - 2nd to viral illness Admission for treatment of asthma exacerbation 2nd to rhinovirus/enterovirus concerning for possible bacterial PNA vs other in patient immunocompromised undergoing chemotherapy (last treatment ~ 1 week ago) and reported associated cough/congestion/sore throat x 2 weeks and other residents at [facility] ill with viral/respiratory illness. Temp 99F prior to arrival and had been on dexame thasone 2mg PO BID and started on prednisone prior to admission.. WBC 14k, procal 0.1. Lactic elevated, normalized following tx/IVF 250cc bolus x 1. NO HYPOXIA but coarse breath sounds throughout. CTA chest NEGATIVE for PE/consolidative pneumonia and reviewed by pulm and no concerns for PJP given steroid use at baseline [employer] testing + for rhinovirus/enterovirus. Isolation precautions Given Zosyn/Doxy x 4 days. Pulm not concerned for PJP/infectious etiology in chest, no need for Zosyn/ok to continue Doxy (converted to PO) Sputum cx moderate normal mathew. Blood cultures NGTD WBC trending down w/ decreased steroids, continue 2mg IV BID dexamethasone for now Nebs: continue hypertonic saline, budesonide, formoterol BID - rx at dc along w/ vibration vest planned at [facility] Continue mucinex, flutter valve, incentive spirometry Continue lasix 40mg PO daily for diuresis Hgb 7.5, likely 2nd to chemo/volume status but discussed w/ Dr Rand from oncology and obtained consent/discussion w/ father Ed/medical POA (per patient wishes as well) and 1u PRBC ordered w/ Lasix IV x1 and monitoring repeat blood counts Continues on Xarelto for DVT proph Likely underlying WILDA baseed on overnight pulse ox- can have outpt sleep study as desired Hopeful [facility] tomorrow, pending palliative discussion today --> WITH PLAN TO DC ON HOSPICE NOW PER PALLIATIVE DISCUSSION #Volume overload/edema- suspect aspect 2nd to steroid use as well as low albumin. No hypoxia. CXR w/o overt pulmonary edema and BNP not elevated, echo w/ grade I diastolic dysfunction Diuretics w/ lasix with ongoing Dexamethasone and have ordered supplemental K to prevent electrolyte issue. Nutrition for supplements LFTs improved w/ diuretics #Urinary Retention- acute suprapubic fullness/discomfort, decreased UOP on diuretics --> bladder scan for >700cc --> Prather place with immediate relief Will plan to continue prather at [place] given plans for dc on hospice for comfort w/ ambulatory status #Anemia- as above, 1u PRBC ordered. hgb 7.5 on labs but has been in 8s without bleeding reported. Iron studies/B12/folate acceptable. Could have component of hemolysis but no rashes on exam. #Metastatic Breast Ca-s/p whole brain radiation as well as radiation to cervical spine this past summer. Follows locally with Dr Rand, last treatment last week ~1wk ago, port to L chest looks good Continue steroids dex 4mg BID (prior titrated to 2mg BID), abx/cx as outlined Dr Rand consulted to weigh in/recs, appreciate input/assistance ECHO obtained, diastolic dysfunction grade I but no reduced EF or valvular disease. -Overnight pulse ox noting drop/suspected underlying WILDA and can arrange [facility] HS, outpt sleep study 1u PRBC as above Continued therapy at [facility] as above Outpatient f/u Dr Rand at [facility] #Hx PE- 2nd metastatic breast ca. Chest CTA as above neg for acute PE. Continues on xarelto 10mg PO daily. No pleuritic chest pain reported #Vitamin D deficiency- low 20, PO replacement started- rec continue at [facility] #Troponin elevation - minor elevation in setting of viral illness without CP reports. Repeat trended down but given cardiomegaly new (?2nd to chemo/possible underlying WILDA) checked ECHO. No wma, remains NSR on telemetry and no CP reported. Can dc telemetry #Electrolyte abnormality, hypokalemia- resolved on repeat testing, ?2nd to poor PO intake w/ viral illness vs recent lasix use for volume status Replacement ordered/continued w/ lasix for diuresis and labs remain stable Losartan resumed, BP stable Monitor BMP DVT proph: Xarelto 10mg daily continued Dispo: continued inpatient stay for PRBC for nebulizers/steroids and hopeful dc [facility] 12/22 w/ nebs/inhalers and vibration vest Family updated at bedside 12/21 Admission and Anticipated Discharge Date Admission Date: December 20, 2024 Subjective Eval this morning, sitting up in bed. Reports no SOB, breathing on room air Sending to [facility] w/ hospice, pain meds to be provided and Potassium for leg cramping/pain since this morning. K 4.0 on AM labs but prior lows w/ use and has been ordered as suspected drops. Father reports significant urination w/ diuretics yesterday, leg edema much improved. Will continue nebs for symptoms at [facility], no further chemotherapy, [facility] hospice arranged by case management. Questions/concerns addressed, support provided. Results & Data Results & Data Vital Signs (Past 12 Hours) Vital Signs Temp Pulse Pulse Resp BP Pulse Ox O2 Del Method 12/23/24 04:00 36.5 C 89 18 125/81 95 Room Air 12/23/24 00:24 94 H 12/22/24 23:11 Room Air 12/22/24 23:10 36.6 C 88 18 130/79 96 Room Air 12/22/24 20:56 89 17 93 Room Air PG Care Time/CCT Total # of Minutes Spent Total Time Spent with Patient: Total time spent is greater than 50% in coordination of care (as documented) at patient's floor/unit and/or counseling patient: Coding Diagnoses Shortness of breath R06.02 Rhinovirus B34.8 Malignant neoplasm of left breast metastatic to brain C50.919; C79.31 Laterality: unspecified laterality Hypertension I10 Situational mixed anxiety and depressive disorder F43.23 Urinary retention R33.9 (3) Breast cancer metastasized to brain Laterality: unspecified laterality Qualified Code(s): C50.919 - Malignant neoplasm of unspecified site of unspecified female breast; C79.31 - Secondary malignant neoplasm of brain
[2024-12-23 08:22] VITALS: O2SAT 94
[2024-12-23 08:42] LABS: Hematocrit (blood only) 28.2 % (37.0-47.0); Hemoglobin 9.0 g/dl (12.0-16.0); Mean Corpuscular Hemoglobin 29.1 pg (25.0-34.0); Mean Corpuscular Volume 91.3 fL (80.0-100.0); Platelet Count 82 K/uL (130-400); RDW Standard Deviation 58.8 fL (36.4-46.3); Red Blood Count 3.09 M/uL (4.20-5.40); White Blood Count 13.57 K/ul (4.8-10.8)
[2024-12-23 09:08] LABS: Alanine Aminotransferase 109.0 U/L (7-52); Albumin Globulin Ratio 1.3 (0.9-2); Alkaline Phosphatase 85.0 U/L (34-104); Anion Gap 4.0 (3-11); Bilirubin,Total 1.5 mg/dl (0.2-1.0); Blood Urea Nitrogen 14.0 mg/dl (6-23); Calcium 8.4 mg/dl (8.6-10.3); Carbon Dioxide 29.0 mmol/L (21-32); Chloride 105.0 mmol/L (98-107); Creatinine Clr Calc Pharmacy 313.1 ml/min; Globulin 2.1 gm/dl (2.5-4.0); Glucose 85.0 mg/dl (70-99(Fasting)); Potassium 4.0 mmol/L (3.5-5.1); Sodium 138.0 mmol/L (136-145); Total Protein 4.9 gm/dl (6.0-8.3)
--- NOTE | 2024-12-23 10:30 | Discharge Summary ---
Discharge Summary Date of Service December 23, 2024 Principal Dx & Hospital Course #1 = Principal Diagnosis (1) Shortness of breath: (2) Rhinovirus: (3) Breast cancer metastasized to brain: (4) Hypertension: (5) Situational mixed anxiety and depressive disorder: (6) Urinary retention: Plan 44yo presented with increased SOB/congestion and cough x 2 weeks with change in sputum (pink in color) and associated sore throat. Currently diagnosed with metastatic breast ca s/p mastectomy (mets to spine, brain s/p whole brain radiation). Hx PEs on Xarelto 10mg daily. Other residents also ill from viral illness and suspect contracted viral illness at SNF/rehab, biofire POSITIVE for rhinovirus/enterovirus. CTA Chest negative for PE or focal consolidation, and thankfully no hypoxia/O2 requirement but did have low grade temp 99F 8/3 #Rhinovirus/Enterovirus #Shortness of breath #Acute asthma exacerbation - 2nd to viral illness Admission for treatment of asthma exacerbation 2nd to rhinovirus/enterovirus concerning for possible bacterial PNA vs other in patient immunocompromised undergoing chemotherapy (last treatment ~ 1 week ago) and reported associated cough/congestion/sore throat x 2 weeks and other residents at [facility] ill with viral/respiratory illness. Temp 99F prior to arrival and had been on dexamethasone 2mg PO BID and started on prednisone prior to admission.. WBC 14k, procal 0.1. Lactic elevated, normalized following tx/IVF 250cc bolus x 1. NO HYPOXIA but coarse breath sounds throughout. CTA chest NEGATIVE for PE/consolidative pneumonia and reviewed by pulm and no concerns for PJP given steroid use at baseline Biofire testing + for rhinovirus/enterovirus. Isolation precautions maintained Given Zosyn/Doxy x 5 days. Pulm not concerned for PJP/infectious etiology in chest, no need for Zosyn/ok to continue Doxy (converted to PO) and completed >5day course Blood cultures NGTD Dexamethasone IV BID, titrating back to 2mg BID at dc Given nebs/mucinex, incentive spirometry/flutter valve to help w/ mucus plugging expectoration Sputum cx moderate normal mathew. WBC elevated but trended down but remained afebrile, suspect could be from steroids/metastatic disease Did get 1u PRBC for hgb 7.[address] Rand and no bleeding reported and hgb stable at 9.0 on repeat Had been given lasix for diuresis/leg edema w/ some improvement and to continue as needed w/ ongoing steroids Continued nebs for symptoms/support, xarelto for DVT proph as able to take and her dexamethasone w/ brain mets along w/ seizure medications but non-essential medications stopped at this time as chemo doing more harm than good w/ rapid progressive decline since earlier this year (see palliative notes) Further discussion with family, father POA given patient unable to make decisions at this time per discussion with palliative and decision for referral to hospice agency to dc on hospice back to [facility]. [facility] arranged #Volume overload/edema- suspect aspect 2nd to steroid use as well as low albumin however without hypoxia. CXR w/o overt pulmonary edema and ECHO w/ grade I diastolic dysfunction but no significant valvular disease Additional lasix provided and IV w/ PRBC and edema much improved/remains on room air Lasix as needed w/ ongoing prather placed 12/22 for urinary retention w/ ongoing steroids. LFTs improved w/ diuretics. hepatits panel negative #Urinary Retention- acute suprapubic fullness/discomfort, decreased UOP on diuretics 12/22--> bladder scan for >700cc --> Prather place with immediate relief and plan to continue prather at [place] given plans for dc on hospice for comfort w/ ambulatory status #Anemia- as above, 1u PRBC ordered. hgb 7.5 on labs but has been in 8s without bleeding reported. Iron studies/B12/folate acceptable. Could have component of hemolysis but no rashes on exam. Hgb improved/stable at 9 from 7.5 #Metastatic Breast Ca-s/p whole brain radiation as well as radiation to cervical spine this past summer. Follows locally with Dr Rand, last treatment last week ~1wk ago, port to L chest looks good Continue steroids dex 4mg BID (prior titrated to 2mg BID), abx/cx as outlined Dr Rand consulted to weigh in/recs, appreciate input/assistance ECHO obtained, diastolic dysfunction grade I but no reduced EF or valvular disease. PRBC 8/8 per oncology Overnight pulse ox noting drop/suspected underlying WILDA and can arrange [facility] HS, outpt sleep study -- defer as moving to comfort as above 1u PRBC as above Does not need oncology f/u as moving to hospice at [place] #Hx PE- 2nd metastatic breast ca. Chest CTA as above neg for acute PE. Continued on xarelto 10mg PO daily. No pleuritic chest pain reported #Vitamin D deficiency- low 20, PO replacement started-deferred ongoing supplementation at [place] #Troponin elevation - minor elevation in setting of viral illness without CP reports. Repeat trended down but given cardiomegaly new (?2nd to chemo/possible underlying WILDA) checked ECHO. No wma, remains NSR on telemetry and no CP reported. AK telemetry #Electrolyte abnormality, hypokalemia- resolved on repeat testing, ?2nd to poor PO intake w/ viral illness vs recent lasix use for volume status Replacement ordered/continued w/ lasix for diuresis and labs remain stable Losartan resumed, BP stable and continued as tolerated but can stop as things progress DVT proph: Xarelto 10mg daily continued Dispo:: dc back to [facility] w/ [facility]. Father/POA updated in room 12/23 regarding plan Notes For Next Care Provider Ensure ongoing comfort/support through hospice at discharge (family also lost their son in his 40s) Non-essential meds discontinued and can stop further meds as things progress Medication Changes From Visit Nebulizers as needed for mucus plugging/congestion, glycopyrrolate prn sent Lasix as needed for weight gain/edema Stopped non-essential meds as outlined on discharge summary list- BP/cardiac meds continued for now as tolerating PO but can stop as things progress Admission HPI Per Admitting Provider 44yo presented from [facility] for increased congestion/cough x 2 weeks. Sputum pink in color. Associated sore throat. Currently undergoing chemotherapy for metastatic breast Ca (brain, spine s/p whole brain radiation), follows with Dr Rand. Last chemo ~ 1 week ago today. Father reports he notified [facility] of admission. Patient seen in C7, family at bedside. Reports SOB for about the past two weeks with associated sore throat/congestion and tightness. Reports others at [facility] also with viral illness as well. Had reported feeling "hot" yesterday, temp 99F reported. 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 Reports feeling better since the duonebs. Denies sputum production typically but has had some pink colored sputum. Father in room reports difficult with getting up sputum. Discussed biofire testing positive, isolation precautions and blood cultures/antibiotics but suspect at least 48hr to ensure negative. Patient has port to her LEFT chest, appears without signs of infection. Currently on dexamethasone 2mg QAM/2mg PM but reports [facility] also had placed on prednisone as well. Took her medications this morning. Do note recent admission 10/07-10/08 for weakness and was tx [facility] side per rec Neuro/Oncology for neurosurgery eval for lesion cervical spine. Father reports no surgery done there but she did have radiation to area of her cervical spine. Discussed admission for continued antibiotics, monitoring cultures and therapy to see about return to [facility] at [place] once improved from current illness. Full code as discussed. Admission Exam Per Admitting Provider General: 44yo female, looks older than stated age, ill appearing, +cough, family at bedside HEENT: hair loss from chemo, mm slightly dry, trachea midline Chest: port to L chest c/d/i, no evidence for infection, no young thema/drainage/warmth Resp: coarse throughout, end expiratory wheezing, on room air, + cough CV: regular, faint systolic murmur, trace pedal edema, pulses present, calves nontender GI: +BS, soft, NT : no prather MSK/Neuro; generalized weakness but nonfocal, no slurred speech but slow to respond at times (father in room to help with historical information) Psych: alert/oriented, fatigued appearing but pleasant/cooperative with exam Discharge Exam General: 44yo female resting in bed, eating breakfast, + cough, NAD/reports breathing improved/less SOB, father in room HEENT: hair loss from chemo, mm improved/stable, trachea midline, nystagmus from brain meds, R ear cerumen/no tragus/pinna tenderness/erythema or drainage or mastoid tenderness Chest: port to L chest c/d/i, no evidence for infection, no erythema/drainage/warmth Resp: coarse throughout/rales upper airways, no significant wheezing, b/l crackles/diminished in the bases, on room air CV: regular, no significant m/r/g, 1+ pedal edema IMPROVED, LLE tenderness with flexion/lifting at the hip however pulses present/calves nontender GI: +BS, soft/obese, NT : prather draining appropriately MSK/Neuro; generalized weakness sitting up in bed but nonfocal, no slurred speech but slow to respond at times, some intermittent word finding difficulty since brain radiation at baseline (mother/father in room for assistance as well with historian information) Psych: alert/oriented, LESS fatigued, more awake, pleasant/cooperative with exam Discharge Plan Discharge Items Patient Disposition: Transfer Inpatient Rehab Fac Reason For Visit: SOB, RHINOVIRUS, IMMUNOCOMPROMISED Discharge Diagnosis: Rhinovirus, Acute asthma exacerbation Condition on Discharge: Fair Goals: You have been hospitalized for an acute medical problem. During your stay at [facility] [address], we have made an effort to correct the problem that brought you to the hospital while keeping you as comfortable as possible. Medications were used to bring your condition under control and your discharge instructions will include directions for any medications you should take after leaving the hospital. Please make sure you see your Primary Care Provider as part of your follow up plan. Activity: Resume your previous activity Non-emergency contact: Primary Care Provider and Oncologist Call non-emergency contact if: you have any medication questions, your symptoms worsen, your pain is concerning for you and you have a fever Follow-up/Referrals: Dhiraj Harmon III, MD [Primary Care Provider] - Bouchra Rand MD [Physician] - Diet: Heart Healthy Addtl Attending Provider Instructions: You have been hospitalized for shortness of breath, cough/sore throat. Viral testing was positive for RHINOVIRUS, which is likely what caused symptoms. Pulmonology (lung doctor) was consulted and you were given antibiotics and he does not believe you have a bacterial infection but completed course of Doxycycline/Zosyn for treatment. Sputum culture was normal mathew. You have been without a fever and your blood cultures have been negative. You have been given increased steroids along with breathing treatments. At discharge, you should continue formoterol, budesonide, and hypertonic saline twice daily for shortness of breath/mucus plugging/shortness of breath. You should continue Mucinex twice daily to help keep mucus thin and help with clearance as tolerated and your dexamethasone twice daily. Continue incentive spirometry and flutter valve as tolerated. We have continued you on LASIX (furosemide) 40mg daily while on steroids to help with volume management and edema and should continue for the next 2-3 days and can use as needed for weight gain/symptoms following that. You should take supplemental potassium while on lasix to prevent going low but can use as needed if not taking daily. We have placed a urinary catheter which is being continued at discharge to prevent retention/issue with retention that could cause pain. We have stopped all unnecessary medications and can further stop medications as you become unable to tolerate them but have continued essential medications for brain meds/prevention of seizures at this time and medications for comfort. Follow up with primary provider in the next week. Please return to the ER with any increased symptoms, worsening breathing, or for any other symptoms concerning for you. It has been a pleasure being a part of the medical team providing for you while you have been in the hospital. Take care! Pending Studies at Discharge: Yes Studies:: blood cultures -- no growth to date Stand-Alone Forms: [facility] Skilled Items Patient informed of condition?: Yes DNR: No Discharge Level of Care: Acute rehab Communicable Disease: Yes Discharge Prognosis: Stable Lines: None Urinary Catheter: Yes Medications and DC Order Prescriptions: New formoterol fumarate [Perforomist] 20 mcg/2 mL Solution For Nebulization 20 mcg NEB BIDR Qty: 60 0RF furosemide 40 mg Tablet 40 mg PO QAM PRN (Reason: weight gain or edema) Qty: 30 0RF sodium chloride 7 % Solution For Nebulization 4 ml NEB BIDR Qty: 120 0RF budesonide 0.5 mg/2 mL Suspension For Nebulization 0.5 mg NEB BIDR Qty: 60 0RF guaifenesin [Mucinex] 600 mg Tablet Extended Release 12hr 1,200 mg PO Q12 Qty: 30 0RF morphine 20 mg/5 mL (4 mg/mL) solution 5 mg PO Q4H PRN (Reason: pain) Qty: 100 0RF glycopyrrolate 1 mg/5 mL (0.2 mg/mL) solution 0.1 mg PO Q4H PRN (Reason: secretions) Qty: 473 0RF Continued loperamide [Imodium A-D] 2 mg capsule 2 mg PO Q6H PRN (Reason: Diarrhea) olmesartan 20 mg tablet 20 mg PO QAM Qty: 90 3RF sertraline 50 mg tablet 50 mg PO QAM Rx Instructions: TOTAL DOSE 75 MG--TAKES WITH 50 MG TAB. lorazepam 0.5 mg Tablet 0.5 mg PO HS PRN (Reason: Sleep) ondansetron HCl 8 mg tablet 8 mg PO Q8 PRN (Reason: Nausea And Vomiting) prochlorperazine maleate 10 mg tablet 10 mg PO Q6 PRN (Reason: Nausea) diphenoxylate-atropine 2.5-0.025 mg tablet 1 tab PO DIRECTED PRN (Reason: Diarrhea) levetiracetam [Keppra] 500 mg tablet 500 mg PO BID Qty: 60 0RF cetirizine [Zyrtec] 10 mg Tablet 10 mg PO DAILY sertraline 25 mg tablet 25 mg PO QAM Rx Instructions: TOTAL DOSE 75 MG--TAKES WITH 50 MG TAB. Xarelto 10 mg tablet 10 mg PO QAM Changed dexamethasone 2 mg tablet 2 mg PO BID Qty: 0 0RF Rx Instructions: TAPERING DOWN DOSAGE Discontinued Xgeva 120 mg/1.7 mL (70 mg/mL) solution 120 mg subcut MONTHLY Rx Instructions: DUE 10/16/24 Zoladex 3.6 mg implant 0 mg subcut MONTHLY Rx Instructions: DUE 10/16/24 fulvestrant 125 mg/2.5 syringe 500 mg IM MONTHLY Rx Instructions: DUE 10/16/24. may divide dose into 2 equally divided injections; one into each buttock cyanocobalamin (vitamin B-12) 1,000 mcg/mL Solution 1,000 mcg SUBCUT MONTHLY Rx Instructions: DUE 10/16/24 sodium bicarbonate 325 mg Tablet 325 mg PO TID PRN (Reason: LOW SODIUM) letrozole 2.5 mg tablet 2.5 mg PO DAILY Discharge Orders: Discharge Order (Routine); Ordered 12/23/24 Ordered By: Prachi Angel Admission Data Admit Date/Time: 12/20/24 16:57 Attending Provider: Joe Johnson Admit Provider: Joe Johnson Primary Care Provider: Dhiraj Harmon III Other Providers: Joe Johnson; [facility] [place]; Bouchra Rand; Johnny Youssef; [facility] Other Interventions: Discharge Summary Assessment (RN) Last Done: 12/23/24 13:40 Hospital Stay Data Consultations 12/18/24 17:24 ED Decision to Admit Stat 12/20/24 08:15 Consult Oncology Routine 12/20/24 09:27 Consult Pulmonology Routine Diagnostic Imagining Performed Chest X-Ray 12/18/24 11:29 SINGLE VIEW CHEST CLINICAL HISTORY: Dyspnea FINDINGS: 2 AP, portable, upright chest radiographs are compared to study dated 10/07/2024 and correlated with chest CT dated 06/13/2024. The examination is degraded by portable technique and patient rotation. A left internal jugular central venous infusion port is unchanged in position. The heart is enlarged. The pulmonary vasculature is not congested. There is mild bibasilar atelectasis. The lungs and pleural spaces are otherwise clear. No pneumothorax is seen. The skeletal structures are osteopenic. The bony thorax is grossly intact. There are surgical clips in the left chest wall. Bilateral breast implants are in place. IMPRESSION: Cardiomegaly with no acute cardiopulmonary abnormality identified. ACT 112: Negative or not required by law. Electronically signed by: Jesus Gil M.D. 12/18/2024 11:45 AM Chest CTA 12/18/24 12:13 CT ANGIOGRAM OF THE CHEST CLINICAL HISTORY: Chest congestion. Dyspnea. Metastatic breast cancer. COMPARISON STUDY: Chest x-ray dated 12/18/2024. Prior chest CT scans, most rec ently dated 06/13/2024. TECHNIQUE: Following the IV administration of 112 cc of Optiray 320, CT angiogram of the chest was performed from the upper abdomen to the thoracic inlet utilizing the pulmonary embolus protocol. Images are reviewed in the axial, sagittal, and coronal planes. 3-D MIPS images are created and assessed. IV contrast was administered without complication. A dose lowering technique was utilized adhering to the principles of ALARA. The examination is degraded by streak artifact from the body wall abutting the CT gantry. There is also motion artifact. CT DOSE: 1454.03 mGy.cm FINDINGS: Thyroid: Imaged portions of the thyroid gland are normal in size and attenuation. Thoracic aorta: The thoracic aorta is normal in caliber and demonstrates standard 3-vessel arch anatomy. No dissection is seen. Pulmonary vasculature: The pulmonary trunk is dilated, measuring 3.6 cm in diameter. This suggests pulmonary artery hypertension. There are no filling defects identified in main, lobar, or segmental pulmonary branches to suggest pulmonary embolus. Evaluation of the peripheral branches is degraded by streak and motion artifact. Heart: A left internal jugular central venous infusion port is in place. The heart is enlarged noting a [id number] pericardial effusion. Lungs and pleural spaces: Evaluation of the lung parenchyma is degraded by motion artifact. There is no airspace consolidation or pleural effusion. The trachea and central airways appear clear. Dependent atelectasis is seen bilaterally. Mediastinum: There is no mediastinal lymphadenopathy. Isabelle: Clear. Axillae: Surgical clips are noted in the left axilla. No lymphadenopathy is seen. Upper abdomen: Partially visualized upper abdominal viscera is within normal limits. Skeletal structures: Osteoblastic bony metastatic lesions in the significantly changed from previous. [place]er lesions are seen in the left humeral head, as well as the bodies of T10 and T11. Soft tissues: There is postsurgical change from bilateral mastectomy with bilateral breast implants in place. IMPRESSION: 1. There is no evidence of pulmonary embolus in the main, lobar, or segmental pulmonary arteries. 2. There is no airspace consolidation typical for pneumonia or pleural effusion. 3. Cardiomegaly noting a pericardial effusion. 4. 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 These were not demonstrably FDG avid on the 09/20/2024 PET examination and favor treated disease. 5. Additional findings as above. ACT 112: Negative or not required by law. Electronically signed by: Jesus Gil M.D. 12/18/2024 1:30 PM [address] Tissue Neck CT 12/18/24 12:13 CT OF THE NECK WITH IV CONTRAST CLINICAL HISTORY: Congestion, ?aspiration, metastatic disease. COMPARISON STUDY: PET/CT September 20, 2024. MRI of the cervical spine and brain December 05, 2024. TECHNIQUE: Following IV administration of Optiray, helical axial images of the neck were obtained. Sagittal and coronal reconstructions were viewed. Automated exposure control was utilized for the study. A dose lowering technique was utilized adhering to the principles of ALARA. 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 Associated edema is again noted. There is no cervical lymphadenopathy. There is no mass within the neck. Major vasculature of the neck is patent. A left internal jugular [id number] is in place. Please note that the chest CT will be reported separately. There is no prevertebral edema. There are no fractures or suspicious lesions within the cervical spine. IMPRESSION: 1. No acute process within the neck. 2. No evidence for metastatic disease within the neck. 3. 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 ACT 112: Negative or not required by law. Electronically signed by: Sam Browne M.D. 12/18/2024 1:25 PM ECHOCARDIOGRAM 12/23 LV systolic function is normal Grade I diastolic dysfunction RVSP is normal No significant valvular heart disease Pending Results Patient Have Any Pending Studies at Discharge: Yes Discharge Instructions Given to Patient (Per Discharging Provider) You have been hospitalized for shortness of breath, cough/sore throat. Viral testing was positive for RHINOVIRUS, which is likely what caused symptoms. Pulmonology (lung doctor) was consulted and you were given antibiotics and he does not believe you have a bacterial infection but completed course of Doxycycline/Zosyn for treatment. Sputum culture was normal mathew. You have been without a fever and your blood cultures have been negative. You have been given increased steroids along with breathing treatments. At discharge, you should continue formoterol, budesonide, and hypertonic saline twice daily for shortness of breath/mucus plugging/shortness of breath. You should continue Mucinex twice daily to help keep mucus thin and help with clearance as tolerated and your dexamethasone twice daily. Continue incentive spirometry and flutter valve as tolerated. We have continued you on LASIX (furosemide) 40mg daily while on steroids to help with volume management and edema and should continue for the next 2-3 days and can use as needed for weight gain/symptoms following that. You should take supplemental potassium while on lasix to prevent going low but can use as needed if not taking daily. We have placed a urinary catheter which is being continued at discharge to prevent retention/issue with retention that could cause pain. We have stopped all unnecessary medications and can further stop medications as you become unable to tolerate them but have continued essential medications for brain meds/prevention of seizures at this time and medications for comfort. Follow up with primary provider in the next week. Please return to the ER with any increased symptoms, worsening breathing, or for any other symptoms concerning for you. It has been a pleasure being a part of the medical team providing for you while you have been in the hospital. Take care! Supervising Physician Co-Signing Physician Notes The patient was not seen by me. The chart was reviewed. Case discussed with MICHAEL Adrian. Agree with assessment and plan Total Time Total Time Spent Total Time Spent (In Minutes): 60 Coding Level of Care Code 10023 INP/OBS DISCH >30 MIN Diagnoses Shortness of breath R06.02 Rhinovirus B34.8 Malignant neoplasm of left breast metastatic to brain C50.919; C79.31 Laterality: unspecified laterality Hypertension I10 Situational mixed anxiety and depressive disorder F43.23 Urinary retention R33.9
[2024-12-23] MEDS: POTASSIUM CHLORIDE CRTAB 20 MEQ TABCR PO STA (10:57)
[2024-12-23 10:58] LABS: Magnesium 2.0 mg/dl (1.7-2.4)
[2024-12-23 11:15] VITALS: BP 119/76; TEMP 97.9
[2024-12-23 11:24] VITALS: RESP 17
[2024-12-23 13:18] LABS: Hepatitis A Antibody IgM NON-REACTIVE (NON-REACTIVE); Hepatitis B Core Antibody IgM NON-REACTIVE (NON-REACTIVE)
[2024-12-23] MEDS: HEPARIN 100 UNIT/ML 5ML FLUSH FLUSH PRN (13:46)
[2024-12-23 14:19] VITALS: PULSE 93
== END 2024-12-23 14:15 | DRG 866 ==
LOC: SUATTDRO → ED 11:14 → 2N 11:14